=== PATIENT | male | born 1940 | race Caucasian/White ===

== ENCOUNTER 2017-01-17 14:39 | Inpatient (IN) | payer MEDICARE, BC ==
--- NOTE | 2017-01-17 14:57 | EDM.PDOC ---
ED HPI GENERAL MEDICAL PROBLEM - General Chief Complaint: Neuro Symptoms/Deficits Stated Complaint: RESPIRATORY PROBLEMS Time Seen by Provider: 01/17/17 14:52 - History of Present Illness INITIAL COMMENTS - FREE TEXT/NARRATIVE: HISTORY AND PHYSICAL: History of present illness: Patient is a 76-year-old white male who presents with concern of altered mental status and shortness of breath from [facility] he recently had a long stay at [facility] review was transferred to from us for myocardial infarction he had a complicated course at [facility] including cardiac arrest itself a pacemaker placed and has been a [place] for only 2 days has been no reported fever chills vomiting or other concerns Review of systems: As per history of present illness and below otherwise all systems reviewed and negative. Past medical history: As per history of present illness and as reviewed below otherwise noncontributory. Surgical history: As per history of present illness and as reviewed below otherwise noncontributory. Social history: No reported history of drug or alcohol abuse. Family history: As per history of present illness and as reviewed below otherwise noncontributory. Physical exam: HEENT: Atraumatic, normocephalic, pupils reactive, negative for conjunctival pallor or scleral icterus, mucous membranes moist, throat clear, neck supple, nontender, trachea midline. Lungs: Coarse bilaterally breath sounds equal bilaterally, chest nontender. Heart: S1S2, regular, negative for clicks, rubs, or JVD. Abdomen: Soft, nondistended, nontender. Negative for masses or hepatosplenomegaly. Negative for costovertebral tenderness. Pelvis: Stable nontender. Genitourinary: Deferred. Rectal: Deferred. Extremities: Atraumatic, negative for cords or calf pain. Neurovascular unremarkable. Neuro: Awake, somnolent left facial droop the daughter states has been present since his cardiac arrest at [facility] he does follow commands and move all extremities Diagnostics: CBC CMP PT/INR troponin EKG UA blood culture x2 chest x-ray CT brain Therapeutics: IV O2 monitor Impression: #1 altered mental status #2 dyspnea #3 coronary artery disease #4 history of recent pacemaker Definitive disposition and diagnosis as appropriate pending reevaluation and review of above. - Related Data Allergies Allergy/AdvReac Type Severity Reaction Status Date / Time No Known Allergies Allergy Verified 01/17/17 14:49 Home Meds: Home Meds Albuterol/Ipratropium [Combivent Respimat] 1 - 4 puff INH Q4HR PRN 11/13/15 [ History] Budesonide/Formoterol [Symbicort 160-4.5 Mcg Inhaler] 2 inh IH BID 11/14/15 [ History] Naproxen Sodium [Aleve] 220 mg PO DAILY PRN 11/14/15 [History] guaiFENesin [Mucinex] 1 tab PO DAILY PRN 01/29/16 [History] Furosemide [Lasix] 40 mg PO DAILY 07/10/16 [History] Past Medical History HEENT History: Reports: Impaired vision Other HEENT History: wears glasses, top and bottom denture Cardiovascular History: Reports: Aneurysm, CAD, High cholesterol, Hypertension, [place], SOB on exertion Respiratory History: Reports: COPD Gastrointestinal History: Reports: Hiatal hernia Genitourinary History: Reports: BPH, Hydronephrosis, Prostate disorder, Urinary incontinence Other Genitourinary History: urinary incontinence Musculoskeletal History: Reports: Arthritis Neurological History: Reports: None Psychiatric History: Reports: None Endocrine/Metabolic History: Reports: None Hematologic History: Reports: None Immunologic History: Reports: None Oncologic (Cancer) History: Reports: None Dermatologic History: Reports: None - Infectious Disease History Infectious Disease History: Reports: Chicken pox - Past Surgical History HEENT Surgical History: Reports: Tonsillectomy Cardiovascular Surgical History: Reports: Coronary artery stent Other Cardiovascular Surgeries/Procedures: states had repair of aneurysm GI Surgical History: Reports: Colonoscopy, Hernia repair/other Male Surgical History: Reports: Other (see below) Other Male Surgeries/Procedures: previous blocked kidney with stent placement Musculoskeletal Surgical History: Reports: Other (see below) Other Musculoskeletal Surgeries/Procedures:: hx foot surgery Social & Family History - Family History Family Medical History: Noncontributory Oncologic: Reports: Bone - Tobacco Use Smoking Status *Q: Former Smoker Years of Tobacco use: 30 Used Tobacco, but Quit: Yes Month Tobacco Last Used: October Second Hand Smoke Exposure: No - Caffeine Use Caffeine Use: Reports: Coffee - Alcohol Use Days Per Week of Alcohol Use: 0 - Recreational Drug Use Recreational Drug Use: No - Living Situation & Occupation Occupation: retired ED ROS GENERAL - Review of Systems Review Of Systems: ROS reveals no pertinent complaints other than HPI. ED EXAM, GENERAL - Physical Exam Exam: See Below (See dictation) Course - Vital Signs Last Recorded V/S: Last Vital Signs Temp 36.4 C 01/17/17 14:49 Pulse 73 01/17/17 14:49 Resp 16 01/17/17 14:49 BP 135/71 01/17/17 14:49 Pulse Ox 96 01/17/17 14:49 - Orders/Labs/Meds Orders: Active Orders 24 hr Category Date Time Status Patient Status [ADT] Stat ADT 01/17/17 17:34 Ordered Cardiac Monitoring [RC] . DIRECTED Care 01/17/17 14:42 Active EKG Documentation Completion [RC] STAT Care 01/17/17 14:42 Active CULTURE BLOOD [BC] Stat Lab 01/17/17 15:25 Received CULTURE BLOOD [BC] Stat Lab 01/17/17 15:35 Received Levofloxacin/Dextrose 5%-Water [Levaquin in D5W 750 MG/ Med 01/17/17 17:33 Ordered 150 ML] 750 mg Premix Bag 1 bag IV ONETIME Blood Culture x2 Reflex Set [OM.PC] Stat Oth 01/17/17 14:46 Ordered Labs: Laboratory Tests 01/17/17 01/17/17 01/17/17 Range/Units 14:40 14:40 14:40 WBC 11.45 H (4.0-11.0) K/uL RBC 3.91 L (4.50-5.90) M/uL Hgb 10.9 L (13.0-17.0) g/dL Hct 39.0 (38.0-50.0) % MCV 99.7 H (80.0-98.0) fL MCH 27.9 (27.0-32.0) pg MCHC 27.9 L (31.0-37.0) g/dL RDW Std Deviation 54.2 (28.0-62.0) fl RDW Coeff of Boo 15 (11.0-15.0) % Plt Count 221 (150-400) K/uL MPV 10.30 (7.40-12.00) fL Neut % (Auto) 85.2 H (48.0-80.0) % Lymph % (Auto) 4.4 L (16.0-40.0) % [place] % (Auto) 8.9 (0.0-15.0) % Eos % (Auto) 1.3 (0.0-7.0) % Baso % (Auto) 0.2 (0.0-1.5) % Neut # 9.8 H (1.4-5.7) K/uL Lymph # 0.5 L (0.6-2.4) K/uL [place] # 1.0 H (0.0-0.8) K/uL Eos # 0.2 (0.0-0.7) K/uL Baso # 0.0 (0.0-0.1) K/uL Nucleated RBC % 0.0 /100WBC Nucleated RBCs # 0 K/uL Sodium 148 H (136-146) mmol/L Potassium 4.5 (3.5-5.1) mmol/L Chloride 111 H (98-110) mmol/L Carbon Dioxide 27 (21-31) mmol/L BUN 49 H (6.0-23.0) mg/dL Creatinine 3.3 H (0.6-1.5) mg/dL Est Cr Clr Drug Dosing 19.40 mL/min Estimated GFR (MDRD) 18.3 ml/min Glucose 147 H (60-110) mg/dL Calcium 9.2 (8.8-10.8) mg/dL Total Bilirubin 0.3 (0.1-1.5) mg/dL AST 20 (5-40) IU/L ALT 18 (8-54) IU/L Alkaline Phosphatase 92 (40-150) Troponin I 0.20 (0.0-0.29) NG/ML Total Protein 6.8 (6.0-8.0) g/dL Albumin 3.3 L (3.4-4.8) g/dL Globulin 3.5 (2.0-3.5) g/dL Albumin/Globulin Ratio 0.9 L (1.3-2.8) Urine Color Urine Appearance Urine pH (5.0-8.0) Ur Specific [place] (1.001-1.035) Urine Protein (NEGATIVE) mg/dL Urine Glucose (UA) (NEGATIVE) mg/dL Urine Ketones (NEGATIVE) mg/dL Urine Occult Blood (NEGATIVE) Urine Nitrite (NEGATIVE) Urine Bilirubin (NEGATIVE) Urine Urobilinogen (<2.0) EU/dL Ur Leukocyte Esterase (NEGATIVE) Urine RBC (0-2/HPF) Urine WBC (0-5/HPF) Ur Epithelial Cells (NONE-FEW) Urine Bacteria (NEGATIVE) 01/17/17 Range/Units 16:05 WBC (4.0-11.0) K/uL RBC (4.50-5.90) M/uL Hgb (13.0-17.0) g/dL Hct (38.0-50.0) % MCV (80.0-98.0) fL MCH (27.0-32.0) pg MCHC (31.0-37.0) g/dL RDW Std Deviation (28.0-62.0) fl RDW Coeff of Boo (11.0-15.0) % Plt Count (150-400) K/uL MPV (7.40-12.00) fL Neut % (Auto) (48.0-80.0) % Lymph % (Auto) (16.0-40.0) % [place] % (Auto) (0.0-15.0) % Eos % (Auto) (0.0-7.0) % Baso % (Auto) (0.0-1.5) % Neut # (1.4-5.7) K/uL Lymph # (0.6-2.4) K/uL [place] # (0.0-0.8) K/uL Eos # (0.0-0.7) K/uL Baso # (0.0-0.1) K/uL Nucleated RBC % /100WBC Nucleated RBCs # K/uL Sodium (136-146) mmol/L Potassium (3.5-5.1) mmol/L Chloride (98-110) mmol/L Carbon Dioxide (21-31) mmol/L BUN (6.0-23.0) mg/dL Creatinine (0.6-1.5) mg/dL Est Cr Clr Drug Dosing mL/min Estimated GFR (MDRD) ml/min Glucose (60-110) mg/dL Calcium (8.8-10.8) mg/dL Total Bilirubin (0.1-1.5) mg/dL AST (5-40) IU/L ALT (8-54) IU/L Alkaline Phosphatase (40-150) Troponin I (0.0-0.29) NG/ML Total Protein (6.0-8.0) g/dL Albumin (3.4-4.8) g/dL Globulin (2.0-3.5) g/dL Albumin/Globulin Ratio (1.3-2.8) Urine Color YELLOW Urine Appearance SLT CLOUDY Urine pH 5.5 (5.0-8.0) Ur Specific [place] 1.020 (1.001-1.035) Urine Protein TRACE (NEGATIVE) mg/dL Urine Glucose (UA) NEGATIVE (NEGATIVE) mg/dL Urine Ketones NEGATIVE (NEGATIVE) mg/dL Urine Occult Blood MODERATE (NEGATIVE) Urine Nitrite NEGATIVE (NEGATIVE) Urine Bilirubin NEGATIVE (NEGATIVE) Urine Urobilinogen 0.2 (<2.0) EU/dL Ur Leukocyte Esterase SMALL (NEGATIVE) Urine RBC 14-16 (0-2/HPF) Urine WBC 45-50 (0-5/HPF) Ur Epithelial Cells OCCASIONAL (NONE-FEW) Urine Bacteria FEW (NEGATIVE) Departure - Departure Time of Disposition: 17:36 Disposition: Admitted As Inpatient 65 Condition: good Clinical Impression: UTI (urinary tract infection), Altered mental status Referrals: Fede Valderrama MD [Primary Care Provider] - Forms: ED Department Discharge - My Orders Last 24 Hours: My Active Orders 01/17/17 14:42 Cardiac Monitoring [RC] . DIRECTED EKG Documentation Completion [RC] STAT 01/17/17 14:46 Blood Culture x2 Reflex Set [OM.PC] Stat 01/17/17 15:25 CULTURE BLOOD [BC] Stat 01/17/17 15:35 CULTURE BLOOD [BC] Stat 01/17/17 17:33 Levofloxacin/Dextrose 5%-Water [Levaquin in D5W 750 MG/150 ML] 750 mg Premix Bag 1 bag IV ONETIME 01/17/17 17:34 Patient Status [ADT] Stat - Assessment/Plan Last 24 Hours: My Active Orders 01/17/17 14:42 Cardiac Monitoring [RC] . DIRECTED EKG Documentation Completion [RC] STAT 01/17/17 14:46 Blood Culture x2 Reflex Set [OM.PC] Stat 01/17/17 15:25 CULTURE BLOOD [BC] Stat 01/17/17 15:35 CULTURE BLOOD [BC] Stat 01/17/17 17:33 Levofloxacin/Dextrose 5%-Water [Levaquin in D5W 750 MG/150 ML] 750 mg Premix Bag 1 bag IV ONETIME 01/17/17 17:34 Patient Status [ADT] Stat
--- NOTE | 2017-01-17 15:14 | CT ---
EXAMINATION: Non contrast CT head. Coronal and sagittal reformats. HISTORY: Facial droop FINDINGS: No evidence of intra or extra axial hemorrhage, mass, midline shift, hydrocephalus or edema. There is moderate generalized atrophy and periventricular white matter hypodensities. Old tiny periventric ular lacunar infarcts noted. There is a prominence of the extra-axial space along the right aspect o f the cerebellum, unchanged. No hypoattenuation changes in the major vascular territories to suggest acute infarct. No abnormal intracranial calcifications are detected. Mild vascular calcifications are noted. Mucosal thickening is noted within the paranasal sinuses. Pituitary fossa appears unremarkable. The orbits and globes are symmetric. Calvarium is intact. No evidence of skull fracture. IMPRESSION: 1. No acute intracranial abnormality. 2. Generalized atrophy and small vessel ischemic changes.
--- NOTE | 2017-01-17 15:18 | CR ---
EXAMINATION: Portable chest radiograph. HISTORY: Stroke code. Comparison: 12/31/2016. FINDINGS: The trachea is midline. The cardiomediastinal silhouette is stable. There is a right-sided AICD now noted. No focal consolidation, pleural effusion, or pneumothorax. Osseous structures appear unremarkable. IMPRESSION: Interval AICD placement without an acute cardiopulmonary finding.
[2017-01-17] MEDS ORDERED: Levofloxacin/Dextrose 5%-Water 750 MG in Premix Bag 1 BAG IV ONE (17:33)
[2017-01-17] MEDS ORDERED: Ondansetron 4 MG/2 ML SDV IVPUSH PRN (22:45)
[2017-01-17] MEDS ORDERED: Sodium Chloride 0.9% 250 ML IV SCH (22:45)
[2017-01-17] MEDS ORDERED: Acetaminophen 325 MG Tab PO PRN (22:45)
[2017-01-18] MEDS: Heparin Sodium 5,000 Units/ML Vial SUBCUT SCH ×3 (00:07→18:28)
[2017-01-18] MEDS: Pantoprazole 40 MG Tab.CR PO SCH ×2 (07:05→09:59)
[2017-01-18] MEDS ORDERED: Heparin Sodium 5,000 Units/ML Vial SUBCUT SCH (09:15)
--- NOTE | 2017-01-18 09:22 | PCM.HP ---
H&P History of Present Illness - General Date of Service: 01/17/17 - History of Present Illness Initial Comments - Free Text/Narative: 76 yo male who has pmh of ischemic cardiomyopathy with diastolic dysfunction, peripheral vascular disease with AAA repair in 2009 and renal stenting, COPD, BPH with obstructive uropathy, stage III kidney disease. He was discharged yesterday from [facility]. He was transferred from [place] to [place] with acute inferior wall AL. He had a thrombectomy and PCI to RCA. His hospital stay was complicated by ileus, V.fib arrest with respiratory failure s/ p intubation and extubation, pacemaker with ICD implantation due to bradycardia. Today at [place] he was noted to be lethargy. He was brought to the ED and noted to be difficult to arouse. He had CT scan of head and CXR which was unremarkable. UA showed pyuria and WBC was 11,450. He was given Levaquin for UTI and his mentation did improve while in the ED. He was noted to have a creatinine of 3.3 which was up from 2.1 which was checked on 01/09/17. PAtient denies any chest pain, shortness of breath or fevers. Family reports that patient was requesting his inhalers for COPD yesterday due to shortness of breath but as they were not on his correction medication list he did not receive any. - Related Data Allergies/Adverse Reactions: Allergies Allergy/AdvReac Type Severity Reaction Status Date / Time No Known Allergies Allergy Verified 01/17/17 14:49 Home Medications: Home Meds Albuterol/Ipratropium [Combivent Respimat] 2 puff INH BID PRN 11/13/15 [History] Aspirin [Halfprin] 81 mg PO BRK 01/18/17 [History] Bisacodyl [Dulcolax] 10 mg PO BEDTIME 01/18/17 [History] Clopidogrel [Plavix] 75 mg PO DAILY 01/18/17 [History] Furosemide [Lasix] 40 mg PO ACBREAKFAST 01/18/17 [History] Isosorbide Dinitrate [Isochron] 60 mg PO BEDTIME 01/18/17 [History] Metoprolol Tartrate 50 mg PO BID 01/18/17 [History] Pantoprazole [Protonix] 40 mg PO ACBREAKFAST 01/18/17 [History] Tamsulosin [Flomax] 0.4 mg PO BEDTIME 01/18/17 [History] atorvaSTATin [Lipitor] 10 mg PO BEDTIME 01/18/17 [History] Past Medical History HEENT History: Reports: Impaired vision Other HEENT History: wears glasses, top and bottom denture Cardiovascular History: Reports: Aneurysm, CAD, High cholesterol, Hypertension, [place], SOB on exertion, Other (see below) Other Cardiovascular History: pacemaker Respiratory History: Reports: COPD Gastrointestinal History: Reports: Hiatal hernia Genitourinary History: Reports: BPH, Hydronephrosis, Prostate disorder, Urinary incontinence Other Genitourinary History: urinary incontinence Musculoskeletal History: Reports: Arthritis Neurological History: Reports: None Psychiatric History: Reports: None Endocrine/Metabolic History: Reports: None Hematologic History: Reports: None Immunologic History: Reports: None Oncologic (Cancer) History: Reports: None Dermatologic History: Reports: None - Infectious Disease History Infectious Disease History: Reports: Chicken pox - Past Surgical History HEENT Surgical History: Reports: Tonsillectomy Cardiovascular Surgical History: Reports: Coronary artery stent Other Cardiovascular Surgeries/Procedures: states had repair of aneurysm GI Surgical History: Reports: Colonoscopy, Hernia repair/other Male Surgical History: Reports: Other (see below) Other Male Surgeries/Procedures: previous blocked kidney with stent placement Musculoskeletal Surgical History: Reports: Other (see below) Other Musculoskeletal Surgeries/Procedures:: hx foot surgery Social & Family History - Family History Family Medical History: Noncontributory Oncologic: Reports: Bone - Tobacco Use Smoking Status *Q: Former Smoker Years of Tobacco use: 30 Used Tobacco, but Quit: Yes Month Tobacco Last Used: 0 Second Hand Smoke Exposure: No - Caffeine Use Caffeine Use: Reports: Coffee - Alcohol Use Days Per Week of Alcohol Use: 0 - Recreational Drug Use Recreational Drug Use: No - Living Situation & Occupation Occupation: retired H&P Review of Systems - Review of Systems: Review Of Systems: See Below General: Reports: no symptoms HEENT: Reports: no symptoms Pulmonary: Reports: no symptoms Cardiovascular: Reports: no symptoms Gastrointestinal: Reports: No symptoms Genitourinary: Reports: no symptoms Musculoskeletal: Reports: no symptoms Skin: Reports: no symptoms Psychiatric: Reports: no symptoms Neurological: Reports: no symptoms Hematologic/Lymphatic: Reports: no symptoms Immunologic: Reports: no symptoms Exam - Exam Exam: See Below - Vital Signs Vital Signs: Last Vital Signs Temp 36.0 C 02/18/17 08:00 Pulse 76 01/18/17 08:00 Resp 20 01/18/17 08:00 BP 152/66 H 01/18/17 08:00 Pulse Ox 98 01/18/17 08:00 Weight: 98.6 kg - Exam General: alert, cooperative Neck: supple, trachea midline. No: JVD Lungs: Clear to auscultation, Normal respiratory effort Cardiovascular: regular rate, regular rhythm Abdomen: normal bowel sounds, soft Extremities: normal inspection. No: edema Skin: warm, dry, intact Neurological: No: focal deficit - Patient Data Lab Results last 24 hrs: Laboratory Results - last 24 hr 01/18/17 01/18/17 Range/Units 05:00 06:18 WBC 8.86 (4.0-11.0) K/uL RBC 3.97 L (4.50-5.90) M/uL Hgb 11.2 L (13.0-17.0) g/dL Hct 39.9 (38.0-50.0) % MCV 100.5 H (80.0-98.0) fL MCH 28.2 (27.0-32.0) pg MCHC 28.1 L (31.0-37.0) g/dL RDW Std Deviation 52.9 (28.0-62.0) fl RDW Coeff of Boo 15 (11.0-15.0) % Plt Count 203 (150-400) K/uL MPV 10.60 (7.40-12.00) fL Neut % (Auto) 86.5 H (48.0-80.0) % Lymph % (Auto) 5.2 L (16.0-40.0) % [place] % (Auto) 6.3 (0.0-15.0) % Eos % (Auto) 1.8 (0.0-7.0) % Baso % (Auto) 0.2 (0.0-1.5) % Neut # 7.7 H (1.4-5.7) K/uL Lymph # 0.5 L (0.6-2.4) K/uL [place] # 0.6 (0.0-0.8) K/uL Eos # 0.2 (0.0-0.7) K/uL Baso # 0.0 (0.0-0.1) K/uL Nucleated RBC % 0.0 /100WBC Nucleated RBCs # 0 K/uL Sodium 148 H (136-146) mmol/L Potassium 4.3 (3.5-5.1) mmol/L Chloride 113 H (98-110) mmol/L Carbon Dioxide 24 (21-31) mmol/L BUN 50 H (6.0-23.0) mg/dL Creatinine 2.6 H (0.6-1.5) mg/dL Est Cr Clr Drug Dosing 24.63 mL/min Estimated GFR (MDRD) 24.1 ml/min Glucose 100 (60-110) mg/dL Calcium 9.1 (8.8-10.8) mg/dL Result Diagrams: 01/18/17 06:18 01/18/17 05:00 EKG INTERPRETATION Rhythm: NSR Rate (beats/min): 63 P-wave: present ST-T: normal *Q Meaningful Use (ADM) - VTE *Q VTE Criteria *Q: - Stroke *Q Stroke Criteria *Q: - AMI *Q AMI Criteria *Q: Problem List Initiated/Reviewed/Updated: Yes Orders Last 24hrs: Active Orders 24 hr Category Date Time Status Antiembolic Devices [RC] PER UNIT ROUTINE Care 01/17/17 22:46 Active Intake and Output [RC] Q12H Care 01/17/17 22:45 Active Oxygen Therapy [RC] PRN Care 01/17/17 22:45 Active Telemetry Monitoring [Cardiac Monitoring] [RC] . Care 01/17/17 20:11 Active DIRECTED Up ad Latasha [RC] ASDIRECTED Care 01/17/17 22:45 Active VTE/DVT Education [RC] PER UNIT ROUTINE Care 01/17/17 22:45 Active Vital Signs [RC] Q4H Care 01/17/17 22:45 Active Head wo Cont [CT] Stat Exams 01/18/17 08:38 Stop Req Retroperitoneal Ltd [US] Routine Exams 01/17/17 22:43 Ordered ABG [BLOOD GAS ARTERIAL] [BG] Routine Lab 01/18/17 08:36 Ordered BASIC METABOLIC PANEL,BMP [CHEM] AM Lab 01/19/17 05:11 Ordered BASIC METABOLIC PANEL,BMP [CHEM] AM Lab 01/20/17 05:11 Ordered BASIC METABOLIC PANEL,BMP [CHEM] AM Lab 01/21/17 05:11 Ordered CBC WITH AUTO DIFF [HEME] AM Lab 01/19/17 05:11 Ordered CBC WITH AUTO DIFF [HEME] AM Lab 01/20/17 05:11 Ordered CBC WITH AUTO DIFF [HEME] AM Lab 01/21/17 05:11 Ordered CULTURE URINE [RM] Routine Lab 01/18/17 00:48 Received Acetaminophen [Tylenol] Med 01/17/17 22:45 Active 650 mg PO Q4H PRN Aspirin Med 01/18/17 09:00 Active 81 mg PO DAILY Clopidogrel [Plavix] Med 01/18/17 09:00 Active 75 mg PO DAILY Heparin Sodium Med 01/18/17 09:15 Ordered 5,000 units SUBCUT Q12H Isosorbide Dinitrate [Isordil] Med 01/18/17 09:00 Active 40 mg PO DAILY Levofloxacin/Dextrose 5%-Water [Levaquin in D5W 750 MG/ Med 01/18/17 17:45 Ordered 150 ML] 750 mg Premix Bag 1 bag IV Q24H Ondansetron [Zofran] Med 01/17/17 22:45 Active 4 mg IVPUSH Q4H PRN Pantoprazole [Protonix] Med 01/18/17 07:30 Active 40 mg PO ACBREAKFAST Tamsulosin [Flomax] Med 01/18/17 09:00 Active 0.4 mg PO DAILY atorvaSTATin [Lipitor] Med 01/18/17 21:00 Active 10 mg PO BEDTIME Sequential Compression Device [OM.PC] Per Unit Routine Oth 01/17/17 22:46 Ordered Resuscitation Status Routine Resus Stat 01/17/17 22:45 Ordered Medication Orders Acetaminophen (Tylenol) 650 mg PO Q4H PRN PRN Reason: Pain (Mild 1-3)/fever Aspirin (Aspirin) 81 mg PO DAILY [place] Atorvastatin Calcium (Lipitor) 10 mg PO BEDTIME [place] Clopidogrel Bisulfate (Plavix) 75 mg PO DAILY [place] Heparin Sodium (Porcine) (Heparin Sodium) 5,000 units SUBCUT Q12H [place] Isosorbide Dinitrate (Isordil) 40 mg PO DAILY [place] Ondansetron HCl (Zofran) 4 mg IVPUSH Q4H PRN PRN Reason: Nausea Pantoprazole Sodium (Protonix) 40 mg PO ACBREAKFAST [place] Tamsulosin HCl (Flomax) 0.4 mg PO DAILY [place] Assessment/Plan Comment:: 76 yo male with pmh of CAD,CHF,CKD,BPH,COPD admitted with altered mental status found to have UTI UTI: will treat with levquin, urine cultures pending acute on chronic kidney disease, will hydrate with 250 ml of NS IV fluids, hold lasix for today check renal ultrasound and place stokes cath due to concerns of possible obstructive uropathy. CAD with recent AL s/p PCI: continue plavix, ASA, lipitor, isorbide dinitrate and metoprolol Cardiomyopathy: holding lasix for now as patient appears dry, will monitor closely and resume when appropriate COPD: on duonebs
[2017-01-18] MEDS ORDERED: Albuterol/Ipratropium 3.0-0.5 MG/3 ML Neb Soln NEB PRN (09:27)
--- NOTE | 2017-01-18 09:44 | PCM.PN ---
- General Info Date of Service: 01/18/17 - Review of Systems Systems Review Comment:: patient was difficult to arouse this morning, nurses were not able to wake him with sternal rub, he did respond to painful stimuli. When I came to the room he easily awoke and responded appropriately to questions. He denies any shortness of breath, he denies any chest pain - Patient Data Vitals - most recent: Last Vital Signs Temp 36.0 C 01/18/17 08:00 Pulse 76 01/18/17 08:00 Resp 20 01/18/17 08:00 BP 152/66 H 01/18/17 08:00 Pulse Ox 98 01/18/17 08:00 Weight - most recent: 98.6 kg I&O - last 24 hours: Intake & Output 01/17/17 01/18/17 01/18/17 22:59 06:59 14:59 Intake Total 300 Output Total 350 Balance -50 Lab Results last 24 hrs: Laboratory Results - last 24 hr 01/18/17 01/18/17 Range/Units 05:00 06:18 WBC 8.86 (4.0-11.0) K/uL RBC 3.97 L (4.50-5.90) M/uL Hgb 11.2 L (13.0-17.0) g/dL Hct 39.9 (38.0-50.0) % MCV 100.5 H (80.0-98.0) fL MCH 28.2 (27.0-32.0) pg MCHC 28.1 L (31.0-37.0) g/dL RDW Std Deviation 52.9 (28.0-62.0) fl RDW Coeff of Boo 15 (11.0-15.0) % Plt Count 203 (150-400) K/uL MPV 10.60 (7.40-12.00) fL Neut % (Auto) 86.5 H (48.0-80.0) % Lymph % (Auto) 5.2 L (16.0-40.0) % [place] % (Auto) 6.3 (0.0-15.0) % Eos % (Auto) 1.8 (0.0-7.0) % Baso % (Auto) 0.2 (0.0-1.5) % Neut # 7.7 H (1.4-5.7) K/uL Lymph # 0.5 L (0.6-2.4) K/uL [place] # 0.6 (0.0-0.8) K/uL Eos # 0.2 (0.0-0.7) K/uL Baso # 0.0 (0.0-0.1) K/uL Nucleated RBC % 0.0 /100WBC Nucleated RBCs # 0 K/uL Sodium 148 H (136-146) mmol/L Potassium 4.3 (3.5-5.1) mmol/L Chloride 113 H (98-110) mmol/L Carbon Dioxide 24 (21-31) mmol/L BUN 50 H (6.0-23.0) mg/dL Creatinine 2.6 H (0.6-1.5) mg/dL Est Cr Clr Drug Dosing 24.63 mL/min Estimated GFR (MDRD) 24.1 ml/min Glucose 100 (60-110) mg/dL Calcium 9.1 (8.8-10.8) mg/dL Med Orders - Current: Current Medications Acetaminophen (Tylenol) 650 mg PO Q4H PRN PRN Reason: Pain (Mild 1-3)/fever Albuterol/Ipratropium (Duoneb 3.0-0.5 Mg/3 Ml) 3 ml NEB Q6HRRT PRN PRN Reason: wheezing Aspirin (Aspirin) 81 mg PO DAILY [facility] Atorvastatin Calcium (Lipitor) 10 mg PO BEDTIME [facility] Clopidogrel Bisulfate (Plavix) 75 mg PO DAILY [facility] Heparin Sodium (Porcine) (Heparin Sodium) 5,000 units SUBCUT Q12H [facility] Levofloxacin/Dextrose 750 mg/ (Premix) 150 mls @ 100 mls/hr IV Q48H [facility] Isosorbide Dinitrate (Isordil) 40 mg PO DAILY [facility] Ondansetron HCl (Zofran) 4 mg IVPUSH Q4H PRN PRN Reason: Nausea Pantoprazole Sodium (Protonix) 40 mg PO ACBREAKFAST [facility] Tamsulosin HCl (Flomax) 0.4 mg PO DAILY [facility] Discontinued Medications Heparin Sodium (Porcine) (Heparin Sodium) 5,000 units SUBCUT Q8H [facility] Last Admin: 01/18/17 07:05 Dose: 5,000 units Levofloxacin/Dextrose 750 mg/ (Premix) 150 mls @ 100 mls/hr IV ONETIME ONE Stop: 01/17/17 19:02 Last Admin: 01/17/17 17:45 Dose: 100 mls/hr Sodium Chloride (Normal Saline) 250 mls @ 75 mls/hr IV ASDIRECTED [facility] Stop: 01/18/17 02:04 Last Admin: 01/18/17 00:15 Dose: 75 mls/hr - Exam General: alert, cooperative, no acute distress Lungs: Decreased breath sounds Cardiovascular: regular rate, regular rhythm Abdomen: bowel sounds present, soft, no tenderness, no distension Extremities: no edema Skin: warm, dry, intact Neurological: no new focal deficit - Problem List Review Problem List Initiated/Reviewed/Updated: Yes - My Orders Last 24 Hours: My Active Orders 01/17/17 20:11 Telemetry Monitoring [Cardiac Monitoring] [RC] . DIRECTED 01/17/17 22:43 Retroperitoneal Ltd [US] Routine 01/17/17 22:45 Intake and Output [RC] Q12H Oxygen Therapy [RC] PRN Up ad Latasha [RC] ASDIRECTED VTE/DVT Education [RC] PER UNIT ROUTINE Vital Signs [RC] Q4H Acetaminophen [Tylenol] 650 mg PO Q4H PRN Ondansetron [Zofran] 4 mg IVPUSH Q4H PRN Resuscitation Status Routine 01/17/17 22:46 Antiembolic Devices [RC] PER UNIT ROUTINE Sequential Compression Device [OM.PC] Per Unit Routine 01/18/17 00:48 CULTURE URINE [RM] Routine 01/18/17 07:30 Pantoprazole [Protonix] 40 mg PO ACBREAKFAST 01/18/17 08:36 ABG [BLOOD GAS ARTERIAL] [BG] Routine 01/18/17 09:00 Aspirin 81 mg PO DAILY Clopidogrel [Plavix] 75 mg PO DAILY Isosorbide Dinitrate [Isordil] 40 mg PO DAILY Tamsulosin [Flomax] 0.4 mg PO DAILY 01/18/17 09:15 Heparin Sodium 5,000 units SUBCUT Q12H 01/18/17 09:27 Albuterol/Ipratropium [DuoNeb 3.0-0.5 MG/3 ML] 3 ml NEB Q6HRRT PRN 01/18/17 09:28 RT Aerosol Therapy [RC] ASDIRECTED 01/18/17 17:45 Levofloxacin/Dextrose 5%-Water [Levaquin in D5W 750 MG/150 ML] 750 mg Premix Bag 1 bag IV Q24H 01/18/17 21:00 atorvaSTATin [Lipitor] 10 mg PO BEDTIME 01/19/17 05:11 BASIC METABOLIC PANEL,BMP [CHEM] AM CBC WITH AUTO DIFF [HEME] AM 01/20/17 05:11 BASIC METABOLIC PANEL,BMP [CHEM] AM CBC WITH AUTO DIFF [HEME] AM 01/21/17 05:11 BASIC METABOLIC PANEL,BMP [CHEM] AM CBC WITH AUTO DIFF [HEME] AM - Plan Plan:: 76 yo male with pmh of CAD,CHF,CKD,BPH,COPD admitted with altered mental status found to have UTI UTI: will treat with levquin, urine cultures pending acute on chronic kidney disease, gave 250 ml of NS IV fluids, Creatinine decreased to 2.5, hold lasix for today check renal ultrasound and placed stokes cath due to concerns of possible obstructive uropathy. CAD with recent [place] s/p PCI: continue plavix, ASA, lipitor, isorbide dinitrate and metoprolol Cardiomyopathy: holding lasix for now as patient appears dry, will monitor closely and resume when appropriate COPD: on duonebs Altered mental status, likely encephalopathic due to UTI and is a deep sleeper, will check ABG to check for CO2 retention, patient is awake now.
[2017-01-18] MEDS: ISOSORBIDE DINITRATE 40 MG PO SCH (09:59)
[2017-01-18] MEDS: Aspirin 81 MG Tab.Chew PO SCH (09:59)
[2017-01-18] MEDS: Clopidogrel 75 MG Tab PO SCH (09:59)
[2017-01-18] MEDS: Tamsulosin 0.4 MG Cap.ER PO SCH (09:59)
[2017-01-18] MEDS: atorvaSTATin 10 MG Tab PO SCH (22:13)
[2017-01-19] MEDS: Heparin Sodium 5,000 Units/ML Vial SUBCUT SCH ×2 (06:24→18:11)
[2017-01-19] MEDS: Aspirin 81 MG Tab.Chew PO SCH (08:12)
[2017-01-19] MEDS: Clopidogrel 75 MG Tab PO SCH (08:12)
[2017-01-19] MEDS: ISOSORBIDE DINITRATE 40 MG PO SCH (08:12)
[2017-01-19] MEDS: Tamsulosin 0.4 MG Cap.ER PO SCH (08:12)
[2017-01-19] MEDS: Pantoprazole 40 MG Tab.CR PO SCH (08:12)
[2017-01-19] MEDS ORDERED: Dextrose 5% in Water 1,000 ML IV SCH (10:00)
--- NOTE | 2017-01-19 10:21 | PCM.PN ---
- Review of Systems Systems Review Comment:: feeling better, denies shortness of breath. - Patient Data Vitals - most recent: Last Vital Signs Temp 36.6 C 01/19/17 08:00 Pulse 86 01/19/17 08:00 Resp 2 L 01/19/17 08:00 BP 146/38 H 01/19/17 08:00 Pulse Ox 95 01/19/17 08:00 Weight - most recent: 98.6 kg I&O - last 24 hours: Intake & Output 01/18/17 01/19/17 01/19/17 22:59 06:59 14:59 Intake Total 480 50 Output Total 550 700 Balance -70 -650 Lab Results last 24 hrs: Laboratory Results - last 24 hr 01/19/17 01/19/17 01/19/17 Range/Units 06:20 06:21 06:21 WBC 9.11 (4.0-11.0) K/uL RBC 4.11 L (4.50-5.90) M/uL Hgb 11.4 L (13.0-17.0) g/dL Hct 41.7 (38.0-50.0) % MCV 101.5 H (80.0-98.0) fL MCH 27.7 (27.0-32.0) pg MCHC 27.3 L (31.0-37.0) g/dL RDW Std Deviation 53.6 (28.0-62.0) fl RDW Coeff of Boo 14 (11.0-15.0) % Plt Count 202 (150-400) K/uL MPV 11.30 (7.40-12.00) fL Neut % (Auto) 86.2 H (48.0-80.0) % Lymph % (Auto) 5.0 L (16.0-40.0) % [place] % (Auto) 6.4 (0.0-15.0) % Eos % (Auto) 2.2 (0.0-7.0) % Baso % (Auto) 0.2 (0.0-1.5) % Neut # 7.9 H (1.4-5.7) K/uL Lymph # 0.5 L (0.6-2.4) K/uL [place] # 0.6 (0.0-0.8) K/uL Eos # 0.2 (0.0-0.7) K/uL Baso # 0.0 (0.0-0.1) K/uL Nucleated RBC % 0.0 /100WBC Nucleated RBCs # 0 K/uL Sodium 151 H (136-146) mmol/L Potassium 4.5 (3.5-5.1) mmol/L Chloride 112 H (98-110) mmol/L Carbon Dioxide 30 (21-31) mmol/L BUN 51 H (6.0-23.0) mg/dL Creatinine 2.8 H (0.6-1.5) mg/dL Est Cr Clr Drug Dosing 22.87 mL/min Estimated GFR (MDRD) 22.1 ml/min Glucose 101 (60-110) mg/dL POC Glucose 106 (60-110) mg/dL Calcium 9.8 (8.8-10.8) mg/dL Med Orders - Current: Current Medications Acetaminophen (Tylenol) 650 mg PO Q4H PRN PRN Reason: Pain (Mild 1-3)/fever Albuterol/Ipratropium (Duoneb 3.0-0.5 Mg/3 Ml) 3 ml NEB Q6HRRT PRN PRN Reason: wheezing Aspirin (Aspirin) 81 mg PO DAILY [facility] Last Admin: 01/19/17 08:12 Dose: 81 mg Atorvastatin Calcium (Lipitor) 10 mg PO BEDTIME [facility] Last Admin: 01/18/17 22:13 Dose: 10 mg Clopidogrel Bisulfate (Plavix) 75 mg PO DAILY [facility] Last Admin: 01/19/17 08:12 Dose: 75 mg Furosemide (Lasix) 40 mg PO ONETIME ONE Stop: 01/19/17 10:15 Heparin Sodium (Porcine) (Heparin Sodium) 5,000 units SUBCUT Q12H [facility] Last Admin: 01/19/17 06:24 Dose: 5,000 units Levofloxacin/Dextrose 750 mg/ (Premix) 150 mls @ 100 mls/hr IV Q48H [facility] Dextrose/Water (Dextrose 5% In Water) 1,000 mls @ 50 mls/hr IV ASDIRECTED [facility] Stop: 01/19/17 16:00 Isosorbide Dinitrate (Isordil) 40 mg PO DAILY [facility] Last Admin: 01/19/17 08:12 Dose: 40 mg Metoprolol Tartrate (Lopressor) 50 mg PO BID [facility] Ondansetron HCl (Zofran) 4 mg IVPUSH Q4H PRN PRN Reason: Nausea Pantoprazole Sodium (Protonix) 40 mg PO ACBREAKFAST [facility] Last Admin: 01/19/17 08:12 Dose: 40 mg Tamsulosin HCl (Flomax) 0.4 mg PO DAILY [facility] Last Admin: 01/19/17 08:12 Dose: 0.4 mg Discontinued Medications Heparin Sodium (Porcine) (Heparin Sodium) 5,000 units SUBCUT Q8H [facility] Last Admin: 01/18/17 07:05 Dose: 5,000 units Heparin Sodium (Porcine) (Heparin Sodium) 5,000 units SUBCUT Q12H [facility] Last Admin: 01/18/17 10:55 Dose: Not Given Levofloxacin/Dextrose 750 mg/ (Premix) 150 mls @ 100 mls/hr IV ONETIME ONE Stop: 01/17/17 19:02 Last Admin: 01/17/17 17:45 Dose: 100 mls/hr Sodium Chloride (Normal Saline) 250 mls @ 75 mls/hr IV ASDIRECTED [facility] Stop: 01/18/17 02:04 Last Admin: 01/18/17 00:15 Dose: 75 mls/hr - Exam General: alert, oriented Lungs: Clear to auscultation, Normal respiratory effort Cardiovascular: regular rate, regular rhythm Abdomen: bowel sounds present, soft, no tenderness, no distension Extremities: no edema Skin: warm, dry, intact Neurological: no new focal deficit - Problem List Review Problem List Initiated/Reviewed/Updated: Yes - My Orders Last 24 Hours: My Active Orders 01/18/17 09:27 Albuterol/Ipratropium [DuoNeb 3.0-0.5 MG/3 ML] 3 ml NEB Q6HRRT PRN 01/18/17 09:28 RT Aerosol Therapy [RC] ASDIRECTED 01/18/17 09:55 Communication Order [RC] PER UNIT ROUTINE 01/18/17 19:00 Heparin Sodium 5,000 units SUBCUT Q12H 01/18/17 21:00 atorvaSTATin [Lipitor] 10 mg PO BEDTIME 01/19/17 10:00 Dextrose 5% in Water 1,000 ml IV ASDIRECTED 01/19/17 10:14 Furosemide [Lasix] 40 mg PO ONETIME ONE 01/19/17 10:30 Metoprolol Tartrate [Lopressor] 50 mg PO BID 01/19/17 17:45 Levofloxacin/Dextrose 5%-Water [Levaquin in D5W 750 MG/150 ML] 750 mg Premix Bag 1 bag IV Q48H 01/20/17 05:11 BASIC METABOLIC PANEL,BMP [CHEM] AM CBC WITH AUTO DIFF [HEME] AM 01/21/17 05:11 BASIC METABOLIC PANEL,BMP [CHEM] AM CBC WITH AUTO DIFF [HEME] AM - Plan Plan:: 76 yo male with pmh of CAD,CHF,CKD,BPH,COPD admitted with altered mental status found to have UTI UTI: will continue levqauin, hypernatremia: will give D5W IV fluids and resume lasix, will recheck BMP this afternoon acute on chronic kidney disease, Creatinine is 2.8 CAD with recent [place] s/p PCI: continue plavix, ASA, lipitor, isorbide dinitrate and metoprolol Cardiomyopathy: will resume lasix today COPD: on duonebs
[2017-01-19] MEDS ORDERED: Furosemide 40 MG Tab PO ONE (10:45)
[2017-01-19] MEDS: Metoprolol Tartrate 50 MG Tab PO SCH ×2 (11:20→21:16)
[2017-01-19] MEDS: Albuterol/Ipratropium 4 GM Inhalation Spray INH PRN (13:50)
[2017-01-19] MEDS: Levofloxacin/Dextrose 5%-Water 750 MG in Premix Bag 1 BAG IV SCH (18:10)
[2017-01-19] MEDS ORDERED: Dextrose 5% in Water 500 ML IV SCH (19:15)
[2017-01-19] MEDS: BUDESONIDE INH SCH (20:08)
[2017-01-19] MEDS: FORMOTEROL INH SCH (20:08)
[2017-01-19] MEDS ORDERED: Docusate Sodium 100 MG Cap PO PRN (20:39)
[2017-01-19] MEDS: atorvaSTATin 10 MG Tab PO SCH (21:18)
[2017-01-20] MEDS: Pantoprazole 40 MG Tab.CR PO SCH (06:55)
[2017-01-20] MEDS: Heparin Sodium 5,000 Units/ML Vial SUBCUT SCH ×2 (06:55→18:12)
[2017-01-20] MEDS: BUDESONIDE INH SCH ×2 (08:10→20:49)
[2017-01-20] MEDS: FORMOTEROL INH SCH ×2 (08:10→20:49)
[2017-01-20] MEDS ORDERED: Dextrose 5% in Water 500 ML IV SCH (08:15)
--- NOTE | 2017-01-20 08:21 | PCM.PN ---
- General Info Date of Service: 01/20/17 Admission Dx/Problem (Free Text): UTI Subjective Update: Reports feeling better this morning. Denies any pain. Denies chest pain or SOB. Slightly confused and not oriented to time or place. Functional Status: Reports: pain controlled, tolerating diet, ambulating, urinating - Review of Systems General: Denies: fever HEENT: Reports: no symptoms Pulmonary: Reports: no symptoms. Denies: shortness of breath, cough, sputum Cardiovascular: Reports: no symptoms. Denies: chest pain, palpitations, edema Gastrointestinal: Reports: No symptoms. Denies: Abdominal pain, Nausea, Vomiting Genitourinary: Reports: no symptoms Musculoskeletal: Reports: no symptoms Skin: Reports: no symptoms Psychiatric: Reports: confusion - Patient Data Vitals - most recent: Last Vital Signs Temp 97.8 F 01/20/17 04:00 Pulse 71 01/20/17 04:00 Resp 19 01/20/17 04:00 BP 127/67 01/20/17 04:00 Pulse Ox 97 01/20/17 04:00 Weight - most recent: 98.6 kg I&O - last 24 hours: Intake & Output 01/19/17 01/20/17 01/20/17 22:59 06:59 14:59 Intake Total 800 50 Output Total 1000 700 Balance -200 -650 Lab Results last 24 hrs: Laboratory Results - last 24 hr 01/19/17 01/20/17 01/20/17 Range/Units 15:02 06:46 06:46 WBC 8.23 (4.0-11.0) K/uL RBC 4.24 L (4.50-5.90) M/uL Hgb 12.2 L (13.0-17.0) g/dL Hct 40.6 (38.0-50.0) % MCV 95.8 (80.0-98.0) fL MCH 28.8 (27.0-32.0) pg MCHC 30.0 L (31.0-37.0) g/dL RDW Std Deviation 49.1 (28.0-62.0) fl RDW Coeff of Boo 14 (11.0-15.0) % Plt Count 180 (150-400) K/uL MPV 11.40 (7.40-12.00) fL Neut % (Auto) 78.2 (48.0-80.0) % Lymph % (Auto) 8.4 L (16.0-40.0) % [place] % (Auto) 9.5 (0.0-15.0) % Eos % (Auto) 3.5 (0.0-7.0) % Baso % (Auto) 0.4 (0.0-1.5) % Neut # 6.4 H (1.4-5.7) K/uL Lymph # 0.7 (0.6-2.4) K/uL [place] # 0.8 (0.0-0.8) K/uL Eos # 0.3 (0.0-0.7) K/uL Baso # 0.0 (0.0-0.1) K/uL Nucleated RBC % 0.0 /100WBC Nucleated RBCs # 0 K/uL Sodium 150 H 151 H (136-146) mmol/L Potassium 4.3 3.6 (3.5-5.1) mmol/L Chloride 110 109 (98-110) mmol/L Carbon Dioxide 32 H 31 (21-31) mmol/L BUN 52 H 47 H (6.0-23.0) mg/dL Creatinine 2.8 H 2.4 H (0.6-1.5) mg/dL Est Cr Clr Drug Dosing 22.87 26.68 mL/min Estimated GFR (MDRD) 22.1 26.4 ml/min Glucose 200 H 106 (60-110) mg/dL Calcium 9.3 9.6 (8.8-10.8) mg/dL Med Orders - Current: Current Medications Acetaminophen (Tylenol) 650 mg PO Q4H PRN PRN Reason: Pain (Mild 1-3)/fever Albuterol/Ipratropium (Duoneb 3.0-0.5 Mg/3 Ml) 3 ml NEB Q6HRRT PRN PRN Reason: wheezing Albuterol/Ipratropium (Combivent Respimat) 0 gm INH BID PRN PRN Reason: Dyspnea Last Admin: 01/19/17 13:50 Dose: 1 canister Aspirin (Aspirin) 81 mg PO DAILY [facility] Last Admin: 01/19/17 08:12 Dose: 81 mg Atorvastatin Calcium (Lipitor) 10 mg PO BEDTIME [facility] Last Admin: 01/19/17 21:18 Dose: 10 mg Clopidogrel Bisulfate (Plavix) 75 mg PO DAILY [facility] Last Admin: 01/19/17 08:12 Dose: 75 mg Docusate Sodium (Colace) 100 mg PO BID PRN PRN Reason: Constipation Last Admin: 01/19/17 21:19 Dose: 100 mg Heparin Sodium (Porcine) (Heparin Sodium) 5,000 units SUBCUT Q12H [facility] Last Admin: 01/20/17 06:55 Dose: 5,000 units Levofloxacin/Dextrose 750 mg/ (Premix) 150 mls @ 100 mls/hr IV Q48H [facility] Last Admin: 01/19/17 18:10 Dose: 100 mls/hr Dextrose/Water (Dextrose 5% In Water) 500 mls @ 50 mls/hr IV ASDIRECTED [facility] Isosorbide Dinitrate (Isordil) 40 mg PO DAILY [facility] Last Admin: 01/19/17 08:12 Dose: 40 mg Metoprolol Tartrate (Lopressor) 50 mg PO BID [facility] Last Admin: 01/19/17 21:16 Dose: 50 mg Ondansetron HCl (Zofran) 4 mg IVPUSH Q4H PRN PRN Reason: Nausea Pantoprazole Sodium (Protonix) 40 mg PO ACBREAKFAST [facility] Last Admin: 01/20/17 06:55 Dose: 40 mg Budesonide/Formoterol 2 Puff ( [place] 160-4.5) 0 each INH BID [facility] Last Admin: 01/20/17 08:10 Dose: 2 each Tamsulosin HCl (Flomax) 0.4 mg PO DAILY [facility] Last Admin: 01/19/17 08:12 Dose: 0.4 mg Discontinued Medications Furosemide (Lasix) 40 mg PO ONETIME ONE Stop: 01/19/17 10:46 Last Admin: 01/19/17 11:21 Dose: 40 mg Heparin Sodium (Porcine) (Heparin Sodium) 5,000 units SUBCUT Q8H [facility] Last Admin: 01/18/17 07:05 Dose: 5,000 units Heparin Sodium (Porcine) (Heparin Sodium) 5,000 units SUBCUT Q12H [facility] Last Admin: 01/18/17 10:55 Dose: Not Given Levofloxacin/Dextrose 750 mg/ (Premix) 150 mls @ 100 mls/hr IV ONETIME ONE Stop: 01/17/17 19:02 Last Admin: 01/17/17 17:45 Dose: 100 mls/hr Sodium Chloride (Normal Saline) 250 mls @ 75 mls/hr IV ASDIRECTED [facility] Stop: 01/18/17 02:04 Last Admin: 01/18/17 00:15 Dose: 75 mls/hr Dextrose/Water (Dextrose 5% In Water) 1,000 mls @ 40 mls/hr IV ASDIRECTED [facility] Stop: 01/19/17 13:00 Last Admin: 01/19/17 11:21 Dose: 40 mls/hr Dextrose/Water (Dextrose 5% In Water) 500 mls @ 50 mls/hr IV ASDIRECTED [facility] Dextrose/Water (Dextrose 5% In Water) 500 mls @ 50 mls/hr IV ASDIRECTED [facility] Stop: 01/20/17 05:14 Last Admin: 01/19/17 21:16 Dose: 50 mls/hr - Exam Quality Assessment: urine catheter, DVT prophylaxis General: alert, cooperative. No: oriented (only to person) Neck: supple, no JVD Lungs: Clear to auscultation, Normal respiratory effort Cardiovascular: regular rate, regular rhythm Abdomen: bowel sounds present, soft, no tenderness, no distension Extremities: no edema, normal pulses, no calf tenderness Psy/Mental Status: alert, normal affect, normal mood - Problem List & Annotations (1) [id number] kidney injury SNOMED Code(s): 648809625 Code(s): N17.9 - ACUTE KIDNEY FAILURE, UNSPECIFIED; N18.9 - CHRONIC KIDNEY DISEASE, UNSPECIFIED Status: Acute Current Visit: Yes (2) Altered mental status SNOMED Code(s): 337571267 Code(s): R41.82 - ALTERED MENTAL STATUS, UNSPECIFIED Status: Acute Current Visit: Yes (3) UTI (urinary tract infection) SNOMED Code(s): 03874029 Code(s): N39.0 - URINARY TRACT INFECTION, SITE NOT SPECIFIED Status: Acute Current Visit: Yes Qualifiers: Urinary tract infection type: acute cystitis Hematuria presence: without hematuria Qualified Code(s): N30.00 - Acute cystitis without hematuria (4) Afib, Atrial fibrillation SNOMED Code(s): 40761641 Code(s): I48.91 - UNSPECIFIED ATRIAL FIBRILLATION Status: Chronic Current Visit: No (5) COPD, Mild chronic obstructive pulmonary disease SNOMED Code(s): 578493962 Code(s): J44.9 - CHRONIC OBSTRUCTIVE PULMONARY DISEASE, UNSPECIFIED Status : Chronic Current Visit: No (6) Coronary arteriosclerosis, CAD SNOMED Code(s): 83884778 Code(s): I25.10 - ATHSCL HEART DISEASE OF [place] CORONARY ARTERY W/O ANG PCTRS Status: Chronic Current Visit: No (7) Ischemic cardiomyopathy SNOMED Code(s): 009052981 Code(s): I25.5 - ISCHEMIC CARDIOMYOPATHY Status: Chronic Current Visit: Yes (8) Hypernatremia SNOMED Code(s): 37834168 Code(s): E87.0 - HYPEROSMOLALITY AND HYPERNATREMIA Status: Acute Current Visit: Yes - Problem List Review Problem List Initiated/Reviewed/Updated: Yes - My Orders Last 24 Hours: My Active Orders 01/20/17 08:05 Intake and Output Strict [RC] ASDIRECTED 01/20/17 08:15 Dextrose 5% in Water 500 ml IV ASDIRECTED 01/20/17 13:00 BMP [BASIC METABOLIC PANEL,BMP] [CHEM] Routine - Plan Plan:: This 76 year old male with pmh of CAD,CHF,CKD,BPH,COPD admitted with altered mental status found to have UTI 1. UTI: UC reveals Yeast <1,000. Continue Levqauin, 2. Hypernatremia: Continue D5W IV fluids increase rate to 100 mls/hr/ Will recheck BMP this afternoon. Hold Lasix today, I/O reveals negative balance. Monitor closely. 3. Acute on chronic kidney disease: Creatinine is 2.4 today. Will monitor. 4. CAD with recent [place] s/p PCI: Continue plavix, ASA, lipitor, Isorbide dinitrate and Metoprolol 5. Cardiomyopathy: Strict I/O daily weights. Holding Lasix as stated above. Monitor closely. 6. COPD: Stable. Duonebs VTE: Heparin Dispo: 1-3 pending improvement.
[2017-01-20] MEDS: ISOSORBIDE DINITRATE 40 MG PO SCH (09:25)
[2017-01-20] MEDS: Metoprolol Tartrate 50 MG Tab PO SCH ×2 (09:25→21:15)
[2017-01-20] MEDS: Clopidogrel 75 MG Tab PO SCH (09:26)
[2017-01-20] MEDS: Tamsulosin 0.4 MG Cap.ER PO SCH (09:26)
[2017-01-20] MEDS: Aspirin 81 MG Tab.Chew PO SCH (09:26)
--- NOTE | 2017-01-20 12:57 | PCM.SN ---
- Free Text/Narrative Note: Called by nursing for PIV start. They have been unsuccessful multiple times at this point. 20g PIV was started to the Rt hand. Flushes and draws blood easily.
--- NOTE | 2017-01-20 15:16 | US ---
EXAM DATE: 01/17/17 PATIENT'S AGE: 76 Patient: JAQUELIN KOLB Facility: [place], [place] Site . Site : [id number] Study: US Abdomen [id number] 5:02:52 PM Ordering Physician: Chinyere Brewer Final Report: HISTORY: Acute kidney insufficiency. Findings: The right kidney measures 4.7 x 3.6 x 10.7 cm. The left kidney measures 5.9 x 4.4 x 13.1 cm. No hydronephrosis is seen. There are small right renal cysts. No solid renal masses are seen in either kidney. The catheter decompresses the bladder. Impression: No evidence of hydronephrosis. Right renal cysts. Dictated by Matti Belle MD @ Jan 20 2017 7:54AM (Electronic Signature) Report Signed by Proxy and Original Signed Document filed in the Medical Record. MTDD
[2017-01-20] MEDS: atorvaSTATin 10 MG Tab PO SCH (21:15)
[2017-01-21] MEDS: Heparin Sodium 5,000 Units/ML Vial SUBCUT SCH ×2 (06:36→19:01)
[2017-01-21] MEDS: Pantoprazole 40 MG Tab.CR PO SCH (06:36)
[2017-01-21] MEDS ORDERED: Dextrose 5% in Water 500 ML IV SCH ×2 (08:00→08:23)
[2017-01-21] MEDS: BUDESONIDE INH SCH ×2 (08:10→21:00)
[2017-01-21] MEDS: FORMOTEROL INH SCH ×2 (08:10→21:00)
--- NOTE | 2017-01-21 08:18 | PCM.PN ---
- General Info Date of Service: 01/21/17 Admission Dx/Problem (Free Text): UTI Subjective Update: Reports feeling better this morning. Denies any pain. Denies chest pain or SOB. Slight confusion noted. On second rounds with Dr. Whitlock family at bedside. Are happy with progress so far. Update of labwork and imaging findings. He will return to [place] upon discharge. Functional Status: Reports: pain controlled, tolerating diet, ambulating - Review of Systems General: Reports: no symptoms Pulmonary: Reports: no symptoms. Denies: shortness of breath, sputum Cardiovascular: Reports: no symptoms. Denies: chest pain, palpitations, edema Gastrointestinal: Reports: No symptoms. Denies: Abdominal pain, Nausea, Vomiting Genitourinary: Reports: no symptoms Musculoskeletal: Reports: no symptoms Skin: Reports: no symptoms Neurological: Reports: no symptoms Psychiatric: Reports: no symptoms - Patient Data Vitals - most recent: Last Vital Signs Temp 97.7 F 01/21/17 08:00 Pulse 80 01/21/17 08:00 Resp 22 H 01/21/17 08:00 BP 133/59 L 01/21/17 08:00 Pulse Ox 99 01/21/17 08:00 Weight - most recent: 98.6 kg I&O - last 24 hours: Intake & Output 01/20/17 01/21/17 01/21/17 22:59 06:59 14:59 Intake Total 1000 380 Output Total 1100 450 Balance -100 -70 Lab Results last 24 hrs: Laboratory Results - last 24 hr 01/20/17 01/21/17 01/21/17 Range/Units 13:11 04:12 04:12 WBC 6.30 (4.0-11.0) K/uL RBC 3.81 L (4.50-5.90) M/uL Hgb 10.8 L (13.0-17.0) g/dL Hct 36.5 L (38.0-50.0) % MCV 95.8 (80.0-98.0) fL MCH 28.3 (27.0-32.0) pg MCHC 29.6 L (31.0-37.0) g/dL RDW Std Deviation 49.9 (28.0-62.0) fl RDW Coeff of Boo 15 (11.0-15.0) % Plt Count 172 (150-400) K/uL MPV 11.50 (7.40-12.00) fL Neut % (Auto) 71.5 (48.0-80.0) % Lymph % (Auto) 11.7 L (16.0-40.0) % [place] % (Auto) 10.8 (0.0-15.0) % Eos % (Auto) 5.7 (0.0-7.0) % Baso % (Auto) 0.3 (0.0-1.5) % Neut # 4.5 (1.4-5.7) K/uL Lymph # 0.7 (0.6-2.4) K/uL [place] # 0.7 (0.0-0.8) K/uL Eos # 0.4 (0.0-0.7) K/uL Baso # 0.0 (0.0-0.1) K/uL Nucleated RBC % 0.0 /100WBC Nucleated RBCs # 0 K/uL Sodium 147 H 150 H (136-146) mmol/L Potassium 4.5 3.9 (3.5-5.1) mmol/L Chloride 108 108 (98-110) mmol/L Carbon Dioxide 28 34 H (21-31) mmol/L BUN 45 H 39 H (6.0-23.0) mg/dL Creatinine 2.6 H 2.3 H (0.6-1.5) mg/dL Est Cr Clr Drug Dosing 24.63 27.84 mL/min Estimated GFR (MDRD) 24.1 27.7 ml/min Glucose 236 H 114 H (60-110) mg/dL Calcium 9.2 9.1 (8.8-10.8) mg/dL Med Orders - Current: Current Medications Acetaminophen (Tylenol) 650 mg PO Q4H PRN PRN Reason: Pain (Mild 1-3)/fever Albuterol/Ipratropium (Duoneb 3.0-0.5 Mg/3 Ml) 3 ml NEB Q6HRRT PRN PRN Reason: wheezing Albuterol/Ipratropium (Combivent Respimat) 0 gm INH BID PRN PRN Reason: Dyspnea Last Admin: 01/19/17 13:50 Dose: 1 canister Aspirin (Aspirin) 81 mg PO DAILY [facility] Last Admin: 01/20/17 09:26 Dose: 81 mg Atorvastatin Calcium (Lipitor) 10 mg PO BEDTIME [facility] Last Admin: 01/20/17 21:15 Dose: 10 mg Clopidogrel Bisulfate (Plavix) 75 mg PO DAILY [facility] Last Admin: 01/20/17 09:26 Dose: 75 mg Docusate Sodium (Colace) 100 mg PO BID PRN PRN Reason: Constipation Last Admin: 01/19/17 21:19 Dose: 100 mg Heparin Sodium (Porcine) (Heparin Sodium) 5,000 units SUBCUT Q12H [facility] Last Admin: 01/21/17 06:36 Dose: 5,000 units Levofloxacin/Dextrose 750 mg/ (Premix) 150 mls @ 100 mls/hr IV Q48H [facility] Last Admin: 01/19/17 18:10 Dose: 100 mls/hr Dextrose/Water (Dextrose 5% In Water) 500 mls @ 100 mls/hr IV ASDIRECTED [facility] Last Admin: 01/20/17 10:20 Dose: 100 mls/hr Dextrose/Water (Dextrose 5% In Water) 500 mls @ 100 mls/hr IV ASDIRECTED [facility] Stop: 01/21/17 12:59 Isosorbide Dinitrate (Isordil) 40 mg PO DAILY [facility] Last Admin: 01/20/17 09:25 Dose: 40 mg Metoprolol Tartrate (Lopressor) 50 mg PO BID [facility] Last Admin: 01/20/17 21:15 Dose: 50 mg Ondansetron HCl (Zofran) 4 mg IVPUSH Q4H PRN PRN Reason: Nausea Pantoprazole Sodium (Protonix) 40 mg PO ACBREAKFAST [facility] Last Admin: 01/21/17 06:36 Dose: 40 mg Budesonide/Formoterol 2 Puff ( Sumbicort 160-4.5) 0 each INH BID [facility] Last Admin: 01/21/17 08:10 Dose: 2 each Tamsulosin HCl (Flomax) 0.4 mg PO DAILY [facility] Last Admin: 01/20/17 09:26 Dose: 0.4 mg Discontinued Medications Furosemide (Lasix) 40 mg PO ONETIME ONE Stop: 01/19/17 10:46 Last Admin: 01/19/17 11:21 Dose: 40 mg Heparin Sodium (Porcine) (Heparin Sodium) 5,000 units SUBCUT Q8H [facility] Last Admin: 01/18/17 07:05 Dose: 5,000 units Heparin Sodium (Porcine) (Heparin Sodium) 5,000 units SUBCUT Q12H [facility] Last Admin: 01/18/17 10:55 Dose: Not Given Levofloxacin/Dextrose 750 mg/ (Premix) 150 mls @ 100 mls/hr IV ONETIME ONE Stop: 01/17/17 19:02 Last Admin: 01/17/17 17:45 Dose: 100 mls/hr Sodium Chloride (Normal Saline) 250 mls @ 75 mls/hr IV ASDIRECTED [facility] Stop: 01/18/17 02:04 Last Admin: 01/18/17 00:15 Dose: 75 mls/hr Dextrose/Water (Dextrose 5% In Water) 1,000 mls @ 40 mls/hr IV ASDIRECTED [facility] Stop: 01/19/17 13:00 Last Admin: 01/19/17 11:21 Dose: 40 mls/hr Dextrose/Water (Dextrose 5% In Water) 500 mls @ 50 mls/hr IV ASDIRECTED [facility] Dextrose/Water (Dextrose 5% In Water) 500 mls @ 50 mls/hr IV ASDIRECTED [facility] Stop: 01/20/17 05:14 Last Admin: 01/19/17 21:16 Dose: 50 mls/hr - Exam Quality Assessment: urine catheter (to be removed today.), DVT prophylaxis General: alert, cooperative. No: oriented HEENT: Pupils equal, Pupils reactive, EOMI, Mucous membr. moist/pink Neck: supple, no JVD Lungs: Clear to auscultation, Normal respiratory effort. No: Rhonchi, Wheezing Cardiovascular: regular rate, regular rhythm Abdomen: bowel sounds present, soft, no tenderness, no distension Extremities: no calf tenderness, edema (+1 pitting to bilateral feet. compression stockings on. ) Neurological: no new focal deficit Psy/Mental Status: alert, normal affect, normal mood - Problem List & Annotations (1) [id number] kidney injury SNOMED Code(s): 618581003 Code(s): N17.9 - ACUTE KIDNEY FAILURE, UNSPECIFIED; N18.9 - CHRONIC KIDNEY DISEASE, UNSPECIFIED Status: Acute Current Visit: Yes (2) Altered mental status SNOMED Code(s): 384623833 Code(s): R41.82 - ALTERED MENTAL STATUS, UNSPECIFIED Status: Acute Current Visit: Yes (3) UTI (urinary tract infection) SNOMED Code(s): 42154103 Code(s): N39.0 - URINARY TRACT INFECTION, SITE NOT SPECIFIED Status: Acute Current Visit: Yes Qualifiers: Urinary tract infection type: acute cystitis Hematuria presence: without hematuria Qualified Code(s): N30.00 - Acute cystitis without hematuria (4) Afib, Atrial fibrillation SNOMED Code(s): 20395179 Code(s): I48.91 - UNSPECIFIED ATRIAL FIBRILLATION Status: Chronic Current Visit: No (5) COPD, Mild chronic obstructive pulmonary disease SNOMED Code(s): 265662301 Code(s): J44.9 - CHRONIC OBSTRUCTIVE PULMONARY DISEASE, UNSPECIFIED Status : Chronic Current Visit: No (6) Coronary arteriosclerosis, CAD SNOMED Code(s): 33901093 Code(s): I25.10 - ATHSCL HEART DISEASE OF [place] CORONARY ARTERY W/O ANG PCTRS Status: Chronic Current Visit: No (7) Ischemic cardiomyopathy SNOMED Code(s): 065298152 Code(s): I25.5 - ISCHEMIC CARDIOMYOPATHY Status: Chronic Current Visit: Yes (8) Hypernatremia SNOMED Code(s): 32820392 Code(s): E87.0 - HYPEROSMOLALITY AND HYPERNATREMIA Status: Acute Current Visit: Yes - Problem List Review Problem List Initiated/Reviewed/Updated: Yes - My Orders Last 24 Hours: My Active Orders 01/20/17 08:05 Intake and Output Strict [RC] Q12H 01/20/17 08:15 Dextrose 5% in Water 500 ml IV ASDIRECTED 01/21/17 08:00 Dextrose 5% in Water 500 ml IV ASDIRECTED - Plan Plan:: This 76 year old male with pmh of CAD,CHF,CKD,BPH,COPD admitted with altered mental status found to have UTI 1. UTI: UC reveals Yeast <1,000. Continue Levqauin. Urine appears more cloudy than yesterday, UA obtained, which shows +1 bacteria, too numerous to count WBC , large Leukocyte esterase. UC pending. Will remove stokes today and monitor ability to void closely. Continue Flomax. 2. Hypernatremia: Continue D5W IV fluids increase rate to 100 mls/hr, Na 150 this am. Restart Lasix today, I/O reveals negative balance. Monitor closely. Recheck BMP this afternoon. 3. Acute on chronic kidney disease: Creatinine is 2.3 today. Will monitor. 4. CAD with recent [place] s/p PCI: Continue plavix, ASA, lipitor, Isorbide dinitrate and Metoprolol 5. Cardiomyopathy: Strict I/O daily weights. Restarting Lasix today. Monitor closely. 6. COPD: Stable. Duonebs VTE: Heparin Dispo: 1-3 pending improvement.
[2017-01-21] MEDS: Metoprolol Tartrate 50 MG Tab PO SCH ×2 (09:18→20:30)
[2017-01-21] MEDS: Tamsulosin 0.4 MG Cap.ER PO SCH (09:18)
[2017-01-21] MEDS: Clopidogrel 75 MG Tab PO SCH (09:20)
[2017-01-21] MEDS: ISOSORBIDE DINITRATE 40 MG PO SCH (09:20)
[2017-01-21] MEDS: Aspirin 81 MG Tab.Chew PO SCH (09:20)
[2017-01-21] MEDS ORDERED: Furosemide 40 MG Tab PO ONE (09:50)
[2017-01-21] MEDS: Levofloxacin/Dextrose 5%-Water 750 MG in Premix Bag 1 BAG IV SCH (17:41)
[2017-01-21] MEDS: atorvaSTATin 10 MG Tab PO SCH (20:30)
[2017-01-22] MEDS: Heparin Sodium 5,000 Units/ML Vial SUBCUT SCH ×2 (06:36→19:11)
[2017-01-22] MEDS: Pantoprazole 40 MG Tab.CR PO SCH (06:37)
[2017-01-22] MEDS: BUDESONIDE INH SCH ×2 (08:10→20:17)
[2017-01-22] MEDS: FORMOTEROL INH SCH ×2 (08:10→20:17)
[2017-01-22] MEDS: Clopidogrel 75 MG Tab PO SCH (08:55)
[2017-01-22] MEDS: Aspirin 81 MG Tab.Chew PO SCH (08:55)
[2017-01-22] MEDS: ISOSORBIDE DINITRATE 40 MG PO SCH (08:55)
[2017-01-22] MEDS: Tamsulosin 0.4 MG Cap.ER PO SCH (08:55)
[2017-01-22] MEDS: Metoprolol Tartrate 50 MG Tab PO SCH ×2 (09:00→20:57)
--- NOTE | 2017-01-22 09:31 | PCM.PN ---
- General Info Date of Service: 01/22/17 Admission Dx/Problem (Free Text): UTI Subjective Update: Reports feeling better this morning, wanting to be discharged out of here. Denies any pain. Denies chest pain or SOB. Continued confusion. Family at bedside and updated. Likely discharge tomorrow if Na ok. Functional Status: Reports: pain controlled, tolerating diet, ambulating, urinating - Review of Systems General: Reports: no symptoms. Denies: fever HEENT: Reports: no symptoms Pulmonary: Reports: no symptoms. Denies: shortness of breath, cough, sputum Cardiovascular: Reports: no symptoms. Denies: chest pain, palpitations, edema Gastrointestinal: Reports: Nausea (felt breakfast wasn't good and now not feeling good, a little nauseated) Genitourinary: Reports: no symptoms Musculoskeletal: Reports: no symptoms Skin: Reports: no symptoms Neurological: Reports: no symptoms Psychiatric: Reports: no symptoms - Patient Data Vitals - most recent: Last Vital Signs Temp 98.6 F 01/22/17 08:20 Pulse 90 01/22/17 09:00 Resp 20 01/22/17 08:20 BP 140/62 01/22/17 09:00 Pulse Ox 90 L 01/22/17 08:20 Weight - most recent: 92.941 kg I&O - last 24 hours: Intake & Output 01/21/17 01/22/17 01/22/17 22:59 06:59 14:59 Intake Total 1090 250 Output Total 1677 150 Balance -587 100 Lab Results last 24 hrs: Laboratory Results - last 24 hr 01/21/17 01/21/17 01/22/17 Range/Units 09:50 15:02 04:19 WBC (4.0-11.0) K/uL RBC (4.50-5.90) M/uL Hgb (13.0-17.0) g/dL Hct (38.0-50.0) % MCV (80.0-98.0) fL MCH (27.0-32.0) pg MCHC (31.0-37.0) g/dL RDW Std Deviation (28.0-62.0) fl RDW Coeff of Boo (11.0-15.0) % Plt Count (150-400) K/uL MPV (7.40-12.00) fL Neut % (Auto) (48.0-80.0) % Lymph % (Auto) (16.0-40.0) % [place] % (Auto) (0.0-15.0) % Eos % (Auto) (0.0-7.0) % Baso % (Auto) (0.0-1.5) % Neut # (1.4-5.7) K/uL Lymph # (0.6-2.4) K/uL [place] # (0.0-0.8) K/uL Eos # (0.0-0.7) K/uL Baso # (0.0-0.1) K/uL Nucleated RBC % /100WBC Nucleated RBCs # K/uL Sodium 144 148 H (136-146) mmol/L Potassium 3.8 4.2 (3.5-5.1) mmol/L Chloride 104 106 (98-110) mmol/L Carbon Dioxide 34 H 35 H (21-31) mmol/L BUN 37 H 36 H (6.0-23.0) mg/dL Creatinine 2.4 H 2.2 H (0.6-1.5) mg/dL Est Cr Clr Drug Dosing 26.68 29.11 mL/min Estimated GFR (MDRD) 26.4 29.2 ml/min Glucose 214 H 100 (60-110) mg/dL Calcium 8.9 9.4 (8.8-10.8) mg/dL Urine Color YELLOW Urine Appearance SLT CLOUDY Urine pH 6.5 (5.0-8.0) Ur Specific [place] 1.020 (1.001-1.035) Urine Protein 100 (NEGATIVE) mg/dL Urine Glucose (UA) NEGATIVE (NEGATIVE) mg/dL Urine Ketones NEGATIVE (NEGATIVE) mg/dL Urine Occult Blood LARGE H (NEGATIVE) Urine Nitrite NEGATIVE (NEGATIVE) Urine Bilirubin NEGATIVE (NEGATIVE) Urine Urobilinogen 0.2 (<2.0) EU/dL Ur Leukocyte Esterase LARGE (NEGATIVE) Urine RBC 70-80 (0-2/HPF) Urine WBC TO NUMEROUS TO COUNT H (0-5/HPF) Ur Epithelial Cells OCCASIONAL (NONE-FEW) Urine Bacteria 1+ H (NEGATIVE) 01/22/17 Range/Units 05:00 WBC 6.72 (4.0-11.0) K/uL RBC 3.92 L (4.50-5.90) M/uL Hgb 11.2 L (13.0-17.0) g/dL Hct 37.1 L (38.0-50.0) % MCV 94.6 (80.0-98.0) fL MCH 28.6 (27.0-32.0) pg MCHC 30.2 L (31.0-37.0) g/dL RDW Std Deviation 49.0 (28.0-62.0) fl RDW Coeff of Boo 14 (11.0-15.0) % Plt Count 189 (150-400) K/uL MPV 12.00 (7.40-12.00) fL Neut % (Auto) 69.9 (48.0-80.0) % Lymph % (Auto) 14.0 L (16.0-40.0) % [place] % (Auto) 9.7 (0.0-15.0) % Eos % (Auto) 6.0 (0.0-7.0) % Baso % (Auto) 0.4 (0.0-1.5) % Neut # 4.7 (1.4-5.7) K/uL Lymph # 0.9 (0.6-2.4) K/uL Potter # 0.7 (0.0-0.8) K/uL Eos # 0.4 (0.0-0.7) K/uL Baso # 0.0 (0.0-0.1) K/uL Nucleated RBC % 0.0 /100WBC Nucleated RBCs # 0 K/uL Sodium (136-146) mmol/L Potassium (3.5-5.1) mmol/L Chloride (98-110) mmol/L Carbon Dioxide (21-31) mmol/L BUN (6.0-23.0) mg/dL Creatinine (0.6-1.5) mg/dL Est Cr Clr Drug Dosing mL/min Estimated GFR (MDRD) ml/min Glucose (60-110) mg/dL Calcium (8.8-10.8) mg/dL Urine Color Urine Appearance Urine pH (5.0-8.0) Ur Specific [place] (1.001-1.035) Urine Protein (NEGATIVE) mg/dL Urine Glucose (UA) (NEGATIVE) mg/dL Urine Ketones (NEGATIVE) mg/dL Urine Occult Blood (NEGATIVE) Urine Nitrite (NEGATIVE) Urine Bilirubin (NEGATIVE) Urine Urobilinogen (<2.0) EU/dL Ur Leukocyte Esterase (NEGATIVE) Urine RBC (0-2/HPF) Urine WBC (0-5/HPF) Ur Epithelial Cells (NONE-FEW) Urine Bacteria (NEGATIVE) Med Orders - Current: Current Medications Acetaminophen (Tylenol) 650 mg PO Q4H PRN PRN Reason: Pain (Mild 1-3)/fever Albuterol/Ipratropium (Duoneb 3.0-0.5 Mg/3 Ml) 3 ml NEB Q6HRRT PRN PRN Reason: wheezing Albuterol/Ipratropium (Combivent Respimat) 0 gm INH BID PRN PRN Reason: Dyspnea Last Admin: 01/19/17 13:50 Dose: 1 canister Aspirin (Aspirin) 81 mg PO DAILY [facility] Last Admin: 01/22/17 08:55 Dose: 81 mg Atorvastatin Calcium (Lipitor) 10 mg PO BEDTIME [facility] Last Admin: 01/21/17 20:30 Dose: 10 mg Clopidogrel Bisulfate (Plavix) 75 mg PO DAILY [facility] Last Admin: 01/22/17 08:55 Dose: 75 mg Docusate Sodium (Colace) 100 mg PO BID PRN PRN Reason: Constipation Last Admin: 01/19/17 21:19 Dose: 100 mg Furosemide (Lasix) 40 mg PO ACBREAKFAST [facility] Heparin Sodium (Porcine) (Heparin Sodium) 5,000 units SUBCUT Q12H [facility] Last Admin: 01/22/17 06:36 Dose: 5,000 units Levofloxacin/Dextrose 750 mg/ (Premix) 150 mls @ 100 mls/hr IV Q48H [facility] Last Admin: 01/21/17 17:41 Dose: 100 mls/hr Isosorbide Dinitrate (Isordil) 40 mg PO DAILY [facility] Last Admin: 01/22/17 08:55 Dose: 40 mg Metoprolol Tartrate (Lopressor) 50 mg PO BID [facility] Last Admin: 01/22/17 09:00 Dose: 50 mg Ondansetron HCl (Zofran) 4 mg IVPUSH Q4H PRN PRN Reason: Nausea Pantoprazole Sodium (Protonix) 40 mg PO ACBREAKFAST [facility] Last Admin: 01/22/17 06:37 Dose: 40 mg Budesonide/Formoterol 2 Puff ( Sumbicort 160-4.5) 0 each INH BID [facility] Last Admin: 01/22/17 08:10 Dose: 2 each Tamsulosin HCl (Flomax) 0.4 mg PO DAILY [facility] Last Admin: 01/22/17 08:55 Dose: 0.4 mg Discontinued Medications Furosemide (Lasix) 40 mg PO ONETIME ONE Stop: 01/19/17 10:46 Last Admin: 01/19/17 11:21 Dose: 40 mg Furosemide (Lasix) 40 mg PO ONETIME ONE Stop: 01/21/17 09:51 Last Admin: 01/21/17 09:49 Dose: 40 mg Heparin Sodium (Porcine) (Heparin Sodium) 5,000 units SUBCUT Q8H [facility] Last Admin: 01/18/17 07:05 Dose: 5,000 units Heparin Sodium (Porcine) (Heparin Sodium) 5,000 units SUBCUT Q12H [facility] Last Admin: 01/18/17 10:55 Dose: Not Given Levofloxacin/Dextrose 750 mg/ (Premix) 150 mls @ 100 mls/hr IV ONETIME ONE Stop: 01/17/17 19:02 Last Admin: 01/17/17 17:45 Dose: 100 mls/hr Sodium Chloride (Normal Saline) 250 mls @ 75 mls/hr IV ASDIRECTED [facility] Stop: 01/18/17 02:04 Last Admin: 01/18/17 00:15 Dose: 75 mls/hr Dextrose/Water (Dextrose 5% In Water) 1,000 mls @ 40 mls/hr IV ASDIRECTED [facility] Stop: 01/19/17 13:00 Last Admin: 01/19/17 11:21 Dose: 40 mls/hr Dextrose/Water (Dextrose 5% In Water) 500 mls @ 50 mls/hr IV ASDIRECTED [facility] Dextrose/Water (Dextrose 5% In Water) 500 mls @ 50 mls/hr IV ASDIRECTED [facility] Stop: 01/20/17 05:14 Last Admin: 01/19/17 21:16 Dose: 50 mls/hr Dextrose/Water (Dextrose 5% In Water) 500 mls @ 100 mls/hr IV ASDIRECTED [facility] Last Admin: 01/20/17 10:20 Dose: 100 mls/hr Dextrose/Water (Dextrose 5% In Water) 500 mls @ 100 mls/hr IV ASDIRECTED [facility] Stop: 01/21/17 12:59 Last Admin: 01/21/17 08:37 Dose: Not Given Dextrose/Water (Dextrose 5% In Water) 500 mls @ 100 mls/hr IV ASDIRECTED [facility] Last Admin: 01/21/17 08:35 Dose: 100 mls/hr Dextrose/Water (Dextrose 5% In Water) 500 mls @ 100 mls/hr IV ASDIRECTED [facility] Stop: 01/21/17 13:22 Last Admin: 01/21/17 18:45 Dose: Not Given - Exam General: alert, oriented, cooperative HEENT: Pupils equal, Pupils reactive, EOMI, Mucous membr. moist/pink Neck: supple Lungs: Clear to auscultation, Normal respiratory effort Cardiovascular: regular rate, regular rhythm, no murmurs Abdomen: bowel sounds present, soft, no tenderness, no distension Extremities: edema (+1 non pitting edema to bilateral feet, improved from yesterday. ) Skin: other (bruising noted to bilateral forearms from IV and lab sticks.) Neurological: no new focal deficit Psy/Mental Status: alert, normal affect, normal mood - Problem List & Annotations (1) [id number] kidney injury SNOMED Code(s): 216001932 Code(s): N17.9 - ACUTE KIDNEY FAILURE, UNSPECIFIED; N18.9 - CHRONIC KIDNEY DISEASE, UNSPECIFIED Status: Acute Current Visit: Yes (2) Altered mental status SNOMED Code(s): 467887692 Code(s): R41.82 - ALTERED MENTAL STATUS, UNSPECIFIED Status: Acute Current Visit: Yes (3) UTI (urinary tract infection) SNOMED Code(s): 00721248 Code(s): N39.0 - URINARY TRACT INFECTION, SITE NOT SPECIFIED Status: Acute Current Visit: Yes Qualifiers: Urinary tract infection type: acute cystitis Hematuria presence: without hematuria Qualified Code(s): N30.00 - Acute cystitis without hematuria (4) Afib, Atrial fibrillation SNOMED Code(s): 01902156 Code(s): I48.91 - UNSPECIFIED ATRIAL FIBRILLATION Status: Chronic Current Visit: No (5) COPD, Mild chronic obstructive pulmonary disease SNOMED Code(s): 716820084 Code(s): J44.9 - CHRONIC OBSTRUCTIVE PULMONARY DISEASE, UNSPECIFIED Status : Chronic Current Visit: No (6) Coronary arteriosclerosis, CAD SNOMED Code(s): 21621885 Code(s): I25.10 - ATHSCL HEART DISEASE OF [place] CORONARY ARTERY W/O ANG PCTRS Status: Chronic Current Visit: No (7) Ischemic cardiomyopathy SNOMED Code(s): 896642257 Code(s): I25.5 - ISCHEMIC CARDIOMYOPATHY Status: Chronic Current Visit: Yes (8) Hypernatremia SNOMED Code(s): 40109897 Code(s): E87.0 - HYPEROSMOLALITY AND HYPERNATREMIA Status: Acute Current Visit: Yes - Problem List Review Problem List Initiated/Reviewed/Updated: Yes - My Orders Last 24 Hours: My Active Orders 01/21/17 11:07 CULTURE URINE [RM] Routine 01/21/17 11:23 Urinary Catheter Removal [RC] Per Unit Routine Consult to Physical Therapy [PT Evaluation and Treatment] [CONS] Routine 01/22/17 09:30 Furosemide [Lasix] 40 mg PO ACBREAKFAST - Plan Plan:: This 76 year old male with pmh of CAD,CHF,CKD,BPH,COPD admitted with altered mental status found to have UTI 1. UTI: Continue Levqauin. Repeat UC pending. Urinating well, some incontinence. Continue Flomax. 2. Hypernatremia: Na 148 this am. Continue Lasix. Recheck BMP this afternoon. Monitor closely. 3. Acute on chronic kidney disease: Creatinine is 2.2 today. Continuing to improve. 4. CAD with recent [place] s/p PCI: Continue Plavix, ASA, Lipitor, Isorbide dinitrate and Metoprolol 5. Cardiomyopathy: Strict I/O daily weights. Continuing Lasix. Monitor closely. 6. COPD: Stable. Duonebs VTE: Heparin Dispo: 1 day, possible discharge in am.
[2017-01-22] MEDS: Furosemide 40 MG Tab PO SCH (09:39)
[2017-01-22] MEDS: Docusate Sodium 100 MG Cap PO SCH ×2 (10:28→20:57)
[2017-01-22] MEDS: Bisacodyl 10 MG Supp RECTAL PRN (10:34)
--- NOTE | 2017-01-22 19:09 | PCM.SN ---
- Free Text/Narrative Note: I was called to see patient as he fell. Nursing staff indicated that he had on SCDs and seemed to lose his balance because of SCDs. He is alert he has some facial abrasions including abrasion over the bridge of his nose with surrounding swelling. No nasal septal hematoma noted no tenderness to facial bones including mandible he has poor dentition noted but no acutely broken teeth. A: fall related to SCDs. He has abrasions and had nasal bleeding since resolved. P: discontinue SCDs . Discontinue heparin. Leon Paredes MD
[2017-01-22] MEDS: atorvaSTATin 10 MG Tab PO SCH (20:56)
[2017-01-23] MEDS: Furosemide 40 MG Tab PO SCH (06:38)
[2017-01-23] MEDS: Pantoprazole 40 MG Tab.CR PO SCH (06:38)
[2017-01-23] MEDS: Tamsulosin 0.4 MG Cap.ER PO SCH (08:43)
[2017-01-23] MEDS: ISOSORBIDE DINITRATE 40 MG PO SCH (08:43)
[2017-01-23] MEDS: Metoprolol Tartrate 50 MG Tab PO SCH ×2 (08:44→20:25)
[2017-01-23] MEDS: Docusate Sodium 100 MG Cap PO SCH ×2 (08:45→20:25)
[2017-01-23] MEDS: Clopidogrel 75 MG Tab PO SCH (08:45)
[2017-01-23] MEDS: Aspirin 81 MG Tab.Chew PO SCH (08:45)
[2017-01-23] MEDS: BUDESONIDE INH SCH ×2 (09:00→20:26)
[2017-01-23] MEDS: FORMOTEROL INH SCH ×2 (09:00→20:26)
--- NOTE | 2017-01-23 10:28 | PCM.PN ---
- General Info Date of Service: 01/23/17 Admission Dx/Problem (Free Text): UTI Subjective Update: Reports feeling ok this morning. Fell last evening, does not remember falling last night. Denies headache, blurred vision or visual changes. Denies chest pain or increased SOB. No pain to facial abrasion Functional Status: Reports: pain controlled, tolerating diet, ambulating, urinating - Review of Systems General: Reports: no symptoms HEENT: Reports: no symptoms. Denies: eye pain, headaches Pulmonary: Reports: shortness of breath (at baseline). Denies: cough, sputum Cardiovascular: Denies: chest pain, palpitations Gastrointestinal: Denies: Abdominal pain, Nausea, Vomiting Genitourinary: Reports: no symptoms Musculoskeletal: Reports: no symptoms Skin: Reports: no symptoms Neurological: Reports: no symptoms Psychiatric: Reports: no symptoms - Patient Data Vitals - most recent: Last Vital Signs Temp 98.5 F 01/23/17 07:42 Pulse 74 01/23/17 08:44 Resp 16 01/23/17 07:42 BP 133/61 01/23/17 08:44 Pulse Ox 94 L 01/23/17 04:19 Weight - most recent: 90.174 kg I&O - last 24 hours: Intake & Output 01/22/17 01/23/17 01/23/17 22:59 06:59 14:59 Intake Total 400 320 Output Total 487 Balance 400 -167 Lab Results last 24 hrs: Laboratory Results - last 24 hr 01/22/17 01/23/17 01/23/17 Range/Units 14:45 05:00 05:00 WBC 6.68 (4.0-11.0) K/uL RBC 3.97 L (4.50-5.90) M/uL Hgb 11.2 L (13.0-17.0) g/dL Hct 37.1 L (38.0-50.0) % MCV 93.5 (80.0-98.0) fL MCH 28.2 (27.0-32.0) pg MCHC 30.2 L (31.0-37.0) g/dL RDW Std Deviation 48.5 (28.0-62.0) fl RDW Coeff of Boo 14 (11.0-15.0) % Plt Count 173 (150-400) K/uL MPV 11.30 (7.40-12.00) fL Neut % (Auto) 70.6 (48.0-80.0) % Lymph % (Auto) 14.4 L (16.0-40.0) % [place] % (Auto) 10.2 (0.0-15.0) % Eos % (Auto) 4.5 (0.0-7.0) % Baso % (Auto) 0.3 (0.0-1.5) % Neut # 4.7 (1.4-5.7) K/uL Lymph # 1.0 (0.6-2.4) K/uL [place] # 0.7 (0.0-0.8) K/uL Eos # 0.3 (0.0-0.7) K/uL Baso # 0.0 (0.0-0.1) K/uL Nucleated RBC % 0.0 /100WBC Nucleated RBCs # 0 K/uL Sodium 144 146 (136-146) mmol/L Potassium 4.2 4.2 (3.5-5.1) mmol/L Chloride 103 107 (98-110) mmol/L Carbon Dioxide 34 H 32 H (21-31) mmol/L BUN 35 H 34 H (6.0-23.0) mg/dL Creatinine 2.5 H 2.4 H (0.6-1.5) mg/dL Est Cr Clr Drug Dosing 25.61 26.68 mL/min Estimated GFR (MDRD) 25.2 26.4 ml/min Glucose 173 H 106 (60-110) mg/dL Calcium 9.5 9.2 (8.8-10.8) mg/dL Med Orders - Current: Current Medications Acetaminophen (Tylenol) 650 mg PO Q4H PRN PRN Reason: Pain (Mild 1-3)/fever Albuterol/Ipratropium (Duoneb 3.0-0.5 Mg/3 Ml) 3 ml NEB Q6HRRT PRN PRN Reason: wheezing Albuterol/Ipratropium (Combivent Respimat) 0 gm INH BID PRN PRN Reason: Dyspnea Last Admin: 01/19/17 13:50 Dose: 1 canister Aspirin (Aspirin) 81 mg PO DAILY [facility] Last Admin: 01/23/17 08:45 Dose: 81 mg Atorvastatin Calcium (Lipitor) 10 mg PO BEDTIME [facility] Last Admin: 01/22/17 20:56 Dose: 10 mg Bisacodyl (Dulcolax) 10 mg RECTAL DAILY PRN PRN Reason: Constipation Last Admin: 01/22/17 10:34 Dose: 10 mg Clopidogrel Bisulfate (Plavix) 75 mg PO DAILY [facility] Last Admin: 01/23/17 08:45 Dose: 75 mg Docusate Sodium (Colace) 100 mg PO BID [facility] Last Admin: 01/23/17 08:45 Dose: 100 mg Furosemide (Lasix) 40 mg PO ACBREAKFAST [facility] Last Admin: 01/23/17 06:38 Dose: 40 mg Levofloxacin/Dextrose 750 mg/ (Premix) 150 mls @ 100 mls/hr IV Q48H [facility] Last Admin: 01/21/17 17:41 Dose: 100 mls/hr Isosorbide Dinitrate (Isordil) 40 mg PO DAILY [facility] Last Admin: 01/23/17 08:43 Dose: 40 mg Metoprolol Tartrate (Lopressor) 50 mg PO BID [facility] Last Admin: 01/23/17 08:44 Dose: 50 mg Ondansetron HCl (Zofran) 4 mg IVPUSH Q4H PRN PRN Reason: Nausea Pantoprazole Sodium (Protonix) 40 mg PO ACBREAKFAST [facility] Last Admin: 01/23/17 06:38 Dose: 40 mg Budesonide/Formoterol 2 Puff ( Sumbicort 160-4.5) 0 each INH BID [facility] Last Admin: 01/23/17 09:00 Dose: 2 each Tamsulosin HCl (Flomax) 0.4 mg PO DAILY [facility] Last Admin: 01/23/17 08:43 Dose: 0.4 mg Discontinued Medications Docusate Sodium (Colace) 100 mg PO BID PRN PRN Reason: Constipation Last Admin: 01/19/17 21:19 Dose: 100 mg Furosemide (Lasix) 40 mg PO ONETIME ONE Stop: 01/19/17 10:46 Last Admin: 01/19/17 11:21 Dose: 40 mg Furosemide (Lasix) 40 mg PO ONETIME ONE Stop: 01/21/17 09:51 Last Admin: 01/21/17 09:49 Dose: 40 mg Heparin Sodium (Porcine) (Heparin Sodium) 5,000 units SUBCUT Q8H [facility] Last Admin: 01/18/17 07:05 Dose: 5,000 units Heparin Sodium (Porcine) (Heparin Sodium) 5,000 units SUBCUT Q12H [facility] Last Admin: 01/18/17 10:55 Dose: Not Given Heparin Sodium (Porcine) (Heparin Sodium) 5,000 units SUBCUT Q12H [facility] Last Admin: 01/22/17 19:11 Dose: Not Given Levofloxacin/Dextrose 750 mg/ (Premix) 150 mls @ 100 mls/hr IV ONETIME ONE Stop: 01/17/17 19:02 Last Admin: 01/17/17 17:45 Dose: 100 mls/hr Sodium Chloride (Normal Saline) 250 mls @ 75 mls/hr IV ASDIRECTED [facility] Stop: 01/18/17 02:04 Last Admin: 01/18/17 00:15 Dose: 75 mls/hr Dextrose/Water (Dextrose 5% In Water) 1,000 mls @ [facility] Stop: 01/19/17 13:00 Last Admin: 01/19/17 11:21 Dose: 40 mls/hr Dextrose/Water (Dextrose 5% In Water) 500 mls @ 50 mls/hr IV ASDIRECTED [facility] Dextrose/Water (Dextrose 5% In Water) 500 mls @ 50 mls/hr IV ASDIRECTED [facility] Stop: 01/20/17 05:14 Last Admin: 01/19/17 21:16 Dose: 50 mls/hr Dextrose/Water (Dextrose 5% In Water) 500 mls @ 100 mls/hr IV ASDIRECTED [facility] Last Admin: 01/20/17 10:20 Dose: 100 mls/hr Dextrose/Water (Dextrose 5% In Water) 500 mls @ 100 mls/hr IV ASDIRECTED [facility] Stop: 01/21/17 12:59 Last Admin: 01/21/17 08:37 Dose: Not Given Dextrose/Water (Dextrose 5% In Water) 500 mls @ 100 mls/hr IV ASDIRECTED [facility] Last Admin: 01/21/17 08:35 Dose: 100 mls/hr Dextrose/Water (Dextrose 5% In Water) 500 mls @ 100 mls/hr IV ASDIRECTED [facility] Stop: 01/21/17 13:22 Last Admin: 01/21/17 18:45 Dose: Not Given - Exam General: alert. No: oriented (oriented to self only) HEENT: Pupils equal, Pupils reactive, EOMI, Mucous membr. moist/pink, Other ( abrasion to nasal bridge with swelling and bruising, swelling also noted to R eyebrow with bruising.) Lungs: Clear to auscultation, Normal respiratory effort Cardiovascular: regular rate, regular rhythm, no murmurs Abdomen: bowel sounds present, soft, no tenderness, no distension Extremities: normal pulses, no calf tenderness, edema (trace pitting to bilateral feet.) Psy/Mental Status: alert, normal affect, normal mood - Problem List & Annotations (1) Tnurv-oy-[id number] kidney injury SNOMED Code(s): 107659410 Code(s): N17.9 - ACUTE KIDNEY FAILURE, UNSPECIFIED; N18.9 - CHRONIC KIDNEY DISEASE, UNSPECIFIED Status: Acute Current Visit: Yes (2) Altered mental status SNOMED Code(s): 419818517 Code(s): R41.82 - ALTERED MENTAL STATUS, UNSPECIFIED Status: Acute Current Visit: Yes (3) UTI (urinary tract infection) SNOMED Code(s): 30791750 Code(s): N39.0 - URINARY TRACT INFECTION, SITE NOT SPECIFIED Status: Acute Current Visit: Yes Qualifiers: Urinary tract infection type: acute cystitis Hematuria presence: without hematuria Qualified Code(s): N30.00 - Acute cystitis without hematuria (4) Afib, Atrial fibrillation SNOMED Code(s): 01033780 Code(s): I48.91 - UNSPECIFIED ATRIAL FIBRILLATION Status: Chronic Current Visit: No (5) COPD, Mild chronic obstructive pulmonary disease SNOMED Code(s): 714566263 Code(s): J44.9 - CHRONIC OBSTRUCTIVE PULMONARY DISEASE, UNSPECIFIED Status : Chronic Current Visit: No (6) Coronary arteriosclerosis, CAD SNOMED Code(s): 66198887 Code(s): I25.10 - ATHSCL HEART DISEASE OF [place] CORONARY ARTERY W/O ANG PCTRS Status: Chronic Current Visit: No (7) Ischemic cardiomyopathy SNOMED Code(s): 763699537 Code(s): I25.5 - ISCHEMIC CARDIOMYOPATHY Status: Chronic Current Visit: Yes (8) Hypernatremia SNOMED Code(s): 19508069 Code(s): E87.0 - HYPEROSMOLALITY AND HYPERNATREMIA Status: Acute Current Visit: Yes - Problem List Review Problem List Initiated/Reviewed/Updated: Yes - My Orders Last 24 Hours: My Active Orders 01/22/17 09:30 Furosemide [Lasix] 40 mg PO ACBREAKFAST 01/22/17 09:56 Enema [RC] ASDIRECTED Docusate Sodium [Colace] 100 mg PO BID 01/22/17 09:57 Bisacodyl [Dulcolax] 10 mg RECTAL DAILY PRN 01/23/17 09:03 Head wo Cont [CT] Urgent - Plan Plan:: This 76 year old male with pmh of CAD,CHF,CKD,BPH,COPD admitted with altered mental status found to have UTI 1. UTI: Continue Levqauin. Repeat UC pending. Urinating well, some incontinence. Continue Flomax. 2. Hypernatremia: Na 146 this am. Continue Lasix. Monitor 3. Acute on chronic kidney disease: Creatinine is 2.4 today. 4. CAD with recent [place] s/p PCI: Continue Plavix, ASA, Lipitor, Isorbide dinitrate and Metoprolol 5. Cardiomyopathy: Strict I/O daily weights. Continuing Lasix. Monitor closely. 6. COPD: Stable. [place] 7. Fall: Will obtain Head CT today and monitor. Abrasions to face do not need suturing, will keep clean and monitor. Likely discharge to [place] in am. VTE: Dispo: Monitor today due to fall, likely discharge to [place] in am.
--- NOTE | 2017-01-23 11:58 | CT ---
EXAMINATION: Non contrast CT head. Coronal and sagittal reformats. HISTORY: Fall Comparison: 01/17/2017 FINDINGS: No evidence of intra or extra axial hemorrhage, mass, midline shift, hydrocephalus or edema. There is moderate generalized atrophy with prominent periventricular and subcortical white matter hypodens ities noted. No hypoattenuation changes in the major vascular territories to suggest acute infarct. Vascular keira cifications are noted. Small mucous retention cyst within the right maxillary sinus. The mastoid air cells are clear. The o rbits and globes appear symmetric. There is a tiny right supraorbital subcutaneous hematoma. Mildly displaced nasal bone fractures identified. Pituitary fossa appears unremarkable. The calvarium is intact. No evidence of skull fracture. IMPRESSION: 1. Mildly displaced nasal bone fractures. 2. No acute intracranial abnormality identified. 3. Moderate generalized atrophy and advanced small vessel ischemic changes.
--- NOTE | 2017-01-23 13:21 | PCM.SN ---
- Free Text/Narrative Note: Discussed Head CT with Daughter, Shantell at bedside. No hemorrhage, mild displaced nasal fracture. ALong with UC culture, will add Diflucan 100 mg x 3 days for this since increase in colonies since first UC. Likely discharge back to [place] in am.
[2017-01-23] MEDS: Fluconazole 100 MG Tab PO SCH (14:29)
[2017-01-23] MEDS: atorvaSTATin 10 MG Tab PO SCH (20:26)
[2017-01-24] MEDS: Furosemide 40 MG Tab PO SCH (06:45)
[2017-01-24] MEDS: Pantoprazole 40 MG Tab.CR PO SCH (06:45)
[2017-01-24] MEDS: FORMOTEROL INH SCH ×2 (08:44→21:16)
[2017-01-24] MEDS: BUDESONIDE INH SCH ×2 (08:44→21:16)
[2017-01-24] MEDS: Aspirin 81 MG Tab.Chew PO SCH (09:44)
[2017-01-24] MEDS: Docusate Sodium 100 MG Cap PO SCH ×2 (09:45→20:14)
[2017-01-24] MEDS: Fluconazole 100 MG Tab PO SCH (09:47)
[2017-01-24] MEDS: Tamsulosin 0.4 MG Cap.ER PO SCH (09:48)
[2017-01-24] MEDS: ISOSORBIDE DINITRATE 40 MG PO SCH (09:49)
[2017-01-24] MEDS: Metoprolol Tartrate 50 MG Tab PO SCH ×2 (09:50→20:14)
[2017-01-24] MEDS: Clopidogrel 75 MG Tab PO SCH (09:52)
--- NOTE | 2017-01-24 11:38 | PCM.PN ---
Addendum entered and electronically signed by Kalpana Whitten NP 01/24/17 11: 38: I did speak with Dr. Escoto 01/22/2017 regarding new admission and he will accept patient upon transfer to [place]. Original Note: - General Info Date of Service: 01/24/17 Admission Dx/Problem (Free Text): UTI Subjective Update: Reports feeling "blah" this morning. Unable to express how he feels, but he denies chest pain, increased SOB or palpitations. He denies headache blurred vision or double vision. At 835 he is noticeably not using L arm as much or freely and leaning towards the left. - Review of Systems General: Reports: no symptoms. Denies: fever Pulmonary: Reports: no symptoms. Denies: shortness of breath, cough, sputum Cardiovascular: Denies: chest pain, palpitations, edema Gastrointestinal: Reports: No symptoms. Denies: Abdominal pain, Nausea, Vomiting Genitourinary: Reports: no symptoms Musculoskeletal: Reports: no symptoms Skin: Reports: no symptoms Neurological: Reports: no symptoms Psychiatric: Reports: no symptoms - Patient Data Vitals - most recent: Last Vital Signs Temp 97.0 F 01/24/17 08:00 Pulse 76 01/24/17 09:50 Resp 16 01/24/17 08:00 BP 133/66 01/24/17 09:50 Pulse Ox 76 L 01/24/17 08:00 Weight - most recent: 87.679 kg I&O - last 24 hours: Intake & Output 01/23/17 01/24/17 01/24/17 22:59 06:59 14:59 Intake Total 620 200 Output Total 237 657 Balance 383 -976 Lab Results last 24 hrs: Laboratory Results - last 24 hr 01/24/17 01/24/17 Range/Units 08:03 08:03 WBC 7.77 (4.0-11.0) K/uL RBC 4.32 L (4.50-5.90) M/uL Hgb 12.0 L (13.0-17.0) g/dL Hct 40.9 (38.0-50.0) % MCV 94.7 (80.0-98.0) fL MCH 27.8 (27.0-32.0) pg MCHC 29.3 L (31.0-37.0) g/dL RDW Std Deviation 50.3 (28.0-62.0) fl RDW Coeff of Boo 14 (11.0-15.0) % Plt Count 190 (150-400) K/uL MPV 11.00 (7.40-12.00) fL Neut % (Auto) 73.5 (48.0-80.0) % Lymph % (Auto) 12.5 L (16.0-40.0) % [place] % (Auto) 6.7 (0.0-15.0) % Eos % (Auto) 6.9 (0.0-7.0) % Baso % (Auto) 0.4 (0.0-1.5) % Neut # 5.7 (1.4-5.7) K/uL Lymph # 1.0 (0.6-2.4) K/uL [place] # 0.5 (0.0-0.8) K/uL Eos # 0.5 (0.0-0.7) K/uL Baso # 0.0 (0.0-0.1) K/uL Nucleated RBC % 0.0 /100WBC Nucleated RBCs # 0 K/uL Sodium 146 (136-146) mmol/L Potassium 4.2 (3.5-5.1) mmol/L Chloride 105 (98-110) mmol/L Carbon Dioxide 33 H (21-31) mmol/L BUN 33 H (6.0-23.0) mg/dL Creatinine 2.6 H (0.6-1.5) mg/dL Est Cr Clr Drug Dosing 24.63 mL/min Estimated GFR (MDRD) 24.1 ml/min Glucose 146 H (60-110) mg/dL Calcium 9.8 (8.8-10.8) mg/dL Sukh Results last 24 hrs: Microbiology 01/21/17 11:07 Urine Culture - Final Urine, [place] Cath ([place]) YEAST Med Orders - Current: Current Medications Acetaminophen (Tylenol) 650 mg PO Q4H PRN PRN Reason: Pain (Mild 1-3)/fever Albuterol/Ipratropium (Duoneb 3.0-0.5 Mg/3 Ml) 3 ml NEB Q6HRRT PRN PRN Reason: wheezing Albuterol/Ipratropium (Combivent Respimat) 0 gm INH BID PRN PRN Reason: Dyspnea Last Admin: 01/19/17 13:50 Dose: 1 canister Aspirin (Aspirin) 81 mg PO DAILY [facility] Last Admin: 01/24/17 09:44 Dose: 81 mg Atorvastatin Calcium (Lipitor) 10 mg PO BEDTIME [facility] Last Admin: 01/23/17 20:26 Dose: 10 mg Bisacodyl (Dulcolax) 10 mg RECTAL DAILY PRN PRN Reason: Constipation Last Admin: 01/22/17 10:34 Dose: 10 mg Clopidogrel Bisulfate (Plavix) 75 mg PO DAILY [facility] Last Admin: 01/24/17 09:52 Dose: 75 mg Docusate Sodium (Colace) 100 mg PO BID [facility] Last Admin: 01/24/17 09:45 Dose: 100 mg Furosemide (Lasix) 40 mg PO ACBREAKFAST [facility] Last Admin: 01/24/17 06:45 Dose: 40 mg Isosorbide Dinitrate (Isordil) 40 mg PO DAILY [facility] Last Admin: 01/24/17 09:49 Dose: 40 mg Metoprolol Tartrate (Lopressor) 50 mg PO BID [facility] Last Admin: 01/24/17 09:50 Dose: 50 mg Ondansetron HCl (Zofran) 4 mg IVPUSH Q4H PRN PRN Reason: Nausea Pantoprazole Sodium (Protonix) 40 mg PO ACBREAKFAST [facility] Last Admin: 01/24/17 06:45 Dose: 40 mg Budesonide/Formoterol 2 Puff ( Sumbicort 160-4.5) 0 each INH BID [facility] Last Admin: 01/24/17 08:44 Dose: 2 each Tamsulosin HCl (Flomax) 0.4 mg PO DAILY [facility] Last Admin: 01/24/17 09:48 Dose: 0.4 mg Discontinued Medications Docusate Sodium (Colace) 100 mg PO BID PRN PRN Reason: Constipation Last Admin: 01/19/17 21:19 Dose: 100 mg Fluconazole (Diflucan) 100 mg PO DAILY [facility] Stop: 01/25/17 09:01 Last Admin: 01/24/17 09:47 Dose: 100 mg Furosemide (Lasix) 40 mg PO ONETIME ONE Stop: 01/19/17 10:46 Last Admin: 01/19/17 11:21 Dose: 40 mg Furosemide (Lasix) 40 mg PO ONETIME ONE Stop: 01/21/17 09:51 Last Admin: 01/21/17 09:49 Dose: 40 mg Heparin Sodium (Porcine) (Heparin Sodium) 5,000 units SUBCUT Q8H [facility] Last Admin: 01/18/17 07:05 Dose: 5,000 units Heparin Sodium (Porcine) (Heparin Sodium) 5,000 units SUBCUT Q12H [facility] Last Admin: 01/18/17 10:55 Dose: Not Given Heparin Sodium (Porcine) (Heparin Sodium) 5,000 units SUBCUT Q12H [facility] Last Admin: 01/22/17 19:11 Dose: Not Given Levofloxacin/Dextrose 750 mg/ (Premix) 150 mls @ 100 mls/hr IV ONETIME ONE Stop: 01/17/17 19:02 Last Admin: 01/17/17 17:45 Dose: 100 mls/hr Sodium Chloride (Normal Saline) 250 mls @ 75 mls/hr IV ASDIRECTED [facility] Stop: 01/18/17 02:04 Last Admin: 01/18/17 00:15 Dose: 75 mls/hr Levofloxacin/Dextrose 750 mg/ (Premix) 150 mls @ 100 mls/hr IV Q48H [facility] Last Admin: 01/21/17 17:41 Dose: 100 mls/hr Dextrose/Water (Dextrose 5% In Water) 1,000 mls @ 40 mls/hr IV ASDIRECTED [facility] Stop: 01/19/17 13:00 Last Admin: 01/19/17 11:21 Dose: 40 mls/hr Dextrose/Water (Dextrose 5% In Water) 500 mls @ 50 mls/hr IV ASDIRECTED [facility] Dextrose/Water (Dextrose 5% In Water) 500 mls @ 50 mls/hr IV ASDIRECTED [facility] Stop: 01/20/17 05:14 Last Admin: 01/19/17 21:16 Dose: 50 mls/hr Dextrose/Water (Dextrose 5% In Water) 500 mls @ 100 mls/hr IV ASDIRECTED [facility] Last Admin: 01/20/17 10:20 Dose: 100 mls/hr Dextrose/Water (Dextrose 5% In Water) 500 mls @ 100 mls/hr IV ASDIRECTED [facility] Stop: 01/21/17 12:59 Last Admin: 01/21/17 08:37 Dose: Not Given Dextrose/Water (Dextrose 5% In Water) 500 mls @ 100 mls/hr IV ASDIRECTED [facility] Last Admin: 01/21/17 08:35 Dose: 100 mls/hr Dextrose/Water (Dextrose 5% In Water) 500 mls @ 100 mls/hr IV ASDIRECTED [facility] Stop: 01/21/17 13:22 Last Admin: 01/21/17 18:45 Dose: Not Given - Exam Quality Assessment: supplemental oxygen, DVT prophylaxis General: alert, cooperative. No: oriented (intermittently confused.) HEENT: Pupils equal, Pupils reactive, EOMI, Mucous membr. moist/pink Neck: supple, +2 carotid pulse wo bruit. No: JVD Lungs: Clear to auscultation, Normal respiratory effort Cardiovascular: regular rate, regular rhythm Abdomen: bowel sounds present, soft, no tenderness, no distension Extremities: no edema, normal pulses Neurological: normal speech, normal tone, cranial nerves intact. No: strength equal bilateral (l sided weakness noted. ) Psy/Mental Status: alert, normal affect, normal mood - Problem List & Annotations (1) Ddhue-pl-[id number] kidney injury SNOMED Code(s): 441974844 Code(s): N17.9 - ACUTE KIDNEY FAILURE, UNSPECIFIED; N18.9 - CHRONIC KIDNEY DISEASE, UNSPECIFIED Status: Acute Current Visit: Yes (2) Altered mental status SNOMED Code(s): 406174235 Code(s): R41.82 - ALTERED MENTAL STATUS, UNSPECIFIED Status: Acute Current Visit: Yes (3) UTI (urinary tract infection) SNOMED Code(s): 49942559 Code(s): N39.0 - URINARY TRACT INFECTION, SITE NOT SPECIFIED Status: Acute Current Visit: Yes Qualifiers: Urinary tract infection type: acute cystitis Hematuria presence: without hematuria Qualified Code(s): N30.00 - Acute cystitis without hematuria (4) Afib, Atrial fibrillation SNOMED Code(s): 76426381 Code(s): I48.91 - UNSPECIFIED ATRIAL FIBRILLATION Status: Chronic Current Visit: No (5) COPD, Mild chronic obstructive pulmonary disease SNOMED Code(s): 443572515 Code(s): J44.9 - CHRONIC OBSTRUCTIVE PULMONARY DISEASE, UNSPECIFIED Status : Chronic Current Visit: No (6) Coronary arteriosclerosis, CAD SNOMED Code(s): 47508991 Code(s): I25.10 - ATHSCL HEART DISEASE OF [place] CORONARY ARTERY W/O ANG PCTRS Status: Chronic Current Visit: No (7) Ischemic cardiomyopathy SNOMED Code(s): 226166826 Code(s): I25.5 - ISCHEMIC CARDIOMYOPATHY Status: Chronic Current Visit: Yes (8) Hypernatremia SNOMED Code(s): 04954756 Code(s): E87.0 - HYPEROSMOLALITY AND HYPERNATREMIA Status: Acute Current Visit: Yes - Problem List Review Problem List Initiated/Reviewed/Updated: Yes - My Orders Last 24 Hours: My Active Orders 01/24/17 08:41 Head wo Cont [CT] Stat 01/24/17 09:58 CV Carotid Duplex Comp [US] Routine 01/25/17 05:00 LIPID PANEL [CHEM] Routine - Plan Plan:: This 76 year old male with pmh of CAD,CHF,CKD,BPH,COPD admitted with altered mental status found to have UTI 1. UTI: Resolved. Discontinued Levauin, 7 days of therapy. Repeat UC again shows yeast, given 2 doses of Diflucan and will discontinue. Urinating well, some incontinence. Continue Flomax. 2. Hypernatremia: Resolved. Na 146 this am. Continue Lasix. Monitor 3. Acute on chronic kidney disease: Creatinine is 2.6 today. Monitor. 4. CAD with recent [place] s/p PCI: Continue Plavix, ASA, Lipitor, Isorbide dinitrate and Metoprolol 5. Cardiomyopathy: Strict I/O daily weights. Continuing Lasix. Monitor closely. 6. COPD: Stable. Duonebs 7. Fall: Head CT negative for hemorrhage. Today L sided weakness noted at 0830 on rounds, Stat head CT head ordered. by 11:00 back to baseline. But still complaining of not feeling right. Will obtain carotid U/S and check lipids. He is on all appropriate medications for CAD as listed above. Unable to complete MRI due to pacemaker. Possibly TIA? ECHO on 01/04 in [place] revealed EF 50%, and diastolic dysfunction, with inferiorposterior wall with severe hypokinesia to akinesia, mildly dilated R ventricle that is moderately hypokinetic. VTE: Dispo: DUe to L sided weakness will monitor today. Unable to be transferred to [place] over weekend due to be a "new admit". Hope for transfer on Friday.
--- NOTE | 2017-01-24 11:38 | CT ---
EXAMINATION: Non contrast CT head. Coronal and sagittal reformats. HISTORY: Left-sided weakness FINDINGS: No evidence of intra or extra axial hemorrhage, mass, midline shift, hydrocephalus or edema. Modera te periventricular and subcortical white matter hypodensities CT noted. No hypoattenuation changes in the major vascular territories to suggest acute infarct. No abnormal intracranial calcifications are detected. No evidence of substantial vascular calcifica tions. Paranasal sinuses and mastoid air cells are well aerated without substantial findings. There is mild generalized atrophy. Pituitary fossa appears unremarkable. Calvarium is intact. No evidence of skull fracture. Nasal bone fractures again noted. IMPRESSION: 1. No acute intracranial abnormalities. 2. Mild generalized atrophy and advanced small vessel ischemic changes.
[2017-01-24] MEDS: Albuterol/Ipratropium 4 GM Inhalation Spray INH PRN (11:59)
--- NOTE | 2017-01-24 16:43 | US ---
EXAMINATION: Carotid US with askew scale and duplex imaging. HISTORY: Left-sided weakness FINDINGS: Ultrasound examination of bilateral cervical carotid arteries was performed using askew scale and dup trupti imaging. Mild scattered atheromatous plaque is noted within the carotid arteries bilaterally. Antegrade flow is noted within the vertebrals. These are the peak velocities in cm per second (systole), right and left respectively, by a comma: CCA (common carotid artery) - 88, 67 ICA (internal carotid artery) - 54, 146 ECA (External carotid artery) - 100, 93 ICA/CCA systolic ratio Right - 1.0 Left - 2.0 IMPRESSION: 1. There is approximately 50-69% stenosis of the left internal carotid artery. 2. There is less than 50% stenosis noted within the right internal carotid artery.
[2017-01-24] MEDS: atorvaSTATin 10 MG Tab PO SCH (20:14)
[2017-01-25] MEDS: Pantoprazole 40 MG Tab.CR PO SCH (07:08)
[2017-01-25] MEDS: Furosemide 40 MG Tab PO SCH (07:08)
[2017-01-25] MEDS: BUDESONIDE INH SCH ×2 (08:38→20:38)
[2017-01-25] MEDS: FORMOTEROL INH SCH ×2 (08:38→20:38)
[2017-01-25] MEDS: Metoprolol Tartrate 50 MG Tab PO SCH ×2 (08:44→19:59)
[2017-01-25] MEDS: Docusate Sodium 100 MG Cap PO SCH ×2 (08:44→19:59)
[2017-01-25] MEDS: Aspirin 81 MG Tab.Chew PO SCH (08:44)
[2017-01-25] MEDS: Tamsulosin 0.4 MG Cap.ER PO SCH (08:44)
[2017-01-25] MEDS: ISOSORBIDE DINITRATE 40 MG PO SCH (08:44)
[2017-01-25] MEDS: Clopidogrel 75 MG Tab PO SCH (08:44)
--- NOTE | 2017-01-25 13:32 | PCM.PN ---
- General Info Date of Service: 01/25/17 - Review of Systems HEENT: Reports: no symptoms Pulmonary: Denies: shortness of breath, wheezing - Patient Data Vitals - most recent: Last Vital Signs Temp 98.7 F 01/25/17 04:00 Pulse 90 01/25/17 08:44 Resp 18 01/25/17 04:00 BP 126/62 01/25/17 08:44 Pulse Ox 91 L 01/25/17 04:00 Weight - most recent: 88.451 kg I&O - last 24 hours: Intake & Output 01/24/17 01/25/17 01/25/17 22:59 06:59 14:59 Intake Total 780 470 Output Total 857 535 Balance -77 -65 Lab Results last 24 hrs: Laboratory Results - last 24 hr 01/25/17 01/25/17 Range/Units 05:25 05:25 WBC 7.10 (4.0-11.0) K/uL RBC 3.84 L (4.50-5.90) M/uL Hgb 10.8 L (13.0-17.0) g/dL Hct 35.8 L (38.0-50.0) % MCV 93.2 (80.0-98.0) fL MCH 28.1 (27.0-32.0) pg MCHC 30.2 L (31.0-37.0) g/dL RDW Std Deviation 49.3 (28.0-62.0) fl RDW Coeff of Boo 15 (11.0-15.0) % Plt Count 174 (150-400) K/uL MPV 11.10 (7.40-12.00) fL Neut % (Auto) 70.1 (48.0-80.0) % Lymph % (Auto) 13.2 L (16.0-40.0) % [place] % (Auto) 9.3 (0.0-15.0) % Eos % (Auto) 7.0 (0.0-7.0) % Baso % (Auto) 0.4 (0.0-1.5) % Neut # 5.0 (1.4-5.7) K/uL Lymph # 0.9 (0.6-2.4) K/uL [place] # 0.7 (0.0-0.8) K/uL Eos # 0.5 (0.0-0.7) K/uL Baso # 0.0 (0.0-0.1) K/uL Nucleated RBC % 0.0 /100WBC Nucleated RBCs # 0 K/uL Sodium 144 (136-146) mmol/L Potassium 4.1 (3.5-5.1) mmol/L Chloride 107 (98-110) mmol/L Carbon Dioxide 30 (21-31) mmol/L BUN 33 H (6.0-23.0) mg/dL Creatinine 2.5 H (0.6-1.5) mg/dL Est Cr Clr Drug Dosing 25.61 mL/min Estimated GFR (MDRD) 25.2 ml/min Glucose 103 (60-110) mg/dL Calcium 9.1 (8.8-10.8) mg/dL Triglycerides 148 (10-190) mg/dL Cholesterol 145 (131-240) mg/dL LDL Cholesterol, Calc 87 (60-180) mg/dL VLDL Cholesterol 30 (5-55) mg/dL HDL Cholesterol 28 L (40-80) mg/dL Cholesterol/HDL Ratio 5.2 (3.3-6.0) Med Orders - Current: Current Medications Acetaminophen (Tylenol) 650 mg PO Q4H PRN PRN Reason: Pain (Mild 1-3)/fever Albuterol/Ipratropium (Duoneb 3.0-0.5 Mg/3 Ml) 3 ml NEB Q6HRRT PRN PRN Reason: wheezing Albuterol/Ipratropium (Combivent Respimat) 0 gm INH BID PRN PRN Reason: Dyspnea Last Admin: 01/24/17 11:59 Dose: 1 canister Aspirin (Aspirin) 81 mg PO DAILY [facility] Last Admin: 01/25/17 08:44 Dose: 81 mg Atorvastatin Calcium (Lipitor) 10 mg PO BEDTIME [facility] Last Admin: 01/24/17 20:14 Dose: 10 mg Bisacodyl (Dulcolax) 10 mg RECTAL DAILY PRN PRN Reason: Constipation Last Admin: 01/22/17 10:34 Dose: 10 mg Clopidogrel Bisulfate (Plavix) 75 mg PO DAILY [facility] Last Admin: 01/25/17 08:44 Dose: 75 mg Docusate Sodium (Colace) 100 mg PO BID [facility] Last Admin: 01/25/17 08:44 Dose: 100 mg Furosemide (Lasix) 40 mg PO ACBREAKFAST [facility] Last Admin: 01/25/17 07:08 Dose: 40 mg Isosorbide Dinitrate (Isordil) 40 mg PO DAILY [facility] Last Admin: 01/25/17 08:44 Dose: 40 mg Metoprolol Tartrate (Lopressor) 50 mg PO BID [facility] Last Admin: 01/25/17 08:44 Dose: 50 mg Ondansetron HCl (Zofran) 4 mg IVPUSH Q4H PRN PRN Reason: Nausea Pantoprazole Sodium (Protonix) 40 mg PO ACBREAKFAST [facility] Last Admin: 01/25/17 07:08 Dose: 40 mg Budesonide/Formoterol 2 Puff ( Sumbicort 160-4.5) 0 each INH BID [facility] Last Admin: 01/25/17 08:38 Dose: 2 each Tamsulosin HCl (Flomax) 0.4 mg PO DAILY [facility] Last Admin: 01/25/17 08:44 Dose: 0.4 mg Discontinued Medications Docusate Sodium (Colace) 100 mg PO BID PRN PRN Reason: Constipation Last Admin: 01/19/17 21:19 Dose: 100 mg Fluconazole (Diflucan) 100 mg PO DAILY [facility] Stop: 01/25/17 09:01 Last Admin: 01/24/17 09:47 Dose: 100 mg Furosemide (Lasix) 40 mg PO ONETIME ONE Stop: 01/19/17 10:46 Last Admin: 01/19/17 11:21 Dose: 40 mg Furosemide (Lasix) 40 mg PO ONETIME ONE Stop: 01/21/17 09:51 Last Admin: 01/21/17 09:49 Dose: 40 mg Heparin Sodium (Porcine) (Heparin Sodium) 5,000 units SUBCUT Q8H [facility] Last Admin: 01/18/17 07:05 Dose: 5,000 units Heparin Sodium (Porcine) (Heparin Sodium) 5,000 units SUBCUT Q12H [facility] Last Admin: 01/18/17 10:55 Dose: Not Given Heparin Sodium (Porcine) (Heparin Sodium) 5,000 units SUBCUT Q12H [facility] Last Admin: 01/22/17 19:11 Dose: Not Given Levofloxacin/Dextrose 750 mg/ (Premix) 150 mls @ 100 mls/hr IV ONETIME ONE Stop: 01/17/17 19:02 Last Admin: 01/17/17 17:45 Dose: 100 mls/hr Sodium Chloride (Normal Saline) 250 mls @ 75 mls/hr IV ASDIRECTED [facility] Stop: 01/18/17 02:04 Last Admin: 01/18/17 00:15 Dose: 75 mls/hr Levofloxacin/Dextrose 750 mg/ (Premix) 150 mls @ 100 mls/hr IV Q48H [facility] Last Admin: 01/21/17 17:41 Dose: 100 mls/hr Dextrose/Water (Dextrose 5% In Water) 1,000 mls @ 40 mls/hr IV ASDIRECTED [facility] Stop: 01/19/17 13:00 Last Admin: 01/19/17 11:21 Dose: 40 mls/hr Dextrose/Water (Dextrose 5% In Water) 500 mls @ 50 mls/hr IV ASDIRECTED [facility] Dextrose/Water (Dextrose 5% In Water) 500 mls @ 50 mls/hr IV ASDIRECTED [facility] Stop: 01/20/17 05:14 Last Admin: 01/19/17 21:16 Dose: 50 mls/hr Dextrose/Water (Dextrose 5% In Water) 500 mls @ 100 mls/hr IV ASDIRECTED [facility] Last Admin: 01/20/17 10:20 Dose: 100 mls/hr Dextrose/Water (Dextrose 5% In Water) 500 mls @ 100 mls/hr IV ASDIRECTED [facility] Stop: 01/21/17 12:59 Last Admin: 01/21/17 08:37 Dose: Not Given Dextrose/Water (Dextrose 5% In Water) 500 mls @ 100 mls/hr IV ASDIRECTED [facility] Last Admin: 01/21/17 08:35 Dose: 100 mls/hr Dextrose/Water (Dextrose 5% In Water) 500 mls @ 100 mls/hr IV ASDIRECTED [facility] Stop: 01/21/17 13:22 Last Admin: 01/21/17 18:45 Dose: Not Given - Exam General: alert. No: oriented Lungs: Normal respiratory effort Psy/Mental Status: alert. No: agitated (confused stating " I don't know where I am or what I am doing".) Physical Findings Comments:: ambulating with a walker with one stand by assist. - Problem List & Annotations (1) Fall SNOMED Code(s): 3778803, 536317702 Code(s): W19.XXXA - UNSPECIFIED FALL, INITIAL ENCOUNTER Status: Acute Current Visit: Yes (2) TIA (transient ischemic attack) SNOMED Code(s): 718351113, 205267009 Code(s): G45.9 - TRANSIENT CEREBRAL ISCHEMIC ATTACK, UNSPECIFIED Status: Acute Current Visit: Yes (3) Oxujw-uh-adfshym kidney injury SNOMED Code(s): 502952367 Code(s): N17.9 - ACUTE KIDNEY FAILURE, UNSPECIFIED; N18.9 - CHRONIC KIDNEY DISEASE, UNSPECIFIED Status: Acute Current Visit: Yes (4) Altered mental status SNOMED Code(s): 221162420 Code(s): R41.82 - ALTERED MENTAL STATUS, UNSPECIFIED Status: Acute Current Visit: Yes (5) Hypernatremia SNOMED Code(s): 60540527 Code(s): E87.0 - HYPEROSMOLALITY AND HYPERNATREMIA Status: Acute Current Visit: Yes (6) UTI (urinary tract infection) SNOMED Code(s): 38252811 Code(s): N39.0 - URINARY TRACT INFECTION, SITE NOT SPECIFIED Status: Acute Current Visit: Yes Qualifiers: Urinary tract infection type: acute cystitis Hematuria presence: without hematuria Qualified Code(s): N30.00 - Acute cystitis without hematuria - Problem List Review Problem List Initiated/Reviewed/Updated: Yes - My Orders Last 24 Hours: My Active Orders 01/25/17 13:23 Discontinue Telemetry Monitoring [Cardiac Monitoring Discontinue] [RC] Click To Edit 01/25/17 13:25 Communication Order [RC] ROUTINE 01/26/17 05:11 MAGNESIUM [CHEM] AM - Plan Plan:: This 76 year old male with pmh of CAD,CHF,CKD,BPH,COPD admitted with altered mental status found to have UTI 1. UTI: Resolved. Discontinued Levauin, 7 days of therapy. Repeat UC again shows yeast, given 2 doses of Diflucan and will discontinue. Urinating well, some incontinence. Continue Flomax. 2. Hypernatremia: Resolved. Na 146 this am. Continue Lasix. Monitor 3. Acute on chronic kidney disease: Creatinine is 2.6 today. Monitor. 4. CAD with recent [place] s/p PCI: Continue Plavix, ASA, Lipitor, Isorbide dinitrate and Metoprolol 5. Cardiomyopathy: Strict I/O daily weights. Continuing Lasix. Monitor closely. 6. COPD: Stable. [place] 7. Fall: Head CT negative for hemorrhage. Today L sided weakness noted at 0830 on rounds, Stat head CT head ordered. by 11:00 back to baseline. But still complaining of not feeling right. Will obtain carotid U/S and check lipids. He is on all appropriate medications for CAD as listed above. Unable to complete MRI due to pacemaker. Possibly TIA? ECHO on 01/04 in [place] revealed EF 50%, and diastolic dysfunction, with inferiorposterior wall with severe hypokinesia to akinesia, mildly dilated R ventricle that is moderately hypokinetic. VTE: Dispo: DUe to L sided weakness will monitor today. Unable to be transferred to [place] over weekend due to be a "new admit". Hope for transfer on Friday. 01/25/2017 I reviewed Sophie's note above. Plan is for discharge Friday to [place]. nasal fracture as per CT report does not need any specific treatment. will restart aspirin and plavix. Jhonny Paredes MD
[2017-01-25] MEDS ORDERED: Aspirin 81 MG Tab.EC PO SCH (13:45)
[2017-01-25] MEDS ORDERED: Clopidogrel 75 MG Tab PO SCH (14:00)
[2017-01-25] MEDS: atorvaSTATin 10 MG Tab PO SCH (19:59)
[2017-01-25] MEDS ORDERED: Bisacodyl 5 MG Tab PO SCH (21:00)
[2017-01-25] MEDS ORDERED: ISOSORBIDE DINITRATE 40 MG PO SCH (21:00)
[2017-01-25] MEDS ORDERED: atorvaSTATin 10 MG Tab PO SCH (21:00)
[2017-01-26] MEDS: Pantoprazole 40 MG Tab.CR PO SCH (06:43)
[2017-01-26] MEDS: Furosemide 40 MG Tab PO SCH (06:43)
[2017-01-26] MEDS ORDERED: Pantoprazole 40 MG Tab.CR PO SCH (07:30)
[2017-01-26] MEDS: Aspirin 81 MG Tab.Chew PO SCH (08:03)
[2017-01-26] MEDS: Docusate Sodium 100 MG Cap PO SCH ×2 (08:03→20:18)
[2017-01-26] MEDS: Tamsulosin 0.4 MG Cap.ER PO SCH (08:03)
[2017-01-26] MEDS: Clopidogrel 75 MG Tab PO SCH (08:04)
[2017-01-26] MEDS: ISOSORBIDE DINITRATE 40 MG PO SCH (08:04)
[2017-01-26] MEDS: Metoprolol Tartrate 50 MG Tab PO SCH ×2 (08:04→20:18)
[2017-01-26] MEDS: FORMOTEROL INH SCH ×2 (08:46→20:20)
[2017-01-26] MEDS: BUDESONIDE INH SCH ×2 (08:46→20:20)
[2017-01-26] MEDS: Tiotropium Inhaler 18 MCG Inhalation Powder Cap Kit of 5 INH SCH (08:48)
[2017-01-26] MEDS ORDERED: Tamsulosin 0.4 MG Cap.ER PO SCH (09:00)
--- NOTE | 2017-01-26 12:21 | PCM.PN ---
- General Info Date of Service: 01/26/17 - Review of Systems Cardiovascular: Denies: chest pain Gastrointestinal: Denies: Abdominal pain Psychiatric: Reports: confusion (no complaint) - Patient Data Vitals - most recent: Last Vital Signs Temp 98.6 F 01/26/17 10:27 Pulse 82 01/26/17 10:27 Resp 20 01/26/17 10:27 BP 134/70 01/26/17 10:27 Pulse Ox 91 L 01/26/17 10:27 Weight - most recent: 87.5 kg I&O - last 24 hours: Intake & Output 01/25/17 01/26/17 01/26/17 22:59 06:59 14:59 Intake Total 480 470 Output Total 421 369 Balance 59 101 Lab Results last 24 hrs: Laboratory Results - last 24 hr 01/26/17 01/26/17 01/26/17 Range/Units 05:30 05:30 05:30 WBC 7.81 (4.0-11.0) K/uL RBC 3.73 L (4.50-5.90) M/uL Hgb 10.8 L (13.0-17.0) g/dL Hct 36.0 L (38.0-50.0) % MCV 96.5 (80.0-98.0) fL MCH 29.0 (27.0-32.0) pg MCHC 30.0 L (31.0-37.0) g/dL RDW Std Deviation 47.4 (28.0-62.0) fl RDW Coeff of Boo 14 (11.0-15.0) % Plt Count 183 (150-400) K/uL MPV 11.40 (7.40-12.00) fL Neut % (Auto) 71.4 (48.0-80.0) % Lymph % (Auto) 12.5 L (16.0-40.0) % [place] % (Auto) 9.3 (0.0-15.0) % Eos % (Auto) 6.5 (0.0-7.0) % Baso % (Auto) 0.3 (0.0-1.5) % Neut # 5.6 (1.4-5.7) K/uL Lymph # 1.0 (0.6-2.4) K/uL [place] # 0.7 (0.0-0.8) K/uL Eos # 0.5 (0.0-0.7) K/uL Baso # 0.0 (0.0-0.1) K/uL Sodium 144 (136-146) mmol/L Potassium 4.1 (3.5-5.1) mmol/L Chloride 107 (98-110) mmol/L Carbon Dioxide 30 (21-31) mmol/L BUN 36 H (6.0-23.0) mg/dL Creatinine 2.6 H (0.6-1.5) mg/dL Est Cr Clr Drug Dosing 24.63 mL/min Estimated GFR (MDRD) 24.1 ml/min Glucose 109 (60-110) mg/dL Calcium 9.7 (8.8-10.8) mg/dL Magnesium 1.8 (1.5-2.3) mEq/L Med Orders - Current: Current Medications Acetaminophen (Tylenol) 650 mg PO Q4H PRN PRN Reason: Pain (Mild 1-3)/fever Albuterol/Ipratropium (Duoneb 3.0-0.5 Mg/3 Ml) 3 ml NEB Q6HRRT PRN PRN Reason: wheezing Albuterol/Ipratropium (Combivent Respimat) 0 gm INH BID PRN PRN Reason: Dyspnea Last Admin: 01/24/17 11:59 Dose: 1 canister Aspirin (Aspirin) 81 mg PO DAILY [facility] Last Admin: 01/26/17 08:03 Dose: 81 mg Atorvastatin Calcium (Lipitor) 10 mg PO BEDTIME [facility] Last Admin: 01/25/17 19:59 Dose: 10 mg Bisacodyl (Dulcolax) 10 mg RECTAL DAILY PRN PRN Reason: Constipation Last Admin: 01/22/17 10:34 Dose: 10 mg Clopidogrel Bisulfate (Plavix) 75 mg PO DAILY [facility] Last Admin: 01/26/17 08:04 Dose: 75 mg Docusate Sodium (Colace) 100 mg PO BID [facility] Last Admin: 01/26/17 08:03 Dose: 100 mg Furosemide (Lasix) 40 mg PO ACBREAKFAST [facility] Last Admin: 01/26/17 06:43 Dose: 40 mg Isosorbide Dinitrate (Isordil) 40 mg PO DAILY [facility] Last Admin: 01/26/17 08:04 Dose: 40 mg Metoprolol Tartrate (Lopressor) 50 mg PO BID [facility] Last Admin: 01/26/17 08:04 Dose: 50 mg Ondansetron HCl (Zofran) 4 mg IVPUSH Q4H PRN PRN Reason: Nausea Pantoprazole Sodium (Protonix) 40 mg PO ACBREAKFAST [facility] Last Admin: 01/26/17 06:43 Dose: 40 mg Budesonide/Formoterol 2 Puff ( Sumbicort 160-4.5) 0 each INH BID [facility] Last Admin: 01/26/17 08:46 Dose: 2 each Tamsulosin HCl (Flomax) 0.4 mg PO DAILY [facility] Last Admin: 01/26/17 08:03 Dose: 0.4 mg Tiotropium [place] (Spiriva Handihaler) 18 mcg INH DAILY [facility] Last Admin: 01/26/17 08:48 Dose: 1 cap Discontinued Medications Aspirin (Halfprin) 81 mg PO BRK [facility] Last Admin: 01/25/17 16:16 Dose: Not Given Atorvastatin Calcium (Lipitor) 10 mg PO BEDTIME [facility] Bisacodyl (Dulcolax) 10 mg PO BEDTIME [facility] Clopidogrel Bisulfate (Plavix) 75 mg PO DAILY [facility] Last Admin: 01/25/17 16:16 Dose: Not Given Docusate Sodium (Colace) 100 mg PO BID PRN PRN Reason: Constipation Last Admin: 01/19/17 21:19 Dose: 100 mg Fluconazole (Diflucan) 100 mg PO DAILY [facility] Stop: 01/25/17 09:01 Last Admin: 01/24/17 09:47 Dose: 100 mg Furosemide (Lasix) 40 mg PO ONETIME ONE Stop: 01/19/17 10:46 Last Admin: 01/19/17 11:21 Dose: 40 mg Furosemide (Lasix) 40 mg PO ONETIME ONE Stop: 01/21/17 09:51 Last Admin: 01/21/17 09:49 Dose: 40 mg Heparin Sodium (Porcine) (Heparin Sodium) 5,000 units SUBCUT Q8H [facility] Last Admin: 01/18/17 07:05 Dose: 5,000 units Heparin Sodium (Porcine) (Heparin Sodium) 5,000 units SUBCUT Q12H [facility] Last Admin: 01/18/17 10:55 Dose: Not Given Heparin Sodium (Porcine) (Heparin Sodium) 5,000 units SUBCUT Q12H [facility] Last Admin: 01/22/17 19:11 Dose: Not Given Levofloxacin/Dextrose 750 mg/ (Premix) 150 mls @ 100 mls/hr IV ONETIME ONE Stop: 01/17/17 19:02 Last Admin: 01/17/17 17:45 Dose: 100 mls/hr Sodium Chloride (Normal Saline) 250 mls @ 75 mls/hr IV ASDIRECTED [facility] Stop: 01/18/17 02:04 Last Admin: 01/18/17 00:15 Dose: 75 mls/hr Levofloxacin/Dextrose 750 mg/ (Premix) 150 mls @ 100 mls/hr IV Q48H [facility] Last Admin: 01/21/17 17:41 Dose: 100 mls/hr Dextrose/Water (Dextrose 5% In Water) 1,000 mls @ 40 mls/hr IV ASDIRECTED [facility] Stop: 01/19/17 13:00 Last Admin: 01/19/17 11:21 Dose: 40 mls/hr Dextrose/Water (Dextrose 5% In Water) 500 mls @ 50 mls/hr IV ASDIRECTED [facility] Dextrose/Water (Dextrose 5% In Water) 500 mls @ 50 mls/hr IV ASDIRECTED [facility] Stop: 01/20/17 05:14 Last Admin: 01/19/17 21:16 Dose: 50 mls/hr Dextrose/Water (Dextrose 5% In Water) 500 mls @ 100 mls/hr IV ASDIRECTED [facility] Last Admin: 01/20/17 10:20 Dose: 100 mls/hr Dextrose/Water (Dextrose 5% In Water) 500 mls @ 100 mls/hr IV ASDIRECTED [facility] Stop: 01/21/17 12:59 Last Admin: 01/21/17 08:37 Dose: Not Given Dextrose/Water (Dextrose 5% In Water) 500 mls @ 100 mls/hr IV ASDIRECTED [facility] Last Admin: 01/21/17 08:35 Dose: 100 mls/hr Dextrose/Water (Dextrose 5% In Water) 500 mls @ 100 mls/hr IV ASDIRECTED [facility] Stop: 01/21/17 13:22 Last Admin: 01/21/17 18:45 Dose: Not Given Isosorbide Dinitrate (Isordil) 60 mg PO BEDTIME [facility] Pantoprazole Sodium (Protonix) 40 mg PO ACBREAKFAST [facility] Tamsulosin HCl (Flomax) 0.4 mg PO DAILY [facility] - Exam General: alert, cooperative Lungs: Clear to auscultation, Normal respiratory effort Cardiovascular: regular rate, regular rhythm Abdomen: no tenderness Psy/Mental Status: alert, normal affect. No: agitated Physical Findings Comments:: no motor asymmetry noted. - Problem List & Annotations (1) Fall SNOMED Code(s): 8819891, 689209655 Code(s): W19.XXXA - UNSPECIFIED FALL, INITIAL ENCOUNTER Status: Acute Current Visit: Yes (2) TIA (transient ischemic attack) SNOMED Code(s): 536531998, 018005087 Code(s): G45.9 - TRANSIENT CEREBRAL ISCHEMIC ATTACK, UNSPECIFIED Status: Acute Current Visit: Yes (3) [id number] kidney injury SNOMED Code(s): 704020831 Code(s): N17.9 - ACUTE KIDNEY FAILURE, UNSPECIFIED; N18.9 - CHRONIC KIDNEY DISEASE, UNSPECIFIED Status: Acute Current Visit: Yes (4) Altered mental status SNOMED Code(s): 796609916 Code(s): R41.82 - ALTERED MENTAL STATUS, UNSPECIFIED Status: Acute Current Visit: Yes (5) Hypernatremia SNOMED Code(s): 21649132 Code(s): E87.0 - HYPEROSMOLALITY AND HYPERNATREMIA Status: Acute Current Visit: Yes (6) UTI (urinary tract infection) SNOMED Code(s): 98021053 Code(s): N39.0 - URINARY TRACT INFECTION, SITE NOT SPECIFIED Status: Acute Current Visit: Yes Qualifiers: Urinary tract infection type: acute cystitis Hematuria presence: without hematuria Qualified Code(s): N30.00 - Acute cystitis without hematuria (7) Nasal bone fracture SNOMED Code(s): 539014263 Code(s): S02.2XXA - FRACTURE OF NASAL BONES, INIT ENCNTR FOR CLOSED FRACTURE Status: Acute Current Visit: Yes - Problem List Review Problem List Initiated/Reviewed/Updated: Yes - My Orders Last 24 Hours: My Active Orders 01/25/17 13:23 Discontinue Telemetry Monitoring [Cardiac Monitoring Discontinue] [RC] Click To Edit 01/25/17 13:25 Communication Order [RC] ROUTINE 01/26/17 09:00 Tiotropium [Spiriva HandiHaler] 18 mcg INH DAILY - Plan Plan:: This 76 year old male with pmh of CAD,CHF,CKD,BPH,COPD admitted with altered mental status found to have UTI 1. UTI: Resolved. Discontinued Levauin, 7 days of therapy. Repeat UC again shows yeast, given 2 doses of Diflucan and will discontinue. Urinating well, some incontinence. Continue Flomax. 2. Hypernatremia: Resolved. Na 146 this am. Continue Lasix. Monitor 3. Acute on chronic kidney disease: Creatinine is 2.6 today. Monitor. 4. CAD with recent [place] s/p PCI: Continue Plavix, ASA, Lipitor, Isorbide dinitrate and Metoprolol 5. Cardiomyopathy: Strict I/O daily weights. Continuing Lasix. Monitor closely. 6. COPD: Stable. [place] 7. Fall: Head CT negative for hemorrhage. Today L sided weakness noted at 0830 on rounds, Stat head CT head ordered. by 11:00 back to baseline. But still complaining of not feeling right. Will obtain carotid U/S and check lipids. He is on all appropriate medications for CAD as listed above. Unable to complete MRI due to pacemaker. Possibly TIA? ECHO on 01/04 in [place] revealed EF 50%, and diastolic dysfunction, with inferiorposterior wall with severe hypokinesia to akinesia, mildly dilated R ventricle that is moderately hypokinetic. VTE: Dispo: DUe to L sided weakness will monitor today. Unable to be transferred to [place] over weekend due to be a "new admit". Hope for transfer on Friday. 01/25/2017 I reviewed Sophie's note above. Plan is for discharge Friday to [place]. nasal fracture as per CT report does not need any specific treatment. will restart aspirin and plavix. Jhonny Paredes MD 01/26/2017 anticipate discharge to [place] tomorrow. Jhonny Paredes MD
[2017-01-26] MEDS: atorvaSTATin 10 MG Tab PO SCH (20:18)
[2017-01-27] MEDS: Bisacodyl 10 MG Supp RECTAL PRN (06:25)
[2017-01-27] MEDS: Furosemide 40 MG Tab PO SCH (06:30)
[2017-01-27] MEDS: Pantoprazole 40 MG Tab.CR PO SCH (06:30)
[2017-01-27] MEDS: Clopidogrel 75 MG Tab PO SCH (08:00)
[2017-01-27] MEDS: Docusate Sodium 100 MG Cap PO SCH (08:00)
[2017-01-27] MEDS: ISOSORBIDE DINITRATE 40 MG PO SCH (08:01)
[2017-01-27] MEDS: Aspirin 81 MG Tab.Chew PO SCH (08:01)
[2017-01-27] MEDS: Tamsulosin 0.4 MG Cap.ER PO SCH (08:01)
[2017-01-27] MEDS: Metoprolol Tartrate 50 MG Tab PO SCH (08:01)
[2017-01-27] MEDS: BUDESONIDE INH SCH (09:05)
[2017-01-27] MEDS: FORMOTEROL INH SCH (09:05)
[2017-01-27] MEDS: Tiotropium Inhaler 18 MCG Inhalation Powder Cap Kit of 5 INH SCH (09:06)
--- NOTE | 2017-01-27 11:46 | PCM.DCSUM1 ---
Discharge Summary - Hospital Course Brief History: This 76 year old male who has pmh of ischemic cardiomyopathy with diastolic dysfunction, peripheral vascular disease with AAA repair in 2010 and renal stenting, COPD, BPH with obstructive uropathy, stage III kidney disease. He was discharged 01/16/2017 from [facility]. He was transferred from [place] to [place] with acute inferior wall CT. He had a thrombectomy and PCI to RCA. His hospital stay was complicated by ileus, V.fib arrest with respiratory failure s/p intubation and extubation, pacemaker with ICD implantation due to bradycardia. 01/17/2016 at [place] he was noted to be lethargy. He was brought to the ED and noted to be difficult to arouse. He had CT scan of head and CXR which was unremarkable. UA showed pyuria and WBC was 11 ,450. He was given Levaquin for UTI and his mentation did improve while in the ED. He was noted to have a creatinine of 3.3 which was up from 2.1 which was checked on 01/09/17. Patient denies any chest pain, shortness of breath or fevers. Family reports that patient was requesting his inhalers for COPD due to shortness of breath but as they were not on his long-term medication list he did not receive any. He was admitted for UTI, AMS and acute on chronic renal injury. - Discharge Data Discharge Date: 01/27/17 Discharge Disposition: DC/Tfer to SNF 03 Condition: Good - Discharge Diagnosis/Problem(s) (1) [id number] kidney injury SNOMED Code(s): 173746599 ICD Code: N17.9 - ACUTE KIDNEY FAILURE, UNSPECIFIED; N18.9 - CHRONIC KIDNEY DISEASE, UNSPECIFIED Status: Acute Current Visit: Yes (2) Altered mental status SNOMED Code(s): 556295951 ICD Code: R41.82 - ALTERED MENTAL STATUS, UNSPECIFIED Status: Acute Current Visit: Yes (3) UTI (urinary tract infection) SNOMED Code(s): 68342012 ICD Code: N39.0 - URINARY TRACT INFECTION, SITE NOT SPECIFIED Status: Acute Current Visit: Yes Qualifiers: Urinary tract infection type: acute cystitis Hematuria presence: without hematuria Qualified Code(s): N30.00 - Acute cystitis without hematuria (4) Afib, Atrial fibrillation SNOMED Code(s): 25125603 ICD Code: I48.91 - UNSPECIFIED ATRIAL FIBRILLATION Status: Chronic Current Visit: No (5) COPD, Mild chronic obstructive pulmonary disease SNOMED Code(s): 247855152 ICD Code: J44.9 - CHRONIC OBSTRUCTIVE PULMONARY DISEASE, UNSPECIFIED Status : Chronic Current Visit: No (6) Coronary arteriosclerosis, CAD SNOMED Code(s): 39000066 ICD Code: I25.10 - ATHSCL HEART DISEASE OF [place] CORONARY ARTERY W/O ANG PCTRS Status: Chronic Current Visit: No (7) Ischemic cardiomyopathy SNOMED Code(s): 622115607 ICD Code: I25.5 - ISCHEMIC CARDIOMYOPATHY Status: Chronic Current Visit: Yes (8) Hypernatremia SNOMED Code(s): 02230666 ICD Code: E87.0 - HYPEROSMOLALITY AND HYPERNATREMIA Status: Acute Current Visit: Yes - Patient Summary/Data Consults: Consultations 01/21/17 11:23 Consult to Physical Therapy [PT Evaluation and Treatment] [CONS] Routine - Patient Instructions Diet: Heart Healthy Diet, Low Sodium Activity: As Tolerated Showering/Bathing: May Shower Notify Provider of: Fever, Increased Pain, Swelling and Redness, Drainage, Nausea and/or Vomiting Other/Special Instructions: PT/OT to evaluate and treat, Cardiac Rehab - Discharge Plan Prescriptions/Med Rec: Docusate Sodium [Colace] 100 mg PO BID #60 cap Home Medications: Home Meds Albuterol/Ipratropium [Combivent Respimat] 2 puff INH BID 11/13/15 [History] Aspirin [Halfprin] 81 mg PO BRK 01/18/17 [History] Bisacodyl [Dulcolax] 10 mg PO BEDTIME 01/18/17 [History] Budesonide/Formoterol [Symbicort 160-4.5 MCG] 2 puff IH BID 01/18/17 [History] Clopidogrel [Plavix] 75 mg PO DAILY 01/18/17 [History] Furosemide [Lasix] 40 mg PO ACBREAKFAST 01/18/17 [History] Isosorbide Dinitrate [Isochron] 60 mg PO BEDTIME 01/18/17 [History] Metoprolol Tartrate 50 mg PO BID 01/18/17 [History] Pantoprazole [Protonix] 40 mg PO ACBREAKFAST 01/18/17 [History] Tamsulosin [Flomax] 0.4 mg PO DAILY 01/18/17 [History] Tiotropium [Spiriva HandiHaler] 18 mcg INH DAILY 01/18/17 [History] atorvaSTATin [Lipitor] 10 mg PO BEDTIME 01/18/17 [History] Albuterol Sulfate 2.5 mg IH Q4H PRN 01/20/17 [History] Docusate Sodium [Colace] 100 mg PO BID #60 cap 01/23/17 [Rx] Patient Handouts: Hypernatremia, [id number], Confusion, Urinary Tract Infection, Adult, Docusate capsules Referrals: Saad Escoto MD [Physician] - 02/03/17 (Follow on next [place] Rounds) - Discharge Summary/Plan Comment DC Time >30 min.: No Discharge Summary/Plan Comment: Discharge Diagnoses UTI-resolved no longer needing antibiotics TIA Nasal fracture secondary to fall 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 Lethargy and AMS improved, he still intermittently has confusion, likely due to hypoxic-ischemic brain ijury post cardiac arrest in in [place] secondary to Vfib and CT. UC x2 grew out yeast, he was treated for 6 days with Levaquin and 2 days with Diflucan, Diflucan was stopped due to fatigue. His stay was complicated by hypernatremia, treated with D5W and Lasix which slowly resolved, a fall, in which he hit his head and fractured his nasal bone, mildly. Head CTs did not show any hemorrhage or intracranial bleeding. Then on FridayJanuary 24, he had notable L sided weakness which resolved in 2-[address] again was negative for any acute intracranial process. Plavix and ASA were continued throughout stay as well as Lipitor. Carotid U/S obtained which revealed 50-69% stenosis of the left internal carotid artery and less than 50% on R ICA. I spoke with Dr. Escoto on of last week regarding transfer for rehab with hopes of discharging home in the future. Family well involved in care. I will discharge Korey to [place] today with no new medications. Continue all previously ordered. PT/OT to evaluated and treat, cardiac rehab. - General Info Date of Service: 01/27/17 Admission Dx/Problem (Free Text: UTI Subjective Update: Sitting up in chair and finished eating breakfast, chatting with son in law at bedside. Denies any chest pain, SOB or palpitations. Feeling ready to "get out of this place" Slight confusion still noted. Otherwise ready for discharge. Functional Status: Reports: pain controlled, tolerating diet, ambulating, urinating - Review of Systems General: Reports: no symptoms. Denies: fever HEENT: Reports: no symptoms Pulmonary: Reports: shortness of breath (at baseline due to COPD.). Denies: cough, sputum Cardiovascular: Reports: no symptoms. Denies: chest pain, palpitations, dyspnea on exertion, edema Gastrointestinal: Reports: Constipation (Received Dulcolax this morning. ). Denies: Abdominal pain, Nausea, Vomiting Genitourinary: Reports: no symptoms, dysuria, frequency, burning Musculoskeletal: Reports: no symptoms Skin: Reports: no symptoms Neurological: Reports: no symptoms Psychiatric: Reports: confusion - Patient Data Vitals - Most Recent: Last Vital Signs Temp 98.7 F 01/27/17 04:00 Pulse 85 01/27/17 08:01 Resp 18 01/27/17 04:00 BP 132/61 01/27/17 08:01 Pulse Ox 91 L 01/27/17 04:00 Weight - Most Recent: 87.5 kg I&O - Last 24 hours: Intake & Output 01/26/17 01/27/17 01/27/17 22:59 06:59 14:59 Intake Total 630 200 Output Total 935 560 Balance -305 -360 Lab Results - Last 24 hrs: Laboratory Results - last 24 hr 01/27/17 01/27/17 Range/Units 05:00 05:00 WBC 7.95 (4.0-11.0) K/uL RBC 3.75 L (4.50-5.90) M/uL Hgb 10.8 L (13.0-17.0) g/dL Hct 35.6 L (38.0-50.0) % MCV 94.9 (80.0-98.0) fL MCH 28.8 (27.0-32.0) pg MCHC 30.3 L (31.0-37.0) g/dL RDW Std Deviation 46.8 (28.0-62.0) fl RDW Coeff of Boo 14 (11.0-15.0) % Plt Count 179 (150-400) K/uL MPV 11.30 (7.40-12.00) fL Neut % (Auto) 72.0 (48.0-80.0) % Lymph % (Auto) 10.7 L (16.0-40.0) % [place] % (Auto) 9.6 (0.0-15.0) % Eos % (Auto) 7.3 H (0.0-7.0) % Baso % (Auto) 0.4 (0.0-1.5) % Neut # 5.7 (1.4-5.7) K/uL Lymph # 0.9 (0.6-2.4) K/uL [place] # 0.8 (0.0-0.8) K/uL Eos # 0.6 (0.0-0.7) K/uL Baso # 0.0 (0.0-0.1) K/uL Sodium 143 (136-146) mmol/L Potassium 4.2 (3.5-5.1) mmol/L Chloride 106 (98-110) mmol/L Carbon Dioxide 28 (21-31) mmol/L BUN 32 H (6.0-23.0) mg/dL Creatinine 2.4 H (0.6-1.5) mg/dL Est Cr Clr Drug Dosing 26.68 mL/min Estimated GFR (MDRD) 26.4 ml/min Glucose 112 H (60-110) mg/dL Calcium 9.5 (8.8-10.8) mg/dL Med Orders - Current: Current Medications Acetaminophen (Tylenol) 650 mg PO Q4H PRN PRN Reason: Pain (Mild 1-3)/fever Albuterol/Ipratropium (Duoneb 3.0-0.5 Mg/3 Ml) 3 ml NEB Q6HRRT PRN PRN Reason: wheezing Albuterol/Ipratropium (Combivent Respimat) 0 gm INH BID PRN PRN Reason: Dyspnea Last Admin: 01/24/17 11:59 Dose: 1 canister Aspirin (Aspirin) 81 mg PO DAILY [facility] Last Admin: 01/27/17 08:01 Dose: 81 mg Atorvastatin Calcium (Lipitor) 10 mg PO BEDTIME [facility] Last Admin: 01/26/17 20:18 Dose: 10 mg Bisacodyl (Dulcolax) 10 mg RECTAL DAILY PRN PRN Reason: Constipation Last Admin: 01/27/17 06:25 Dose: 10 mg Clopidogrel Bisulfate (Plavix) 75 mg PO DAILY [facility] Last Admin: 01/27/17 08:00 Dose: 75 mg Docusate Sodium (Colace) 100 mg PO BID [facility] Last Admin: 01/27/17 08:00 Dose: 100 mg Furosemide (Lasix) 40 mg PO ACBREAKFAST [facility] Last Admin: 01/27/17 06:30 Dose: 40 mg Isosorbide Dinitrate (Isordil) 40 mg PO DAILY [facility] Last Admin: 01/27/17 08:01 Dose: 40 mg Metoprolol Tartrate (Lopressor) 50 mg PO BID [facility] Last Admin: 01/27/17 08:01 Dose: 50 mg Ondansetron HCl (Zofran) 4 mg IVPUSH Q4H PRN PRN Reason: Nausea Pantoprazole Sodium (Protonix) 40 mg PO ACBREAKFAST [facility] Last Admin: 01/27/17 06:30 Dose: 40 mg Budesonide/Formoterol 2 Puff ( Sumbicort 160-4.5) 0 each INH BID [facility] Last Admin: 01/27/17 09:05 Dose: 1 each Tamsulosin HCl (Flomax) 0.4 mg PO DAILY [facility] Last Admin: 01/27/17 08:01 Dose: 0.4 mg Tiotropium Latty (Spiriva Handihaler) 18 mcg INH DAILY [facility] Last Admin: 01/27/17 09:06 Dose: 1 cap Discontinued Medications Aspirin (Halfprin) 81 mg PO BRK [facility] Last Admin: 01/25/17 16:16 Dose: Not Given Atorvastatin Calcium (Lipitor) 10 mg PO BEDTIME [facility] Bisacodyl (Dulcolax) 10 mg PO BEDTIME [facility] Clopidogrel Bisulfate (Plavix) 75 mg PO DAILY [facility] Last Admin: 01/25/17 16:16 Dose: Not Given Docusate Sodium (Colace) 100 mg PO BID PRN PRN Reason: Constipation Last Admin: 01/19/17 21:19 Dose: 100 mg Fluconazole (Diflucan) 100 mg PO DAILY [facility] Stop: 01/25/17 09:01 Last Admin: 01/24/17 09:47 Dose: 100 mg Furosemide (Lasix) 40 mg PO ONETIME ONE Stop: 01/19/17 10:46 Last Admin: 01/19/17 11:21 Dose: 40 mg Furosemide (Lasix) 40 mg PO ONETIME ONE Stop: 01/21/17 09:51 Last Admin: 01/21/17 09:49 Dose: 40 mg Heparin Sodium (Porcine) (Heparin Sodium) 5,000 units SUBCUT Q8H [facility] Last Admin: 01/18/17 07:05 Dose: 5,000 units Heparin Sodium (Porcine) (Heparin Sodium) 5,000 units SUBCUT Q12H [facility] Last Admin: 01/18/17 10:55 Dose: Not Given Heparin Sodium (Porcine) (Heparin Sodium) 5,000 units SUBCUT Q12H [facility] Last Admin: 01/22/17 19:11 Dose: Not Given Levofloxacin/Dextrose 750 mg/ (Premix) 150 mls @ 100 mls/hr IV ONETIME ONE Stop: 01/17/17 19:02 Last Admin: 01/17/17 17:45 Dose: 100 mls/hr Sodium Chloride (Normal Saline) 250 mls @ 75 mls/hr IV ASDIRECTED [facility] Stop: 01/18/17 02:04 Last Admin: 01/18/17 00:15 Dose: 75 mls/hr Levofloxacin/Dextrose 750 mg/ (Premix) 150 mls @ 100 mls/hr IV Q48H [facility] Last Admin: 01/21/17 17:41 Dose: 100 mls/hr Dextrose/Water (Dextrose 5% In Water) 1,000 mls @ 40 mls/hr IV ASDIRECTED [facility] Stop: 01/19/17 13:00 Last Admin: 01/19/17 11:21 Dose: 40 mls/hr Dextrose/Water (Dextrose 5% In Water) 500 mls @ 50 mls/hr IV ASDIRECTED [facility] Dextrose/Water (Dextrose 5% In Water) 500 mls @ 50 mls/hr IV ASDIRECTED [facility] Stop: 01/20/17 05:14 Last Admin: 01/19/17 21:16 Dose: 50 mls/hr Dextrose/Water (Dextrose 5% In Water) 500 mls @ 100 mls/hr IV ASDIRECTED [facility] Last Admin: 01/20/17 10:20 Dose: 100 mls/hr Dextrose/Water (Dextrose 5% In Water) 500 mls @ 100 mls/hr IV ASDIRECTED [facility] Stop: 01/21/17 12:59 Last Admin: 01/21/17 08:37 Dose: Not Given Dextrose/Water (Dextrose 5% In Water) 500 mls @ 100 mls/hr IV ASDIRECTED [facility] Last Admin: 01/21/17 08:35 Dose: 100 mls/hr Dextrose/Water (Dextrose 5% In Water) 500 mls @ 100 mls/hr IV ASDIRECTED [facility] Stop: 01/21/17 13:22 Last Admin: 01/21/17 18:45 Dose: Not Given Isosorbide Dinitrate (Isordil) 60 mg PO BEDTIME [facility] Pantoprazole Sodium (Protonix) 40 mg PO ACBREAKFAST [facility] Tamsulosin HCl (Flomax) 0.4 mg PO DAILY [facility] - Exam Quality Assessment: Reports: DVT prophylaxis. Denies: supplemental oxygen, urine catheter General: Reports: alert, oriented (confusion intermittently), cooperative HEENT: Reports: Pupils equal, Pupils reactive, EOMI, Mucous membr. moist/pink Neck: Reports: supple Lungs: Reports: Clear to auscultation, Normal respiratory effort Cardiovascular: Reports: regular rate, regular rhythm, no murmurs Abdomen: Reports: bowel sounds present, soft, no tenderness, no distension Extremities: Reports: no edema, normal pulses, no tenderness/swelling Skin: Reports: warm, dry, other (Bruising to R eye, with abrasion above R eye and nasal bridge. No signs of infection, healing well. Bruising to bilateral arms from IV and lab sticks. ) Neurological: Reports: no new focal deficit Psy/Mental Status: Reports: alert, normal affect, normal mood *Q Meaningful Use (DIS) - VTE *Q VTE Criteria *Q: - Stroke *Q Stroke Criteria *Q: - AMI *Q AMI Criteria *Q:
[2017-01-27 12:37] VITALS: BP 102/44
== END 2017-01-27 13:20 | DRG 690 ==
LOC: MW.ED 14:39 → MW.MS 17:59
PROVIDERS: ADMIT Internal Medicine; ATTEND Internal Medicine
DX: N30.00 Acute cystitis without hematuria (principal); R06.00 Dyspnea, unspecified; G45.9 Transient cerebral ischemic attack, unspecified; E87.0 Hyperosmolality and hypernatremia; E78.00 Pure hypercholesterolemia, unspecified; I10 Essential (primary) hypertension; I25.2 Old myocardial infarction; I12.9 Hypertensive chronic kidney disease with stage 1 through stage 4 chronic kidney disease, or unspecified chronic kidney disease; Z95.0 Presence of cardiac pacemaker; N18.3 Chronic kidney disease, stage 3 (moderate); R41.82 Altered mental status, unspecified; I48.91 Unspecified atrial fibrillation; J44.9 Chronic obstructive pulmonary disease, unspecified; I25.10 Atherosclerotic heart disease of native coronary artery without angina pectoris; I25.5 Ischemic cardiomyopathy; I73.9 Peripheral vascular disease, unspecified; S02.2XXA Fracture of nasal bones, initial encounter for closed fracture; W18.30XA Fall on same level, unspecified, initial encounter; Y92.239 Unspecified place in hospital as the place of occurrence of the external cause; Z79.899 Other long term (current) drug therapy; Z79.82 Long term (current) use of aspirin; Z87.891 Personal history of nicotine dependence
CPT/HCPCS: 36415; 70450; 71010; 80053; 81001; 83605; 84484; 85025; 87040 ×2; 87086; 93005; 96365; 99285; J1956; 36410; 36600; 51703; 76775; 76775-26; 80048; 80061; 82803; 82962; 83735; 93880; 93880-26; 94640; 97110-GP; 97161-GP; 97802; A9270-GY; J1644; J7040; J7060

== ENCOUNTER → 2017-03-11 | Outpatient (CLI) | payer MEDICARE, BC | END | disposition home or self-care (01) | LOC: MW.CHIM 11:25 | PROVIDERS: ATTEND Internal Medicine | DX: R06.02 Shortness of breath (principal); R31.0 Gross hematuria; R60.9 Edema, unspecified; R73.01 Impaired fasting glucose; E78.5 Hyperlipidemia, unspecified; D64.9 Anemia, unspecified; I50.9 Heart failure, unspecified; I25.2 Old myocardial infarction; J44.9 Chronic obstructive pulmonary disease, unspecified; M25.471 Effusion, right ankle | CPT/HCPCS: 36415; 80053; 80061; 83036; 83540; 83880; 84439; 84443; 85025; 99214 ==

== ENCOUNTER → 2017-03-12 | Outpatient (CLI) | payer MEDICARE, BC | LOC: MW.CHUR 11:59 | PROVIDERS: ATTEND Urology | DX: N39.0 Urinary tract infection, site not specified (principal); R31.0 Gross hematuria; R32 Unspecified urinary incontinence; R35.0 Frequency of micturition; R33.8 Other retention of urine | CPT/HCPCS: 81001; 87086; G0463 ==

== ENCOUNTER 2017-03-16 04:03 | Emergency (ER) | payer MEDICARE, BC ==
[2017-03-16] MEDS ORDERED: Sodium Chloride 0.9% 10 ML Syringe FLUSH PRN (04:14)
[2017-03-16] MEDS ORDERED: Sodium Chloride 0.9% 2.5 ML Syringe FLUSH PRN (04:14)
[2017-03-16] MEDS ORDERED: Metoprolol Tartrate 5 MG/5 ML SDV IVPUSH ONE (04:15)
[2017-03-16] MEDS ORDERED: Aspirin 325 MG Tab PO ONE (04:20)
--- NOTE | 2017-03-16 04:20 | EDM.PDOC ---
ED HPI GENERAL MEDICAL PROBLEM - General Chief Complaint: General Stated Complaint: POSSIBLE STROKE Time Seen by Provider: 03/16/17 04:15 - History of Present Illness INITIAL COMMENTS - FREE TEXT/NARRATIVE: HISTORY AND PHYSICAL: History of present illness: The patient is a 76-year-old male with multiple medical problems--A. fib peripheral vascular disease TIAs hypercholesterolemia stage III renal disease hypertension angina COPD ischemic cardiomyopathy triple a repair renal stenting and recent ICD placement with right chamber pacemaker who last had cardiac stenting in January of 2016--- who presents to the ER after having 2 episodes of right-sided headache each one lasting about 4 seconds and with no associated symptoms. The patient states he was sitting in a car and he suddenly felt like somebody "hit him in the head with a stick" on the right side of his head and it felt like there was a "loud noise in his head but only on the right side" . It lasted about 4 seconds went away and then came back for 4 seconds and then dissipated and has not come back since. He had no associated dizziness nausea or vomiting no neck or back pain no focal neurologic weakness or sensory changes. No chest pain or shortness of breath. Earlier today he had a completely normal day and took all his regular medications. His last admission here was Jan 17 from January 27 and at that time a CT scan of his head as well as carotid Dopplers which have been reviewed by me. Patient was seen by his primary care physician in the office on March 11 and had no significant changes in his care plan. Patient is in the ED now completely asymptomatic and has no neurologic changes and no headache pain. When he had these 2 episodes he also states he did not have any confusion and he had no issues with speaking or swallowing. Review of systems: As per history of present illness and below otherwise all systems reviewed and negative. Past medical history: As per history of present illness and as reviewed below otherwise noncontributory. Surgical history: As per history of present illness and as reviewed below otherwise noncontributory. Social history: No reported history of drug or alcohol abuse. Family history: As per history of present illness and as reviewed below otherwise noncontributory. Physical exam: General: Well-developed well-nourished male who is nontoxic vital signs other reviewed by me. He is speaking clearly and easily HEENT: Atraumatic, normocephalic, pupils reactive, negative for conjunctival pallor or scleral icterus, mucous membranes moist, throat clear, neck supple, nontender, trachea midline. Lungs: Clear to auscultation, breath sounds equal bilaterally, chest nontender. No work or breathing or sensory muscle use Heart: S1S2, regular rhythm and tachycardic rate on my evaluation, negative for clicks, rubs, or JVD. Abdomen: Soft, nondistended, nontender. Negative for masses or hepatosplenomegaly. Negative for costovertebral tenderness. Pelvis: Stable nontender. Genitourinary: Deferred. Rectal: Deferred. Extremities: Atraumatic, negative for cords or calf pain. Neurovascular unremarkable. No pedal edema or leg asymmetry Neuro: Awake, alert, oriented. Cranial nerves II through XII unremarkable. Cerebellum unremarkable. Motor and sensory unremarkable throughout. Exam nonfocal. Patient has normal motor throughout with good fence maker strength normal dorsi and plantarflexion inclusive of the great toe, normal speech. Diagnostics: EKG CBC CMP troponin UA scan of the head Therapeutics: IV O2 monitor baby aspirin metoprolol BUN/creatinine from today was checked with recent labs in January and he is at his baseline renal status. Patient's repeat heart rate and blood pressure after Lopressor 2.5 mg IV are 135/82 and heart rate of 87. Patient continues to be asymptomatic 0553: All testing results were discussed with the patient and also I curb sided our hospitalist Dr. Whitlock. At this point the patient has not had any recurrence of his episodes but he does admit to me that he did not take his evening medication and that potentially that may have triggered his symptomatology. He is comfortable with discharge home--- he does not feel that he requires admission and I have offered this to him if he feels uncomfortable but he declines --- and have advised him to followup with his clinic physician, take his morning medications and not skip the medication doses, and to return to ER as we discussed an as needed. Impression: 2 brief episodes of right headache resolved prior to arrival stable Definitive disposition and diagnosis as appropriate pending reevaluation and review of above. - Related Data Allergies Allergy/AdvReac Type Severity Reaction Status Date / Time No Known Allergies Allergy Verified 03/16/17 04:11 Home Meds: Home Meds Albuterol/Ipratropium [Combivent Respimat] 2 puff INH BID 11/13/15 [History] Aspirin [Halfprin] 81 mg PO BRK 01/18/17 [History] Bisacodyl [Dulcolax] 10 mg PO BEDTIME 01/18/17 [History] Budesonide/Formoterol [Symbicort 160-4.5 MCG] 2 puff IH BID 01/18/17 [History] Clopidogrel [Plavix] 75 mg PO DAILY 01/18/17 [History] Furosemide [Lasix] 40 mg PO ACBREAKFAST 01/18/17 [History] Isosorbide Dinitrate [Isochron] 60 mg PO BEDTIME 01/18/17 [History] Metoprolol Tartrate 50 mg PO BID 01/18/17 [History] Pantoprazole [ProTONIX] 40 mg PO ACBREAKFAST 01/18/17 [History] Tamsulosin [Flomax] 0.4 mg PO DAILY 01/18/17 [History] Tiotropium [Spiriva HandiHaler] 18 mcg INH DAILY 01/18/17 [History] atorvaSTATin [Lipitor] 10 mg PO BEDTIME 01/18/17 [History] Albuterol Sulfate 2.5 mg IH Q4H PRN 01/20/17 [History] Docusate Sodium [Colace] 100 mg PO BID #60 cap 01/23/17 [Rx] Past Medical History HEENT History: Reports: Impaired vision Other HEENT History: wears glasses, top and bottom denture Cardiovascular History: Reports: Aneurysm, CAD, High cholesterol, Hypertension, NM, SOB on exertion, Other (see below) Other Cardiovascular History: pacemaker Respiratory History: Reports: COPD Gastrointestinal History: Reports: Hiatal hernia Genitourinary History: Reports: BPH, Hydronephrosis, Prostate disorder, Urinary incontinence Other Genitourinary History: urinary incontinence Musculoskeletal History: Reports: Arthritis Neurological History: Reports: None Psychiatric History: Reports: None Endocrine/Metabolic History: Reports: None Hematologic History: Reports: None Immunologic History: Reports: None Oncologic (Cancer) History: Reports: None Dermatologic History: Reports: None - Infectious Disease History Infectious Disease History: Reports: Chicken pox - Past Surgical History HEENT Surgical History: Reports: Tonsillectomy Cardiovascular Surgical History: Reports: Coronary artery stent Other Cardiovascular Surgeries/Procedures: states had repair of aneurysm GI Surgical History: Reports: Colonoscopy, Hernia repair/other Male Surgical History: Reports: Other (see below) Other Male Surgeries/Procedures: previous blocked kidney with stent placement Musculoskeletal Surgical History: Reports: Other (see below) Other Musculoskeletal Surgeries/Procedures:: hx foot surgery Social & Family History - Family History Family Medical History: Noncontributory Oncologic: Reports: Bone - Tobacco Use Smoking Status *Q: Former Smoker Years of Tobacco use: 30 Used Tobacco, but Quit: Yes Month Tobacco Last Used: 0 Second Hand Smoke Exposure: No - Caffeine Use Caffeine Use: Reports: Coffee - Alcohol Use Days Per Week of Alcohol Use: 0 - Recreational Drug Use Recreational Drug Use: No - Living Situation & Occupation Occupation: retired ED ROS GENERAL - Review of Systems Review Of Systems: ROS reveals no pertinent complaints other than HPI. (See dictation) ED EXAM, GENERAL - Physical Exam Exam: See Below (See dictation) Course - Vital Signs Last Recorded V/S: Last Vital Signs Temp 36.7 C 03/16/17 04:11 Pulse 105 H 03/16/17 04:40 Resp 18 03/16/17 04:11 BP 161/111 H 03/16/17 04:40 Pulse Ox 95 03/16/17 04:11 - Orders/Labs/Meds Orders: Active Orders 24 hr Category Date Time Status Cardiac Monitoring [RC] . DIRECTED Care 03/16/17 04:14 Active EKG Documentation Completion [RC] STAT Care 03/16/17 04:14 Active Oxygen Therapy, ED [RC] ASDIRECTED Care 03/16/17 04:14 Active Pulse Oximetry [RC] ASDIRECTED Care 03/16/17 04:14 Active Head wo Cont [CT] Stat Exams 03/16/17 04:14 Taken UA W/MICROSCOPIC [URIN] Stat Lab 03/16/17 04:14 Uncollected Sodium Chloride 0.9% [Saline Flush] Med 03/16/17 04:14 Active 10 ml FLUSH ASDIRECTED PRN Sodium Chloride 0.9% [Saline Flush] Med 03/16/17 04:14 Active 2.5 ml FLUSH ASDIRECTED PRN Saline Lock Insert [OM.PC] Stat Oth 03/16/17 04:14 Ordered Medication Orders Sodium Chloride (Saline Flush) 10 ml FLUSH ASDIRECTED PRN PRN Reason: Keep Vein Open Last Admin: 03/16/17 04:41 Dose: 10 ml Sodium Chloride (Saline Flush) 2.5 ml FLUSH ASDIRECTED PRN PRN Reason: Keep Vein Open Last Admin: 03/16/17 04:42 Dose: 2.5 ml Labs: Laboratory Tests 03/16/17 03/16/1717 Range/Units 04:14 04:14 04:15 WBC 7.42 (4.0-11.0) K/uL RBC 4.75 (4.50-5.90) M/uL Hgb 13.1 (13.0-17.0) g/dL Hct 43.3 (38.0-50.0) % MCV 91.2 (80.0-98.0) fL MCH 27.6 (27.0-32.0) pg MCHC 30.3 L (31.0-37.0) g/dL RDW Std Deviation 47.7 (28.0-62.0) fl RDW Coeff of Boo 14 (11.0-15.0) % Plt Count 239 (150-400) K/uL MPV 9.90 (7.40-12.00) fL Neut % (Auto) 58.9 (48.0-80.0) % Lymph % (Auto) 21.3 (16.0-40.0) % Calhoun % (Auto) 12.0 (0.0-15.0) % Eos % (Auto) 7.3 H (0.0-7.0) % Baso % (Auto) 0.5 (0.0-1.5) % Neut # (Auto) 4.4 (1.4-5.7) K/uL Lymph # (Auto) 1.6 (0.6-2.4) K/uL Calhoun # (Auto) 0.9 H (0.0-0.8) K/uL Eos # (Auto) 0.5 (0.0-0.7) K/uL Baso # (Auto) 0.0 (0.0-0.1) K/uL Nucleated RBC % 0.0 /100WBC Nucleated RBCs # 0 K/uL Sodium 143 (136-146) mmol/L Potassium 4.5 (3.5-5.1) mmol/L Chloride 106 (98-110) mmol/L Carbon Dioxide 24 (21-31) mmol/L BUN 29 H (6.0-23.0) mg/dL Creatinine 2.5 H (0.6-1.5) mg/dL Est Cr Clr Drug Dosing 25.55 mL/min Estimated GFR (MDRD) 25.2 ml/min Glucose 109 (60-110) mg/dL Calcium 10.6 (8.8-10.8) mg/dL Total Bilirubin 0.4 (0.1-1.5) mg/dL AST 17 (5-40) IU/L ALT 11 (8-54) IU/L Alkaline Phosphatase 104 (40-150) Troponin I < 0.10 (0.0-0.29) NG/ML Total Protein 7.9 (6.0-8.0) g/dL Albumin 4.0 (3.4-4.8) g/dL Globulin 3.9 H (2.0-3.5) g/dL Albumin/Globulin Ratio 1.0 L (1.3-2.8) Meds: Medications Generic Name Dose Route Start Last Admin Trade Name Freq PRN Reason Stop Dose Admin Sodium Chloride 10 ml 03/16/17 04:14 03/16/17 04:41 Saline Flush FLUSH 10 ml ASDIRECTED PRN Administration Keep Vein Open Sodium Chloride 2.5 ml 03/16/17 04:14 03/16/17 04:42 Saline Flush FLUSH 2.5 ml ASDIRECTED PRN Administration Keep Vein Open Discontinued Medications Generic Name Dose Route Start Last Admin Trade Name Freq PRN Reason Stop Dose Admin Aspirin 325 mg 03/16/17 04:20 03/16/17 04:39 Aspirin PO 03/16/17 04:21 325 mg ONETIME ONE Administration Metoprolol Tartrate 2.5 mg 03/16/17 04:15 03/16/17 04:40 Lopressor IVPUSH 03/16/17 04:16 2.5 mg ONETIME ONE Administration Departure - Departure Time of Disposition: 05:59 Disposition: Home, Self-Care 01 Condition: good Clinical Impression: Headache Qualifiers: Headache type: unspecified Headache chronicity pattern: unspecified pattern Intractability: not intractable Qualified Code(s): R51 - Headache Forms: ED Department Discharge Additional Instructions: The following information is given to patients seen in the emergency department who are being discharged to home. This information is to outline your options for follow-up care. We provide all patients seen in our emergency department with a follow-up referral. The need for follow-up, as well as the timing and circumstances, are variable depending upon the specifics of your emergency department visit. If you don't have a primary care physician on staff, we will provide you with a referral. We always advise you to contact your personal physician following an emergency department visit to inform them of the circumstance of the visit and for follow-up with them and/or the need for any referrals to a consulting specialist. The emergency department will also refer you to a specialist when appropriate. This referral assures that you have the opportunity for followup care with a specialist. All of these measure are taken in an effort to provide you with optimal care, which includes your followup. Under all circumstances we always encourage you to contact your private physician who remains a resource for coordinating your care. When calling for followup care, please make the office aware that this follow-up is from your recent emergency room visit. If for any reason you are refused follow-up, please contact the [facility] emergency department at and ask to speak to the emergency department charge nurse. [facility] Primary care- [place] [address] Please take your morning medications as prescribed and all home medications as previously prescribed. DO NOT miss doses. Please return to ER as needed and as discussed and please call and followup with your physician in the clinic this week for further care and reevaluation. - My Orders Last 24 Hours: My Active Orders 03/16/17 04:14 Cardiac Monitoring [RC] . DIRECTED EKG Documentation Completion [RC] STAT Oxygen Therapy, ED [RC] ASDIRECTED Pulse Oximetry [RC] ASDIRECTED Head wo Cont [CT] Stat UA W/MICROSCOPIC [URIN] Stat Sodium Chloride 0.9% [Saline Flush] 10 ml FLUSH ASDIRECTED PRN Sodium Chloride 0.9% [Saline Flush] 2.5 ml FLUSH ASDIRECTED PRN Saline Lock Insert [OM.PC] Stat - Assessment/Plan Last 24 Hours: My Active Orders 03/16/17 04:14 Cardiac Monitoring [RC] . DIRECTED EKG Documentation Completion [RC] STAT Oxygen Therapy, ED [RC] ASDIRECTED Pulse Oximetry [RC] ASDIRECTED Head wo Cont [CT] Stat UA W/MICROSCOPIC [URIN] Stat Sodium Chloride 0.9% [Saline Flush] 10 ml FLUSH ASDIRECTED PRN Sodium Chloride 0.9% [Saline Flush] 2.5 ml FLUSH ASDIRECTED PRN Saline Lock Insert [OM.PC] Stat
[2017-03-16 07:27] VITALS: BP 142/84
--- NOTE | 2017-03-17 11:22 | CT ---
EXAM DATE: 03/16/17 PATIENT'S AGE: 76 Patient: JAQUELIN KOLB Facility: [place], [place] Site . Site : [id number] Study: CT Head [id number]/16/2017 5:27:53 AM Ordering Physician: Doctor Pelaez Final Report: INDICATION: pt states sudden headache aand hearing loud noise. TECHNIQUE: CT Head without i.v. contrast. COMPARISON: 01/24/17 FINDINGS: CSF spaces: Within normal limits for age. Brain parenchyma: Mild, diffuse cortical atrophy is noted. There are low attenuation white matter changes, likely due to chronic microvascular disease. The brain parenchyma is normal in appearance with preservation of the askew- white matter junction. No sign of mass, hemorrhage, or midline shift. Skull base and calvarium: The visualized paranasal sinuses are well aerated. The mastoid air cells are clear. The visualized orbits are grossly unremarkable. No skull fractures are seen. IMPRESSION: 1. No CT evidence acute infarcts, hemorrhage, or mass effect seen. Dictated by: Garcia Seay MD @ 03/16/2017 05:30:39 (Electronic Signature) Report Signed by Proxy and Original Signed Document filed in the Medical Record. [facility]
== END 2017-03-16 06:13 | disposition home or self-care (01) ==
LOC: MW.ED 04:03
DX: R51 Headache (principal); I25.10 Atherosclerotic heart disease of native coronary artery without angina pectoris; E78.00 Pure hypercholesterolemia, unspecified; I10 Essential (primary) hypertension; I25.2 Old myocardial infarction; J44.9 Chronic obstructive pulmonary disease, unspecified; M19.90 Unspecified osteoarthritis, unspecified site; Z79.82 Long term (current) use of aspirin; Z79.899 Other long term (current) drug therapy; Z98.890 Other specified postprocedural states; Z87.891 Personal history of nicotine dependence
CPT/HCPCS: 70450; 80053; 84484; 85025; 93005; 96374; 99284; A9270

== ENCOUNTER → 2017-03-19 | Outpatient (CLI) | payer MEDICARE, BC | END | disposition home or self-care (01) | LOC: MW.CHIM 14:39 | PROVIDERS: ATTEND Internal Medicine | DX: N39.0 Urinary tract infection, site not specified (principal) | CPT/HCPCS: 81001; 87077; 87086; 87186 ==

== ENCOUNTER 2019-07-09 20:21 | Observation (INO) | payer MEDICARE, BC ==
[2019-07-09] MEDS ORDERED: Sodium Chloride 0.9% 2.5 ML Syringe FLUSH PRN (20:29)
[2019-07-09] MEDS ORDERED: Sodium Chloride 0.9% 10 ML Syringe FLUSH PRN (20:29)
[2019-07-09] MEDS ORDERED: Albuterol/Ipratropium 3.0-0.5 MG/3 ML Neb Soln NEB ONE (20:30)
[2019-07-09] MEDS ORDERED: Aspirin 81 MG Tab.Chew PO ONE (20:30)
--- NOTE | 2019-07-09 20:34 | EDM.PDOC ---
ED HPI GENERAL MEDICAL PROBLEM - General Chief Complaint: Chest Pain Stated Complaint: CHEST PAINS Time Seen by Provider: 07/09/19 20:23 - History of Present Illness INITIAL COMMENTS - FREE TEXT/NARRATIVE: HISTORY AND PHYSICAL: History of present illness: Patient is an 79-year-old male who has a history of A. fib and has a pacemaker in place, and follows at [facility], as well as COPD hypertension hypercholesterolemia and peripheral edema also had a PE and his left side is no longer on anticoagulation and who presents to the ED this evening with right- sided chest pain pressure as been ongoing all day. He says that he had a normal day yesterday and he slept fine and this morning he woke up and as he was doing his morning activities he started having this chest discomfort. It is localized to the right side of his chest and does not radiate and is not associated with diaphoresis nausea vomiting or abdominal pain but is associated with shortness of breath. The patient clarifies the shortness of breath by saying that he does have this on and off anyway and he is not sure if it's new or different. The patient says that he tried to contact his provider in the clinic as well as his information systems security developer and no one was available so he felt he should come in and get this checked out. He has not taken any pain meds today for this and has no nitroglycerin at home to take. He has no leg pain or swelling and his pacemaker is on the right side and he is concerned about that as well. Review of systems: As per history of present illness and below otherwise all systems reviewed and negative. Past medical history: As per history of present illness and as reviewed below otherwise noncontributory. Surgical history: As per history of present illness and as reviewed below otherwise noncontributory. Social history: No reported history of drug or alcohol abuse. Family history: As per history of present illness and as reviewed below otherwise noncontributory. Physical exam: General: Well-developed well-nourished overweight man who is nontoxic and vital signs are noted by me. HEENT: Atraumatic, normocephalic, pupils reactive, negative for conjunctival pallor or scleral icterus, mucous membranes moist, throat clear, neck supple, nontender, trachea midline. Lungs: Clear to auscultation, slightly diminished in the bases but no wheezing or stridor, there is some mild work of breathing but the patient is not breathless breath sounds equal bilaterally, chest nontender. Heart: S1S2, regular, negative for clicks, rubs, or JVD. Abdomen: Soft, nondistended, nontender. Negative for masses or hepatosplenomegaly. Negative for costovertebral tenderness. Abdomen is very rotund and there is some tympany on percussion but there is no rebound guarding or tenderness on palpation Pelvis: Stable nontender. Genitourinary: Deferred. Rectal: Deferred. Extremities: Atraumatic, negative for cords or calf pain. Neurovascular unremarkable. No pedal edema or leg asymmetry Neuro: Awake, alert, oriented. Cranial nerves II through XII unremarkable. Cerebellum unremarkable. Motor and sensory unremarkable throughout. Exam nonfocal. Diagnostics: EKG chest x-ray CBC CMP INR troponin amylase lipase UA with reflex d-dimer Therapeutics: IV O2 monitor aspirin DuoNeb azithromycin Rocephin 2155: Case was discussed with Dr. Whitlock who would like azithromycin and Rocephin to be given. He is aware of the elevation in the d-dimer but in light of the findings on the chest x-ray he is agreeable to admit the patient for observation for pneumonia. He is aware the patient is not hypoxic to Neck or tachycardic. I discussed the testing results with the patient and his daughter at bedside and he seemed somewhat surprised but is agreeable for admission Impression: Right chest pain /right basilar pneumonia Definitive disposition and diagnosis as appropriate pending reevaluation and review of above. Right Chest Pain Score (Numeric/FACES): 5 - Related Data Allergies Allergy/AdvReac Type Severity Reaction Status Date / Time No Known Allergies Allergy Verified 07/09/19 20:29 Home Meds: Home Meds Albuterol/Ipratropium [Combivent Respimat] 2 puff INH BID 11/13/15 [History] Aspirin [Halfprin] 81 mg PO BRK 01/18/17 [History] Budesonide/Formoterol [Symbicort 160-4.5 MCG] 2 puff IH BID 01/18/17 [History] Clopidogrel [Plavix] 75 mg PO DAILY 01/18/17 [History] Furosemide [Lasix] 80 mg PO ACBREAKFAST 01/18/17 [History] Isosorbide Dinitrate [Isochron] 20 mg PO BEDTIME 01/18/17 [History] Metoprolol Tartrate 100 mg PO ASDIRECTED 01/18/17 [History] Pantoprazole [ProTONIX] 40 mg PO ACBREAKFAST 01/18/17 [History] Tamsulosin [Flomax] 0.4 mg PO DAILY 01/18/17 [History] Tiotropium [Spiriva HandiHaler] 18 mcg INH DAILY 01/18/17 [History] atorvaSTATin [Lipitor] 20 mg PO BEDTIME 01/18/17 [History] Albuterol Sulfate 2.5 mg IH Q4H PRN 01/20/17 [History] Past Medical History HEENT History: Reports: Impaired Vision Other HEENT History: wears glasses, top and bottom denture Cardiovascular History: Reports: Aneurysm, CAD, High Cholesterol, Hypertension, [place], SOB on Exertion, Other (See Below) Other Cardiovascular History: pacemaker Respiratory History: Reports: COPD Gastrointestinal History: Reports: Hiatal Hernia Genitourinary History: Reports: BPH, Hydronephrosis, Prostate Disorder, Urinary Incontinence Other Genitourinary History: urinary incontinence Musculoskeletal History: Reports: Arthritis Neurological History: Reports: None Psychiatric History: Reports: None Endocrine/Metabolic History: Reports: None Hematologic History: Reports: None Immunologic History: Reports: None Oncologic (Cancer) History: Reports: None Dermatologic History: Reports: None - Infectious Disease History Infectious Disease History: Reports: Chicken Pox Other Infectious Disease History: pt unsure of infectious disease hx - Past Surgical History Cardiovascular Surgical History: Reports: Coronary Artery Stent GI Surgical History: Reports: Colonoscopy, Hernia Repair/Other Male Surgical History: Reports: Other (See Below) Musculoskeletal Surgical History: Reports: Other (See Below) Social & Family History - Family History Family Medical History: Noncontributory Oncologic: Reports: Bone - Caffeine Use Caffeine Use: Reports: Coffee - Living Situation & Occupation Occupation: Retired ED ROS GENERAL - Review of Systems Review Of Systems: ROS reveals no pertinent complaints other than HPI. ED EXAM, GENERAL - Physical Exam Exam: See Below (See dictation) Course - Vital Signs Last Recorded V/S: Last Vital Signs Temp 37.3 C 07/09/19 20:26 Pulse 89 07/09/19 21:09 Resp 22 H 07/09/19 20:26 BP 120/41 L 07/09/19 21:09 Pulse Ox 96 07/09/19 21:09 - Orders/Labs/Meds Orders: Active Orders 24 hr Category Date Time Status Patient Status [ADT] Stat ADT 07/09/19 21:55 Ordered Cardiac Monitoring [RC] . DIRECTED Care 07/09/19 20:29 Active EKG Documentation Completion [RC] STAT Care 07/09/19 20:29 Active Oxygen Therapy, ED [RC] ASDIRECTED Care 07/09/19 20:29 Active Pulse Oximetry [RC] ASDIRECTED Care 07/09/19 20:29 Active RT Aerosol Therapy [RC] ASDIRECTED Care 07/09/19 20:30 Active UA RFX HNAK AND CULT IF INDIC [URIN] Stat Lab 07/09/19 20:30 Ordered Sodium Chloride 0.9% [Saline Flush] Med 07/09/19 20:29 Active 10 ml FLUSH ASDIRECTED PRN Sodium Chloride 0.9% [Saline Flush] Med 07/09/19 20:29 Active 2.5 ml FLUSH ASDIRECTED PRN cefTRIAXone [Rocephin in Dextrose,Iso-Osm 2 GM/50 ML] 2 Med 07/09/19 21:54 Ordered gm Premix Bag 1 bag IV ONETIME Saline Lock Insert [OM.PC] Stat Oth 07/09/19 20:29 Ordered Medication Orders Ceftriaxone Sodium/Dextrose 2 (gm/ Premix) 50 mls @ 100 mls/hr IV ONETIME ONE Stop: 07/09/19 22:23 Sodium Chloride (Saline Flush) 10 ml FLUSH ASDIRECTED PRN PRN Reason: Keep Vein Open Last Admin: 07/09/19 20:50 Dose: 10 ml Sodium Chloride (Saline Flush) 2.5 ml FLUSH ASDIRECTED PRN PRN Reason: Keep Vein Open Last Admin: 07/09/19 20:50 Dose: 2.5 ml Labs: Laboratory Tests 07/09/19 07/09/19 07/09/19 Range/Units 20:50 20:50 20:50 WBC 8.89 (4.0-11.0) K/uL RBC 4.67 (4.50-5.90) M/uL Hgb 14.0 (13.0-17.0) g/dL Hct 43.4 (38.0-50.0) % MCV 92.9 (80.0-98.0) fL MCH 30.0 (27.0-32.0) pg MCHC 32.3 (31.0-37.0) g/dL RDW Std Deviation 42.6 (28.0-62.0) fl RDW Coeff of Boo 13 (11.0-15.0) % Plt Count 198 (150-400) K/uL MPV 9.70 (7.40-12.00) fL Neut % (Auto) 74.9 (48.0-80.0) % Lymph % (Auto) 10.2 L (16.0-40.0) % [place] % (Auto) 8.0 (0.0-15.0) % Eos % (Auto) 6.5 (0.0-7.0) % Baso % (Auto) 0.4 (0.0-1.5) % Neut # (Auto) 6.7 H (1.4-5.7) K/uL Lymph # (Auto) 0.9 (0.6-2.4) K/uL [place] # (Auto) 0.7 (0.0-0.8) K/uL Eos # (Auto) 0.6 (0.0-0.7) K/uL Baso # (Auto) 0.0 (0.0-0.1) K/uL INR 1.03 D-Dimer, Quantitative (0.0-0.50) mg/L FEU Lactate (0.20-2.00) mmol/L Sodium 143 (136-148) mmol/L Potassium 4.1 (3.5-5.1) mmol/L Chloride 106 (98-107) mmol/L Carbon Dioxide 26.3 (21.0-32.0) mmol/L BUN 25 H (7.0-18.0) mg/dL Creatinine 2.0 H (0.8-1.3) mg/dL Est Cr Clr Drug Dosing 30.42 mL/min Estimated GFR (MDRD) 32.3 ml/min Glucose 176 H (74-106) mg/dL Calcium 10.0 (8.5-10.1) mg/dL Total Bilirubin 0.5 (0.2-1.0) mg/dL AST 15 (15-37) IU/L ALT 17 (14-63) IU/L Alkaline Phosphatase 137 H (46-116) U/L Troponin I < 0.050 (0.000-0.056) ng/mL Total Protein 7.1 (6.4-8.2) g/dL Albumin 3.3 L (3.4-5.0) g/dL Globulin 3.8 (2.6-4.0) g/dL Albumin/Globulin Ratio 0.9 (0.9-1.6) Amylase 77 (25-115) U/L Lipase 175 (73-393) U/L 07/09/19 07/09/19 Range/Units 20:50 20:50 WBC (4.0-11.0) K/uL RBC (4.50-5.90) M/uL Hgb (13.0-17.0) g/dL Hct (38.0-50.0) % MCV (80.0-98.0) fL MCH (27.0-32.0) pg MCHC (31.0-37.0) g/dL RDW Std Deviation (28.0-62.0) fl RDW Coeff of Boo (11.0-15.0) % Plt Count (150-400) K/uL MPV (7.40-12.00) fL Neut % (Auto) (48.0-80.0) % Lymph % (Auto) (16.0-40.0) % [place] % (Auto) (0.0-15.0) % Eos % (Auto) (0.0-7.0) % Baso % (Auto) (0.0-1.5) % Neut # (Auto) (1.4-5.7) K/uL Lymph # (Auto) (0.6-2.4) K/uL [place] # (Auto) (0.0-0.8) K/uL Eos # (Auto) (0.0-0.7) K/uL Baso # (Auto) (0.0-0.1) K/uL INR D-Dimer, Quantitative 1.84 H (0.0-0.50) mg/L FEU Lactate 1.7 (0.20-2.00) mmol/L Sodium (136-148) mmol/L Potassium (3.5-5.1) mmol/L Chloride (98-107) mmol/L Carbon Dioxide (21.0-32.0) mmol/L BUN (7.0-18.0) mg/dL Creatinine (0.8-1.3) mg/dL Est Cr Clr Drug Dosing mL/min Estimated GFR (MDRD) ml/min Glucose (74-106) mg/dL Calcium (8.5-10.1) mg/dL Total Bilirubin (0.2-1.0) mg/dL AST (15-37) IU/L ALT (14-63) IU/L Alkaline Phosphatase (46-116) U/L Troponin I (0.000-0.056) ng/mL Total Protein (6.4-8.2) g/dL Albumin (3.4-5.0) g/dL Globulin (2.6-4.0) g/dL Albumin/Globulin Ratio (0.9-1.6) Amylase (25-115) U/L Lipase (73-393) U/L Meds: Medications Generic Name Dose Route Start Last Admin Trade Name Freq PRN Reason Stop Dose Admin Ceftriaxone Sodium/Dextrose 2 50 mls @ 100 mls/hr 07/09/19 21:54 gm/ Premix IV 07/09/19 22:23 ONETIME ONE Sodium Chloride 10 ml 07/09/19 20:29 07/09/19 20:50 Saline Flush FLUSH 10 ml ASDIRECTED PRN Administration Keep Vein Open Sodium Chloride 2.5 ml 07/09/19 20:29 07/09/19 20:50 Saline Flush FLUSH 2.5 ml ASDIRECTED PRN Administration Keep Vein Open Discontinued Medications Generic Name Dose Route Start Last Admin Trade Name Freq PRN Reason Stop Dose Admin Albuterol/Ipratropium 3 ml 07/09/19 20:30 07/09/19 20:42 Duoneb 3.0-0.5 Mg/3 Ml NEB 07/09/19 20:31 3 ml ONETIME ONE Administration Aspirin 324 mg 07/09/19 20:30 07/09/19 20:42 Aspirin PO 07/09/19 20:31 324 mg ONETIME ONE Administration Azithromycin 500 mg 07/09/19 21:55 Zithromax PO 07/09/19 21:56 ONETIME ONE Departure - Departure Time of Disposition: 22:00 Disposition: Refer to Observation Condition: Good Clinical Impression: Pneumonia - Discharge Information Referrals: PCP,None [Primary Care Provider] - Forms: ED Department Discharge - My Orders Last 24 Hours: My Active Orders 07/09/19 20:29 Cardiac Monitoring [RC] . DIRECTED EKG Documentation Completion [RC] STAT Oxygen Therapy, ED [RC] ASDIRECTED Pulse Oximetry [RC] ASDIRECTED Sodium Chloride 0.9% [Saline Flush] 10 ml FLUSH ASDIRECTED PRN Sodium Chloride 0.9% [Saline Flush] 2.5 ml FLUSH ASDIRECTED PRN Saline Lock Insert [OM.PC] Stat 07/09/19 20:30 RT Aerosol Therapy [RC] ASDIRECTED UA RFX HANK AND CULT IF INDIC [URIN] Stat 07/09/19 21:54 cefTRIAXone [Rocephin in Dextrose,Iso-Osm 2 GM/50 ML] 2 gm Premix Bag 1 bag IV ONETIME 07/09/19 21:55 Patient Status [ADT] Stat - Assessment/Plan Last 24 Hours: My Active Orders 07/09/19 20:29 Cardiac Monitoring [RC] . DIRECTED EKG Documentation Completion [RC] STAT Oxygen Therapy, ED [RC] ASDIRECTED Pulse Oximetry [RC] ASDIRECTED Sodium Chloride 0.9% [Saline Flush] 10 ml FLUSH ASDIRECTED PRN Sodium Chloride 0.9% [Saline Flush] 2.5 ml FLUSH ASDIRECTED PRN Saline Lock Insert [OM.PC] Stat 07/09/19 20:30 RT Aerosol Therapy [RC] ASDIRECTED UA RFX HANK AND CULT IF INDIC [URIN] Stat 07/09/19 21:54 cefTRIAXone [Rocephin in Dextrose,Iso-Osm 2 GM/50 ML] 2 gm Premix Bag 1 bag IV ONETIME 07/09/19 21:55 Patient Status [ADT] Stat
[2019-07-09] MEDS ORDERED: atorvaSTATin 10 MG Tab PO SCH (21:00)
[2019-07-09] MEDS ORDERED: ISOSORBIDE DINITRATE 40 MG PO SCH (21:00)
--- NOTE | 2019-07-09 21:12 | CR ---
INDICATION: Pain in the region of the defibrillator. TECHNIQUE: Portable AP chest 2051 hours. COMPARISON: 09/16/2018. FINDINGS: Flattened hemidiaphragms suggests COPD. Cardiac pacing/defibrillator device at the right chest wall is stable. Monitoring leads overlie the chest wall. There is a small right pleural effusion. Opacity at the right lung base with atelectasis and pneumonia considerations. A mass considered less likely. IMPRESSION: Small right pleural effusion with right basilar opacity with pneumonia and atelectasis considerations. Dictated by Luis Jacinto MD @ Jul 09 2019 9:10PM Signed by Dr. Luis Jacinto @ Jul 09 2019 9:11PM
[2019-07-09 21:36] LABS: BLOOD UREA NITROGEN,BUN 25 mg/dL (7.0-18.0); CARBON DIOXIDE,CO2 26.3 mmol/L (21.0-32.0); CHLORIDE,CL 106 mmol/L (98-107); GLUCOSE RANDOM 176 mg/dL (74-106); LIPASE 175 U/L (73-393); POTASSIUM,K 4.1 mmol/L (3.5-5.1); SODIUM,NA 143 mmol/L (136-148)
[2019-07-09] MEDS ORDERED: cefTRIAXone 2 GM in Premix Bag 1 BAG IV ONE (21:54)
[2019-07-09] MEDS ORDERED: Azithromycin 250 MG Tab PO ONE (21:55)
[2019-07-09] MEDS ORDERED: Albuterol 0.083% 2.5 MG/3 ML Neb Soln INH PRN (23:02)
--- NOTE | 2019-07-09 23:07 | PCM.HP ---
H&P History of Present Illness - General Date of Service: 07/09/19 Admit Problem/Dx: Admission Diagnosis/Problem Admission Diagnosis/Problem Pneumonia - History of Present Illness Initial Comments - Free Text/Narative: 79 yo male with pmh of ischemic cardiomyopathy with diastolic dysfunction, peripheral vascular disease with AAA repair in 2009 and renal stenting, COPD, BPH with obstructive uropathy, stage III kidney disease., CT, pacemaker with ICD. He presented to the ED with several day history of shortness of breath, right upper chest pain around pacemaker, and productive cough. He denies any fevers or chills. In the ED he received a neb treatment with great improvement in symptoms. Right Chest Pain Score (Numeric/FACES): 5 - Related Data Allergies/Adverse Reactions: Allergies Allergy/AdvReac Type Severity Reaction Status Date / Time No Known Allergies Allergy Verified 07/10/19 00:10 Home Medications: Home Meds Albuterol/Ipratropium [Combivent Respimat] 2 puff INH BID 11/13/15 [History] Aspirin [Halfprin] 81 mg PO BRK 01/18/17 [History] Budesonide/Formoterol [Symbicort 160-4.5 MCG] 2 puff IH BID 01/18/17 [History] Clopidogrel [Plavix] 75 mg PO DAILY 01/18/17 [History] Furosemide [Lasix] 80 mg PO ACBREAKFAST 01/18/17 [History] Isosorbide Dinitrate [Isochron] 20 mg PO BEDTIME 01/18/17 [History] Metoprolol Tartrate 100 mg PO ASDIRECTED 01/18/17 [History] Pantoprazole [ProTONIX] 40 mg PO ACBREAKFAST 01/18/17 [History] Tamsulosin [Flomax] 0.4 mg PO DAILY 01/18/17 [History] Tiotropium [Spiriva HandiHaler] 18 mcg INH DAILY 01/18/17 [History] atorvaSTATin [Lipitor] 20 mg PO BEDTIME 01/18/17 [History] Albuterol Sulfate 2.5 mg IH Q4H PRN 01/20/17 [History] Past Medical History HEENT History: Reports: Hard of Hearing, Impaired Vision Other HEENT History: wears glasses, top and bottom denture Cardiovascular History: Reports: Aneurysm, CAD, High Cholesterol, Hypertension, [place], Pacemaker, SOB on Exertion, Other (See Below) Other Cardiovascular History: pacemaker Respiratory History: Reports: COPD Gastrointestinal History: Reports: Hiatal Hernia Genitourinary History: Reports: BPH, Hydronephrosis, Prostate Disorder, Urinary Incontinence Other Genitourinary History: urinary incontinence Musculoskeletal History: Reports: Arthritis Neurological History: Reports: None Psychiatric History: Reports: None Endocrine/Metabolic History: Reports: None Hematologic History: Reports: None Immunologic History: Reports: None Oncologic (Cancer) History: Reports: None Dermatologic History: Reports: None - Infectious Disease History Infectious Disease History: Reports: Chicken Pox Other Infectious Disease History: pt unsure of infectious disease hx - Past Surgical History Cardiovascular Surgical History: Reports: Coronary Artery Stent GI Surgical History: Reports: Colonoscopy, Hernia Repair/Other Male Surgical History: Reports: Other (See Below) Musculoskeletal Surgical History: Reports: Other (See Below) Social & Family History - Family History Family Medical History: Noncontributory Oncologic: Reports: Bone - Tobacco Use Smoking Status *Q: Never Smoker Used Tobacco, but Quit: Yes Month/Year Tobacco Last Used: 1980 - Caffeine Use Caffeine Use: Reports: Coffee - Recreational Drug Use Recreational Drug Use: No - Living Situation & Occupation Occupation: Retired H&P Review of Systems - Review of Systems: Review Of Systems: ROS reveals no pertinent complaints other than HPI. Exam - Exam Exam: See Below - Vital Signs Vital Signs: Last Vital Signs Temp 37.3 C 07/09/19 20:26 Pulse 90 07/09/19 22:27 Resp 22 H 07/09/19 20:26 BP 137/54 L 07/09/19 22:27 Pulse Ox 95 07/09/19 22:27 Weight: 88.496 kg - Exam General: Alert, Oriented Lungs: Clear to Auscultation, Normal Respiratory Effort Cardiovascular: Regular Rate, Regular Rhythm GI/Abdominal Exam: Soft, Non-Tender Extremities: Pedal Edema (+1) Skin: Warm, Dry, Intact - Patient Data Lab Results Last 24 hrs: Laboratory Results - last 24 hr 07/09/19 07/09/19 07/09/19 Range/Units 20:50 20:50 20:50 WBC 8.89 (4.0-11.0) K/uL RBC 4.67 (4.50-5.90) M/uL Hgb 14.0 (13.0-17.0) g/dL Hct 43.4 (38.0-50.0) % MCV 92.9 (80.0-98.0) fL MCH 30.0 (27.0-32.0) pg MCHC 32.3 (31.0-37.0) g/dL RDW Std Deviation 42.6 (28.0-62.0) fl RDW Coeff of Boo 13 (11.0-15.0) % Plt Count 198 (150-400) K/uL MPV 9.70 (7.40-12.00) fL Neut % (Auto) 74.9 (48.0-80.0) % Lymph % (Auto) 10.2 L (16.0-40.0) % [place] % (Auto) 8.0 (0.0-15.0) % Eos % (Auto) 6.5 (0.0-7.0) % Baso % (Auto) 0.4 (0.0-1.5) % Neut # (Auto) 6.7 H (1.4-5.7) K/uL Lymph # (Auto) 0.9 (0.6-2.4) K/uL [place] # (Auto) 0.7 (0.0-0.8) K/uL Eos # (Auto) 0.6 (0.0-0.7) K/uL Baso # (Auto) 0.0 (0.0-0.1) K/uL INR 1.03 D-Dimer, Quantitative (0.0-0.50) mg/L FEU Lactate (0.20-2.00) mmol/L Sodium 143 (136-148) mmol/L Potassium 4.1 (3.5-5.1) mmol/L Chloride 106 (98-107) mmol/L Carbon Dioxide 26.3 (21.0-32.0) mmol/L BUN 25 H (7.0-18.0) mg/dL Creatinine 2.0 H (0.8-1.3) mg/dL Est Cr Clr Drug Dosing 30.42 mL/min Estimated GFR (MDRD) 32.3 ml/min Glucose 176 H (74-106) mg/dL Calcium 10.0 (8.5-10.1) mg/dL Total Bilirubin 0.5 (0.2-1.0) mg/dL AST 15 (15-37) IU/L ALT 17 (14-63) IU/L Alkaline Phosphatase 137 H (46-116) U/L Troponin I < 0.050 (0.000-0.056) ng/mL Total Protein 7.1 (6.4-8.2) g/dL Albumin 3.3 L (3.4-5.0) g/dL Globulin 3.8 (2.6-4.0) g/dL Albumin/Globulin Ratio 0.9 (0.9-1.6) Amylase 77 (25-115) U/L Lipase 175 (73-393) U/L 07/09/19 07/09/19 Range/Units 20:50 20:50 WBC (4.0-11.0) K/uL RBC (4.50-5.90) M/uL Hgb (13.0-17.0) g/dL Hct (38.0-50.0) % MCV (80.0-98.0) fL MCH (27.0-32.0) pg MCHC (31.0-37.0) g/dL RDW Std Deviation (28.0-62.0) fl RDW Coeff of Boo (11.0-15.0) % Plt Count (150-400) K/uL MPV (7.40-12.00) fL Neut % (Auto) (48.0-80.0) % Lymph % (Auto) (16.0-40.0) % [place] % (Auto) (0.0-15.0) % Eos % (Auto) (0.0-7.0) % Baso % (Auto) (0.0-1.5) % Neut # (Auto) (1.4-5.7) K/uL Lymph # (Auto) (0.6-2.4) K/uL [place] # (Auto) (0.0-0.8) K/uL Eos # (Auto) (0.0-0.7) K/uL Baso # (Auto) (0.0-0.1) K/uL INR D-Dimer, Quantitative 1.84 H (0.0-0.50) mg/L FEU Lactate 1.7 (0.20-2.00) mmol/L Sodium (136-148) mmol/L Potassium (3.5-5.1) mmol/L Chloride (98-107) mmol/L Carbon Dioxide (21.0-32.0) mmol/L BUN (7.0-18.0) mg/dL Creatinine (0.8-1.3) mg/dL Est Cr Clr Drug Dosing mL/min Estimated GFR (MDRD) ml/min Glucose (74-106) mg/dL Calcium (8.5-10.1) mg/dL Total Bilirubin (0.2-1.0) mg/dL AST (15-37) IU/L ALT (14-63) IU/L Alkaline Phosphatase (46-116) U/L Troponin I (0.000-0.056) ng/mL Total Protein (6.4-8.2) g/dL Albumin (3.4-5.0) g/dL Globulin (2.6-4.0) g/dL Albumin/Globulin Ratio (0.9-1.6) Amylase (25-115) U/L Lipase (73-393) U/L Result Diagrams: 07/10/19 06:39 07/10/19 06:39 Problem List Initiated/Reviewed/Updated: Yes Orders Last 24hrs: Active Orders 24 hr Category Date Time Status Patient Status [ADT] Stat ADT 07/09/19 21:55 Active Antiembolic Devices [RC] PER UNIT ROUTINE Care 07/09/19 23:05 Ordered Cardiac Monitoring [RC] . DIRECTED Care 07/09/19 20:29 Active EKG Documentation Completion [RC] STAT Care 07/09/19 20:29 Active Oxygen Therapy [RC] PRN Care 07/09/19 23:04 Ordered Oxygen Therapy, ED [RC] ASDIRECTED Care 07/09/19 20:29 Active Pulse Oximetry [RC] ASDIRECTED Care 07/09/19 20:29 Active RT Aerosol Therapy [RC] ASDIRECTED Care 07/09/19 20:30 Active Up ad [place]asha [RC] ASDIRECTED Care 07/09/19 23:04 Ordered VTE/DVT Education [RC] PER UNIT ROUTINE Care 07/09/19 23:04 Ordered Vital Signs [RC] Q4H Care 07/09/19 23:04 Ordered Regular Diet [DIET] Diet 07/09/19 Breakfast Ordered BASIC METABOLIC PANEL,BMP [CHEM] AM Lab 07/10/19 05:11 Ordered CBC WITH AUTO DIFF [HEME] AM Lab 07/10/19 05:11 Ordered UA RFX HANK AND CULT IF INDIC [URIN] Stat Lab 07/09/19 20:30 Ordered Albuterol [Proventil Neb Soln] Med 07/09/19 23:02 Ordered 2.5 mg INH Q4H PRN Aspirin [Halfprin] Med 07/10/19 08:00 Ordered 81 mg PO BRK Azithromycin [Zithromax] Med 07/10/19 23:05 Once 500 mg PO Q24H ONE Budesonide/Formoterol [Symbicort 160-4.5 MCG] Med 07/09/19 23:15 Ordered 2 puff INH BID Clopidogrel [Plavix] Med 07/10/19 09:00 Ordered 75 mg PO DAILY Furosemide [Lasix] Med 07/10/19 07:30 Ordered 80 mg PO ACBREAKFAST Isosorbide Dinitrate [Isordil] Med 07/09/19 21:00 Ordered 20 mg PO BEDTIME Metoprolol Tartrate [Lopressor] Med 07/09/19 23:15 Ordered 100 mg PO ASDIRECTED Pantoprazole [ProTONIX] Med 07/10/19 07:30 Ordered 40 mg PO ACBREAKFAST Sodium Chloride 0.9% [Saline Flush] Med 07/09/19 20:29 Active 10 ml FLUSH ASDIRECTED PRN Sodium Chloride 0.9% [Saline Flush] Med 07/09/19 20:29 Active 2.5 ml FLUSH ASDIRECTED PRN Tamsulosin [Flomax] Med 07/10/19 09:00 Ordered 0.4 mg PO DAILY Tiotropium [Spiriva HandiHaler] Med 07/10/19 09:00 Ordered 18 mcg INH DAILY atorvaSTATin [Lipitor] Med 07/09/19 21:00 Ordered 20 mg PO BEDTIME cefTRIAXone [Rocephin] 1 gm Med 07/10/19 23:15 Ordered Sodium Chloride 0.9% [Normal Saline] 50 ml IV Q24H Saline Lock Insert [OM.PC] Stat Oth 07/09/19 20:29 Ordered Sequential Compression Device [OM.PC] Per Unit Routine Oth 07/09/19 23:05 Ordered Resuscitation Status Routine Resus Stat 07/09/19 23:04 Ordered Medication Orders Albuterol (Proventil Neb Soln) 2.5 mg INH Q4H PRN PRN Reason: Shortness of Breath Aspirin (Halfprin) 81 mg PO BRK [facility] Atorvastatin Calcium (Lipitor) 20 mg PO BEDTIME [facility] Azithromycin (Zithromax) 500 mg PO Q24H ONE Stop: 07/10/19 23:06 Budesonide/Formoterol Fumarate (Symbicort 160-4.5 Mcg) gm INH BID [place] Clopidogrel Bisulfate (Plavix) 75 mg PO DAILY [facility] Furosemide (Lasix) 80 mg PO ACBREAKFAST [facility] Ceftriaxone Sodium 1 gm/ (Sodium Chloride) 50 mls @ 100 mls/hr IV Q24H [facility] Isosorbide Dinitrate (Isordil) 20 mg PO BEDTIME [facility] Metoprolol Tartrate (Lopressor) 100 mg PO ASDIRECTED [facility] Pantoprazole Sodium (Protonix) 40 mg PO ACBREAKFAST [place] Sodium Chloride (Saline Flush) 10 ml FLUSH ASDIRECTED PRN PRN Reason: Keep Vein Open Last Admin: 07/09/19 20:50 Dose: 10 ml Sodium Chloride (Saline Flush) 2.5 ml FLUSH ASDIRECTED PRN PRN Reason: Keep Vein Open Last Admin: 07/09/19 20:50 Dose: 2.5 ml Tamsulosin HCl (Flomax) 0.4 mg PO DAILY [facility] Tiotropium [place] (Spiriva Handihaler) 18 mcg INH DAILY [facility] Assessment/Plan Comment:: 79 yo admitted with community acquired pneumonia we will treat with Rocephin and azithromcyin. I suspect his COPD is likely responsible for elizabeth of his symptoms. D-dimer is elevated but Wells score is low so PE unlikely.
[2019-07-09] MEDS ORDERED: Metoprolol Tartrate 50 MG Tab PO SCH (23:15)
[2019-07-09] MEDS: Budesonide/Formoterol 160-4.5 MCG/Puff 6 GM Inhaler INH SCH (23:44)
[2019-07-10 07:11] LABS: POTASSIUM,K 4.6 mmol/L (3.5-5.1)
[2019-07-10] MEDS ORDERED: Pantoprazole 40 MG Tab.CR PO SCH (07:30)
[2019-07-10] MEDS ORDERED: Furosemide 40 MG Tab PO SCH (07:30)
[2019-07-10] MEDS ORDERED: Aspirin 81 MG Tab.EC PO SCH (08:00)
[2019-07-10 08:06] VITALS: BP 102/48; PULSE 68
[2019-07-10] MEDS: Budesonide/Formoterol 160-4.5 MCG/Puff 6 GM Inhaler INH SCH (08:06)
[2019-07-10] MEDS ORDERED: Tamsulosin 0.4 MG Cap.ER PO SCH (09:00)
[2019-07-10] MEDS ORDERED: Tiotropium Inhaler 18 MCG Inhalation Powder Cap Kit of 5 INH SCH (09:00)
[2019-07-10] MEDS ORDERED: Clopidogrel 75 MG Tab PO SCH (09:00)
--- NOTE | 2019-07-10 11:26 | PCM.DCSUM1 ---
Discharge Summary - Discharge Data Discharge Date: 07/10/19 Discharge Disposition: Home, Self-Care 01 Condition: Stable - Patient Summary/Data Hospital Course: 79 yo male who was admitted for community acquired pneumonia. He presented with right sided chest pain, shortness of breath and cough. Chest x-ray reported right basilar infiltrate. He was treated with Rocephin, azithromycin and duonebs with resolution of his symptoms. He was monitored overnight without any events. This morning he is requesting discharge. He was discharged on azithromycin for four more days. He is to follow up with Dr. Valderrama. - Patient Instructions Diet: Regular Diet as Tolerated - Discharge Plan Prescriptions/Med Rec: Azithromycin [Zithromax] 250 mg PO DAILY #4 tab Home Medications: Home Meds Albuterol/Ipratropium [Combivent Respimat] 2 puff INH BID 11/13/15 [History] Aspirin [Halfprin] 81 mg PO BRK 01/18/17 [History] Budesonide/Formoterol [Symbicort 160-4.5 MCG] 2 puff IH BID 01/18/17 [History] Clopidogrel [Plavix] 75 mg PO DAILY 01/18/17 [History] Furosemide [Lasix] 80 mg PO ACBREAKFAST 01/18/17 [History] Isosorbide Dinitrate [Isochron] 20 mg PO BEDTIME 01/18/17 [History] Metoprolol Tartrate 100 mg PO ASDIRECTED 01/18/17 [History] Pantoprazole [ProTONIX] 40 mg PO ACBREAKFAST 01/18/17 [History] Tamsulosin [Flomax] 0.4 mg PO DAILY 01/18/17 [History] Tiotropium [Spiriva HandiHaler] 18 mcg INH DAILY 01/18/17 [History] atorvaSTATin [Lipitor] 20 mg PO BEDTIME 01/18/17 [History] Albuterol Sulfate 2.5 mg IH Q4H PRN 01/20/17 [History] Azithromycin [Zithromax] 250 mg PO DAILY #4 tab 07/10/19 [Rx] Forms: ED Department Discharge Referrals: PCP,None [Primary Care Provider] - - Discharge Summary/Plan Comment DC Time >30 min.: No - Patient Data Vitals - Most Recent: Last Vital Signs Temp 36.2 C 07/10/19 08:00 Pulse 68 07/10/19 08:00 Resp 14 07/10/19 08:00 BP 102/48 L 07/10/19 08:00 Pulse Ox 95 07/10/19 08:00 Weight - Most Recent: 88.496 kg I&O - Last 24 hours: Intake & Output 07/09/19 07/10/19 07/10/19 22:59 06:59 14:59 Intake Total 200 Balance 200 Lab Results - Last 24 hrs: Laboratory Results - last 24 hr 07/09/19 07/09/19 07/09/19 Range/Units 20:50 20:50 20:50 WBC 8.89 (4.0-11.0) K/uL RBC 4.67 (4.50-5.90) M/uL Hgb 14.0 (13.0-17.0) g/dL Hct 43.4 (38.0-50.0) % MCV 92.9 (80.0-98.0) fL MCH 30.0 (27.0-32.0) pg MCHC 32.3 (31.0-37.0) g/dL RDW Std Deviation 42.6 (28.0-62.0) fl RDW Coeff of Boo 13 (11.0-15.0) % Plt Count 198 (150-400) K/uL MPV 9.70 (7.40-12.00) fL Neut % (Auto) 74.9 (48.0-80.0) % Lymph % (Auto) 10.2 L (16.0-40.0) % [place] % (Auto) 8.0 (0.0-15.0) % Eos % (Auto) 6.5 (0.0-7.0) % Baso % (Auto) 0.4 (0.0-1.5) % Neut # (Auto) 6.7 H (1.4-5.7) K/uL Lymph # (Auto) 0.9 (0.6-2.4) K/uL [place] # (Auto) 0.7 (0.0-0.8) K/uL Eos # (Auto) 0.6 (0.0-0.7) K/uL Baso # (Auto) 0.0 (0.0-0.1) K/uL INR 1.03 D-Dimer, Quantitative (0.0-0.50) mg/L FEU Lactate (0.20-2.00) mmol/L Sodium 143 (136-148) mmol/L Potassium 4.1 (3.5-5.1) mmol/L Chloride 106 (98-107) mmol/L Carbon Dioxide 26.3 (21.0-32.0) mmol/L BUN 25 H (7.0-18.0) mg/dL Creatinine 2.0 H (0.8-1.3) mg/dL Est Cr Clr Drug Dosing 30.42 mL/min Estimated GFR (MDRD) 32.3 ml/min Glucose 176 H (74-106) mg/dL Calcium 10.0 (8.5-10.1) mg/dL Total Bilirubin 0.5 (0.2-1.0) mg/dL AST 15 (15-37) IU/L ALT 17 (14-63) IU/L Alkaline Phosphatase 137 H (46-116) U/L Troponin I < 0.050 (0.000-0.056) ng/mL Total Protein 7.1 (6.4-8.2) g/dL Albumin 3.3 L (3.4-5.0) g/dL Globulin 3.8 (2.6-4.0) g/dL Albumin/Globulin Ratio 0.9 (0.9-1.6) Amylase 77 (25-115) U/L Lipase 175 (73-393) U/L Urine Color Urine Appearance Urine pH (5.0-8.0) Ur Specific [place] (1.001-1.035) Urine Protein (NEGATIVE) mg/dL Urine Glucose (UA) (NEGATIVE) mg/dL Urine Ketones (NEGATIVE) mg/dL Urine Occult Blood (NEGATIVE) Urine Nitrite (NEGATIVE) Urine Bilirubin (NEGATIVE) Urine Urobilinogen (<2.0) EU/dL Ur Leukocyte Esterase (NEGATIVE) Urine RBC (0-2/HPF) Urine WBC (0-5/HPF) Ur Epithelial Cells (NONE-FEW) Urine Bacteria (NEGATIVE) Hyaline Casts (0-2/LPF) 07/09/19 07/09/19 07/10/19 Range/Units 20:50 20:50 06:39 WBC 7.39 (4.0-11.0) K/uL RBC 4.39 L (4.50-5.90) M/uL Hgb 13.2 (13.0-17.0) g/dL Hct 41.1 (38.0-50.0) % MCV 93.6 (80.0-98.0) fL MCH 30.1 (27.0-32.0) pg MCHC 32.1 (31.0-37.0) g/dL RDW Std Deviation 42.5 (28.0-62.0) fl RDW Coeff of Boo 13 (11.0-15.0) % Plt Count 187 (150-400) K/uL MPV 9.80 (7.40-12.00) fL Neut % (Auto) 69.6 (48.0-80.0) % Lymph % (Auto) 13.1 L (16.0-40.0) % [place] % (Auto) 10.8 (0.0-15.0) % Eos % (Auto) 6.2 (0.0-7.0) % Baso % (Auto) 0.3 (0.0-1.5) % Neut # (Auto) 5.1 (1.4-5.7) K/uL Lymph # (Auto) 1.0 (0.6-2.4) K/uL [place] # (Auto) 0.8 (0.0-0.8) K/uL Eos # (Auto) 0.5 (0.0-0.7) K/uL Baso # (Auto) 0.0 (0.0-0.1) K/uL INR D-Dimer, Quantitative 1.84 H (0.0-0.50) mg/L FEU Lactate 1.7 (0.20-2.00) mmol/L Sodium (136-148) mmol/L Potassium (3.5-5.1) mmol/L Chloride (98-107) mmol/L Carbon Dioxide (21.0-32.0) mmol/L BUN (7.0-18.0) mg/dL Creatinine (0.8-1.3) mg/dL Est Cr Clr Drug Dosing mL/min Estimated GFR (MDRD) ml/min Glucose (74-106) mg/dL Calcium (8.5-10.1) mg/dL Total Bilirubin (0.2-1.0) mg/dL AST (15-37) IU/L ALT (14-63) IU/L Alkaline Phosphatase (46-116) U/L Troponin I (0.000-0.056) ng/mL Total Protein (6.4-8.2) g/dL Albumin (3.4-5.0) g/dL Globulin (2.6-4.0) g/dL Albumin/Globulin Ratio (0.9-1.6) Amylase (25-115) U/L Lipase (73-393) U/L Urine Color Urine Appearance Urine pH (5.0-8.0) Ur Specific [place] (1.001-1.035) Urine Protein (NEGATIVE) mg/dL Urine Glucose (UA) (NEGATIVE) mg/dL Urine Ketones (NEGATIVE) mg/dL Urine Occult Blood (NEGATIVE) Urine Nitrite (NEGATIVE) Urine Bilirubin (NEGATIVE) Urine Urobilinogen (<2.0) EU/dL Ur Leukocyte Esterase (NEGATIVE) Urine RBC (0-2/HPF) Urine WBC (0-5/HPF) Ur Epithelial Cells (NONE-FEW) Urine Bacteria (NEGATIVE) Hyaline Casts (0-2/LPF) 07/10/19 07/10/19 Range/Units 06:39 10:00 WBC (4.0-11.0) K/uL RBC (4.50-5.90) M/uL Hgb (13.0-17.0) g/dL Hct (38.0-50.0) % MCV (80.0-98.0) fL MCH (27.0-32.0) pg MCHC (31.0-37.0) g/dL RDW Std Deviation (28.0-62.0) fl RDW Coeff of Boo (11.0-15.0) % Plt Count (150-400) K/uL MPV (7.40-12.00) fL Neut % (Auto) (48.0-80.0) % Lymph % (Auto) (16.0-40.0) % [place] % (Auto) (0.0-15.0) % Eos % (Auto) (0.0-7.0) % Baso % (Auto) (0.0-1.5) % Neut # (Auto) (1.4-5.7) K/uL Lymph # (Auto) (0.6-2.4) K/uL [place] # (Auto) (0.0-0.8) K/uL Eos # (Auto) (0.0-0.7) K/uL Baso # (Auto) (0.0-0.1) K/uL INR D-Dimer, Quantitative (0.0-0.50) mg/L FEU Lactate (0.20-2.00) mmol/L Sodium 144 (136-148) mmol/L Potassium 4.6 (3.5-5.1) mmol/L Chloride 109 H (98-107) mmol/L Carbon Dioxide 29.0 (21.0-32.0) mmol/L BUN 24 H (7.0-18.0) mg/dL Creatinine 2.0 H (0.8-1.3) mg/dL Est Cr Clr Drug Dosing 30.42 mL/min Estimated GFR (MDRD) 32.3 ml/min Glucose 116 H (74-106) mg/dL Calcium 10.1 (8.5-10.1) mg/dL Total Bilirubin (0.2-1.0) mg/dL AST (15-37) IU/L ALT (14-63) IU/L Alkaline Phosphatase (46-116) U/L Troponin I (0.000-0.056) ng/mL Total Protein (6.4-8.2) g/dL Albumin (3.4-5.0) g/dL Globulin (2.6-4.0) g/dL Albumin/Globulin Ratio (0.9-1.6) Amylase (25-115) U/L Lipase (73-393) U/L Urine Color YELLOW Urine Appearance CLEAR Urine pH 6.5 (5.0-8.0) Ur Specific [place] <= 1.005 (1.001-1.035) Urine Protein NEGATIVE (NEGATIVE) mg/dL Urine Glucose (UA) NEGATIVE (NEGATIVE) mg/dL Urine Ketones NEGATIVE (NEGATIVE) mg/dL Urine Occult Blood TRACE-INTACT H (NEGATIVE) Urine Nitrite NEGATIVE (NEGATIVE) Urine Bilirubin NEGATIVE (NEGATIVE) Urine Urobilinogen 0.2 (<2.0) EU/dL Ur Leukocyte Esterase NEGATIVE (NEGATIVE) Urine RBC 0-3 (0-2/HPF) Urine WBC 0-2 (0-5/HPF) Ur Epithelial Cells OCCASIONAL (NONE-FEW) Urine Bacteria RARE (NEGATIVE) Hyaline Casts 0-3 (0-2/LPF) Med Orders - Current: Current Medications Albuterol (Proventil Neb Soln) 2.5 mg INH Q4H PRN PRN Reason: Shortness of Breath Aspirin (Halfprin) 81 mg PO BRK [facility] Last Admin: 07/10/19 08:06 Dose: 81 mg Atorvastatin Calcium (Lipitor) 20 mg PO BEDTIME [facility] Last Admin: 07/09/19 23:33 Dose: 20 mg Azithromycin (Zithromax) 500 mg PO Q24H ONE Stop: 07/10/19 23:06 Budesonide/Formoterol Fumarate (Symbicort 160-4.5 Mcg) 0 gm INH BID [facility] Last Admin: 07/10/19 08:06 Dose: 2 puff Clopidogrel Bisulfate (Plavix) 75 mg PO DAILY [facility] Last Admin: 07/10/19 08:06 Dose: 75 mg Furosemide (Lasix) 80 mg PO ACBREAKFAST [facility] Last Admin: 07/10/19 06:30 Dose: 80 mg Ceftriaxone Sodium 1 gm/ (Sodium Chloride) 50 mls @ 100 mls/hr IV Q24H [facility] Isosorbide Dinitrate (Isordil) 20 mg PO BEDTIME [facility] Last Admin: 07/09/19 23:34 Dose: 20 mg Metoprolol Tartrate (Lopressor) 100 mg PO ASDIRECTED [facility] Pantoprazole Sodium (Protonix) 40 mg PO ACBREAKFAST [facility] Last Admin: 07/10/19 06:30 Dose: 40 mg Sodium Chloride (Saline Flush) 10 ml FLUSH ASDIRECTED PRN PRN Reason: Keep Vein Open Last Admin: 07/09/19 20:50 Dose: 10 ml Sodium Chloride (Saline Flush) 2.5 ml FLUSH ASDIRECTED PRN PRN Reason: Keep Vein Open Last Admin: 07/09/19 20:50 Dose: 2.5 ml Tamsulosin HCl (Flomax) 0.4 mg PO DAILY [facility] Last Admin: 07/10/19 08:06 Dose: 0.4 mg Tiotropium [place] (Spiriva Handihaler) 18 mcg INH DAILY [facility] Last Admin: 07/10/19 10:37 Dose: 1 cap Discontinued Medications Albuterol/Ipratropium (Duoneb 3.0-0.5 Mg/3 Ml) 3 ml NEB ONETIME ONE Stop: 07/09/19 20:31 Last Admin: 07/09/19 20:42 Dose: 3 ml Aspirin (Aspirin) 324 mg PO ONETIME ONE Stop: 07/09/19 20:31 Last Admin: 07/09/19 20:42 Dose: 324 mg Azithromycin (Zithromax) 500 mg PO ONETIME ONE Stop: 07/09/19 21:56 Last Admin: 07/09/19 22:06 Dose: 500 mg Ceftriaxone Sodium/Dextrose 2 (gm/ Premix) 50 mls @ 100 mls/hr IV ONETIME ONE Stop: 07/09/19 22:23 Last Admin: 07/09/19 22:05 Dose: 100 mls/hr
[2019-07-10] MEDS ORDERED: Azithromycin 250 MG Tab PO ONE (23:05)
[2019-07-10] MEDS ORDERED: cefTRIAXone 1 GM in Sodium Chloride 0.9% 50 ML IV SCH (23:15)
== END 2019-07-10 12:15 | disposition home or self-care (01) ==
LOC: MW.ED 20:21 → MW.MS 22:00
PROVIDERS: ADMIT Internal Medicine; ATTEND Internal Medicine
DX: J18.9 Pneumonia, unspecified organism (principal); J44.9 Chronic obstructive pulmonary disease, unspecified; I25.10 Atherosclerotic heart disease of native coronary artery without angina pectoris; E78.00 Pure hypercholesterolemia, unspecified; I10 Essential (primary) hypertension; M19.90 Unspecified osteoarthritis, unspecified site; N40.1 Benign prostatic hyperplasia with lower urinary tract symptoms; N13.9 Obstructive and reflux uropathy, unspecified; I25.2 Old myocardial infarction; Z79.82 Long term (current) use of aspirin; Z79.51 Long term (current) use of inhaled steroids; Z79.02 Long term (current) use of antithrombotics/antiplatelets; Z79.899 Other long term (current) drug therapy; Z86.79 Personal history of other diseases of the circulatory system; Z85.528 Personal history of other malignant neoplasm of kidney; Z95.0 Presence of cardiac pacemaker
CPT/HCPCS: 36415; 71045; 80048; 80053; 81001; 82150; 83605; 83690; 84484; 85025; 85379; 85610; 93005; 96374; 99285; A9270; G0378; J0696; 99284; J7620-GY

== ENCOUNTER 2020-06-10 11:11 | Inpatient (IN) | payer MEDICARE, BC, OTHER ==
[2020-06-10] MEDS ORDERED: Sodium Chloride 0.9% 2.5 ML Syringe FLUSH PRN (11:53)
[2020-06-10] MEDS ORDERED: Sodium Chloride 0.9% 10 ML Syringe FLUSH PRN (11:53)
--- NOTE | 2020-06-10 12:26 | CR ---
INDICATION: Pain COMPARISON: July 09, 2019 TECHNIQUE: AP portable semi-upright single view study FINDINGS: TUBES AND LINES: Right-sided ICD with leads ending in the right heart unchanged in position HEART AND MEDIASTINUM: Heart size normal. Mild tortuosity of the aorta.. LUNGS AND PLEURAL SPACES: Right effusion and right base airspace disease. Lung this is similar to July 09, 2019, it is not clear that this is a chronic condition. This could be a recurrent condition. There is also a nodule projecting over the upper left lateral chest which may be related to bone but this is not certain.A CT is recommended at a clinically appropriate time OSSEOUS STRUCTURES: Nonacute left rib fractures. IMPRESSION: 1. Pacer normally located. 2. Right base airspace process and right effusion. Uncertain whether this is a chronic or recurrent process as discussed above. 3. Nodular opacity laterally in the left upper thorax. This might be associated with an old rib fracture though this is not certain. 4. A chest CT should be considered at a clinically appropriate time Dictated by Keith Diaz MD @ Jun 10 2020 12:21PM Signed by Dr. Keith Diaz @ Jun 10 2020 12:24PM
--- NOTE | 2020-06-10 12:29 | CR ---
Indication: Trauma. Right hip pain Technique: The examination consists of an AP view of the pelvis, and AP view of the right hip and a frogleg lateral view of the right hip Comparison: None Findings: Bone mineral density is decreased. There are degenerative changes of the visible lower lumbar spine. There appears to been endovascular repair of an abdominal aortic aneurysm. Regarding the hip joints, there is mild osteoarthritis. There is no visible acute fracture, dislocation or destructive process. Impression: There is no visible acute fracture, dislocation or destructive process. Dictated by Keith Diaz MD @ Jun 10 2020 12:25PM Signed by Dr. Keith Diaz @ Jun 10 2020 12:27PM
[2020-06-10 12:42] LABS: CARBON DIOXIDE,CO2 26.1 mmol/L (21.0-32.0); POTASSIUM,K 4.9 mmol/L (3.5-5.1)
--- NOTE | 2020-06-10 13:10 | CT ---
HISTORY: Hip pain. TECHNIQUE: Noncontrast CT of the pelvis. COMPARISON: Radiographs 06/10/2020. FINDINGS: There is no acute pelvic or proximal femoral fracture. 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 Bridging osteophytes across the sacroiliac joints. Degenerative disc and facet joint disease within the lower lumbar spine and at the lumbosacral junction. - Bilateral hydroureter with dilatation of the ureters extending proximally beyond the [id number]. Urinary bladder appears trabeculated. Small bilateral fat containing inguinal hernias. There is an aortoiliac stent graft. IMPRESSION: 1. No acute fracture. 2. Degenerative changes of the hips. 3. Bilateral hydroureter. Trabeculated urinary bladder. 4. Small bilateral fat containing inguinal hernias. Dictated by Pipo Christianson MD @ 06/10/2020 1:07:56 PM Please note that all CT scans at this facility use dose modulation, iterative reconstruction, and/or weight-based dosing when appropriate to reduce radiation dose to as low as reasonably achievable. Dictated by: Pipo Christianson MD @ 06/10/2020 13:08:02 (Electronically Signed)
[2020-06-10] MEDS ORDERED: Sodium Chloride 0.9% 1,000 ML IV SCH ×3 (13:30→16:45)
--- NOTE | 2020-06-10 14:43 | EDM.PDOC ---
ED HPI GENERAL MEDICAL PROBLEM - General Chief Complaint: Trauma Stated Complaint: TRAUMA ALERT Time Seen by Provider: 06/10/20 11:15 - History of Present Illness INITIAL COMMENTS - FREE TEXT/NARRATIVE: History of present illness: Patient presents after having a couple falls at home 1 at home on [employer] yesterday. He is complaining of right hip pain no head injury no loss of consciousness he is having trouble walking because his right hip is sore he denies any other complaints. Thing else hurts he denies being ill lately. Review of systems: As per history of present illness and below otherwise all systems reviewed and negative. Past medical history: As per history of present illness and as reviewed below otherwise noncontributory. Surgical history: As per history of present illness and as reviewed below otherwise noncontributory. Social history: No reported history of drug or alcohol abuse. Family history: As per history of present illness and as reviewed below otherwise noncontributory. Physical exam: HEENT: Atraumatic, normocephalic, pupils reactive, negative for conjunctival pallor or scleral icterus, mucous membranes moist, throat clear, neck supple, nontender, trachea midline. Lungs: Clear to auscultation, breath sounds equal bilaterally, chest nontender. Heart: S1S2, regular, negative for clicks, rubs, or JVD. Abdomen: Soft, nondistended, nontender. Negative for masses or hepatosplenom egaly. Negative for costovertebral tenderness. Pelvis: Stable nontender. Pain in the right hip with logroll Genitourinary: Deferred. Rectal: Deferred. Extremities: Atraumatic, negative for cords or calf pain. Neurovascular unremarkable. Neuro: Awake, alert, oriented. Cranial nerves II through XII unremarkable. Cerebellum unremarkable. Motor and sensory unremarkable throughout. Exam nonfocal. Diagnostics: [] Therapeutics: [] Impression: [] Plan: Imaging of the hips and pelvis check lab tests rule out hip fracture. [] Definitive disposition and diagnosis as appropriate pending reevaluation and review of above. R hip/R leg Pain Score (Numeric/FACES): 5 - Related Data Allergies Allergy/AdvReac Type Severity Reaction Status Date / Time No Known Allergies Allergy Verified 06/10/20 11:27 Home Meds: Home Meds Albuterol/Ipratropium [Combivent Respimat] 2 puff INH BID 11/13/15 [History] Aspirin [Halfprin] 81 mg PO BRK 01/18/17 [History] Budesonide/Formoterol [Symbicort 160-4.5 MCG] 2 puff IH BID 01/18/17 [History] Clopidogrel [Plavix] 75 mg PO DAILY 01/18/17 [History] Furosemide [Lasix] 80 mg PO ACBREAKFAST 01/18/17 [History] Isosorbide Dinitrate [Isochron] 20 mg PO BEDTIME 01/18/17 [History] Metoprolol Tartrate 100 mg PO ASDIRECTED 01/18/17 [History] Pantoprazole [ProTONIX] 40 mg PO ACBREAKFAST 01/18/17 [History] Tamsulosin [Flomax] 0.4 mg PO DAILY 01/18/17 [History] Tiotropium [Spiriva HandiHaler] 18 mcg INH DAILY 01/18/17 [History] atorvaSTATin [Lipitor] 20 mg PO BEDTIME 01/18/17 [History] Albuterol Sulfate 2.5 mg IH Q4H PRN 01/20/17 [History] Azithromycin [Zithromax] 250 mg PO DAILY #4 tab 07/10/19 [Rx] Past Medical History HEENT History: Reports: Hard of Hearing, Impaired Vision Other HEENT History: wears glasses, top and bottom denture Cardiovascular History: Reports: Aneurysm, CAD, High Cholesterol, Hypertension, DC, Pacemaker, SOB on Exertion, Other (See Below) Other Cardiovascular History: pacemaker Respiratory History: Reports: COPD Gastrointestinal History: Reports: None, Hiatal Hernia Genitourinary History: Reports: BPH, Hydronephrosis, Prostate Disorder, Urinary Incontinence Other Genitourinary History: urinary incontinence Musculoskeletal History: Reports: Arthritis Neurological History: Reports: None Psychiatric History: Reports: None Endocrine/Metabolic History: Reports: None Hematologic History: Reports: None Immunologic History: Reports: None Oncologic (Cancer) History: Reports: None Dermatologic History: Reports: None - Infectious Disease History Infectious Disease History: Reports: Chicken Pox Other Infectious Disease History: pt unsure of infectious disease hx - Past Surgical History HEENT Surgical History: Reports: None Cardiovascular Surgical History: Reports: Coronary Artery Stent Respiratory Surgical History: Reports: None GI Surgical History: Reports: Colonoscopy, Hernia Repair/Other Male Surgical History: Reports: None Musculoskeletal Surgical History: Reports: None Social & Family History - Family History Family Medical History: Noncontributory Oncologic: Reports: Bone - Tobacco Use Smoking Status *Q: Never Smoker Second Hand Smoke Exposure: No - Caffeine Use Caffeine Use: Reports: None - Recreational Drug Use Recreational Drug Use: No - Living Situation & Occupation Occupation: Retired Review of Systems - Review of Systems Review Of Systems: See Below ED EXAM, GENERAL - Physical Exam Exam: See Below Course - Vital Signs Text/Narrative:: Imaging of the hips and pelvis with plain film and CT were read by radiology as negative for acute fracture. She has worsening renal failure I discussed the case with Dr. Whitlock at 235 he will admit the patient. Last Recorded V/S: Last Vital Signs Temp 36.1 C 06/10/20 11:16 Pulse 88 06/10/20 11:16 Resp 20 06/10/20 11:16 BP 121/58 L 06/10/20 11:16 Pulse Ox 95 06/10/20 11:16 - Orders/Labs/Meds Orders: Active Orders 24 hr Category Date Time Status Patient Status [ADT] Routine ADT 06/10/20 14:39 Active EKG Documentation Completion [RC] STAT Care 06/10/20 11:54 Active CORONAVIRUS COVID-19 PCR PHL Stat Lab 06/10/20 14:36 Ordered UA W/HANK RFLX IF INDICATED [URIN] Stat Lab 06/10/20 11:54 Ordered Sodium Chloride 0.9% [Normal Saline] 1,000 ml Med 06/10/20 13:30 Active IV ASDIRECTED Sodium Chloride 0.9% [Normal Saline] 1,000 ml Med 06/10/20 14:45 Active IV ASDIRECTED Sodium Chloride 0.9% [Saline Flush] Med 06/10/20 11:53 Active 10 ml FLUSH ASDIRECTED PRN Sodium Chloride 0.9% [Saline Flush] Med 06/10/20 11:53 Active 2.5 ml FLUSH ASDIRECTED PRN Saline Lock Insert [OM.PC] Stat Oth 06/10/20 11:53 Ordered Medication Orders Sodium Chloride (Normal Saline) 1,000 mls @ 150 mls/hr IV ASDIRECTED [facility] Last Admin: 06/10/20 14:14 Dose: 150 mls/hr Documented by: VIALMEL Sodium Chloride (Normal Saline) 1,000 mls @ 150 mls/hr IV ASDIRECTED [place] Sodium Chloride (Saline Flush) 10 ml FLUSH ASDIRECTED PRN PRN Reason: Keep Vein Open Last Admin: 06/10/20 14:14 Dose: 10 ml Documented by: ZAYRA Sodium Chloride (Saline Flush) 2.5 ml FLUSH ASDIRECTED PRN PRN Reason: Keep Vein Open Last Admin: 06/10/20 14:14 Dose: 2.5 ml Documented by: ZAYRA Labs: Laboratory Tests 06/10/20 06/10/20 06/10/20 Range/Units 12:14 12:14 12:14 WBC 10.43 (4.0-11.0) K/uL RBC 4.21 L (4.50-5.90) M/uL Hgb 12.5 L (13.0-17.0) g/dL Hct 39.9 (38.0-50.0) % MCV 94.8 (80.0-98.0) fL MCH 29.7 (27.0-32.0) pg MCHC 31.3 (31.0-37.0) g/dL RDW Std Deviation 48.4 (28.0-62.0) fl RDW Coeff of Boo 14 (11.0-15.0) % Plt Count 281 (150-400) K/uL MPV 9.40 (7.40-12.00) fL Neut % (Auto) 79.5 (48.0-80.0) % Lymph % (Auto) 7.5 L (16.0-40.0) % [place] % (Auto) 8.1 (0.0-15.0) % Eos % (Auto) 4.7 (0.0-7.0) % Baso % (Auto) 0.2 (0.0-1.5) % Neut # (Auto) 8.3 H (1.4-5.7) K/uL Lymph # (Auto) 0.8 (0.6-2.4) K/uL [place] # (Auto) 0.9 H (0.0-0.8) K/uL Eos # (Auto) 0.5 (0.0-0.7) K/uL Baso # (Auto) 0.0 (0.0-0.1) K/uL Nucleated RBC % 0.0 /100WBC Nucleated RBCs # 0 K/uL INR 1.16 APTT 30.9 (18.6-31.3) SEC Sodium 140 (136-148) mmol/L Potassium 4.9 (3.5-5.1) mmol/L Chloride 105 (98-107) mmol/L Carbon Dioxide 26.1 (21.0-32.0) mmol/L BUN 39 H (7.0-18.0) mg/dL Creatinine 3.4 H (0.8-1.3) mg/dL Est Cr Clr Drug Dosing 17.04 mL/min Estimated GFR (MDRD) 17.5 ml/min Glucose 187 H (74-106) mg/dL Calcium 10.1 (8.5-10.1) mg/dL Total Bilirubin 0.4 (0.2-1.0) mg/dL AST 14 L (15-37) IU/L ALT 14 (14-63) IU/L Alkaline Phosphatase 121 H (46-116) U/L Total Protein 7.4 (6.4-8.2) g/dL Albumin 2.9 L (3.4-5.0) g/dL Globulin 4.5 H (2.6-4.0) g/dL Albumin/Globulin Ratio 0.6 L (0.9-1.6) Meds: Medications Generic Name Dose Route Start Last Admin Trade Name Freq PRN Reason Stop Dose Admin Sodium Chloride 1,000 mls @ 150 mls/hr 06/10/20 13:30 06/10/20 14:14 Normal Saline IV 150 mls/hr ASDIRECTED [place] Administration Sodium Chloride 1,000 mls @ 150 mls/hr 06/10/20 14:45 Normal Saline IV ASDIRECTED [facility] Sodium Chloride 10 ml 06/10/20 11:53 06/10/20 14:14 Saline Flush FLUSH 10 ml ASDIRECTED PRN Administration Keep Vein Open Sodium Chloride 2.5 ml 06/10/20 11:53 06/10/20 14:14 Saline Flush FLUSH 2.5 ml ASDIRECTED PRN Administration Keep Vein Open Departure - Departure Time of Disposition: 14:41 Disposition: Refer to Observation Condition: Good Clinical Impression: Renal failure - Discharge Information Referrals: Fede Valderrama MD [Primary Care Provider] - Forms: ED Department Discharge Sepsis Event Note (ED) - Evaluation Sepsis Screening Result: No Definite Risk - Focused Exam Vital Signs: Vital Signs Temp Pulse Resp BP Pulse Ox 06/10/20 11:16 36.1 C 88 20 121/58 L 95 - My Orders Last 24 Hours: My Active Orders 06/10/20 11:53 Sodium Chloride 0.9% [Saline Flush] 10 ml FLUSH ASDIRECTED PRN Sodium Chloride 0.9% [Saline Flush] 2.5 ml FLUSH ASDIRECTED PRN Saline Lock Insert [OM.PC] Stat 06/10/20 11:54 EKG Documentation Completion [RC] STAT UA W/HANK RFLX IF INDICATED [URIN] Stat 06/10/20 13:30 Sodium Chloride 0.9% [Normal Saline] 1,000 ml IV ASDIRECTED 06/10/20 14:36 CORONAVIRUS COVID-19 PCR PHL Stat 06/10/20 14:39 Patient Status [ADT] Routine 06/10/20 14:45 Sodium Chloride 0.9% [Normal Saline] 1,000 ml IV ASDIRECTED - Assessment/Plan Last 24 Hours: My Active Orders 06/10/20 11:53 Sodium Chloride 0.9% [Saline Flush] 10 ml FLUSH ASDIRECTED PRN Sodium Chloride 0.9% [Saline Flush] 2.5 ml FLUSH ASDIRECTED PRN Saline Lock Insert [OM.PC] Stat 06/10/20 11:54 EKG Documentation Completion [RC] STAT UA W/HANK RFLX IF INDICATED [URIN] Stat 06/10/20 13:30 Sodium Chloride 0.9% [Normal Saline] 1,000 ml IV ASDIRECTED 06/10/20 14:36 CORONAVIRUS COVID-19 PCR PHL Stat 06/10/20 14:39 Patient Status [ADT] Routine 06/10/20 14:45 Sodium Chloride 0.9% [Normal Saline] 1,000 ml IV ASDIRECTED
[2020-06-10] MEDS ORDERED: Acetaminophen 325 MG Tab PO PRN (16:46)
[2020-06-10] MEDS ORDERED: oxyCODONE 5 MG Tab PO PRN (16:46)
--- NOTE | 2020-06-10 19:28 | PCM.HP.2 ---
H&P History of Present Illness - General Date of Service: 06/10/20 Admit Problem/Dx: Admission Diagnosis/Problem Admission Diagnosis/Problem Renal failure - History of Present Illness Initial Comments - Free Text/Narative: 80 yo male pmh of ischemic cardiomyopathy with diastolic dysfunction, peripheral vascular disease with AAA repair in 2009 and renal stenting, COPD, BPH with obstructive uropathy, stage III kidney disease who presented with right hip pain. Patient reported falling at home last week and falling at [employer] yesterday. Patient denies loosing consciousness and stated he slipped on the slopped sidewalk. IN the ED he had CT scan of pelvis which was negative for any fracture. He reports some difficulty with walking due to the pain. He was noted to have an elevated creatinin of 3.4 up from a baseline of 2.0. R hip/R leg Pain Score (Numeric/FACES): 0 - Related Data Allergies/Adverse Reactions: Allergies Allergy/AdvReac Type Severity Reaction Status Date / Time No Known Allergies Allergy Verified 06/10/20 16:57 Home Medications: Home Meds Albuterol/Ipratropium [Combivent Respimat] 2 puff INH BID 11/13/15 [History] Aspirin [Halfprin] 81 mg PO BRK 01/18/17 [History] Budesonide/Formoterol [Symbicort 160-4.5 MCG] 2 puff IH BID 01/18/17 [History] Clopidogrel [Plavix] 75 mg PO DAILY 01/18/17 [History] Furosemide [Lasix] 80 mg PO ACBREAKFAST 01/18/17 [History] Isosorbide Dinitrate [Isochron] 20 mg PO BEDTIME 01/18/17 [History] Metoprolol Tartrate 100 mg PO ASDIRECTED 01/18/17 [History] Pantoprazole [ProTONIX] 40 mg PO ACBREAKFAST 01/18/17 [History] Tamsulosin [Flomax] 0.4 mg PO DAILY 01/18/17 [History] Tiotropium [Spiriva HandiHaler] 18 mcg INH DAILY 01/18/17 [History] atorvaSTATin [Lipitor] 20 mg PO BEDTIME 01/18/17 [History] Albuterol Sulfate 2.5 mg IH Q4H PRN 01/20/17 [History] Azithromycin [Zithromax] 250 mg PO DAILY #4 tab 07/10/19 [Rx] Past Medical History HEENT History: Reports: Hard of Hearing, Impaired Vision Other HEENT History: wears glasses Cardiovascular History: Reports: Aneurysm, CAD, High Cholesterol, Hypertension, VA, Pacemaker, SOB on Exertion, Other (See Below) Other Cardiovascular History: pacemaker, defibrillator Respiratory History: Reports: COPD Gastrointestinal History: Reports: None, Hiatal Hernia Genitourinary History: Reports: BPH, Hydronephrosis, Prostate Disorder, Urinary Incontinence Other Genitourinary History: urinary incontinence Musculoskeletal History: Reports: Arthritis Neurological History: Reports: None Psychiatric History: Reports: None Endocrine/Metabolic History: Reports: None Hematologic History: Reports: None Immunologic History: Reports: None Oncologic (Cancer) History: Reports: None Dermatologic History: Reports: None - Infectious Disease History Infectious Disease History: Reports: Chicken Pox Other Infectious Disease History: pt unsure of infectious disease hx - Past Surgical History HEENT Surgical History: Reports: None Cardiovascular Surgical History: Reports: Coronary Artery Stent Respiratory Surgical History: Reports: None GI Surgical History: Reports: Colonoscopy, Hernia Repair/Other Male Surgical History: Reports: None Musculoskeletal Surgical History: Reports: None Social & Family History - Family History Family Medical History: Noncontributory Oncologic: Reports: Bone - Tobacco Use Smoking Status *Q: Never Smoker Second Hand Smoke Exposure: No - Caffeine Use Caffeine Use: Reports: Coffee - Recreational Drug Use Recreational Drug Use: No - Living Situation & Occupation Occupation: Retired H&P Review of Systems - Review of Systems: Review Of Systems: Comprehensive ROS is negative, except as noted in HPI. Exam - Exam Exam: See Below - Vital Signs Vital Signs: Last Vital Signs Temp 36.4 C 06/10/20 16:50 Pulse 70 06/10/20 16:50 Resp 16 06/10/20 16:50 BP 141/60 H 06/10/20 16:50 Pulse Ox 94 L 06/10/20 16:50 Weight: 84 kg - Exam General: Alert, Oriented HEENT: Mucosa Moist & [place], Posterior Pharynx Clear Neck: Supple. No: JVD Lungs: Clear to Auscultation, Normal Respiratory Effort Cardiovascular: Regular Rate, Regular Rhythm GI/Abdominal Exam: Normal Bowel Sounds, Soft, Non-Tender, No Distention Extremities: Non-Tender, Pedal Edema (+1 pedal edema). No: Joint Swelling, Leg Pain Skin: Warm, Dry, Intact Neurological: Cranial Nerves Intact, Reflexes Equal Bilateral - Patient Data Lab Results Last 24 hrs: Laboratory Results - last 24 hr 06/10/20 06/10/20 06/10/20 Range/Units 12:14 12:14 12:14 WBC 10.43 (4.0-11.0) K/uL RBC 4.21 L (4.50-5.90) M/uL Hgb 12.5 L (13.0-17.0) g/dL Hct 39.9 (38.0-50.0) % MCV 94.8 (80.0-98.0) fL MCH 29.7 (27.0-32.0) pg MCHC 31.3 (31.0-37.0) g/dL RDW Std Deviation 48.4 (28.0-62.0) fl RDW Coeff of Boo 14 (11.0-15.0) % Plt Count 281 (150-400) K/uL MPV 9.40 (7.40-12.00) fL Neut % (Auto) 79.5 (48.0-80.0) % Lymph % (Auto) 7.5 L (16.0-40.0) % [place] % (Auto) 8.1 (0.0-15.0) % Eos % (Auto) 4.7 (0.0-7.0) % Baso % (Auto) 0.2 (0.0-1.5) % Neut # (Auto) 8.3 H (1.4-5.7) K/uL Lymph # (Auto) 0.8 (0.6-2.4) K/uL [place] # (Auto) 0.9 H (0.0-0.8) K/uL Eos # (Auto) 0.5 (0.0-0.7) K/uL Baso # (Auto) 0.0 (0.0-0.1) K/uL Nucleated RBC % 0.0 /100WBC Nucleated RBCs # 0 K/uL INR 1.16 APTT 30.9 (18.6-31.3) SEC Sodium 140 (136-148) mmol/L Potassium 4.9 (3.5-5.1) mmol/L Chloride 105 (98-107) mmol/L Carbon Dioxide 26.1 (21.0-32.0) mmol/L BUN 39 H (7.0-18.0) mg/dL Creatinine 3.4 H (0.8-1.3) mg/dL Est Cr Clr Drug Dosing 17.04 mL/min Estimated GFR (MDRD) 17.5 ml/min Glucose 187 H (74-106) mg/dL Calcium 10.1 (8.5-10.1) mg/dL Total Bilirubin 0.4 (0.2-1.0) mg/dL AST 14 L (15-37) IU/L ALT 14 (14-63) IU/L Alkaline Phosphatase 121 H (46-116) U/L Total Protein 7.4 (6.4-8.2) g/dL Albumin 2.9 L (3.4-5.0) g/dL Globulin 4.5 H (2.6-4.0) g/dL Albumin/Globulin Ratio 0.6 L (0.9-1.6) SARS Virus RNA (PCR) (NEGATIVE) 06/10/20 Range/Units 15:04 WBC (4.0-11.0) K/uL RBC (4.50-5.90) M/uL Hgb (13.0-17.0) g/dL Hct (38.0-50.0) % MCV (80.0-98.0) fL MCH (27.0-32.0) pg MCHC (31.0-37.0) g/dL RDW Std Deviation (28.0-62.0) fl RDW Coeff of Boo (11.0-15.0) % Plt Count (150-400) K/uL MPV (7.40-12.00) fL Neut % (Auto) (48.0-80.0) % Lymph % (Auto) (16.0-40.0) % [place] % (Auto) (0.0-15.0) % Eos % (Auto) (0.0-7.0) % Baso % (Auto) (0.0-1.5) % Neut # (Auto) (1.4-5.7) K/uL Lymph # (Auto) (0.6-2.4) K/uL [place] # (Auto) (0.0-0.8) K/uL Eos # (Auto) (0.0-0.7) K/uL Baso # (Auto) (0.0-0.1) K/uL Nucleated RBC % /100WBC Nucleated RBCs # K/uL INR APTT (18.6-31.3) SEC Sodium (136-148) mmol/L Potassium (3.5-5.1) mmol/L Chloride (98-107) mmol/L Carbon Dioxide (21.0-32.0) mmol/L BUN (7.0-18.0) mg/dL Creatinine (0.8-1.3) mg/dL Est Cr Clr Drug Dosing mL/min Estimated GFR (MDRD) ml/min Glucose (74-106) mg/dL Calcium (8.5-10.1) mg/dL Total Bilirubin (0.2-1.0) mg/dL AST (15-37) IU/L ALT (14-63) IU/L Alkaline Phosphatase (46-116) U/L Total Protein (6.4-8.2) g/dL Albumin (3.4-5.0) g/dL Globulin (2.6-4.0) g/dL Albumin/Globulin Ratio (0.9-1.6) SARS Virus RNA (PCR) NEGATIVE (NEGATIVE) Result Diagrams: 06/10/20 12:14 06/10/20 12:14 Sepsis Event Note - Evaluation Sepsis Screening Result: No Definite Risk - Focused Exam Vital Signs: Vital Signs Temp Pulse Resp BP Pulse Ox 06/10/20 16:50 36.4 C 70 16 141/60 H 94 L 06/10/20 11:16 36.1 C 88 20 121/58 L 95 Date Exam was Performed: 06/10/20 Time Exam was Performed: 19:23 Problem List Initiated/Reviewed/Updated: Yes Orders Last 24hrs: Active Orders 24 hr Category Date Time Status Patient Status [ADT] Routine ADT 06/10/20 14:39 Active Antiembolic Devices [RC] PER UNIT ROUTINE Care 06/10/20 19:22 Active Oxygen Therapy [RC] PRN Care 06/10/20 19:22 Active RT Aerosol Therapy [RC] ASDIRECTED Care 06/10/20 19:21 Active RT Post Treatment Assessment [RC] Click to Edit Care 06/10/20 19:21 Active RT Pre-Treatment Assessment [RC] Click to Edit Care 06/10/20 19:21 Active Telemetry Monitoring [Cardiac Monitoring] [RC] Q8H Care 06/10/20 16:19 Active Up ad Latasha [RC] ASDIRECTED Care 06/10/20 19:22 Active VTE/DVT Education [RC] PER UNIT ROUTINE Care 06/10/20 19:22 Active Vital Signs [RC] Q4H Care 06/10/20 19:22 Active Regular Diet [DIET] Diet 06/10/20 Dinner Active BASIC METABOLIC PANEL,BMP [CHEM] AM Lab 06/11/20 05:11 Ordered CBC W/O DIFF,HEMOGRAM [HEME] AM Lab 06/11/20 05:11 Ordered UA W/HANK RFLX IF INDICATED [URIN] Stat Lab 06/10/20 11:54 Ordered Acetaminophen [Tylenol] Med 06/10/20 16:46 Active 650 mg PO Q6H PRN Albuterol [Proventil Neb Soln] Med 06/10/20 19:20 Ordered 2.5 mg INH Q4H PRN Albuterol/Ipratropium [Combivent Respimat] Med 06/10/20 21:00 Ordered DOSE gm INH BID Budesonide/Formoterol [Symbicort 160-4.5 MCG] Med 06/10/20 21:00 Ordered DOSE gm INH BID Clopidogrel [Plavix] Med 06/11/20 09:00 Ordered 75 mg PO DAILY Isosorbide Dinitrate [Isordil] Med 06/10/20 21:00 Ordered 20 mg PO BEDTIME Metoprolol Tartrate [Lopressor] Med 06/10/20 19:30 Ordered 100 mg PO ASDIRECTED Pantoprazole [ProTONIX] Med 06/11/20 07:30 Ordered 40 mg PO ACBREAKFAST Sodium Chloride 0.9% [Normal Saline] 1,000 ml Med 06/10/20 16:45 Active IV ASDIRECTED Sodium Chloride 0.9% [Saline Flush] Med 06/10/20 11:53 Active 10 ml FLUSH ASDIRECTED PRN Sodium Chloride 0.9% [Saline Flush] Med 06/10/20 11:53 Active 2.5 ml FLUSH ASDIRECTED PRN Tamsulosin [Flomax] Med 07/12/20 09:00 Ordered 0.4 mg PO DAILY Tiotropium [Spiriva HandiHaler] Med 06/11/20 09:00 Ordered 18 mcg INH DAILY atorvaSTATin [Lipitor] Med 06/10/20 21:00 Ordered 20 mg PO BEDTIME oxyCODONE Med 06/10/20 16:46 Active 5 mg PO Q6H PRN Saline Lock Insert [OM.PC] Stat Oth 06/10/20 11:53 Ordered Sequential Compression Device [OM.PC] Per Unit Routine Oth 06/10/20 19:22 Ordered Resuscitation Status Routine Resus Stat 06/10/20 19:22 Ordered Medication Orders Acetaminophen (Tylenol) 650 mg PO Q6H PRN PRN Reason: Pain Albuterol (Proventil Neb Soln) 2.5 mg INH Q4H PRN PRN Reason: Shortness of Breath Albuterol/Ipratropium (Combivent Respimat) gm INH BID [place] Atorvastatin Calcium (Lipitor) 20 mg PO BEDTIME [place] Budesonide/Formoterol Fumarate (Symbicort 160-4.5 Mcg) gm INH BID [place] Clopidogrel Bisulfate (Plavix) 75 mg PO DAILY [facility] Sodium Chloride (Normal Saline) 1,000 mls @ 125 mls/hr IV ASDIRECTED [place] Isosorbide Dinitrate (Isordil) 20 mg PO BEDTIME [place] Metoprolol Tartrate (Lopressor) 100 mg PO ASDIRECTED [place] Oxycodone HCl (Oxycodone) 5 mg PO Q6H PRN PRN Reason: Pain (severe 7-10) Pantoprazole Sodium (Protonix) 40 mg PO ACBREAKFAST [facility] Sodium Chloride (Saline Flush) 10 ml FLUSH ASDIRECTED PRN PRN Reason: Keep Vein Open Last Admin: 06/10/20 14:14 Dose: 10 ml Documented by: VIALMEL Sodium Chloride (Saline Flush) 2.5 ml FLUSH ASDIRECTED PRN PRN Reason: Keep Vein Open Last Admin: 06/10/20 14:14 Dose: 2.5 ml Documented by: VIALMEL Tamsulosin HCl (Flomax) 0.4 mg PO DAILY [place] Tiotropium [place] (Spiriva Handihaler) 18 mcg INH DAILY [facility] Assessment/Plan Comment:: 80 yo male admitted after several falls at home, Found to have acute on chronic kidney disease. Patient reports leg pain has improved. WE will hold his lasix and gently hydrate overnight. We will check BMP again tomorrow.
[2020-06-10] MEDS ORDERED: Metoprolol Tartrate 50 MG Tab PO SCH (19:30)
[2020-06-10] MEDS ORDERED: Albuterol/Ipratropium 4 GM Inhalation Spray INH SCH (21:00)
[2020-06-10] MEDS ORDERED: Budesonide/Formoterol 160-4.5 MCG/Puff 6 GM Inhaler INH SCH (21:00)
[2020-06-10] MEDS ORDERED: ISOSORBIDE DINITRATE 40 MG PO SCH (21:00)
[2020-06-10] MEDS ORDERED: atorvaSTATin 10 MG Tab PO SCH (21:00)
[2020-06-10] MEDS ORDERED: cefTRIAXone 2 GM in Sodium Chloride 0.9% 50 ML IV ONE (21:53)
[2020-06-10] MEDS: Metoprolol Tartrate 50 MG Tab PO SCH (23:12)
[2020-06-10] MEDS: Apixaban 2.5 MG Tab PO SCH (23:44)
[2020-06-11] MEDS: Sodium Chloride 0.9% 1,000 ML IV SCH ×3 (00:05→22:35)
[2020-06-11] MEDS: ISOSORBIDE DINITRATE 20 MG PO SCH ×2 (00:06→21:54)
[2020-06-11 06:46] LABS: CARBON DIOXIDE,CO2 29.2 mmol/L (21.0-32.0); POTASSIUM,K 4.8 mmol/L (3.5-5.1)
[2020-06-11] MEDS ORDERED: Furosemide 40 MG Tab PO SCH (07:30)
[2020-06-11] MEDS ORDERED: Pantoprazole 40 MG Tab.CR PO SCH (07:30)
[2020-06-11] MEDS ORDERED: Clopidogrel 75 MG Tab PO SCH (09:00)
[2020-06-11] MEDS ORDERED: Pantoprazole 40 MG in Sodium Chloride 0.9% 10 ML IV SCH (09:00)
[2020-06-11] MEDS ORDERED: cefTRIAXone 1 GM in Sodium Chloride 0.9% 50 ML IV SCH (09:00)
[2020-06-11] MEDS ORDERED: Tiotropium Inhaler 18 MCG Inhalation Powder Cap Kit of 5 INH SCH (09:00)
[2020-06-11] MEDS: Tamsulosin 0.4 MG Cap.ER PO SCH (09:04)
[2020-06-11] MEDS: cefTRIAXone 1 GM in Premix Bag 1 BAG IV SCH (09:50)
[2020-06-11] MEDS: BUDESONIDE INH SCH ×2 (09:52→21:54)
[2020-06-11] MEDS: FORMOTEROL INH SCH ×2 (09:52→21:54)
[2020-06-11] MEDS: SPIRIVA RESPIMAT INH SCH (09:58)
--- NOTE | 2020-06-11 10:37 | PCM.PN ---
- General Info Date of Service: 06/11/20 Admission Dx/Problem (Free Text): Admission Diagnosis/Problem Admission Diagnosis/Problem Renal failure Subjective Update: seen this AM, resting in chair, daughter at bedside, no acute distress, pleasantly confused - Review of Systems General: Reports: Weakness, Fatigue. Denies: Fever Pulmonary: Denies: Shortness of Breath, Pleuritic Chest Pain Cardiovascular: Denies: Chest Pain, Palpitations Gastrointestinal: Denies: Abdominal Pain, Constipation, Decreased Appetite Musculoskeletal: Denies: Neck Pain, Shoulder Pain, Arm Pain Skin: Denies: Cyanosis, Jaundice Neurological: Reports: Confusion. Denies: Dizziness, Headache, Numbness Psychiatric: Denies: Depression, Hallucinations, Suicidal Ideation, Homicidal Ideation - Patient Data Vitals - Most Recent: Last Vital Signs Temp 36.8 C 06/11/20 07:05 Pulse 85 06/11/20 07:05 Resp 17 06/11/20 07:05 BP 151/72 H 06/11/20 07:05 Pulse Ox 98 06/11/20 07:05 Weight - Most Recent: 84 kg I&O - Last 24 Hours: Intake & Output 06/10/20 06/11/20 06/11/20 22:59 06:59 14:59 Intake Total 1190 10 Output Total 850 Balance 340 10 Lab Results Last 24 Hours: Laboratory Results - last 24 hr 06/10/20 06/10/20 06/10/20 Range/Units 12:14 12:14 12:14 WBC 10.43 (4.0-11.0) K/uL RBC 4.21 L (4.50-5.90) M/uL Hgb 12.5 L (13.0-17.0) g/dL Hct 39.9 (38.0-50.0) % MCV 94.8 (80.0-98.0) fL MCH 29.7 (27.0-32.0) pg MCHC 31.3 (31.0-37.0) g/dL RDW Std Deviation 48.4 (28.0-62.0) fl RDW Coeff of Boo 14 (11.0-15.0) % Plt Count 281 (150-400) K/uL MPV 9.40 (7.40-12.00) fL Neut % (Auto) 79.5 (48.0-80.0) % Lymph % (Auto) 7.5 L (16.0-40.0) % Foard % (Auto) 8.1 (0.0-15.0) % Eos % (Auto) 4.7 (0.0-7.0) % Baso % (Auto) 0.2 (0.0-1.5) % Neut # (Auto) 8.3 H (1.4-5.7) K/uL Lymph # (Auto) 0.8 (0.6-2.4) K/uL Foard # (Auto) 0.9 H (0.0-0.8) K/uL Eos # (Auto) 0.5 (0.0-0.7) K/uL Baso # (Auto) 0.0 (0.0-0.1) K/uL Nucleated RBC % 0.0 /100WBC Nucleated RBCs # 0 K/uL INR 1.16 APTT 30.9 (18.6-31.3) SEC Sodium 140 (136-148) mmol/L Potassium 4.9 (3.5-5.1) mmol/L Chloride 105 (98-107) mmol/L Carbon Dioxide 26.1 (21.0-32.0) mmol/L BUN 39 H (7.0-18.0) mg/dL Creatinine 3.4 H (0.8-1.3) mg/dL Est Cr Clr Drug Dosing 17.04 mL/min Estimated GFR (MDRD) 17.5 ml/min Glucose 187 H (74-106) mg/dL Calcium 10.1 (8.5-10.1) mg/dL Total Bilirubin 0.4 (0.2-1.0) mg/dL AST 14 L (15-37) IU/L ALT 14 (14-63) IU/L Alkaline Phosphatase 121 H (46-116) U/L Total Protein 7.4 (6.4-8.2) g/dL Albumin 2.9 L (3.4-5.0) g/dL Globulin 4.5 H (2.6-4.0) g/dL Albumin/Globulin Ratio 0.6 L (0.9-1.6) Urine Color Urine Appearance Urine pH (5.0-8.0) Ur Specific Mulberry (1.001-1.035) Urine Protein (NEGATIVE) mg/dL Urine Glucose (UA) (NEGATIVE) mg/dL Urine Ketones (NEGATIVE) mg/dL Urine Occult Blood (NEGATIVE) Urine Nitrite (NEGATIVE) Urine Bilirubin (NEGATIVE) Urine Urobilinogen (<2.0) EU/dL Ur Leukocyte Esterase (NEGATIVE) Urine RBC (0-2/HPF) Urine WBC (0-5/HPF) Ur Epithelial Cells (NONE-FEW) Urine Bacteria (NEGATIVE) SARS Virus RNA (PCR) (NEGATIVE) 06/10/20 06/10/20 06/11/20 Range/Units 15:04 19:30 06:05 WBC 11.99 H (4.0-11.0) K/uL RBC 4.10 L (4.50-5.90) M/uL Hgb 11.9 L (13.0-17.0) g/dL Hct 38.6 (38.0-50.0) % MCV 94.1 (80.0-98.0) fL MCH 29.0 (27.0-32.0) pg MCHC 30.8 L (31.0-37.0) g/dL RDW Std Deviation 48.4 (28.0-62.0) fl RDW Coeff of Boo 14 (11.0-15.0) % Plt Count 258 (150-400) K/uL MPV 9.40 (7.40-12.00) fL Neut % (Auto) (48.0-80.0) % Lymph % (Auto) (16.0-40.0) % Foard % (Auto) (0.0-15.0) % Eos % (Auto) (0.0-7.0) % Baso % (Auto) (0.0-1.5) % Neut # (Auto) (1.4-5.7) K/uL Lymph # (Auto) (0.6-2.4) K/uL Foard # (Auto) (0.0-0.8) K/uL Eos # (Auto) (0.0-0.7) K/uL Baso # (Auto) (0.0-0.1) K/uL Nucleated RBC % 0.0 /100WBC Nucleated RBCs # 0 K/uL INR APTT (18.6-31.3) SEC Sodium (136-148) mmol/L Potassium (3.5-5.1) mmol/L Chloride (98-107) mmol/L Carbon Dioxide (21.0-32.0) mmol/L BUN (7.0-18.0) mg/dL Creatinine (0.8-1.3) mg/dL Est Cr Clr Drug Dosing mL/min Estimated GFR (MDRD) ml/min Glucose (74-106) mg/dL Calcium (8.5-10.1) mg/dL Total Bilirubin (0.2-1.0) mg/dL AST (15-37) IU/L ALT (14-63) IU/L Alkaline Phosphatase (46-116) U/L Total Protein (6.4-8.2) g/dL Albumin (3.4-5.0) g/dL Globulin (2.6-4.0) g/dL Albumin/Globulin Ratio (0.9-1.6) Urine Color YELLOW Urine Appearance CLOUDY Urine pH 6.0 (5.0-8.0) Ur Specific Mulberry 1.025 (1.001-1.035) Urine Protein 100 H (NEGATIVE) mg/dL Urine Glucose (UA) NEGATIVE (NEGATIVE) mg/dL Urine Ketones NEGATIVE (NEGATIVE) mg/dL Urine Occult Blood MODERATE H (NEGATIVE) Urine Nitrite NEGATIVE (NEGATIVE) Urine Bilirubin NEGATIVE (NEGATIVE) Urine Urobilinogen 0.2 (<2.0) EU/dL Ur Leukocyte Esterase LARGE H (NEGATIVE) Urine RBC 2-5 (0-2/HPF) Urine WBC TO NUMEROUS TO COUNT H (0-5/HPF) Ur Epithelial Cells FEW (NONE-FEW) Urine Bacteria 2+ H (NEGATIVE) SARS Virus RNA (PCR) NEGATIVE (NEGATIVE) 06/11/20 Range/Units 06:05 WBC (4.0-11.0) K/uL RBC (4.50-5.90) M/uL Hgb (13.0-17.0) g/dL Hct (38.0-50.0) % MCV (80.0-98.0) fL MCH (27.0-32.0) pg MCHC (31.0-37.0) g/dL RDW Std Deviation (28.0-62.0) fl RDW Coeff of Boo (11.0-15.0) % Plt Count (150-400) K/uL MPV (7.40-12.00) fL Neut % (Auto) (48.0-80.0) % Lymph % (Auto) (16.0-40.0) % Foard % (Auto) (0.0-15.0) % Eos % (Auto) (0.0-7.0) % Baso % (Auto) (0.0-1.5) % Neut # (Auto) (1.4-5.7) K/uL Lymph # (Auto) (0.6-2.4) K/uL Foard # (Auto) (0.0-0.8) K/uL Eos # (Auto) (0.0-0.7) K/uL Baso # (Auto) (0.0-0.1) K/uL Nucleated RBC % /100WBC Nucleated RBCs # K/uL INR APTT (18.6-31.3) SEC Sodium 143 (136-148) mmol/L Potassium 4.8 (3.5-5.1) mmol/L Chloride 109 H (98-107) mmol/L Carbon Dioxide 29.2 (21.0-32.0) mmol/L BUN 36 H (7.0-18.0) mg/dL Creatinine 2.8 H (0.8-1.3) mg/dL Est Cr Clr Drug Dosing 20.69 mL/min Estimated GFR (MDRD) 21.9 ml/min Glucose 134 H (74-106) mg/dL Calcium 9.9 (8.5-10.1) mg/dL Total Bilirubin (0.2-1.0) mg/dL AST (15-37) IU/L ALT (14-63) IU/L Alkaline Phosphatase (46-116) U/L Total Protein (6.4-8.2) g/dL Albumin (3.4-5.0) g/dL Globulin (2.6-4.0) g/dL Albumin/Globulin Ratio (0.9-1.6) Urine Color Urine Appearance Urine pH (5.0-8.0) Ur Specific Mulberry (1.001-1.035) Urine Protein (NEGATIVE) mg/dL Urine Glucose (UA) (NEGATIVE) mg/dL Urine Ketones (NEGATIVE) mg/dL Urine Occult Blood (NEGATIVE) Urine Nitrite (NEGATIVE) Urine Bilirubin (NEGATIVE) Urine Urobilinogen (<2.0) EU/dL Ur Leukocyte Esterase (NEGATIVE) Urine RBC (0-2/HPF) Urine WBC (0-5/HPF) Ur Epithelial Cells (NONE-FEW) Urine Bacteria (NEGATIVE) SARS Virus RNA (PCR) (NEGATIVE) Med Orders - Current: Current Medications Acetaminophen (Tylenol) 650 mg PO Q6H PRN PRN Reason: Pain Albuterol (Proventil Neb Soln) 2.5 mg INH Q4H PRN PRN Reason: Shortness of Breath Apixaban (Eliquis) 2.5 mg PO BID [facility] Last Admin: 06/10/20 23:44 Dose: Not Given Documented by: Atorvastatin Calcium (Lipitor) 10 mg PO BEDTIME [facility] [place] Budesonide/Formoterol Fumarate (Symbicort 160-4.5 Mcg) 0 gm INH BID [facility] [place] Last Admin: 06/11/20 09:52 Dose: 2 puff Documented by: Clopidogrel Bisulfate (Plavix) 75 mg PO DAILY [facility] [place] Furosemide (Lasix) 40 mg PO ACBREAKFAST [facility] [place] Last Admin: 06/11/20 07:05 Dose: 40 mg Documented by: Sodium Chloride (Normal Saline) 1,000 mls @ 70 mls/hr IV ASDIRECTED [facility] [place] Last Admin: 06/11/20 00:05 Dose: 70 mls/hr Documented by: Pantoprazole Sodium 40 mg/ (Sodium Chloride) 10 mls @ 300 mls/hr IV DAILY [facility] [place] Last Admin: 06/11/20 09:06 Dose: 300 mls/hr Documented by: Ceftriaxone Sodium/Dextrose 1 (gm/ Premix) 50 mls @ 100 mls/hr IV Q24H [facility] [place] Last Admin: 06/11/20 09:50 Dose: 100 mls/hr Documented by: Metoprolol Tartrate (Lopressor) 50 mg PO Q12H [facility] [place] Last Admin: 06/10/20 23:12 Dose: 50 mg Documented by: Oxycodone HCl (Oxycodone) 5 mg PO Q6H PRN PRN Reason: Pain (severe 7-10) Patient's Own MedicationSpiriva Respimat 2.5 Mcg/Act 0 each INH DAILY [facility] [place] Last Admin: 06/11/20 09:58 Dose: 1 each Documented by: Patient's Own Medication Isosorbide Dinitrate 20 Mg 3 each PO BEDTIME [facility] [place] Last Admin: 06/11/20 00:06 Dose: 3 each Documented by: Sodium Chloride (Saline Flush) 10 ml FLUSH ASDIRECTED PRN PRN Reason: Keep Vein Open Last Admin: 06/10/20 14:14 Dose: 10 ml Documented by: Sodium Chloride (Saline Flush) 2.5 ml FLUSH ASDIRECTED PRN PRN Reason: Keep Vein Open Last Admin: 06/10/20 14:14 Dose: 2.5 ml Documented by: Tamsulosin HCl (Flomax) 0.4 mg PO DAILY [facility] [place] Last Admin: 06/11/20 09:04 Dose: 0.4 mg Documented by: Discontinued Medications Albuterol/Ipratropium (Combivent Respimat) gm INH BID [facility] [place] Atorvastatin Calcium (Lipitor) 20 mg PO BEDTIME [facility] [place] Last Admin: 06/10/20 20:29 Dose: 20 mg Documented by: Budesonide/Formoterol Fumarate (Symbicort 160-4.5 Mcg) 0 gm INH BID [facility] [place] Last Admin: 06/11/20 00:06 Dose: Not Given Documented by: Clopidogrel Bisulfate (Plavix) 75 mg PO DAILY [facility] [place] Sodium Chloride (Normal Saline) 1,000 mls @ 150 mls/hr IV ASDIRECTED [facility] [place] Last Admin: 06/10/20 14:14 Dose: 150 mls/hr Documented by: Sodium Chloride (Normal Saline) 1,000 mls @ 150 mls/hr IV ASDIRECTED [facility] [place] Sodium Chloride (Normal Saline) 1,000 mls @ 75 mls/hr IV ASDIRECTED [facility] [place] Stop: 06/12/20 06:04 Ceftriaxone Sodium 2 gm/ (Sodium Chloride) 50 mls @ 100 mls/hr IV ONETIME ONE Stop: 06/10/20 22:22 Last Admin: 06/10/20 23:15 Dose: 100 mls/hr Documented by: Ceftriaxone Sodium 1 gm/ (Sodium Chloride) 50 mls @ 100 mls/hr IV Q24H [facility] [place] Isosorbide Dinitrate (Isordil) 20 mg PO BEDTIME [facility] [place] Last Admin: 06/11/20 00:06 Dose: Not Given Documented by: Isosorbide Dinitrate (Isordil) 60 mg PO BEDTIME [facility] [place] Metoprolol Tartrate (Lopressor) 100 mg PO ASDIRECTED [facility] [place] Pantoprazole Sodium (Protonix) 40 mg PO ACBREAKFAST [facility] [place] Patient's Own Medication Isosorbide Dinitrate 20 Mg 60 each PO BEDTIME [facility] Patient's Own Medication Isosorbide Dinitrate 20 Mg 3 each PO BEDTIME [facility] Tiotropium Kila (Spiriva Handihaler) 18 mcg INH DAILY [facility] - Exam General: Alert, Oriented (Oriented*2), Cooperative, No Acute Distress Neck: Supple, Trachea Midline Lungs: Clear to Auscultation, Normal Respiratory Effort Cardiovascular: Regular Rate, Regular Rhythm GI/Abdominal Exam: Normal Bowel Sounds, Soft, Non-Tender Extremities: Normal Inspection, Normal Range of Motion Neurological: No New Focal Deficit Psy/Mental Status: Labile Mood. No: Agitated, Homicidal Ideation, Hallucinations, Withdrawal Symptoms Sepsis Event Note - Evaluation Sepsis Screening Result: No Definite Risk - Focused Exam Vital Signs: Vital Signs Temp Pulse Pulse Resp BP BP BP 06/11/20 07:05 36.8 C 85 17 151/72 H 06/11/20 03:51 36.8 C 87 16 130/74 06/10/20 23:46 98 187/92 H 06/10/20 23:12 96 194/98 H 06/10/20 22:59 36.8 C 98 16 207/95 H Pulse Ox 06/11/20 07:05 98 06/11/20 03:51 94 L 06/10/20 23:46 06/10/20 23:12 06/10/20 22:59 93 L Date Exam was Performed: 06/11/20 Time Exam was Performed: 12:44 - Problem List & Annotations (1) Hydronephrosis SNOMED Code(s): 41698826 Code(s): N13.30 - UNSPECIFIED HYDRONEPHROSIS Status: Acute Current Visit: Yes (2) UTI (urinary tract infection) SNOMED Code(s): 12706173 Code(s): N39.0 - URINARY TRACT INFECTION, SITE NOT SPECIFIED Status: Acute Current Visit: Yes (3) Renal failure SNOMED Code(s): 21289255 Code(s): N19 - UNSPECIFIED KIDNEY FAILURE Status: Acute Current Visit: Yes (4) [id number] kidney injury SNOMED Code(s): 516484939 Code(s): N17.9 - ACUTE KIDNEY FAILURE, UNSPECIFIED; N18.9 - CHRONIC KIDNEY DISEASE, UNSPECIFIED Status: Acute Current Visit: No (5) Altered mental status SNOMED Code(s): 832542639 Code(s): R41.82 - ALTERED MENTAL STATUS, UNSPECIFIED Status: Acute Current Visit: No - Problem List Review Problem List Initiated/Reviewed/Updated: Yes - My Orders Last 24 Hours: My Active Orders 06/10/20 23:00 Apixaban [Eliquis] 2.5 mg PO BID Metoprolol Tartrate [Lopressor] 50 mg PO Q12H 06/10/20 23:45 Patient's Own Medication [Ptom] 3 each PO BEDTIME 06/11/20 00:00 Sodium Chloride 0.9% [Normal Saline] 1,000 ml IV ASDIRECTED 06/11/20 07:30 Furosemide [Lasix] 40 mg PO ACBREAKFAST 06/11/20 09:00 Clopidogrel [Plavix] 75 mg PO DAILY Pantoprazole [ProTONIX IV] 40 mg Sodium Chloride 0.9% [Normal Saline] 10 ml IV DAILY Patient's Own Medication [Ptom] 0 each INH DAILY 06/11/20 09:30 cefTRIAXone [Rocephin in Dextrose,Iso-Osm 1 GM/50 ML] 1 gm Premix Bag 1 bag IV Q24H 06/11/20 21:00 atorvaSTATin [Lipitor] 10 mg PO BEDTIME - Plan Plan:: 80 yo male admitted after several falls at home, Found to have acute on chronic kidney disease. cont gentle hydration Creatinine has improved [place] in place, purulent urine visible, start bladder irrigation Cont IV Rocephin F/U on UA and blood cultures Had an extensive conversation with daughter about his goals of care, for now patient is full code, they will have a family discussion about his code status for future. Cont home meds, hold Lasix for now, Will need follow up with urology Unsure why patient is on 3 blood thinners instead of only 2, hold ASA
[2020-06-11] MEDS: Clopidogrel 75 MG Tab PO SCH (11:19)
[2020-06-11] MEDS: Apixaban 2.5 MG Tab PO SCH ×2 (11:21→21:53)
[2020-06-11] MEDS: Metoprolol Tartrate 50 MG Tab PO SCH ×2 (11:42→22:01)
[2020-06-11] MEDS: Albuterol 0.083% 2.5 MG/3 ML Neb Soln INH PRN ×2 (14:39→18:16)
[2020-06-11] MEDS ORDERED: ISOSORBIDE DINITRATE 20 MG PO SCH ×2 (21:00)
[2020-06-11] MEDS ORDERED: Isosorbide Dinitrate 10 MG Tab PO SCH (21:00)
[2020-06-11] MEDS: atorvaSTATin 10 MG Tab PO SCH (21:53)
[2020-06-12] MEDS ORDERED: Haloperidol Lactate 5 MG/ML SDV IM ONE (04:33)
[2020-06-12] MEDS ORDERED: LORazepam 2 MG/ML SDV IM ONE (04:39)
[2020-06-12] MEDS ORDERED: diphenhydrAMINE 50 MG/ML SDV IM ONE (04:41)
[2020-06-12 06:23] LABS: POTASSIUM,K 4.6 mmol/L (3.5-5.1)
[2020-06-12 07:10] LABS: CARBON DIOXIDE,CO2 26.4 mmol/L (21.0-32.0)
[2020-06-12] MEDS: Apixaban 2.5 MG Tab PO SCH ×2 (08:32→21:14)
[2020-06-12] MEDS: Clopidogrel 75 MG Tab PO SCH (08:32)
[2020-06-12] MEDS: Pantoprazole 40 MG Tab.CR PO SCH (08:32)
[2020-06-12] MEDS: Tamsulosin 0.4 MG Cap.ER PO SCH (08:32)
[2020-06-12] MEDS: SPIRIVA RESPIMAT INH SCH (08:33)
[2020-06-12] MEDS: FORMOTEROL INH SCH ×2 (08:35→21:19)
[2020-06-12] MEDS: BUDESONIDE INH SCH ×2 (08:35→21:19)
[2020-06-12] MEDS: cefTRIAXone 1 GM in Premix Bag 1 BAG IV SCH (09:09)
--- NOTE | 2020-06-12 09:59 | PCM.PN ---
- General Info Date of Service: 06/12/20 Admission Dx/Problem (Free Text): Admission Diagnosis/Problem Admission Diagnosis/Problem Renal failure Subjective Update: Sitting up in chair this morning, reports he is doing well. No pain. No chest pain or SOB. Feels a little stronger than when admitted. Functional Status: Reports: Pain Controlled, Tolerating Diet, Ambulating - Review of Systems General: Reports: Weakness (generalized) Pulmonary: Reports: No Symptoms. Denies: Shortness of Breath Cardiovascular: Reports: No Symptoms. Denies: Chest Pain Gastrointestinal: Reports: No Symptoms. Denies: Abdominal Pain, Nausea, Vomiting Genitourinary: Reports: No Symptoms Musculoskeletal: Reports: No Symptoms Skin: Reports: No Symptoms Neurological: Reports: No Symptoms Psychiatric: Reports: No Symptoms - Patient Data Vitals - Most Recent: Last Vital Signs Temp 98.2 F 06/12/20 07:00 Pulse 89 06/12/20 07:00 Resp 18 06/12/20 07:00 BP 125/53 L 06/12/20 07:00 Pulse Ox 95 06/12/20 07:00 Weight - Most Recent: 84 kg I&O - Last 24 Hours: Intake & Output 06/11/20 06/12/20 06/12/20 22:59 06:59 14:59 Intake Total 1944 Output Total 1400 800 Balance 544 -800 Lab Results Last 24 Hours: Laboratory Results - last 24 hr 06/12/20 06/12/20 Range/Units 05:25 05:25 WBC 10.92 (4.0-11.0) K/uL RBC 3.84 L (4.50-5.90) M/uL Hgb 11.2 L (13.0-17.0) g/dL Hct 36.3 L (38.0-50.0) % MCV 94.5 (80.0-98.0) fL MCH 29.2 (27.0-32.0) pg MCHC 30.9 L (31.0-37.0) g/dL RDW Std Deviation 49.3 (28.0-62.0) fl RDW Coeff of Boo 14 (11.0-15.0) % Plt Count 244 (150-400) K/uL MPV 9.70 (7.40-12.00) fL Neut % (Auto) 81.8 H (48.0-80.0) % Lymph % (Auto) 6.8 L (16.0-40.0) % [place] % (Auto) 6.3 (0.0-15.0) % Eos % (Auto) 4.9 (0.0-7.0) % Baso % (Auto) 0.2 (0.0-1.5) % Neut # (Auto) 8.9 H (1.4-5.7) K/uL Lymph # (Auto) 0.7 (0.6-2.4) K/uL [place] # (Auto) 0.7 (0.0-0.8) K/uL Eos # (Auto) 0.5 (0.0-0.7) K/uL Baso # (Auto) 0.0 (0.0-0.1) K/uL Nucleated RBC % 0.0 /100WBC Nucleated RBCs # 0 K/uL Sodium 144 (136-148) mmol/L Potassium 4.6 (3.5-5.1) mmol/L Chloride 110 H (98-107) mmol/L Carbon Dioxide 26.4 (21.0-32.0) mmol/L BUN 30 H (7.0-18.0) mg/dL Creatinine 2.3 H (0.8-1.3) mg/dL Est Cr Clr Drug Dosing 25.19 mL/min Estimated GFR (MDRD) 26.1 ml/min Glucose 136 H (74-106) mg/dL Calcium 9.9 (8.5-10.1) mg/dL Phosphorus 2.6 (2.6-4.7) mg/dL Magnesium 1.9 (1.8-2.4) mg/dL Sukh Results Last 24 Hours: Microbiology 06/11/20 11:25 Urine Culture - Preliminary Urine, Catheterized NO GROWTH AFTER 1 DAY 06/11/20 11:10 Anaerobic Blood Culture - Final Blood - Venous - Lab Draw Med Orders - Current: Current Medications Acetaminophen (Tylenol) 650 mg PO Q6H PRN PRN Reason: Pain Albuterol (Proventil Neb Soln) 2.5 mg INH Q4H PRN PRN Reason: Shortness of Breath Last Admin: 06/11/20 18:16 Dose: 2.5 mg Documented by: Apixaban (Eliquis) 2.5 mg PO BID [facility] Last Admin: 06/12/20 08:32 Dose: 2.5 mg Documented by: Atorvastatin Calcium (Lipitor) 10 mg PO BEDTIME [facility] Last Admin: 06/11/20 21:53 Dose: 10 mg Documented by: Budesonide/Formoterol Fumarate (Symbicort 160-4.5 Mcg) 0 gm INH BID [facility] Last Admin: 06/12/20 08:35 Dose: 2 puff Documented by: Clopidogrel Bisulfate (Plavix) 75 mg PO DAILY [facility] Last Admin: 06/12/20 08:32 Dose: 75 mg Documented by: Sodium Chloride (Normal Saline) 1,000 mls @ 70 mls/hr IV ASDIRECTED [facility] Last Admin: 06/11/20 22:35 Dose: 70 mls/hr Documented by: Ceftriaxone Sodium/Dextrose 1 (gm/ Premix) 50 mls @ 100 mls/hr IV Q24H [facility] Last Admin: 06/12/20 09:09 Dose: 100 mls/hr Documented by: Metoprolol Tartrate (Lopressor) 50 mg PO Q12H [facility] Last Admin: 06/11/20 22:01 Dose: 50 mg Documented by: Oxycodone HCl (Oxycodone) 5 mg PO Q6H PRN PRN Reason: Pain (severe 7-10) Pantoprazole Sodium (Protonix) 40 mg PO ACBREAKFAST [facility] Last Admin: 06/12/20 08:32 Dose: 40 mg Documented by: Patient's Own MedicationSpiriva Respimat 2.5 Mcg/Act 0 each INH DAILY [facility] Last Admin: 06/12/20 08:33 Dose: 1 each Documented by: Patient's Own Medication Isosorbide Dinitrate 20 Mg 3 each PO BEDTIME [facility] Last Admin: 06/11/20 21:54 Dose: 3 each Documented by: Sodium Chloride (Saline Flush) 10 ml FLUSH ASDIRECTED PRN PRN Reason: Keep Vein Open Last Admin: 06/10/20 14:14 Dose: 10 ml Documented by: Sodium Chloride (Saline Flush) 2.5 ml FLUSH ASDIRECTED PRN PRN Reason: Keep Vein Open Last Admin: 06/10/20 14:14 Dose: 2.5 ml Documented by: Tamsulosin HCl (Flomax) 0.4 mg PO DAILY [facility] Last Admin: 06/12/20 08:32 Dose: 0.4 mg Documented by: Discontinued Medications Albuterol/Ipratropium (Combivent Respimat) gm INH BID [facility] Atorvastatin Calcium (Lipitor) 20 mg PO BEDTIME [facility] Last Admin: 06/10/20 20:29 Dose: 20 mg Documented by: Budesonide/Formoterol Fumarate (Symbicort 160-4.5 Mcg) 0 gm INH BID [facility] Last Admin: 06/11/20 00:06 Dose: Not Given Documented by: Clopidogrel Bisulfate (Plavix) 75 mg PO DAILY [facility] Diphenhydramine HCl (Benadryl) 25 mg IM ONETIME ONE Stop: 06/12/20 04:42 Last Admin: 06/12/20 05:54 Dose: Not Given Documented by: Furosemide (Lasix) 40 mg PO ACBREAKFAST [facility] Last Admin: 06/11/20 07:05 Dose: 40 mg Documented by: Haloperidol Lactate (Haldol) 5 mg IM ONETIME ONE Stop: 06/12/20 04:34 Last Admin: 06/12/20 05:53 Dose: Not Given Documented by: Sodium Chloride (Normal Saline) 1,000 mls @ 150 mls/hr IV ASDIRECTED [facility] Last Admin: 06/10/20 14:14 Dose: 150 mls/hr Documented by: Sodium Chloride (Normal Saline) 1,000 mls @ 150 mls/hr IV ASDIRECTED [facility] Sodium Chloride (Normal Saline) 1,000 mls @ 75 mls/hr IV ASDIRECTED [facility] Stop: 06/12/20 06:04 Ceftriaxone Sodium 2 gm/ (Sodium Chloride) 50 mls @ 100 mls/hr IV ONETIME ONE Stop: 06/10/20 22:22 Last Admin: 06/10/20 23:15 Dose: 100 mls/hr Documented by: Ceftriaxone Sodium 1 gm/ (Sodium Chloride) 50 mls @ 100 mls/hr IV Q24H [facility] Last Admin: 06/11/20 11:17 Dose: Not Given Documented by: Pantoprazole Sodium 40 mg/ (Sodium Chloride) 10 mls @ 300 mls/hr IV DAILY [facility] Last Admin: 06/11/20 09:06 Dose: 300 mls/hr Documented by: Isosorbide Dinitrate (Isordil) 20 mg PO BEDTIME [facility] Last Admin: 06/11/20 00:06 Dose: Not Given Documented by: Isosorbide Dinitrate (Isordil) 60 mg PO BEDTIME [facility] Lorazepam (Ativan) 1 mg IM ONETIME ONE Stop: 06/12/20 04:40 Last Admin: 06/12/20 05:53 Dose: Not Given Documented by: Metoprolol Tartrate (Lopressor) 100 mg PO ASDIRECTED [facility] Pantoprazole Sodium (Protonix) 40 mg PO ACBREAKFAST [facility] Patient's Own Medication Isosorbide Dinitrate 20 Mg 60 each PO BEDTIME [facility] Patient's Own Medication Isosorbide Dinitrate 20 Mg 3 each PO BEDTIME [facility] Tiotropium [place] (Spiriva Handihaler) 18 mcg INH DAILY [facility] - Exam General: Alert, Oriented, Cooperative, No Acute Distress, Other (had some confusion and agitation overnight. ) Lungs: Clear to Auscultation, Normal Respiratory Effort Cardiovascular: Regular Rate, Regular Rhythm GI/Abdominal Exam: Normal Bowel Sounds, Soft, Non-Tender Extremities: Normal Inspection, Normal Range of Motion, Non-Tender, Pedal Edema (+1 pitting pedal edema) Wound/Incisions: Healing Well Neurological: No New Focal Deficit Psy/Mental Status: Alert, Normal Affect, Normal Mood Sepsis Event Note - Evaluation Sepsis Screening Result: No Definite Risk - Focused Exam Vital Signs: Vital Signs Temp Pulse Pulse Resp BP BP BP 06/12/20 07:00 98.2 F 89 18 125/53 L 06/12/20 02:27 99.3 F 85 109/49 L 06/11/20 22:01 98 121/95 H Pulse Ox 06/12/20 07:00 95 06/12/20 02:27 92 L 06/11/20 22:01 Date Exam was Performed: 06/12/20 Time Exam was Performed: 11:36 - Problem List & Annotations (1) Weakness generalized SNOMED Code(s): 17812666 Code(s): R53.1 - WEAKNESS Status: Acute Current Visit: Yes (2) Falls frequently SNOMED Code(s): 904178873 Code(s): R29.6 - REPEATED FALLS Status: Acute Current Visit: Yes (3) Voarw-au-ujymbnq kidney injury SNOMED Code(s): 048260672 Code(s): N17.9 - ACUTE KIDNEY FAILURE, UNSPECIFIED; N18.9 - CHRONIC KIDNEY DISEASE, UNSPECIFIED Status: Acute Current Visit: No (4) Altered mental status SNOMED Code(s): 409428372 Code(s): R41.82 - ALTERED MENTAL STATUS, UNSPECIFIED Status: Acute Current Visit: No (5) Afib, Atrial fibrillation SNOMED Code(s): 95782813 Code(s): I48.91 - UNSPECIFIED ATRIAL FIBRILLATION Status: Chronic Current Visit: No (6) COPD, Mild chronic obstructive pulmonary disease SNOMED Code(s): 490644297 Code(s): J44.9 - CHRONIC OBSTRUCTIVE PULMONARY DISEASE, UNSPECIFIED Status: Chronic Current Visit: No (7) Coronary arteriosclerosis, CAD SNOMED Code(s): 08427754 Code(s): I25.10 - ATHSCL HEART DISEASE OF [place] CORONARY ARTERY W/O ANG PCTRS Status: Chronic Current Visit: No (8) Ischemic cardiomyopathy SNOMED Code(s): 989966355 Code(s): I25.5 - ISCHEMIC CARDIOMYOPATHY Status: Chronic Current Visit: No - Problem List Review Problem List Initiated/Reviewed/Updated: Yes - My Orders Last 24 Hours: My Active Orders 06/12/20 08:17 Pantoprazole [ProTONIX] 40 mg PO ACBREAKFAST - Plan Plan:: 80 yo male admitted after several falls at home, Found to have acute on chronic kidney disease. 1. OSCAR on CKD - BUN/Cr near baseline today - Stop IVFs - Likely restart Lasix in a day or two 2. UTI - Rocephin started 06/11 - UC shows no growth. - Await BC results. 3. Obstructive uropathy - Follow with Urology as outpatient, stable - Continue stokes catheter and cares - Continue Flomax 4. Falls, unsteady gait - Consult PT - Case management consulted to help with placement. 5. CAD/Afib/Ischemic cardiomyopathy. - Daily weights, strict I/O - Continue Eliquis and Plavix - Holding Lasix. - Continue Metoprolol and Imdur 6. COPD: - stable, continue home inhalers - PRN nebs VTE prophylaxis: Eliquis Consults: Case management for assistance with placement for short term rehabilitation Dispo: 2 days,
[2020-06-12] MEDS: Metoprolol Tartrate 50 MG Tab PO SCH ×2 (11:18→23:42)
[2020-06-12] MEDS: atorvaSTATin 10 MG Tab PO SCH (21:14)
[2020-06-12] MEDS: ISOSORBIDE DINITRATE 20 MG PO SCH (21:15)
[2020-06-13 06:21] LABS: CARBON DIOXIDE,CO2 26.5 mmol/L (21.0-32.0); POTASSIUM,K 3.5 mmol/L (3.5-5.1)
[2020-06-13] MEDS: Pantoprazole 40 MG Tab.CR PO SCH (06:51)
--- NOTE | 2020-06-13 08:10 | PCM.PN ---
- General Info Date of Service: 06/13/20 Admission Dx/Problem (Free Text): Admission Diagnosis/Problem Admission Diagnosis/Problem Renal failure Subjective Update: Feel better today, a little stronger, but feels legs need more work. No chest pain or SOB. NO swelling. Agrees to [place] for short term rehabilitation. Functional Status: Reports: Pain Controlled, Tolerating Diet, Ambulating - Review of Systems General: Reports: Weakness (generalized) Pulmonary: Reports: No Symptoms. Denies: Shortness of Breath Cardiovascular: Reports: No Symptoms. Denies: Chest Pain Gastrointestinal: Reports: No Symptoms. Denies: Abdominal Pain, Nausea, Vomiting Genitourinary: Reports: No Symptoms. Denies: Dysuria, Frequency, Burning Musculoskeletal: Reports: No Symptoms Skin: Reports: No Symptoms Neurological: Reports: No Symptoms Psychiatric: Reports: No Symptoms - Patient Data Vitals - Most Recent: Last Vital Signs Temp 98.2 F 06/13/20 04:00 Pulse 97 06/13/20 04:00 Resp 18 06/13/20 04:00 BP 117/61 06/13/20 04:00 Pulse Ox 92 L 06/13/20 04:00 Weight - Most Recent: 77.6 kg I&O - Last 24 Hours: Intake & Output 06/12/20 06/13/20 06/13/20 22:59 06:59 14:59 Intake Total 1000 500 Output Total 525 600 Balance 475 -100 Lab Results Last 24 Hours: Laboratory Results - last 24 hr 06/13/20 06/13/20 Range/Units 05:38 05:38 WBC 8.21 (4.0-11.0) K/uL RBC 3.85 L (4.50-5.90) M/uL Hgb 11.1 L (13.0-17.0) g/dL Hct 35.8 L (38.0-50.0) % MCV 93.0 (80.0-98.0) fL MCH 28.8 (27.0-32.0) pg MCHC 31.0 (31.0-37.0) g/dL RDW Std Deviation 48.9 (28.0-62.0) fl RDW Coeff of Boo 14 (11.0-15.0) % Plt Count 241 (150-400) K/uL MPV 9.60 (7.40-12.00) fL Neut % (Auto) 69.3 (48.0-80.0) % Lymph % (Auto) 9.0 L (16.0-40.0) % [place] % (Auto) 12.1 (0.0-15.0) % Eos % (Auto) 9.1 H (0.0-7.0) % Baso % (Auto) 0.5 (0.0-1.5) % Neut # (Auto) 5.7 (1.4-5.7) K/uL Lymph # (Auto) 0.7 (0.6-2.4) K/uL [place] # (Auto) 1.0 H (0.0-0.8) K/uL Eos # (Auto) 0.8 H (0.0-0.7) K/uL Baso # (Auto) 0.0 (0.0-0.1) K/uL Nucleated RBC % 0.0 /100WBC Nucleated RBCs # 0 K/uL Sodium 142 (136-148) mmol/L Potassium 3.5 (3.5-5.1) mmol/L Chloride 108 H (98-107) mmol/L Carbon Dioxide 26.5 (21.0-32.0) mmol/L BUN 23 H (7.0-18.0) mg/dL Creatinine 1.9 H (0.8-1.3) mg/dL Est Cr Clr Drug Dosing 30.49 mL/min Estimated GFR (MDRD) 34.2 ml/min Glucose 122 H (74-106) mg/dL Calcium 9.5 (8.5-10.1) mg/dL Magnesium 1.8 (1.8-2.4) mg/dL Sukh Results Last 24 Hours: Microbiology 06/11/20 11:25 Urine Culture - Final Urine, Catheterized No Growth 06/11/20 11:10 Aerobic Blood Culture - Preliminary Blood - Venous - Lab Draw NO GROWTH AFTER 1 DAY Anaerobic Blood Culture - Final 06/11/20 10:59 Aerobic Blood Culture - Preliminary Blood - Venous NO GROWTH AFTER 1 DAY Anaerobic Blood Culture - Preliminary NO GROWTH AFTER 1 DAY Med Orders - Current: Current Medications Acetaminophen (Tylenol) 650 mg PO Q6H PRN PRN Reason: Pain Albuterol (Proventil Neb Soln) 2.5 mg INH Q4H PRN PRN Reason: Shortness of Breath Last Admin: 06/11/20 18:16 Dose: 2.5 mg Documented by: Apixaban (Eliquis) 2.5 mg PO BID [facility] Last Admin: 06/12/20 21:14 Dose: 2.5 mg Documented by: Atorvastatin Calcium (Lipitor) 10 mg PO BEDTIME [facility] Last Admin: 06/12/20 21:14 Dose: 10 mg Documented by: Budesonide/Formoterol Fumarate (Symbicort 160-4.5 Mcg) 0 gm INH BID [facility] Last Admin: 06/12/20 21:19 Dose: 2 puff Documented by: Clopidogrel Bisulfate (Plavix) 75 mg PO DAILY [facility] Last Admin: 06/12/20 08:32 Dose: 75 mg Documented by: Ceftriaxone Sodium/Dextrose 1 (gm/ Premix) 50 mls @ 100 mls/hr IV Q24H [facility] Last Admin: 06/12/20 09:09 Dose: 100 mls/hr Documented by: Metoprolol Tartrate (Lopressor) 50 mg PO Q12H [facility] Last Admin: 06/12/20 23:42 Dose: 50 mg Documented by: Oxycodone HCl (Oxycodone) 5 mg PO Q6H PRN PRN Reason: Pain (severe 7-10) Pantoprazole Sodium (Protonix) 40 mg PO ACBREAKFAST [facility] Last Admin: 06/13/20 06:51 Dose: 40 mg Documented by: Patient's Own MedicationSpiriva Respimat 2.5 Mcg/Act 0 each INH DAILY [facility] Last Admin: 06/12/20 08:33 Dose: 1 each Documented by: Patient's Own Medication Isosorbide Dinitrate 20 Mg 3 each PO BEDTIME [facility] Last Admin: 06/12/20 21:15 Dose: 3 each Documented by: Sodium Chloride (Saline Flush) 10 ml FLUSH ASDIRECTED PRN PRN Reason: Keep Vein Open Last Admin: 06/10/20 14:14 Dose: 10 ml Documented by: Sodium Chloride (Saline Flush) 2.5 ml FLUSH ASDIRECTED PRN PRN Reason: Keep Vein Open Last Admin: 06/10/20 14:14 Dose: 2.5 ml Documented by: Tamsulosin HCl (Flomax) 0.4 mg PO DAILY [facility] Last Admin: 06/12/20 08:32 Dose: 0.4 mg Documented by: Discontinued Medications Albuterol/Ipratropium (Combivent Respimat) gm INH BID [facility] Atorvastatin Calcium (Lipitor) 20 mg PO BEDTIME [facility] Last Admin: 06/10/20 20:29 Dose: 20 mg Documented by: Budesonide/Formoterol Fumarate (Symbicort 160-4.5 Mcg) 0 gm INH BID [facility] Last Admin: 06/11/20 00:06 Dose: Not Given Documented by: Clopidogrel Bisulfate (Plavix) 75 mg PO DAILY [facility] Diphenhydramine HCl (Benadryl) 25 mg IM ONETIME ONE Stop: 06/12/20 04:42 Last Admin: 06/12/20 05:54 Dose: Not Given Documented by: Furosemide (Lasix) 40 mg PO ACBREAKFAST [facility] Last Admin: 06/11/20 07:05 Dose: 40 mg Documented by: Haloperidol Lactate (Haldol) 5 mg IM ONETIME ONE Stop: 06/12/20 04:34 Last Admin: 06/12/20 05:53 Dose: Not Given Documented by: Sodium Chloride (Normal Saline) 1,000 mls @ 150 mls/hr IV ASDIRECTED [facility] Last Admin: 06/10/20 14:14 Dose: 150 mls/hr Documented by: Sodium Chloride (Normal Saline) 1,000 mls @ 150 mls/hr IV ASDIRECTED [facility] Sodium Chloride (Normal Saline) 1,000 mls @ 75 mls/hr IV ASDIRECTED [facility] Stop: 06/12/20 06:04 Ceftriaxone Sodium 2 gm/ (Sodium Chloride) 50 mls @ 100 mls/hr IV ONETIME ONE Stop: 06/10/20 22:22 Last Admin: 06/10/20 23:15 Dose: 100 mls/hr Documented by: Sodium Chloride (Normal Saline) 1,000 mls @ 70 mls/hr IV ASDIRECTED [facility] Last Admin: 06/11/20 22:35 Dose: 70 mls/hr Documented by: Ceftriaxone Sodium 1 gm/ (Sodium Chloride) 50 mls @ 100 mls/hr IV Q24H [facility] Last Admin: 06/11/20 11:17 Dose: Not Given Documented by: Pantoprazole Sodium 40 mg/ (Sodium Chloride) 10 mls @ 300 mls/hr IV DAILY [facility] Last Admin: 06/11/20 09:06 Dose: 300 mls/hr Documented by: Isosorbide Dinitrate (Isordil) 20 mg PO BEDTIME [facility] Last Admin: 06/11/20 00:06 Dose: Not Given Documented by: Isosorbide Dinitrate (Isordil) 60 mg PO BEDTIME [facility] Lorazepam (Ativan) 1 mg IM ONETIME ONE Stop: 06/12/20 04:40 Last Admin: 06/12/20 05:53 Dose: Not Given Documented by: Metoprolol Tartrate (Lopressor) 100 mg PO ASDIRECTED [facility] Pantoprazole Sodium (Protonix) 40 mg PO ACBREAKFAST [facility] Patient's Own Medication Isosorbide Dinitrate 20 Mg 60 each PO BEDTIME [facility] Patient's Own Medication Isosorbide Dinitrate 20 Mg 3 each PO BEDTIME [facility] Tiotropium [place] (Spiriva Handihaler) 18 mcg INH DAILY [facility] - Exam General: Alert, Oriented, Cooperative, No Acute Distress Lungs: Normal Respiratory Effort, Wheezing (expiratory) Cardiovascular: Regular Rate, Regular Rhythm GI/Abdominal Exam: Normal Bowel Sounds, Soft, Non-Tender Extremities: Normal Inspection, Normal Range of Motion, Non-Tender, No Pedal Edema Neurological: No New Focal Deficit Psy/Mental Status: Alert, Normal Affect, Normal Mood Sepsis Event Note - Evaluation Sepsis Screening Result: No Definite Risk - Focused Exam Vital Signs: Vital Signs Temp Pulse Pulse Resp BP BP Pulse Ox 06/13/20 04:00 98.2 F 97 18 117/61 92 L 06/12/20 23:42 87 127/74 06/12/20 23:00 99.0 F 87 19 127/74 93 L Date Exam was Performed: 06/13/20 Time Exam was Performed: 12:48 - Problem List & Annotations (1) Weakness generalized SNOMED Code(s): 24574411 Code(s): R53.1 - WEAKNESS Status: Acute Current Visit: Yes (2) Falls frequently SNOMED Code(s): 653892612 Code(s): R29.6 - REPEATED FALLS Status: Acute Current Visit: Yes (3) Ijvsg-pb-bihixhi kidney injury SNOMED Code(s): 317339509 Code(s): N17.9 - ACUTE KIDNEY FAILURE, UNSPECIFIED; N18.9 - CHRONIC KIDNEY DISEASE, UNSPECIFIED Status: Acute Current Visit: No (4) Altered mental status SNOMED Code(s): 628041199 Code(s): R41.82 - ALTERED MENTAL STATUS, UNSPECIFIED Status: Acute Current Visit: No (5) Afib, Atrial fibrillation SNOMED Code(s): 75670293 Code(s): I48.91 - UNSPECIFIED ATRIAL FIBRILLATION Status: Chronic Current Visit: No (6) COPD, Mild chronic obstructive pulmonary disease SNOMED Code(s): 548919961 Code(s): J44.9 - CHRONIC OBSTRUCTIVE PULMONARY DISEASE, UNSPECIFIED Status: Chronic Current Visit: No (7) Coronary arteriosclerosis, CAD SNOMED Code(s): 90337544 Code(s): I25.10 - ATHSCL HEART DISEASE OF [place] CORONARY ARTERY W/O ANG PCTRS Status: Chronic Current Visit: No (8) Ischemic cardiomyopathy SNOMED Code(s): 732329056 Code(s): I25.5 - ISCHEMIC CARDIOMYOPATHY Status: Chronic Current Visit: No - Problem List Review Problem List Initiated/Reviewed/Updated: Yes - My Orders Last 24 Hours: My Active Orders 06/12/20 08:17 Pantoprazole [ProTONIX] 40 mg PO ACBREAKFAST 06/12/20 10:30 Consult to Physical Therapy [PT Evaluation and Treatment] [CONS] Routine 06/12/20 11:37 Daily Weight [Height and Weight] [RC] DAILY 06/12/20 16:00 Intake and Output Strict [RC] Q12H 06/14/20 05:11 BMP [BASIC METABOLIC PANEL,BMP] [CHEM] AM CBC WITH AUTO DIFF [HEME] AM MAGNESIUM [CHEM] AM 06/15/20 05:11 BMP [BASIC METABOLIC PANEL,BMP] [CHEM] AM CBC WITH AUTO DIFF [HEME] AM MAGNESIUM [CHEM] AM - Plan Plan:: 80 yo male admitted after several falls at home, Found to have acute on chronic kidney disease. 1. OSCAR on CKD - Resolved. 2. UTI - Rocephin started 06/11 - UC shows no growth. - BC negative, will treat for 5 days then stop. today day 4 3. Obstructive uropathy - Follow with Urology as outpatient, stable - Continue stokes catheter and cares - Continue Flomax 4. Falls, unsteady gait - Consult PT - Case management consulted to help with placement. 5. CAD/Afib/Ischemic cardiomyopathy. - Daily weights, strict I/O - Continue Eliquis and Plavix - Restart Lasix. - Continue Metoprolol and Imdur 6. COPD: - stable, continue home inhalers - PRN nebs VTE prophylaxis: Danyellequis Consults: Case management for assistance with placement for short term rehabilitation Dispo: 2 days, [facility] placement possibly in am.
[2020-06-13] MEDS: SPIRIVA RESPIMAT INH SCH (08:32)
[2020-06-13] MEDS: BUDESONIDE INH SCH ×2 (08:32→20:44)
[2020-06-13] MEDS: FORMOTEROL INH SCH ×2 (08:32→20:44)
[2020-06-13] MEDS: Clopidogrel 75 MG Tab PO SCH (08:33)
[2020-06-13] MEDS: Apixaban 2.5 MG Tab PO SCH ×2 (08:33→20:37)
[2020-06-13] MEDS: Tamsulosin 0.4 MG Cap.ER PO SCH (08:33)
[2020-06-13] MEDS: cefTRIAXone 1 GM in Premix Bag 1 BAG IV SCH (09:23)
[2020-06-13] MEDS: Albuterol 0.083% 2.5 MG/3 ML Neb Soln INH PRN (10:09)
[2020-06-13] MEDS: Metoprolol Tartrate 50 MG Tab PO SCH ×2 (11:22→22:54)
[2020-06-13] MEDS: ISOSORBIDE DINITRATE 20 MG PO SCH (20:37)
[2020-06-13] MEDS: atorvaSTATin 10 MG Tab PO SCH (20:37)
[2020-06-14 06:23] LABS: CARBON DIOXIDE,CO2 27.7 mmol/L (21.0-32.0); POTASSIUM,K 3.5 mmol/L (3.5-5.1)
[2020-06-14] MEDS: Pantoprazole 40 MG Tab.CR PO SCH (06:46)
[2020-06-14] MEDS ORDERED: Furosemide 40 MG Tab PO SCH (09:00)
[2020-06-14] MEDS: cefTRIAXone 1 GM in Premix Bag 1 BAG IV SCH (09:31)
[2020-06-14] MEDS: Apixaban 2.5 MG Tab PO SCH (09:44)
[2020-06-14] MEDS: Tamsulosin 0.4 MG Cap.ER PO SCH (09:44)
[2020-06-14] MEDS: Clopidogrel 75 MG Tab PO SCH (09:44)
[2020-06-14 11:31] VITALS: BP 101/57; PULSE 76
[2020-06-14] MEDS: Metoprolol Tartrate 50 MG Tab PO SCH (11:50)
--- NOTE | 2020-06-14 11:55 | PCM.DCSUM1 ---
Discharge Summary - Hospital Course Diagnosis: Stroke: No - Discharge Data Discharge Date: 06/14/20 Discharge Disposition: DC/Tfer to SNF 03 Condition: Stable - Referral to Home Health Primary Care Physician: Fede Valderrama MD - Discharge Diagnosis/Problem(s) (1) Weakness generalized SNOMED Code(s): 40182878 ICD Code: R53.1 - WEAKNESS Status: Acute (2) Falls frequently SNOMED Code(s): 369229310 ICD Code: R29.6 - REPEATED FALLS Status: Acute (3) [id number] kidney injury SNOMED Code(s): 352159332 ICD Code: N17.9 - ACUTE KIDNEY FAILURE, UNSPECIFIED; N18.9 - CHRONIC KIDNEY DISEASE, UNSPECIFIED Status: Acute (4) Altered mental status SNOMED Code(s): 329713716 ICD Code: R41.82 - ALTERED MENTAL STATUS, UNSPECIFIED Status: Acute (5) Afib, Atrial fibrillation SNOMED Code(s): 51356840 ICD Code: I48.91 - UNSPECIFIED ATRIAL FIBRILLATION Status: Chronic (6) COPD, Mild chronic obstructive pulmonary disease SNOMED Code(s): 722273738 ICD Code: J44.9 - CHRONIC OBSTRUCTIVE PULMONARY DISEASE, UNSPECIFIED Status: Chronic (7) Coronary arteriosclerosis, CAD SNOMED Code(s): 23379111 ICD Code: I25.10 - ATHSCL HEART DISEASE OF [place] CORONARY ARTERY W/O ANG PCTRS Status: Chronic (8) Ischemic cardiomyopathy SNOMED Code(s): 972375797 ICD Code: I25.5 - ISCHEMIC CARDIOMYOPATHY Status: Chronic (9) Obstructed, uropathy SNOMED Code(s): 2890284 ICD Code: N13.9 - OBSTRUCTIVE AND REFLUX UROPATHY, UNSPECIFIED Status: Acute - Patient Summary/Data Consults: Consultations 06/11/20 13:00 Consult to Case Management/Home Appliance Tech [CONS] Routine 06/12/20 10:30 Consult to Physical Therapy [PT Evaluation and Treatment] [CONS] Routine Hospital Course: Admitting Diagnoses: OSCAR on CKD Obstructive Uropathy Generalized weakness Discharge Diagnoses: OSCAR on CKD Obstructive Uropathy Generalized weakness Other PMH: CAD Ischemic Cardiomyopathy Afib Anticoagulation COPD GERD Korey was admitted secondary to generalized weakness and OSCAR. He was noted to obstructive uropathy and possible UTI. He was treated with stokes catheter placement and gentle IVFs. OSCAR steadily resolved. Lasix was restarted today. Flomax was continued. He will need follow up with Dr Neal as outpatient for possible urologic intervention with obstructive uropathy. UC returned with no growth and BC negative. Rocephin continued x 5 days as urine was very purulent in appearance. PT worked with patient and suggested short term rehabilitation to return home safely. Him and family agreed. He will be discharged to [facility] today for short term placement with PT/OT. [facility] cares to continue. He is to continue all current home medications on discharge. He is to return to the ED or clinic if concerns should arise. - Patient Instructions Diet: Heart Healthy Diet, Low Sodium Activity: As Tolerated Showering/Bathing: May Shower Notify Provider of: Fever, Increased Pain, Swelling and Redness, Drainage, Nausea and/or Vomiting Other/Special Instructions: [facility] cares per policy, replace every 30 days. PT/OT to evaluate and treat for generalized weakness, falls, and unsteady gait - Discharge Plan *PRESCRIPTION DRUG MONITORING PROGRAM REVIEWED*: Not Applicable *COPY OF PRESCRIPTION DRUG MONITORING REPORT IN PATIENT CHAZ: Not Applicable Home Medications: Home Meds Budesonide/Formoterol [Symbicort 160-4.5 MCG] 2 puff IH BID 01/18/17 [History] Furosemide [Lasix] 40 mg PO ACBREAKFAST 01/18/17 [History] Metoprolol Tartrate 50 mg PO BID 01/18/17 [History] Pantoprazole [ProTONIX] 40 mg PO ACBREAKFAST 01/18/17 [History] Tamsulosin [Flomax] 0.4 mg PO DAILY 01/18/17 [History] atorvaSTATin [Lipitor] 10 mg PO BEDTIME 01/18/17 [History] Apixaban [Eliquis] 2.5 mg PO BID 06/10/20 [History] Clopidogrel Bisulfate [Clopidogrel] 75 mg PO DAILY 06/10/20 [History] Isosorbide Dinitrate 60 mg PO BEDTIME 06/10/20 [History] Tiotropium [place] [Spiriva Respimat] 2 inhalation IH DAILY 06/10/20 [History] Acetaminophen [Tylenol] 650 mg PO Q6H PRN tablet 06/14/20 [Rx] Albuterol [Proventil Neb Soln] 2.5 mg INH Q4H PRN [facility] 06/14/20 [Rx] Oxygen Therapy Mode: Room Air Patient Handouts: Understanding Your Risk for Falls, Urinary Tract Infection, Adult, [id number], Chronic Kidney Disease, Adult, [id number] Referrals: [facility] [Outside] Fede Valderrama MD [Primary Care Provider] - Maikel Neal MD [Physician] - 06/28/20 2:30 pm Saad Escoto MD [Physician] - 06/19/20 (Dr. Escoto will see you during [facility] rounds) Boris Marques MD [Ordering Only Provider] - - Discharge Summary/Plan Comment DC Time >30 min.: No - Patient Data Vitals - Most Recent: Last Vital Signs Temp 97.9 F 06/14/20 11:29 Pulse 76 06/14/20 11:29 Resp 20 06/14/20 11:29 BP 101/57 L 06/14/20 11:29 Pulse Ox 95 06/14/20 11:29 Weight - Most Recent: 75.2 kg I&O - Last 24 hours: Intake & Output 06/13/20 06/14/20 06/14/20 22:59 06:59 14:59 Intake Total 550 200 Output Total 500 500 Balance 50 -300 Lab Results - Last 24 hrs: Laboratory Results - last 24 hr 06/14/20 06/14/20 06/14/20 Range/Units 05:23 05:23 08:15 WBC 7.13 (4.0-11.0) K/uL RBC 3.73 L (4.50-5.90) M/uL Hgb 10.8 L (13.0-17.0) g/dL Hct 34.8 L (38.0-50.0) % MCV 93.3 (80.0-98.0) fL MCH 29.0 (27.0-32.0) pg MCHC 31.0 (31.0-37.0) g/dL RDW Std Deviation 48.9 (28.0-62.0) fl RDW Coeff of Boo 14 (11.0-15.0) % Plt Count 243 (150-400) K/uL MPV 9.40 (7.40-12.00) fL Add Manual Diff YES Neutrophils % (Manual) 74 (48.0-80.0) % Band Neutrophils % 5 % Lymphocytes % (Manual) 8 L (16.0-40.0) % Monocytes % (Manual) 5 (0.0-15.0) % Eosinophils % (Manual) 8 H (0.0-7.0) % Nucleated RBC % 0.0 /100WBC Absolute Seg Neuts 5.3 (1.4-5.7) Band Neutrophils # 0.4 Lymphocytes # (Manual) 0.6 (0.6-2.4) Monocytes # (Manual) 0.4 (0.0-0.8) Eosinophils # (Manual) 0.6 (0.0-0.7) Nucleated RBCs # 0 K/uL Sodium 143 (136-148) mmol/L Potassium 3.5 (3.5-5.1) mmol/L Chloride 109 H (98-107) mmol/L Carbon Dioxide 27.7 (21.0-32.0) mmol/L BUN 25 H (7.0-18.0) mg/dL Creatinine 1.8 H (0.8-1.3) mg/dL Est Cr Clr Drug Dosing 32.19 mL/min Estimated GFR (MDRD) 36.4 ml/min Glucose 111 H (74-106) mg/dL Calcium 9.5 (8.5-10.1) mg/dL Magnesium 2.1 (1.8-2.4) mg/dL COVID-19 (SHERI) NEGATIVE (NEGATIVE) HANK Results - Last 24 hrs: Microbiology 06/11/20 11:10 Aerobic Blood Culture - Preliminary Blood - Venous - Lab Draw NO GROWTH AFTER 3 DAYS Anaerobic Blood Culture - Final 06/11/20 10:59 Aerobic Blood Culture - Preliminary Blood - Venous NO GROWTH AFTER 3 DAYS Anaerobic Blood Culture - Preliminary NO GROWTH AFTER 3 DAYS 06/11/20 11:25 Urine Culture - Final Urine, Catheterized No Growth Med Orders - Current: Current Medications Acetaminophen (Tylenol) 650 mg PO Q6H PRN PRN Reason: Pain Albuterol (Proventil Neb Soln) 2.5 mg INH Q4H PRN PRN Reason: Shortness of Breath Last Admin: 06/13/20 10:09 Dose: 2.5 mg Documented by: Apixaban (Eliquis) 2.5 mg PO BID [facility] Last Admin: 06/14/20 09:44 Dose: 2.5 mg Documented by: Atorvastatin Calcium (Lipitor) 10 mg PO BEDTIME [facility] Last Admin: 06/13/20 20:37 Dose: 10 mg Documented by: Budesonide/Formoterol Fumarate (Symbicort 160-4.5 Mcg) 0 gm INH BID [facility] Last Admin: 06/13/20 20:44 Dose: 2 puff Documented by: Clopidogrel Bisulfate (Plavix) 75 mg PO DAILY [facility] Last Admin: 06/14/20 09:44 Dose: 75 mg Documented by: Furosemide (Lasix) 40 mg PO DAILY [facility] Last Admin: 06/14/20 09:45 Dose: 40 mg Documented by: Ceftriaxone Sodium/Dextrose 1 (gm/ Premix) 50 mls @ 100 mls/hr IV Q24H [facility] Last Admin: 06/14/20 09:31 Dose: 100 mls/hr Documented by: Metoprolol Tartrate (Lopressor) 50 mg PO Q12H [facility] Last Admin: 06/14/20 11:50 Dose: Not Given Documented by: Oxycodone HCl (Oxycodone) 5 mg PO Q6H PRN PRN Reason: Pain (severe 7-10) Pantoprazole Sodium (Protonix) 40 mg PO ACBREAKFAST [facility] Last Admin: 06/14/20 06:46 Dose: 40 mg Documented by: Patient's Own MedicationSpiriva Respimat 2.5 Mcg/Act 0 each INH DAILY [facility] Last Admin: 06/13/20 08:32 Dose: 1 each Documented by: Patient's Own Medication Isosorbide Dinitrate 20 Mg 3 each PO BEDTIME [facility] Last Admin: 06/13/20 20:37 Dose: 3 each Documented by: Sodium Chloride (Saline Flush) 10 ml FLUSH ASDIRECTED PRN PRN Reason: Keep Vein Open Last Admin: 06/10/20 14:14 Dose: 10 ml Documented by: Sodium Chloride (Saline Flush) 2.5 ml FLUSH ASDIRECTED PRN PRN Reason: Keep Vein Open Last Admin: 06/10/20 14:14 Dose: 2.5 ml Documented by: Tamsulosin HCl (Flomax) 0.4 mg PO DAILY [facility] Last Admin: 06/14/20 09:44 Dose: 0.4 mg Documented by: Discontinued Medications Albuterol/Ipratropium (Combivent Respimat) gm INH BID [facility] Atorvastatin Calcium (Lipitor) 20 mg PO BEDTIME [facility] Last Admin: 06/10/20 20:29 Dose: 20 mg Documented by: Budesonide/Formoterol Fumarate (Symbicort 160-4.5 Mcg) 0 gm INH BID [facility] Last Admin: 06/11/20 00:06 Dose: Not Given Documented by: Clopidogrel Bisulfate (Plavix) 75 mg PO DAILY [facility] Diphenhydramine HCl (Benadryl) 25 mg IM ONETIME ONE Stop: 06/12/20 04:42 Last Admin: 06/12/20 05:54 Dose: Not Given Documented by: Furosemide (Lasix) 40 mg PO ACBREAKFAST [facility] Last Admin: 06/11/20 07:05 Dose: 40 mg Documented by: Haloperidol Lactate (Haldol) 5 mg IM ONETIME ONE Stop: 06/12/20 04:34 Last Admin: 06/12/20 05:53 Dose: Not Given Documented by: Sodium Chloride (Normal Saline) 1,000 mls @ 150 mls/hr IV ASDIRECTED [facility] Last Admin: 06/10/20 14:14 Dose: 150 mls/hr Documented by: Sodium Chloride (Normal Saline) 1,000 mls @ 150 mls/hr IV ASDIRECTED [facility] Sodium Chloride (Normal Saline) 1,000 mls @ 75 mls/hr IV ASDIRECTED [facility] Stop: 06/12/20 06:04 Ceftriaxone Sodium 2 gm/ (Sodium Chloride) 50 mls @ 100 mls/hr IV ONETIME ONE Stop: 06/10/20 22:22 Last Admin: 06/10/20 23:15 Dose: 100 mls/hr Documented by: Sodium Chloride (Normal Saline) 1,000 mls @ 70 mls/hr IV ASDIRECTED [facility] Last Admin: 06/11/20 22:35 Dose: 70 mls/hr Documented by: Ceftriaxone Sodium 1 gm/ (Sodium Chloride) 50 mls @ 100 mls/hr IV Q24H [facility] Last Admin: 06/11/20 11:17 Dose: Not Given Documented by: Pantoprazole Sodium 40 mg/ (Sodium Chloride) 10 mls @ 300 mls/hr IV DAILY [facility] Last Admin: 06/11/20 09:06 Dose: 300 mls/hr Documented by: Isosorbide Dinitrate (Isordil) 20 mg PO BEDTIME [facility] Last Admin: 06/11/20 00:06 Dose: Not Given Documented by: Isosorbide Dinitrate (Isordil) 60 mg PO BEDTIME [facility] Lorazepam (Ativan) 1 mg IM ONETIME ONE Stop: 06/12/20 04:40 Last Admin: 06/12/20 05:53 Dose: Not Given Documented by: Metoprolol Tartrate (Lopressor) 100 mg PO ASDIRECTED [facility] Pantoprazole Sodium (Protonix) 40 mg PO ACBREAKFAST [facility] Patient's Own Medication Isosorbide Dinitrate 20 Mg 60 each PO BEDTIME [facility] Patient's Own Medication Isosorbide Dinitrate 20 Mg 3 each PO BEDTIME [facility] Tiotropium [place] (Spiriva Handihaler) 18 mcg INH DAILY [facility] - Exam General: Reports: Alert, Oriented, Cooperative, No Acute Distress Lungs: Reports: Clear to Auscultation, Normal Respiratory Effort Cardiovascular: Reports: Regular Rate, Irregular Rhythm GI/Abdominal Exam: Normal Bowel Sounds, Soft, Non-Tender (Male) Exam: Other (stokes catheter) Extremities: Normal Inspection, Normal Range of Motion, No Pedal Edema Wound/Incisions: Reports: Healing Well Neurological: Reports: No New Focal Deficit Psy/Mental Status: Reports: Alert, Normal Affect, Normal Mood
== END 2020-06-14 13:50 | DRG 683 ==
LOC: MW.ED 11:11 → MW.MS 15:24 → OBSVTOIN 06-11 13:03
PROVIDERS: ADMIT Internal Medicine; ATTEND Internal Medicine
DX: N19 Unspecified kidney failure (principal); M25.551 Pain in right hip; W19.XXXA Unspecified fall, initial encounter; N17.9 Acute kidney failure, unspecified; I10 Essential (primary) hypertension; E78.00 Pure hypercholesterolemia, unspecified; N13.8 Other obstructive and reflux uropathy; N39.0 Urinary tract infection, site not specified; I25.5 Ischemic cardiomyopathy; I73.9 Peripheral vascular disease, unspecified; J44.9 Chronic obstructive pulmonary disease, unspecified; M19.90 Unspecified osteoarthritis, unspecified site; H54.7 Unspecified visual loss; H91.90 Unspecified hearing loss, unspecified ear; Z95.5 Presence of coronary angioplasty implant and graft; K44.9 Diaphragmatic hernia without obstruction or gangrene; Z79.82 Long term (current) use of aspirin; Z79.02 Long term (current) use of antithrombotics/antiplatelets; Z79.899 Other long term (current) drug therapy; N40.1 Benign prostatic hyperplasia with lower urinary tract symptoms; N18.3 Chronic kidney disease, stage 3 (moderate); W01.0XXA Fall on same level from slipping, tripping and stumbling without subsequent striking against object, initial encounter; I25.10 Atherosclerotic heart disease of native coronary artery without angina pectoris; E78.5 Hyperlipidemia, unspecified; I12.9 Hypertensive chronic kidney disease with stage 1 through stage 4 chronic kidney disease, or unspecified chronic kidney disease; I25.2 Old myocardial infarction; Z95.0 Presence of cardiac pacemaker; N39.498 Other specified urinary incontinence; Z95.1 Presence of aortocoronary bypass graft; Y92.009 Unspecified place in unspecified non-institutional (private) residence as the place of occurrence of the external cause; R53.1 Weakness; R29.6 Repeated falls; I48.91 Unspecified atrial fibrillation; Z79.01 Long term (current) use of anticoagulants; K21.9 Gastro-esophageal reflux disease without esophagitis; Z20.828 Contact with and (suspected) exposure to other viral communicable diseases
CPT/HCPCS: 36415 ×2; 51702 ×2; 51798; 71045; 72192; 73502; 80048; 80053; 81001; 85025; 85027; 85610; 85730; 87040 ×2; 87086; 93005; 99285; A9270 ×7; C9113; J0696 ×2; J7030 ×2; J7050 ×2; U0002; 83735; 84100; 94640; 97162-GP; 97530-GP

== ENCOUNTER 2023-06-18 17:18 | Inpatient (IN) | payer MEDICARE, BC ==
[2023-06-18] MEDS ORDERED: Sodium Chloride 0.9% 2.5 ML Syringe FLUSH PRN ×2 (18:39→21:18)
[2023-06-18] MEDS ORDERED: Sodium Chloride 0.9% 10 ML Syringe FLUSH PRN ×2 (18:39→21:18)
[2023-06-18 18:55] LABS: BASE EXCESS VENOUS 4.1 (-2.0-3.0); BICARBONATE,VENOUS 31 mEq/L (23-28); PCO2 VENOUS 56 mmHG (41-51); PH,VENOUS 7.35 (7.31-7.41)
[2023-06-18 18:56] LABS: BASOPHILS PERCENT AUTO 0.3 % (0.0-1.5); EOSINOPHILS ABSOLUTE AUTO 0.6 K/uL (0.0-0.7); EOSINOPHILS PERCENT AUTO 5.5 % (0.0-7.0); HEMATOCRIT 42.1 % (38.0-50.0); HEMOGLOBIN 13.2 g/dL (13.0-17.0); LYMPHOCYTES ABSOLUTE AUTO 1.1 K/uL (0.6-2.4); LYMPHOCYTES PERCENT AUTO 10.2 % (16.0-40.0); MEAN CORPUSCULAR HEMOGLOBIN 29.7 pg (27.0-32.0); MEAN CORPUSCULAR HGB CONC 31.4 g/dL (31.0-37.0); MEAN CORPUSCULAR VOLUME 94.6 fL (80.0-98.0); MONOCYTES ABSOLUTE AUTO 0.7 K/uL (0.0-0.8); NEUTROPHILS ABSOLUTE AUTO 8.1 K/uL (1.4-5.7); NRBC ABSOLUTE 0 K/uL; PLATELET COUNT,PLT 235 K/uL (150-400); PO2 VENOUS < 30 mmHG; RED BLOOD CELL COUNT 4.45 M/uL (4.50-5.90); WHITE BLOOD CELL COUNT,WBC 10.53 K/uL (4.0-11.0)
[2023-06-18 19:10] LABS: INR 1.14 (0.86-1.11)
[2023-06-18 19:20] LABS: A/G RATIO 1.1 (0.9-1.6); ALBUMIN 3.4 g/dL (3.4-5.0); BILIRUBIN TOTAL 0.4 mg/dL (0.2-1.0); CALCIUM 11.3 mg/dL (8.5-10.1); CARBON DIOXIDE,CO2 29.4 mmol/L (21.0-32.0); CREATININE 2.4 mg/dL (0.8-1.3); EST CRCL DRUG DOSING (CG) 21.06 mL/min; PROTEIN TOTAL,TP 6.6 g/dL (6.4-8.2)
[2023-06-18 20:32] LABS: APPEARANCE,URINE CLOUDY; BILIRUBIN,URINE NEGATIVE (NEGATIVE); COLOR,URINE YELLOW; GLUCOSE,URINE NEGATIVE (NEGATIVE); KETONES,URINE NEGATIVE (NEGATIVE); LEUKOCYTE ESTERASE,URINE MODERATE (NEGATIVE); NITRITE,URINE POSITIVE (NEGATIVE); OCCULT BLOOD,URINE LARGE (NEGATIVE); PROTEIN,URINE NEGATIVE (NEGATIVE); UROBILINOGEN,URINE 0.2 EU/dL (<2.0)
[2023-06-18 20:38] LABS: EPITHELIAL CELLS,URINE NOT SEEN (NONE-FEW); RBC,URINE 50-75 (0-2/HPF); SQUAMOUS EPITHELIAL CELLS,UR NOT SEEN; WBC,URINE 40-50 (0-5/HPF)
[2023-06-18 20:39] LABS: BACTERIA,URINE FEW (NEGATIVE); HYALINE CASTS,URINE FEW (0-2/LPF); MUCUS,URINE FEW (NONE-MOD)
[2023-06-18] MEDS ORDERED: cefTRIAXone 1 GM in Sodium Chloride 0.9% 50 ML IV STA (20:54)
[2023-06-18] MEDS: cefTRIAXone 1 GM in Sodium Chloride 0.9% 50 ML IV SCH (21:15)
[2023-06-18] MEDS: Sodium Chloride 0.9% 1,000 ML IV STA (21:15)
[2023-06-18] MEDS ORDERED: Sodium Chloride 0.9% 20 ML SDV IV PRN (21:18)
[2023-06-18] MEDS ORDERED: Albuterol/Ipratropium 3.0-0.5 MG/3 ML Neb Soln NEB PRN (21:18)
[2023-06-18] MEDS ORDERED: Polyethylene Glycol 3350 Powder 17 GM Packet PO PRN (21:18)
[2023-06-18] MEDS ORDERED: Acetaminophen 325 MG Tab PO PRN (21:18)
[2023-06-18] MEDS ORDERED: Ondansetron 4 MG/2 ML SDV IVPUSH PRN (21:18)
[2023-06-18] MEDS ORDERED: cefTRIAXone 1 GM in Sodium Chloride 0.9% 50 ML IV SCH (21:45)
[2023-06-19] MEDS: Sodium Chloride 0.9% 1,000 ML IV STA (06:30)
[2023-06-19] MEDS: Pantoprazole 40 MG Tab.CR PO SCH (06:31)
[2023-06-19 06:56] LABS: BASOPHILS PERCENT AUTO 0.5 % (0.0-1.5); EOSINOPHILS PERCENT AUTO 11.2 % (0.0-7.0); HEMATOCRIT 37.4 % (38.0-50.0); HEMOGLOBIN 11.7 g/dL (13.0-17.0); LYMPHOCYTES PERCENT AUTO 12.2 % (16.0-40.0); MEAN CORPUSCULAR HEMOGLOBIN 29.6 pg (27.0-32.0); MEAN CORPUSCULAR HGB CONC 31.3 g/dL (31.0-37.0); MEAN CORPUSCULAR VOLUME 94.7 fL (80.0-98.0); MONOCYTES ABSOLUTE AUTO 0.7 K/uL (0.0-0.8); MONOCYTES PERCENT AUTO 8.3 % (0.0-15.0); NEUTROPHILS ABSOLUTE AUTO 5.8 K/uL (1.4-5.7); NEUTROPHILS PERCENT AUTO 67.8 % (48.0-80.0); NRBC ABSOLUTE 0 K/uL; PLATELET COUNT,PLT 217 K/uL (150-400); RED BLOOD CELL COUNT 3.95 M/uL (4.50-5.90); WHITE BLOOD CELL COUNT,WBC 8.47 K/uL (4.0-11.0)
[2023-06-19 08:01] LABS: CALCIUM 10.6 mg/dL (8.5-10.1); CARBON DIOXIDE,CO2 28.5 mmol/L (21.0-32.0); CREATININE 2.1 mg/dL (0.8-1.3); EST CRCL DRUG DOSING (CG) 23.89 mL/min; MAGNESIUM 1.9 mg/dL (1.8-2.4); PHOSPHORUS 3.2 mg/dL (2.6-4.7); POTASSIUM,K 3.9 mmol/L (3.5-5.1)
[2023-06-19] MEDS ORDERED: Clopidogrel 75 MG Tab PO SCH (09:00)
[2023-06-19] MEDS ORDERED: Metoprolol Tartrate 50 MG Tab PO SCH (09:00)
[2023-06-19] MEDS ORDERED: Budesonide/Formoterol 160-4.5 MCG/Puff 6 GM Inhaler INH SCH (09:00)
[2023-06-19] MEDS: Apixaban 2.5 MG Tab PO SCH ×2 (09:09→20:17)
[2023-06-19] MEDS: Tamsulosin 0.4 MG Cap.ER PO SCH (09:09)
[2023-06-19] MEDS: Formoterol/Mometasone 200-5 MCG 8.8 GM Inhaler INH SCH ×2 (09:36→20:16)
[2023-06-19] MEDS: atorvaSTATin 10 MG Tab PO SCH (20:16)
[2023-06-19] MEDS: cefTRIAXone 1 GM in Sodium Chloride 0.9% 50 ML IV SCH (20:17)
[2023-06-20 06:34] LABS: BASOPHILS ABSOLUTE AUTO 0.1 K/uL (0.0-0.1); BASOPHILS PERCENT AUTO 0.7 % (0.0-1.5); EOSINOPHILS ABSOLUTE AUTO 0.8 K/uL (0.0-0.7); EOSINOPHILS PERCENT AUTO 10.6 % (0.0-7.0); HEMATOCRIT 39.4 % (38.0-50.0); HEMOGLOBIN 12.2 g/dL (13.0-17.0); LYMPHOCYTES ABSOLUTE AUTO 0.9 K/uL (0.6-2.4); LYMPHOCYTES PERCENT AUTO 11.4 % (16.0-40.0); MEAN CORPUSCULAR HEMOGLOBIN 29.5 pg (27.0-32.0); MEAN CORPUSCULAR VOLUME 95.4 fL (80.0-98.0); MONOCYTES ABSOLUTE AUTO 0.7 K/uL (0.0-0.8); MONOCYTES PERCENT AUTO 8.9 % (0.0-15.0); NEUTROPHILS ABSOLUTE AUTO 5.1 K/uL (1.4-5.7); NEUTROPHILS PERCENT AUTO 68.4 % (48.0-80.0); NRBC ABSOLUTE 0 K/uL; PLATELET COUNT,PLT 200 K/uL (150-400); RED BLOOD CELL COUNT 4.13 M/uL (4.50-5.90); WHITE BLOOD CELL COUNT,WBC 7.52 K/uL (4.0-11.0)
[2023-06-20] MEDS: Pantoprazole 40 MG Tab.CR PO SCH (06:44)
[2023-06-20 07:14] LABS: CALCIUM 10.8 mg/dL (8.5-10.1); CARBON DIOXIDE,CO2 29.7 mmol/L (21.0-32.0); CREATININE 1.8 mg/dL (0.8-1.3); EST CRCL DRUG DOSING (CG) 27.87 mL/min; PHOSPHORUS 2.8 mg/dL (2.6-4.7); POTASSIUM,K 4.6 mmol/L (3.5-5.1)
[2023-06-20] MEDS: Apixaban 2.5 MG Tab PO SCH ×2 (09:25→20:55)
[2023-06-20] MEDS: Tamsulosin 0.4 MG Cap.ER PO SCH (09:25)
[2023-06-20] MEDS: Formoterol/Mometasone 200-5 MCG 8.8 GM Inhaler INH SCH ×2 (09:25→20:56)
[2023-06-20] MEDS: atorvaSTATin 10 MG Tab PO SCH (20:55)
[2023-06-20] MEDS: cefTRIAXone 1 GM in Sodium Chloride 0.9% 50 ML IV SCH (20:56)
[2023-06-21 06:12] LABS: BASOPHILS PERCENT AUTO 0.5 % (0.0-1.5); EOSINOPHILS ABSOLUTE AUTO 0.8 K/uL (0.0-0.7); EOSINOPHILS PERCENT AUTO 9.7 % (0.0-7.0); HEMATOCRIT 40.5 % (38.0-50.0); HEMOGLOBIN 12.5 g/dL (13.0-17.0); MEAN CORPUSCULAR HEMOGLOBIN 29.2 pg (27.0-32.0); MEAN CORPUSCULAR HGB CONC 30.9 g/dL (31.0-37.0); MEAN CORPUSCULAR VOLUME 94.6 fL (80.0-98.0); MONOCYTES ABSOLUTE AUTO 0.7 K/uL (0.0-0.8); MONOCYTES PERCENT AUTO 8.1 % (0.0-15.0); NEUTROPHILS ABSOLUTE AUTO 5.9 K/uL (1.4-5.7); NEUTROPHILS PERCENT AUTO 69.7 % (48.0-80.0); NRBC ABSOLUTE 0 K/uL; RED BLOOD CELL COUNT 4.28 M/uL (4.50-5.90); WHITE BLOOD CELL COUNT,WBC 8.47 K/uL (4.0-11.0)
[2023-06-21 06:43] LABS: CALCIUM 10.7 mg/dL (8.5-10.1); CARBON DIOXIDE,CO2 30.1 mmol/L (21.0-32.0); CREATININE 1.9 mg/dL (0.8-1.3); EST CRCL DRUG DOSING (CG) 26.4 mL/min; POTASSIUM,K 4.7 mmol/L (3.5-5.1)
[2023-06-21] MEDS: Pantoprazole 40 MG Tab.CR PO SCH (07:12)
[2023-06-21 07:21] LABS: PLATELET COUNT,PLT 219 K/uL (150-400)
[2023-06-21] MEDS: Apixaban 2.5 MG Tab PO SCH ×2 (08:53→21:25)
[2023-06-21] MEDS: Tamsulosin 0.4 MG Cap.ER PO SCH (08:53)
[2023-06-21] MEDS: Formoterol/Mometasone 200-5 MCG 8.8 GM Inhaler INH SCH ×2 (08:57→21:23)
[2023-06-21] MEDS: atorvaSTATin 10 MG Tab PO SCH (21:25)
[2023-06-21] MEDS: cefTRIAXone 1 GM in Sodium Chloride 0.9% 50 ML IV SCH (21:25)
[2023-06-22 06:33] LABS: BASOPHILS PERCENT AUTO 0.5 % (0.0-1.5); EOSINOPHILS ABSOLUTE AUTO 0.6 K/uL (0.0-0.7); EOSINOPHILS PERCENT AUTO 7.4 % (0.0-7.0); HEMATOCRIT 40.9 % (38.0-50.0); HEMOGLOBIN 12.9 g/dL (13.0-17.0); LYMPHOCYTES ABSOLUTE AUTO 1.1 K/uL (0.6-2.4); LYMPHOCYTES PERCENT AUTO 13.8 % (16.0-40.0); MEAN CORPUSCULAR HEMOGLOBIN 29.7 pg (27.0-32.0); MEAN CORPUSCULAR HGB CONC 31.5 g/dL (31.0-37.0); MONOCYTES ABSOLUTE AUTO 0.8 K/uL (0.0-0.8); MONOCYTES PERCENT AUTO 9.7 % (0.0-15.0); NEUTROPHILS ABSOLUTE AUTO 5.5 K/uL (1.4-5.7); NEUTROPHILS PERCENT AUTO 68.6 % (48.0-80.0); NRBC ABSOLUTE 0 K/uL; PLATELET COUNT,PLT 221 K/uL (150-400); RED BLOOD CELL COUNT 4.35 M/uL (4.50-5.90); WHITE BLOOD CELL COUNT,WBC 7.96 K/uL (4.0-11.0)
[2023-06-22] MEDS: Pantoprazole 40 MG Tab.CR PO SCH (06:35)
[2023-06-22 06:42] LABS: CREATININE 1.7 mg/dL (0.8-1.3); EST CRCL DRUG DOSING (CG) 29.51 mL/min
[2023-06-22] MEDS: Tamsulosin 0.4 MG Cap.ER PO SCH (08:39)
[2023-06-22] MEDS: Apixaban 2.5 MG Tab PO SCH ×2 (08:39→20:01)
[2023-06-22] MEDS: Formoterol/Mometasone 200-5 MCG 8.8 GM Inhaler INH SCH ×2 (08:47→20:01)
[2023-06-22] MEDS: cefTRIAXone 1 GM in Sodium Chloride 0.9% 50 ML IV SCH (20:00)
[2023-06-22] MEDS: atorvaSTATin 10 MG Tab PO SCH (20:00)
[2023-06-23] MEDS: Pantoprazole 40 MG Tab.CR PO SCH ×2 (06:10→06:39)
[2023-06-23 06:11] LABS: BASOPHILS ABSOLUTE AUTO 0.1 K/uL (0.0-0.1); BASOPHILS PERCENT AUTO 0.8 % (0.0-1.5); EOSINOPHILS ABSOLUTE AUTO 0.6 K/uL (0.0-0.7); EOSINOPHILS PERCENT AUTO 8.1 % (0.0-7.0); HEMATOCRIT 40.7 % (38.0-50.0); HEMOGLOBIN 13.1 g/dL (13.0-17.0); LYMPHOCYTES PERCENT AUTO 13.3 % (16.0-40.0); MEAN CORPUSCULAR HGB CONC 32.2 g/dL (31.0-37.0); MEAN CORPUSCULAR VOLUME 93.3 fL (80.0-98.0); MONOCYTES ABSOLUTE AUTO 0.7 K/uL (0.0-0.8); MONOCYTES PERCENT AUTO 10.2 % (0.0-15.0); NEUTROPHILS ABSOLUTE AUTO 4.9 K/uL (1.4-5.7); NEUTROPHILS PERCENT AUTO 67.6 % (48.0-80.0); NRBC ABSOLUTE 0 K/uL; PLATELET COUNT,PLT 220 K/uL (150-400); RED BLOOD CELL COUNT 4.36 M/uL (4.50-5.90); WHITE BLOOD CELL COUNT,WBC 7.24 K/uL (4.0-11.0)
[2023-06-23 06:35] LABS: CALCIUM 10.5 mg/dL (8.5-10.1); CARBON DIOXIDE,CO2 30.4 mmol/L (21.0-32.0); CREATININE 1.6 mg/dL (0.8-1.3); EST CRCL DRUG DOSING (CG) 31.35 mL/min; POTASSIUM,K 4.5 mmol/L (3.5-5.1)
[2023-06-23] MEDS: Apixaban 2.5 MG Tab PO SCH ×2 (08:16→21:17)
[2023-06-23] MEDS: Tamsulosin 0.4 MG Cap.ER PO SCH (08:16)
[2023-06-23] MEDS: Formoterol/Mometasone 200-5 MCG 8.8 GM Inhaler INH SCH ×2 (08:26→22:03)
[2023-06-23] MEDS: atorvaSTATin 10 MG Tab PO SCH (21:17)
[2023-06-23] MEDS: cefTRIAXone 1 GM in Sodium Chloride 0.9% 50 ML IV SCH (21:21)
[2023-06-24 06:10] LABS: BASOPHILS ABSOLUTE AUTO 0.1 K/uL (0.0-0.1); BASOPHILS PERCENT AUTO 0.9 % (0.0-1.5); EOSINOPHILS ABSOLUTE AUTO 0.6 K/uL (0.0-0.7); EOSINOPHILS PERCENT AUTO 7.3 % (0.0-7.0); HEMATOCRIT 40.5 % (38.0-50.0); HEMOGLOBIN 12.7 g/dL (13.0-17.0); LYMPHOCYTES ABSOLUTE AUTO 1.2 K/uL (0.6-2.4); LYMPHOCYTES PERCENT AUTO 13.8 % (16.0-40.0); MEAN CORPUSCULAR HEMOGLOBIN 29.3 pg (27.0-32.0); MEAN CORPUSCULAR HGB CONC 31.4 g/dL (31.0-37.0); MEAN CORPUSCULAR VOLUME 93.5 fL (80.0-98.0); MONOCYTES ABSOLUTE AUTO 0.7 K/uL (0.0-0.8); MONOCYTES PERCENT AUTO 7.8 % (0.0-15.0); NEUTROPHILS ABSOLUTE AUTO 6.1 K/uL (1.4-5.7); NEUTROPHILS PERCENT AUTO 70.2 % (48.0-80.0); NRBC ABSOLUTE 0 K/uL; PLATELET COUNT,PLT 223 K/uL (150-400); RED BLOOD CELL COUNT 4.33 M/uL (4.50-5.90); WHITE BLOOD CELL COUNT,WBC 8.72 K/uL (4.0-11.0)
[2023-06-24] MEDS: Pantoprazole 40 MG Tab.CR PO SCH ×2 (06:15→06:36)
[2023-06-24 06:33] LABS: CALCIUM 10.9 mg/dL (8.5-10.1); CARBON DIOXIDE,CO2 31.4 mmol/L (21.0-32.0); CREATININE 1.8 mg/dL (0.8-1.3); EST CRCL DRUG DOSING (CG) 27.87 mL/min; PHOSPHORUS 3.1 mg/dL (2.6-4.7); POTASSIUM,K 5.7 mmol/L (3.5-5.1)
[2023-06-24] MEDS: Formoterol/Mometasone 200-5 MCG 8.8 GM Inhaler INH SCH ×2 (10:03→20:01)
[2023-06-24] MEDS: Furosemide 40 MG Tab PO SCH (10:03)
[2023-06-24] MEDS: Tiotropium Bromide 4 GM Inhalation Spray (2.5mcg/1 dose; 10 doses) INH SCH (10:03)
[2023-06-24] MEDS: Tamsulosin 0.4 MG Cap.ER PO SCH (10:03)
[2023-06-24] MEDS: Apixaban 2.5 MG Tab PO SCH ×2 (10:03→20:02)
[2023-06-24] MEDS: atorvaSTATin 10 MG Tab PO SCH (20:02)
[2023-06-24] MEDS: Isosorbide Dinitrate 10 MG Tab PO SCH (20:05)
[2023-06-25 05:49] LABS: BASOPHILS ABSOLUTE AUTO 0.1 K/uL (0.0-0.1); BASOPHILS PERCENT AUTO 0.8 % (0.0-1.5); EOSINOPHILS ABSOLUTE AUTO 0.5 K/uL (0.0-0.7); EOSINOPHILS PERCENT AUTO 6.8 % (0.0-7.0); HEMATOCRIT 36.5 % (38.0-50.0); HEMOGLOBIN 11.4 g/dL (13.0-17.0); LYMPHOCYTES ABSOLUTE AUTO 1.2 K/uL (0.6-2.4); LYMPHOCYTES PERCENT AUTO 15.7 % (16.0-40.0); MEAN CORPUSCULAR HEMOGLOBIN 29.3 pg (27.0-32.0); MEAN CORPUSCULAR HGB CONC 31.2 g/dL (31.0-37.0); MEAN CORPUSCULAR VOLUME 93.8 fL (80.0-98.0); MONOCYTES ABSOLUTE AUTO 0.7 K/uL (0.0-0.8); MONOCYTES PERCENT AUTO 9.6 % (0.0-15.0); NEUTROPHILS ABSOLUTE AUTO 5.2 K/uL (1.4-5.7); NEUTROPHILS PERCENT AUTO 67.1 % (48.0-80.0); NRBC ABSOLUTE 0 K/uL; PLATELET COUNT,PLT 223 K/uL (150-400); RED BLOOD CELL COUNT 3.89 M/uL (4.50-5.90); WHITE BLOOD CELL COUNT,WBC 7.69 K/uL (4.0-11.0)
[2023-06-25] MEDS: Pantoprazole 40 MG Tab.CR PO SCH ×2 (06:24→06:30)
[2023-06-25 06:38] LABS: CALCIUM 10.4 mg/dL (8.5-10.1); CARBON DIOXIDE,CO2 29.5 mmol/L (21.0-32.0); CREATININE 2.1 mg/dL (0.8-1.3); EST CRCL DRUG DOSING (CG) 23.89 mL/min; POTASSIUM,K 5.3 mmol/L (3.5-5.1)
[2023-06-25] MEDS: Apixaban 2.5 MG Tab PO SCH ×2 (08:40→20:22)
[2023-06-25] MEDS: Tamsulosin 0.4 MG Cap.ER PO SCH (08:40)
[2023-06-25] MEDS: Furosemide 40 MG Tab PO SCH (08:40)
[2023-06-25] MEDS: Tiotropium Bromide 4 GM Inhalation Spray (2.5mcg/1 dose; 10 doses) INH SCH (08:40)
[2023-06-25] MEDS: Formoterol/Mometasone 200-5 MCG 8.8 GM Inhaler INH SCH ×2 (08:43→20:22)
[2023-06-25] MEDS: atorvaSTATin 10 MG Tab PO SCH (20:22)
[2023-06-25] MEDS: Isosorbide Dinitrate 10 MG Tab PO SCH (20:22)
[2023-06-26] MEDS: Pantoprazole 40 MG Tab.CR PO SCH ×2 (06:16→06:50)
[2023-06-26] MEDS: Tamsulosin 0.4 MG Cap.ER PO SCH (08:52)
[2023-06-26] MEDS: Apixaban 2.5 MG Tab PO SCH ×2 (08:52→20:09)
[2023-06-26] MEDS: Furosemide 40 MG Tab PO SCH (08:52)
[2023-06-26] MEDS: Formoterol/Mometasone 200-5 MCG 8.8 GM Inhaler INH SCH ×2 (08:54→20:10)
[2023-06-26] MEDS: Tiotropium Bromide 4 GM Inhalation Spray (2.5mcg/1 dose; 10 doses) INH SCH (08:54)
[2023-06-26] MEDS ORDERED: Ondansetron 4 MG Tab.DIS PO PRN (09:44)
[2023-06-26] MEDS: Isosorbide Dinitrate 10 MG Tab PO SCH (20:09)
[2023-06-26] MEDS: atorvaSTATin 10 MG Tab PO SCH (20:10)
[2023-06-27] MEDS: Pantoprazole 40 MG Tab.CR PO SCH (06:30)
[2023-06-27] MEDS: Tamsulosin 0.4 MG Cap.ER PO SCH (08:52)
[2023-06-27] MEDS: Apixaban 2.5 MG Tab PO SCH ×2 (08:52→20:07)
[2023-06-27] MEDS: Furosemide 40 MG Tab PO SCH (08:52)
[2023-06-27] MEDS: Formoterol/Mometasone 200-5 MCG 8.8 GM Inhaler INH SCH ×2 (08:56→20:22)
[2023-06-27] MEDS: Tiotropium Bromide 4 GM Inhalation Spray (2.5mcg/1 dose; 10 doses) INH SCH (08:56)
[2023-06-27] MEDS: atorvaSTATin 10 MG Tab PO SCH (20:07)
[2023-06-27] MEDS: Isosorbide Dinitrate 10 MG Tab PO SCH (20:07)
[2023-06-28] MEDS: Pantoprazole 40 MG Tab.CR PO SCH (06:43)
[2023-06-28] MEDS: Furosemide 40 MG Tab PO SCH (08:25)
[2023-06-28] MEDS: Apixaban 2.5 MG Tab PO SCH ×2 (08:25→21:42)
[2023-06-28] MEDS: Tamsulosin 0.4 MG Cap.ER PO SCH (08:25)
[2023-06-28] MEDS: Formoterol/Mometasone 200-5 MCG 8.8 GM Inhaler INH SCH ×2 (08:26→21:42)
[2023-06-28] MEDS: Tiotropium Bromide 4 GM Inhalation Spray (2.5mcg/1 dose; 10 doses) INH SCH (08:26)
[2023-06-28] MEDS: atorvaSTATin 10 MG Tab PO SCH (21:42)
[2023-06-28] MEDS: Isosorbide Dinitrate 10 MG Tab PO SCH (21:42)
[2023-06-29] MEDS: Pantoprazole 40 MG Tab.CR PO SCH (06:46)
[2023-06-29] MEDS: Tamsulosin 0.4 MG Cap.ER PO SCH (09:14)
[2023-06-29] MEDS: Tiotropium Bromide 4 GM Inhalation Spray (2.5mcg/1 dose; 10 doses) INH SCH (09:14)
[2023-06-29] MEDS: Apixaban 2.5 MG Tab PO SCH ×2 (09:14→20:47)
[2023-06-29] MEDS: Furosemide 40 MG Tab PO SCH (09:14)
[2023-06-29] MEDS: Formoterol/Mometasone 200-5 MCG 8.8 GM Inhaler INH SCH ×2 (09:17→20:47)
[2023-06-29] MEDS: atorvaSTATin 10 MG Tab PO SCH (20:47)
[2023-06-29] MEDS: Isosorbide Dinitrate 10 MG Tab PO SCH (22:19)
[2023-06-30] MEDS: Pantoprazole 40 MG Tab.CR PO SCH (06:33)
[2023-06-30] MEDS: Tamsulosin 0.4 MG Cap.ER PO SCH (09:11)
[2023-06-30] MEDS: Formoterol/Mometasone 200-5 MCG 8.8 GM Inhaler INH SCH ×2 (09:11→20:10)
[2023-06-30] MEDS: Tiotropium Bromide 4 GM Inhalation Spray (2.5mcg/1 dose; 10 doses) INH SCH (09:11)
[2023-06-30] MEDS: Furosemide 40 MG Tab PO SCH (09:11)
[2023-06-30] MEDS: Apixaban 2.5 MG Tab PO SCH ×2 (09:11→20:08)
[2023-06-30] MEDS: Isosorbide Dinitrate 10 MG Tab PO SCH (20:08)
[2023-06-30] MEDS: atorvaSTATin 10 MG Tab PO SCH (20:08)
[2023-07-01] MEDS: Pantoprazole 40 MG Tab.CR PO SCH (06:30)
[2023-07-01] MEDS: Furosemide 40 MG Tab PO SCH (09:43)
[2023-07-01] MEDS: Apixaban 2.5 MG Tab PO SCH ×2 (09:44→20:15)
[2023-07-01] MEDS: Tamsulosin 0.4 MG Cap.ER PO SCH (09:44)
[2023-07-01] MEDS: Formoterol/Mometasone 200-5 MCG 8.8 GM Inhaler INH SCH ×2 (09:45→20:15)
[2023-07-01] MEDS: Tiotropium Bromide 4 GM Inhalation Spray (2.5mcg/1 dose; 10 doses) INH SCH (09:46)
[2023-07-01] MEDS: atorvaSTATin 10 MG Tab PO SCH (20:15)
[2023-07-01] MEDS: Isosorbide Dinitrate 10 MG Tab PO SCH (20:15)
[2023-07-02] MEDS: Pantoprazole 40 MG Tab.CR PO SCH (06:45)
[2023-07-02] MEDS: Tiotropium Bromide 4 GM Inhalation Spray (2.5mcg/1 dose; 10 doses) INH SCH (09:26)
[2023-07-02] MEDS: Tamsulosin 0.4 MG Cap.ER PO SCH (09:26)
[2023-07-02] MEDS: Furosemide 40 MG Tab PO SCH (09:26)
[2023-07-02] MEDS: Apixaban 2.5 MG Tab PO SCH ×2 (09:26→21:21)
[2023-07-02] MEDS: Formoterol/Mometasone 200-5 MCG 8.8 GM Inhaler INH SCH ×2 (09:26→21:29)
[2023-07-02] MEDS: Isosorbide Dinitrate 10 MG Tab PO SCH (21:20)
[2023-07-02] MEDS: atorvaSTATin 10 MG Tab PO SCH (21:20)
[2023-07-03] MEDS: Pantoprazole 40 MG Tab.CR PO SCH (06:59)
[2023-07-03] MEDS: Formoterol/Mometasone 200-5 MCG 8.8 GM Inhaler INH SCH (08:55)
[2023-07-03] MEDS: Tamsulosin 0.4 MG Cap.ER PO SCH (08:55)
[2023-07-03] MEDS: Tiotropium Bromide 4 GM Inhalation Spray (2.5mcg/1 dose; 10 doses) INH SCH (08:55)
[2023-07-03] MEDS: Furosemide 40 MG Tab PO SCH (08:55)
[2023-07-03] MEDS: Apixaban 2.5 MG Tab PO SCH (08:55)
[2023-07-03] MEDS ORDERED: Ibuprofen 400 MG Tab PO PRN (10:42)
[2023-07-03] MEDS ORDERED: Morphine 2 MG/ML SYRINGE IVPUSH PRN (10:42)
[2023-07-03] MEDS ORDERED: oxyCODONE 5 MG Tab PO PRN (10:42)
[2023-07-03] MEDS ORDERED: Naloxone 0.4 MG/ML SDV IVPUSH PRN (10:42)
[2023-07-03] MEDS ORDERED: cefTRIAXone 1 GM in Sodium Chloride 0.9% 50 ML IV SCH (10:45)
[2023-07-03 11:35] VITALS: BP 123/66; PULSE 76
== END 2023-07-03 12:37 | disposition home health service (06) | DRG 689 ==
LOC: MW.ED 17:18 → MW.MS 20:55
PROVIDERS: ADMIT Family Medicine; ATTEND Family Medicine
DX: N39.0 Urinary tract infection, site not specified (principal); G93.41 Metabolic encephalopathy; I48.91 Unspecified atrial fibrillation; E86.0 Dehydration; I25.10 Atherosclerotic heart disease of native coronary artery without angina pectoris; J44.9 Chronic obstructive pulmonary disease, unspecified; I73.9 Peripheral vascular disease, unspecified; Z66 Do not resuscitate; I10 Essential (primary) hypertension; I44.0 Atrioventricular block, first degree; N32.89 Other specified disorders of bladder; N40.0 Benign prostatic hyperplasia without lower urinary tract symptoms; N28.82 Megaloureter; N28.89 Other specified disorders of kidney and ureter; E83.52 Hypercalcemia; Z95.810 Presence of automatic (implantable) cardiac defibrillator; Z87.440 Personal history of urinary (tract) infections; W01.0XXA Fall on same level from slipping, tripping and stumbling without subsequent striking against object, initial encounter; E78.00 Pure hypercholesterolemia, unspecified; M19.90 Unspecified osteoarthritis, unspecified site; I12.9 Hypertensive chronic kidney disease with stage 1 through stage 4 chronic kidney disease, or unspecified chronic kidney disease; N18.9 Chronic kidney disease, unspecified; Z20.822 Contact with and (suspected) exposure to COVID-19; N32.0 Bladder-neck obstruction; E78.5 Hyperlipidemia, unspecified; I25.5 Ischemic cardiomyopathy; R29.6 Repeated falls; R53.1 Weakness; G30.9 Alzheimer's disease, unspecified; F02.80 Dementia in other diseases classified elsewhere, unspecified severity, without behavioral disturbance, psychotic disturbance, mood disturbance, and anxiety; W18.30XA Fall on same level, unspecified, initial encounter; Y92.098 Other place in other non-institutional residence as the place of occurrence of the external cause; Z79.01 Long term (current) use of anticoagulants; Z79.02 Long term (current) use of antithrombotics/antiplatelets; Z79.899 Other long term (current) drug therapy; I25.2 Old myocardial infarction; Z95.0 Presence of cardiac pacemaker; Z95.5 Presence of coronary angioplasty implant and graft; Z98.890 Other specified postprocedural states
CPT/HCPCS: 36415; 70450; 71250; 72125; 74176; 80053; 81001; 82550; 82803; 83690; 83735; 84484; 85025; 85610; 86850; 86900; 86901; 87040; 87086; 93005; 99285; J3490; U0002; 72128-26; 72131-26; 80048; 82607; 84100; 84132; 93010; 97110-GP; 97162-GP; 97530-GP; 99222; 99232; 99238; 99284; A9270-GY; J0696; J7030

== ENCOUNTER 2023-12-24 10:59 | Inpatient (IN) | payer MEDICARE, BC, MEDICAID ==
[2023-12-24] MEDS ORDERED: Sodium Chloride 0.9% 10 ML Syringe FLUSH PRN ×2 (12:08→15:35)
[2023-12-24] MEDS ORDERED: Sodium Chloride 0.9% 2.5 ML Syringe FLUSH PRN ×2 (12:08→15:35)
[2023-12-24] MEDS ORDERED: Albuterol/Ipratropium 3.0-0.5 MG/3 ML Neb Soln NEB STA (12:11)
[2023-12-24 12:32] LABS: BASOPHILS ABSOLUTE AUTO 0.05 K/uL (0.00-0.20); BASOPHILS PERCENT AUTO 0.6 % (0.0-1.0); EOSINOPHILS ABSOLUTE AUTO 0.83 K/uL (0.00-0.45); EOSINOPHILS PERCENT AUTO 10.6 % (0.0-6.0); HEMATOCRIT 39.2 % (42.0-52.0); HEMOGLOBIN 12.6 g/dL (14.0-18.0); IMMATURE GRAN ABSOLUTE AUTO 0.02 K/uL (0.00-0.05); IMMATURE GRAN PERCENT AUTO 0.3 % (0.0-0.4); LYMPHOCYTES ABSOLUTE AUTO 0.53 K/uL (1.00-4.80); LYMPHOCYTES PERCENT AUTO 6.8 % (24.0-44.0); MEAN CORPUSCULAR HEMOGLOBIN 29.5 pg (28.0-32.0); MEAN CORPUSCULAR HGB CONC 32.1 g/dL (32.0-36.0); MEAN CORPUSCULAR VOLUME 91.8 fL (83.0-99.0); MEAN PLATELET VOLUME 9.1 fL (9.4-12.4); MONOCYTES ABSOLUTE AUTO 0.84 K/uL (0.00-0.80); MONOCYTES PERCENT AUTO 10.7 % (0.0-8.0); NEUTROPHILS ABSOLUTE AUTO 5.58 K/uL (1.80-7.70); PLATELET COUNT,PLT 284 K/uL (150-400); RED BLOOD CELL COUNT 4.27 M/uL (4.52-5.90); WHITE BLOOD CELL COUNT,WBC 7.85 K/uL (3.9-11.3)
[2023-12-24 12:47] LABS: INR 1.18 (0.86-1.11); PTT,PARTIAL THROMBOPLSTIN TIME 33.2 SEC (23.9-30.7)
[2023-12-24 13:02] LABS: A/G RATIO 0.6 (0.9-1.6); ALBUMIN 2.7 g/dL (3.4-5.0); BILIRUBIN TOTAL 0.4 mg/dL (0.2-1.0); CALCIUM 11.2 mg/dL (8.5-10.1); CARBON DIOXIDE,CO2 30.3 mmol/L (21.0-32.0); EST CRCL DRUG DOSING (CG) 25.9 mL/min; MAGNESIUM 2.1 mg/dL (1.8-2.4); POTASSIUM,K 4.1 mmol/L (3.5-5.1); PROTEIN TOTAL,TP 7.1 g/dL (6.4-8.2)
[2023-12-24 13:17] LABS: CORONAVIRUS COVID-19 NAA NEGATIVE (NEGATIVE); INFLUENZA A NAA NEGATIVE (NEGATIVE); INFLUENZA B NAA NEGATIVE (NEGATIVE); RESPIRATORY SYNCYTIAL VIR NAA NEGATIVE (NEGATIVE)
[2023-12-24 14:02] LABS: APPEARANCE,URINE SLT CLOUDY; BILIRUBIN,URINE NEGATIVE (NEGATIVE); GLUCOSE,URINE NEGATIVE (NEGATIVE); KETONES,URINE NEGATIVE (NEGATIVE); LEUKOCYTE ESTERASE,URINE NEGATIVE (NEGATIVE); NITRITE,URINE NEGATIVE (NEGATIVE); OCCULT BLOOD,URINE LARGE (NEGATIVE); PROTEIN,URINE TRACE mg/dL (NEGATIVE); UROBILINOGEN,URINE 0.2 EU/dL (<2.0)
[2023-12-24 14:18] LABS: BACTERIA,URINE RARE (NEGATIVE); COLOR,URINE RED; EPITHELIAL CELLS,URINE NOT SEEN (NONE-FEW); MUCUS,URINE NOT SEEN (NONE-MOD); RBC,URINE TOO NUMEROUS TO CT (0-2/HPF); WBC,URINE 0-2 (0-5/HPF)
[2023-12-24] MEDS ORDERED: Levofloxacin/Dextrose 5%-Water 500 MG in Premix Bag 1 BAG IV STA (14:34)
[2023-12-24] MEDS ORDERED: methylPREDNISolone Sodium Succinate 125 MG/2 ML SDV IVPUSH STA (14:34)
[2023-12-24] MEDS ORDERED: Docusate Sodium 100 MG Cap PO PRN (15:35)
[2023-12-24] MEDS ORDERED: Ondansetron 4 MG/2 ML SDV IVPUSH PRN (15:35)
[2023-12-24] MEDS ORDERED: Acetaminophen 325 MG Tab PO PRN (15:35)
[2023-12-24] MEDS ORDERED: Albuterol 0.083% 2.5 MG/3 ML Neb Soln NEB PRN (15:35)
[2023-12-24] MEDS: cefTRIAXone 1 GM in Sodium Chloride 0.9% 50 ML IV SCH (16:56)
[2023-12-24] MEDS: Albuterol/Ipratropium 3.0-0.5 MG/3 ML Neb Soln NEB SCH ×2 (18:01→21:17)
[2023-12-24] MEDS: Apixaban 2.5 MG Tab PO SCH (21:18)
[2023-12-24] MEDS: atorvaSTATin 10 MG Tab PO SCH (21:18)
[2023-12-24] MEDS: Formoterol/Mometasone 200-5 MCG 8.8 GM Inhaler INH SCH (21:18)
[2023-12-24] MEDS: Isosorbide Dinitrate 10 MG Tab PO SCH (21:18)
[2023-12-25] MEDS: Albuterol/Ipratropium 3.0-0.5 MG/3 ML Neb Soln NEB SCH ×6 (02:25→22:28)
[2023-12-25 06:19] LABS: BASOPHILS ABSOLUTE AUTO 0.01 K/uL (0.00-0.20); BASOPHILS PERCENT AUTO 0.2 % (0.0-1.0); HEMATOCRIT 36.7 % (42.0-52.0); HEMOGLOBIN 11.7 g/dL (14.0-18.0); IMMATURE GRAN ABSOLUTE AUTO 0.01 K/uL (0.00-0.05); IMMATURE GRAN PERCENT AUTO 0.2 % (0.0-0.4); LYMPHOCYTES ABSOLUTE AUTO 0.26 K/uL (1.00-4.80); LYMPHOCYTES PERCENT AUTO 4.8 % (24.0-44.0); MEAN CORPUSCULAR HEMOGLOBIN 29.4 pg (28.0-32.0); MEAN CORPUSCULAR HGB CONC 31.9 g/dL (32.0-36.0); MEAN CORPUSCULAR VOLUME 92.2 fL (83.0-99.0); MEAN PLATELET VOLUME 9.7 fL (9.4-12.4); MONOCYTES ABSOLUTE AUTO 0.14 K/uL (0.00-0.80); MONOCYTES PERCENT AUTO 2.6 % (0.0-8.0); NEUTROPHILS ABSOLUTE AUTO 4.95 K/uL (1.80-7.70); NEUTROPHILS PERCENT AUTO 92.2 % (41.0-71.0); PLATELET COUNT,PLT 266 K/uL (150-400); RED BLOOD CELL COUNT 3.98 M/uL (4.52-5.90); WHITE BLOOD CELL COUNT,WBC 5.37 K/uL (3.9-11.3)
[2023-12-25 06:36] LABS: CALCIUM 11.4 mg/dL (8.5-10.1); CARBON DIOXIDE,CO2 28.5 mmol/L (21.0-32.0); CREATININE 2.2 mg/dL (0.8-1.3); EST CRCL DRUG DOSING (CG) 23.41 mL/min; POTASSIUM,K 4.2 mmol/L (3.5-5.1)
[2023-12-25] MEDS: Pantoprazole 40 MG Tab.CR PO SCH (08:25)
[2023-12-25] MEDS: Formoterol/Mometasone 200-5 MCG 8.8 GM Inhaler INH SCH ×2 (08:26→20:07)
[2023-12-25] MEDS: predniSONE 20 MG Tab PO SCH (08:26)
[2023-12-25] MEDS: Apixaban 2.5 MG Tab PO SCH ×2 (08:27→20:06)
[2023-12-25] MEDS: Tamsulosin 0.4 MG Cap.ER PO SCH (08:28)
[2023-12-25] MEDS: Clopidogrel 75 MG Tab PO SCH (08:29)
[2023-12-25] MEDS: Tiotropium Bromide 4 GM Inhalation Spray (2.5mcg/1 dose; 10 doses) INH SCH (08:29)
[2023-12-25] MEDS ORDERED: Furosemide 40 MG Tab PO SCH (09:00)
[2023-12-25] MEDS: cefTRIAXone 1 GM in Sodium Chloride 0.9% 50 ML IV SCH (16:02)
[2023-12-25] MEDS: Isosorbide Dinitrate 10 MG Tab PO SCH (20:05)
[2023-12-25] MEDS: atorvaSTATin 10 MG Tab PO SCH (20:06)
[2023-12-25] MEDS ORDERED: Sodium Chloride 0.9% 500 ML IV ONE (22:00)
[2023-12-25] MEDS: Sodium Chloride 0.9% 1,000 ML IV SCH (22:49)
[2023-12-26] MEDS ORDERED: Haloperidol Lactate 5 MG/ML SDV IM ONE (01:56)
[2023-12-26] MEDS ORDERED: Sodium Chloride 0.9% 500 ML IV ONE (02:00)
[2023-12-26] MEDS: Albuterol/Ipratropium 3.0-0.5 MG/3 ML Neb Soln NEB SCH ×2 (02:11→06:38)
[2023-12-26] MEDS ORDERED: Albuterol/Ipratropium 3.0-0.5 MG/3 ML Neb Soln NEB PRN (06:29)
[2023-12-26] MEDS: Pantoprazole 40 MG Tab.CR PO SCH (06:35)
[2023-12-26] MEDS: Sodium Chloride 0.9% 1,000 ML IV SCH (08:07)
[2023-12-26] MEDS: predniSONE 20 MG Tab PO SCH (09:23)
[2023-12-26] MEDS: Clopidogrel 75 MG Tab PO SCH (09:24)
[2023-12-26] MEDS: Apixaban 2.5 MG Tab PO SCH ×2 (09:25→20:12)
[2023-12-26] MEDS: Tamsulosin 0.4 MG Cap.ER PO SCH (09:26)
[2023-12-26] MEDS: Tiotropium Bromide 4 GM Inhalation Spray (2.5mcg/1 dose; 10 doses) INH SCH (09:39)
[2023-12-26] MEDS: Formoterol/Mometasone 200-5 MCG 8.8 GM Inhaler INH SCH ×2 (09:40→20:16)
[2023-12-26 11:17] LABS: BASOPHILS ABSOLUTE AUTO 0.02 K/uL (0.00-0.20); BASOPHILS PERCENT AUTO 0.1 % (0.0-1.0); EOSINOPHILS ABSOLUTE AUTO 0.06 K/uL (0.00-0.45); EOSINOPHILS PERCENT AUTO 0.4 % (0.0-6.0); HEMATOCRIT 34.8 % (42.0-52.0); HEMOGLOBIN 11.1 g/dL (14.0-18.0); IMMATURE GRAN ABSOLUTE AUTO 0.07 K/uL (0.00-0.05); IMMATURE GRAN PERCENT AUTO 0.5 % (0.0-0.4); LYMPHOCYTES ABSOLUTE AUTO 0.66 K/uL (1.00-4.80); LYMPHOCYTES PERCENT AUTO 4.4 % (24.0-44.0); MEAN CORPUSCULAR HEMOGLOBIN 29.7 pg (28.0-32.0); MEAN CORPUSCULAR HGB CONC 31.9 g/dL (32.0-36.0); MEAN PLATELET VOLUME 9.4 fL (9.4-12.4); MONOCYTES ABSOLUTE AUTO 0.86 K/uL (0.00-0.80); MONOCYTES PERCENT AUTO 5.8 % (0.0-8.0); NEUTROPHILS ABSOLUTE AUTO 13.25 K/uL (1.80-7.70); NEUTROPHILS PERCENT AUTO 88.8 % (41.0-71.0); PLATELET COUNT,PLT 302 K/uL (150-400); RED BLOOD CELL COUNT 3.74 M/uL (4.52-5.90); WHITE BLOOD CELL COUNT,WBC 14.92 K/uL (3.9-11.3)
[2023-12-26 11:45] LABS: CALCIUM 11.2 mg/dL (8.5-10.1); CREATININE 1.8 mg/dL (0.8-1.3); EST CRCL DRUG DOSING (CG) 28.58 mL/min; POTASSIUM,K 4.3 mmol/L (3.5-5.1)
[2023-12-26] MEDS: cefTRIAXone 1 GM in Sodium Chloride 0.9% 50 ML IV SCH (16:35)
[2023-12-26] MEDS ORDERED: Morphine 2 MG/ML SYRINGE IVPUSH STA (17:39)
[2023-12-26] MEDS: Isosorbide Dinitrate 10 MG Tab PO SCH (20:10)
[2023-12-26] MEDS: atorvaSTATin 10 MG Tab PO SCH (20:12)
[2023-12-27 05:52] LABS: BASOPHILS ABSOLUTE AUTO 0.01 K/uL (0.00-0.20); BASOPHILS PERCENT AUTO 0.1 % (0.0-1.0); EOSINOPHILS ABSOLUTE AUTO 0.01 K/uL (0.00-0.45); EOSINOPHILS PERCENT AUTO 0.1 % (0.0-6.0); HEMATOCRIT 33.8 % (42.0-52.0); HEMOGLOBIN 10.8 g/dL (14.0-18.0); IMMATURE GRAN ABSOLUTE AUTO 0.07 K/uL (0.00-0.05); IMMATURE GRAN PERCENT AUTO 0.6 % (0.0-0.4); LYMPHOCYTES ABSOLUTE AUTO 0.55 K/uL (1.00-4.80); LYMPHOCYTES PERCENT AUTO 4.5 % (24.0-44.0); MEAN CORPUSCULAR HEMOGLOBIN 29.3 pg (28.0-32.0); MEAN CORPUSCULAR VOLUME 91.8 fL (83.0-99.0); MEAN PLATELET VOLUME 9.7 fL (9.4-12.4); MONOCYTES PERCENT AUTO 5.7 % (0.0-8.0); NEUTROPHILS ABSOLUTE AUTO 10.91 K/uL (1.80-7.70); PLATELET COUNT,PLT 284 K/uL (150-400); RED BLOOD CELL COUNT 3.68 M/uL (4.52-5.90); WHITE BLOOD CELL COUNT,WBC 12.25 K/uL (3.9-11.3)
[2023-12-27 06:11] LABS: CARBON DIOXIDE,CO2 28.6 mmol/L (21.0-32.0); CREATININE 1.8 mg/dL (0.8-1.3); EST CRCL DRUG DOSING (CG) 28.58 mL/min; POTASSIUM,K 4.7 mmol/L (3.5-5.1)
[2023-12-27] MEDS: Clopidogrel 75 MG Tab PO SCH (08:47)
[2023-12-27] MEDS: Tamsulosin 0.4 MG Cap.ER PO SCH (08:47)
[2023-12-27] MEDS: predniSONE 20 MG Tab PO SCH (08:47)
[2023-12-27] MEDS: Formoterol/Mometasone 200-5 MCG 8.8 GM Inhaler INH SCH ×2 (08:48→21:14)
[2023-12-27] MEDS: Pantoprazole 40 MG Tab.CR PO SCH (08:48)
[2023-12-27] MEDS: Apixaban 2.5 MG Tab PO SCH ×2 (08:48→21:04)
[2023-12-27] MEDS: Tiotropium Bromide 4 GM Inhalation Spray (2.5mcg/1 dose; 10 doses) INH SCH (08:49)
[2023-12-27] MEDS: cefTRIAXone 1 GM in Sodium Chloride 0.9% 50 ML IV SCH (14:57)
[2023-12-27] MEDS: Isosorbide Dinitrate 10 MG Tab PO SCH (21:02)
[2023-12-27] MEDS: atorvaSTATin 10 MG Tab PO SCH (21:04)
[2023-12-28] MEDS: Apixaban 2.5 MG Tab PO SCH ×2 (09:59→20:28)
[2023-12-28] MEDS: predniSONE 20 MG Tab PO SCH (09:59)
[2023-12-28] MEDS: Tamsulosin 0.4 MG Cap.ER PO SCH (10:00)
[2023-12-28] MEDS: Pantoprazole 40 MG Tab.CR PO SCH (10:00)
[2023-12-28] MEDS: Formoterol/Mometasone 200-5 MCG 8.8 GM Inhaler INH SCH ×2 (10:00→20:28)
[2023-12-28] MEDS: Clopidogrel 75 MG Tab PO SCH (10:00)
[2023-12-28] MEDS: Tiotropium Bromide 4 GM Inhalation Spray (2.5mcg/1 dose; 10 doses) INH SCH (10:01)
[2023-12-28 10:49] LABS: BASOPHILS ABSOLUTE AUTO 0.02 K/uL (0.00-0.20); BASOPHILS PERCENT AUTO 0.2 % (0.0-1.0); EOSINOPHILS ABSOLUTE AUTO 0.75 K/uL (0.00-0.45); EOSINOPHILS PERCENT AUTO 5.7 % (0.0-6.0); HEMOGLOBIN 12.2 g/dL (14.0-18.0); IMMATURE GRAN ABSOLUTE AUTO 0.09 K/uL (0.00-0.05); IMMATURE GRAN PERCENT AUTO 0.7 % (0.0-0.4); LYMPHOCYTES ABSOLUTE AUTO 0.99 K/uL (1.00-4.80); LYMPHOCYTES PERCENT AUTO 7.5 % (24.0-44.0); MEAN CORPUSCULAR HEMOGLOBIN 28.9 pg (28.0-32.0); MEAN CORPUSCULAR HGB CONC 31.3 g/dL (32.0-36.0); MEAN CORPUSCULAR VOLUME 92.4 fL (83.0-99.0); MEAN PLATELET VOLUME 9.5 fL (9.4-12.4); MONOCYTES ABSOLUTE AUTO 0.98 K/uL (0.00-0.80); MONOCYTES PERCENT AUTO 7.4 % (0.0-8.0); NEUTROPHILS PERCENT AUTO 78.5 % (41.0-71.0); PLATELET COUNT,PLT 316 K/uL (150-400); RED BLOOD CELL COUNT 4.22 M/uL (4.52-5.90); WHITE BLOOD CELL COUNT,WBC 13.23 K/uL (3.9-11.3)
[2023-12-28 11:05] LABS: CALCIUM 11.3 mg/dL (8.5-10.1); CARBON DIOXIDE,CO2 30.9 mmol/L (21.0-32.0); CREATININE 1.8 mg/dL (0.8-1.3); EST CRCL DRUG DOSING (CG) 29.6 mL/min; POTASSIUM,K 4.4 mmol/L (3.5-5.1)
[2023-12-28] MEDS: cefTRIAXone 1 GM in Sodium Chloride 0.9% 50 ML IV SCH (15:29)
[2023-12-28] MEDS: atorvaSTATin 10 MG Tab PO SCH (20:28)
[2023-12-28] MEDS: Isosorbide Dinitrate 10 MG Tab PO SCH (20:42)
[2023-12-29] MEDS: Pantoprazole 40 MG Tab.CR PO SCH (07:29)
[2023-12-29] MEDS: Formoterol/Mometasone 200-5 MCG 8.8 GM Inhaler INH SCH (08:10)
[2023-12-29] MEDS: Tiotropium Bromide 4 GM Inhalation Spray (2.5mcg/1 dose; 10 doses) INH SCH (08:11)
[2023-12-29] MEDS: Tamsulosin 0.4 MG Cap.ER PO SCH (08:13)
[2023-12-29] MEDS: Clopidogrel 75 MG Tab PO SCH (08:13)
[2023-12-29] MEDS: predniSONE 20 MG Tab PO SCH (08:13)
[2023-12-29] MEDS: Apixaban 2.5 MG Tab PO SCH (08:13)
[2023-12-29 13:10] VITALS: BP 132/70; PULSE 78
[2023-12-29] MEDS ORDERED: Isosorbide Dinitrate 10 MG Tab PO SCH (14:00)
== END 2023-12-29 13:00 | DRG 191 ==
LOC: MW.ED 10:59 → MW.MS 15:01 → OBSVTOIN 12-26 12:07
PROVIDERS: ADMIT Internal Medicine; ATTEND Internal Medicine
DX: J44.1 Chronic obstructive pulmonary disease with (acute) exacerbation (principal); I48.11 Longstanding persistent atrial fibrillation; I10 Essential (primary) hypertension; I25.10 Atherosclerotic heart disease of native coronary artery without angina pectoris; I73.9 Peripheral vascular disease, unspecified; Z66 Do not resuscitate; H91.90 Unspecified hearing loss, unspecified ear; E78.00 Pure hypercholesterolemia, unspecified; N40.0 Benign prostatic hyperplasia without lower urinary tract symptoms; M19.90 Unspecified osteoarthritis, unspecified site; I25.5 Ischemic cardiomyopathy; I12.9 Hypertensive chronic kidney disease with stage 1 through stage 4 chronic kidney disease, or unspecified chronic kidney disease; G30.9 Alzheimer's disease, unspecified; F02.80 Dementia in other diseases classified elsewhere, unspecified severity, without behavioral disturbance, psychotic disturbance, mood disturbance, and anxiety; D72.829 Elevated white blood cell count, unspecified; E86.0 Dehydration; Z79.01 Long term (current) use of anticoagulants; Z95.0 Presence of cardiac pacemaker; Z79.02 Long term (current) use of antithrombotics/antiplatelets; Z79.51 Long term (current) use of inhaled steroids; Z79.899 Other long term (current) drug therapy; I25.2 Old myocardial infarction; Z98.890 Other specified postprocedural states; Z95.5 Presence of coronary angioplasty implant and graft; Z11.52 Encounter for screening for COVID-19
CPT/HCPCS: 0241U; 36415; 71046; 80048; 80053; 81001; 83605; 83690; 83735; 83880; 84484; 85025; 85610; 85730; 87040; 87086; 93005; 94640; 96365; 96375; 97162; 97165; 97530; 99285; 93010; 96361; 96366; 96367; 96372; 99222; 99232; 99239; 99284; A9270-GY; G0378; J0696; J1630; J1956; J2930; J3490; J7030; J7040; J7620-GY

== ENCOUNTER 2024-02-27 18:58 | Emergency (ER) | payer MEDICARE, BC, MEDICAID ==
[2024-02-27 20:02] LABS: BASOPHILS ABSOLUTE AUTO 0.07 K/uL (0.00-0.20); EOSINOPHILS ABSOLUTE AUTO 0.53 K/uL (0.00-0.45); EOSINOPHILS PERCENT AUTO 7.3 % (0.0-6.0); HEMATOCRIT 38.3 % (42.0-52.0); HEMOGLOBIN 12.1 g/dL (14.0-18.0); IMMATURE GRAN ABSOLUTE AUTO 0.04 K/uL (0.00-0.05); IMMATURE GRAN PERCENT AUTO 0.6 % (0.0-0.4); LYMPHOCYTES ABSOLUTE AUTO 1.04 K/uL (1.00-4.80); LYMPHOCYTES PERCENT AUTO 14.4 % (24.0-44.0); MEAN CORPUSCULAR HEMOGLOBIN 28.7 pg (28.0-32.0); MEAN CORPUSCULAR HGB CONC 31.6 g/dL (32.0-36.0); MEAN PLATELET VOLUME 9.3 fL (9.4-12.4); MONOCYTES ABSOLUTE AUTO 0.64 K/uL (0.00-0.80); MONOCYTES PERCENT AUTO 8.9 % (0.0-8.0); NEUTROPHILS ABSOLUTE AUTO 4.91 K/uL (1.80-7.70); NEUTROPHILS PERCENT AUTO 67.8 % (41.0-71.0); PLATELET COUNT,PLT 275 K/uL (150-400); RED BLOOD CELL COUNT 4.21 M/uL (4.52-5.90); WHITE BLOOD CELL COUNT,WBC 7.23 K/uL (3.9-11.3)
[2024-02-27 20:16] LABS: INR 1.07 (0.86-1.11); PTT,PARTIAL THROMBOPLSTIN TIME 29.7 SEC (23.9-30.7)
[2024-02-27 20:26] LABS: A/G RATIO 0.8 (0.9-1.6); ALBUMIN 2.8 g/dL (3.4-5.0); BILIRUBIN TOTAL 0.2 mg/dL (0.2-1.0); CALCIUM 10.2 mg/dL (8.5-10.1); CARBON DIOXIDE,CO2 28.8 mmol/L (21.0-32.0); CREATININE 1.8 mg/dL (0.8-1.3); EST CRCL DRUG DOSING (CG) 31.36 mL/min; POTASSIUM,K 3.9 mmol/L (3.5-5.1); PROTEIN TOTAL,TP 6.4 g/dL (6.4-8.2)
[2024-02-27 22:05] LABS: BILIRUBIN,URINE NEGATIVE (NEGATIVE); GLUCOSE,URINE NEGATIVE (NEGATIVE); KETONES,URINE NEGATIVE (NEGATIVE); LEUKOCYTE ESTERASE,URINE NEGATIVE (NEGATIVE); NITRITE,URINE POSITIVE (NEGATIVE); OCCULT BLOOD,URINE MODERATE (NEGATIVE); PROTEIN,URINE 100 mg/dL (NEGATIVE); UROBILINOGEN,URINE 0.2 EU/dL (<2.0)
[2024-02-27 22:06] LABS: APPEARANCE,URINE CLOUDY; BACTERIA,URINE FEW (NEGATIVE); COLOR,URINE RED; EPITHELIAL CELLS,URINE NOT SEEN (NONE-FEW); RBC,URINE TOO NUMEROUS TO CT (0-2/HPF); WBC,URINE NONE SEEN (0-5/HPF)
[2024-02-27] MEDS: Cephalexin 500 MG Cap PO ONE (22:33)
[2024-02-27 22:34] VITALS: BP 151/66; PULSE 88
== END 2024-02-27 22:46 ==
LOC: MW.ED 18:58
DX: R31.9 Hematuria, unspecified (principal); I10 Essential (primary) hypertension; E78.00 Pure hypercholesterolemia, unspecified; I25.10 Atherosclerotic heart disease of native coronary artery without angina pectoris; I25.2 Old myocardial infarction; J44.9 Chronic obstructive pulmonary disease, unspecified; I48.91 Unspecified atrial fibrillation; Z79.01 Long term (current) use of anticoagulants; Z95.0 Presence of cardiac pacemaker; Z95.5 Presence of coronary angioplasty implant and graft; Z79.899 Other long term (current) drug therapy; Z79.51 Long term (current) use of inhaled steroids; Z75.8 Other problems related to medical facilities and other health care
CPT/HCPCS: 36415; 74176; 80053; 81001; 85025; 85610; 85730; 99284; A9270

== ENCOUNTER 2024-08-02 13:59 | Emergency (ER) | payer MEDICARE, BC, MEDICAID ==
[2024-08-02 15:50] VITALS: BP 147/60; PULSE 71
[2024-08-02] MEDS: Amoxicillin/Clavulanate K 875-125 MG Tab PO ONE (16:21)
== END 2024-08-02 16:26 | disposition home or self-care (01) ==
LOC: MW.ED 13:59
DX: R05.9 Cough, unspecified (principal); I10 Essential (primary) hypertension; I25.10 Atherosclerotic heart disease of native coronary artery without angina pectoris; I25.2 Old myocardial infarction; E78.00 Pure hypercholesterolemia, unspecified; K21.9 Gastro-esophageal reflux disease without esophagitis; Z95.0 Presence of cardiac pacemaker; Z95.5 Presence of coronary angioplasty implant and graft; Z79.899 Other long term (current) drug therapy; Z79.01 Long term (current) use of anticoagulants; Z79.51 Long term (current) use of inhaled steroids
CPT/HCPCS: 71046; 99283; A9270

== ENCOUNTER 2025-06-21 10:50 | Emergency (ER) | payer MEDICARE, BC, MEDICAID ==
[2025-06-21] MEDS ORDERED: Sodium Chloride 0.9% 2.5 ML Syringe FLUSH PRN (10:59)
[2025-06-21] MEDS ORDERED: Sodium Chloride 0.9% 10 ML Syringe FLUSH PRN (10:59)
[2025-06-21 11:06] LABS: BASOPHILS ABSOLUTE AUTO 0.06 K/uL (0.00-0.20); BASOPHILS PERCENT AUTO 0.7 % (0.0-1.0); EOSINOPHILS ABSOLUTE AUTO 0.44 K/uL (0.00-0.45); EOSINOPHILS PERCENT AUTO 4.9 % (0.0-6.0); IMMATURE GRAN ABSOLUTE AUTO 0.04 K/uL (0.00-0.05); IMMATURE GRAN PERCENT AUTO 0.4 % (0.0-0.4); LYMPHOCYTES ABSOLUTE AUTO 1.03 K/uL (1.00-4.80); LYMPHOCYTES PERCENT AUTO 11.6 % (24.0-44.0); MEAN PLATELET VOLUME 9.5 fL (9.4-12.4); MONOCYTES ABSOLUTE AUTO 0.68 K/uL (0.00-0.80); MONOCYTES PERCENT AUTO 7.6 % (0.0-8.0); NEUTROPHILS ABSOLUTE AUTO 6.65 K/uL (1.80-7.70); NEUTROPHILS PERCENT AUTO 74.8 % (41.0-71.0); NRBC ABSOLUTE 0.00 K/uL (0.00-0.02); NRBC PERCENT 0.0 /100WBC (0.0-0.2); PLATELET COUNT,PLT 240 K/uL (150-400); RED BLOOD CELL COUNT 4.39 M/uL (4.52-5.90); WHITE BLOOD CELL COUNT,WBC 8.90 K/uL (3.9-11.3)
[2025-06-21] MEDS: Diphtheria,Pertussis(Acell),Tetanus Vaccine 0.5 ML Syringe IM ONE (11:23)
[2025-06-21 11:26] LABS: A/G RATIO 0.9 (0.9-1.6); ALANINE AMINOTRANSFERASE,ALT 18 IU/L (14-63); ASPARTATE AMNIOTRANSFERASE,AST 20 IU/L (15-37); BILIRUBIN TOTAL 0.4 mg/dL (0.2-1.0); BLOOD UREA NITROGEN,BUN 32 mg/dL (7.0-18.0); CARBON DIOXIDE,CO2 29.0 mmol/L (21.0-32.0); CHLORIDE,CL 109 mmol/L (98-107); CREATINE KINASE,CK 81 U/L (26-308); CREATININE 2.0 mg/dL (0.8-1.3); GLUCOSE RANDOM 103 mg/dL (74-106); POTASSIUM,K 4.0 mmol/L (3.5-5.1); PROTEIN TOTAL,TP 7.1 g/dL (6.4-8.2); SODIUM,NA 146 mmol/L (136-148)
[2025-06-21 11:30] LABS: ESTIMATED GFR 32 mL/min (>60)
[2025-06-21] MEDS ORDERED: [UNRECOGNIZED DRUG - OTHER] IV ONE (11:50)
[2025-06-21] MEDS ORDERED: HUM PROTHROMBIN CPLX IV ONE (11:50)
[2025-06-21 11:54] LABS: INR 1.08 (0.86-1.11); PTT,PARTIAL THROMBOPLSTIN TIME 28.1 SEC (23.9-30.7)
[2025-06-21] MEDS: fentaNYL 100 MCG/2 ML SDV IVPUSH ONE (11:56)
[2025-06-21] MEDS: HUM PROTHROMBIN CPLX(PCC)4FACT 2,000 UNIT IV ONE (12:20)
[2025-06-21] MEDS: levETIRAcetam 500 MG/5 ML SDV IVPUSH ONE (12:43)
[2025-06-21] MEDS: niCARdipine/Normal Saline 20 MG in Premix Bag 1 BAG IV SCH (12:56)
[2025-06-21 13:10] VITALS: BP 186/99; PULSE 91
== END 2025-06-21 13:10 ==
LOC: MW.ED 10:50
DX: S06.6XAA Traumatic subarachnoid hemorrhage with loss of consciousness status unknown, initial encounter (principal); R41.82 Altered mental status, unspecified; Z23 Encounter for immunization; I10 Essential (primary) hypertension; I25.2 Old myocardial infarction; I25.10 Atherosclerotic heart disease of native coronary artery without angina pectoris; E78.00 Pure hypercholesterolemia, unspecified; M19.90 Unspecified osteoarthritis, unspecified site; J44.9 Chronic obstructive pulmonary disease, unspecified; Z95.0 Presence of cardiac pacemaker; Z79.01 Long term (current) use of anticoagulants; W19.XXXA Unspecified fall, initial encounter
CPT/HCPCS: 36415; 70450; 71250; 72125; 74176; 80053; 82550; 83735; 84484; 85025; 85610; 85730; 90471; 90715; 93005; 96374; 96375; 99291; G0390; J1953; J3010; J7168; 93010; 99285; J3490